=== PATIENT | female | born 1940 | race Caucasian/White ===

== ENCOUNTER → 2019-06-22 10:31 | Outpatient (BNVA) | payer MEDICARE, OTHER, SELFPAY | PROVIDERS: Family Provider Internal Medicine; PCP Internal Medicine; Visit Provider Internal Medicine Cardiovascular Disease | DX: I48.91 Unspecified atrial fibrillation (principal) | CPT/HCPCS: 85610 ==

== ENCOUNTER → 2019-07-20 10:01 | Outpatient (BNVA) | payer MEDICARE, OTHER, SELFPAY | PROVIDERS: Family Provider Internal Medicine; PCP Internal Medicine; Visit Provider Internal Medicine Cardiovascular Disease | DX: I48.91 Unspecified atrial fibrillation (principal) | CPT/HCPCS: 85610 ==

== ENCOUNTER → 2019-07-27 10:00 | Outpatient (BNVA) | payer MEDICARE, OTHER, SELFPAY | PROVIDERS: Family Provider Internal Medicine; PCP Internal Medicine; Visit Provider Internal Medicine Cardiovascular Disease | DX: I48.91 Unspecified atrial fibrillation (principal) | CPT/HCPCS: 85610 ==

== ENCOUNTER → 2019-08-03 08:56 | Outpatient (BNVA) | payer MEDICARE, OTHER, SELFPAY | PROVIDERS: Family Provider Internal Medicine; PCP Internal Medicine; Visit Provider Internal Medicine Cardiovascular Disease | DX: I48.91 Unspecified atrial fibrillation (principal) | CPT/HCPCS: 85610 ==

== ENCOUNTER 2019-08-16 09:59 | Outpatient (CLI) | payer MEDICARE, OTHER, SELFPAY ==
--- NOTE | 2019-08-16 10:12 | MM_ITS ---
WS: [id number] LEFT DIGITAL MAMMOGRAPHY WITH CAD CLINICAL INFORMATION: LT BREAST LUMP 6 MO F/U HISTORY: COMPARISON: November 29, 2018 TECHNIQUE: 4 views of the left breast were obtained. FINDINGS: Scattered fibroglandular densities of the left breast. Vascular calcification. A few stable punctate clustered calcifications. Biopsy clip not visualized likely more posterior in the breast. No new findings. ULTRASOUND BREAST LEFT TECHNIQUE: Ultrasound left breast focused area of concern. CLINICAL INFORMATION: LT BREAST LUMP 6 MO F/U COMPARISON: Prior ultrasound 12/08/2018 and 11/29/2018 FINDINGS: Ultrasound left breast at the 11:00 position. Again seen are a few small cystic lesions some with int ernal debris. Dense area of parenchymal shadowing measuring 7.9 x 6.8 mm similar to the prior examina tion which was the area previously biopsied with no evidence of malignancy on pathology. Findings are probably benign and recommend 6 month follow-up to confirm stability. MM/[place] [id number] IMPRESSION: BI-RADS: 3-Probably Benign FOLLOW UP: 6 Month Follow-up
== END 2019-08-16 10:00 | disposition home or self-care (01) ==
LOC: RADSHAW 10:00
PROVIDERS: Family Provider Internal Medicine; PCP Internal Medicine; Visit Provider Internal Medicine
DX: N63.22 Unspecified lump in the left breast, upper inner quadrant (principal)
CPT/HCPCS: 76642; 77065

== ENCOUNTER 2019-09-07 17:59 | Emergency (ER) | payer MEDICARE, OTHER, SELFPAY ==
[2019-09-07 18:02] VITALS: BP 194/75; PULSE 69; RESP 18; TEMP 37; O2SAT 96; BMI 38.9
--- NOTE | 2019-09-07 18:03 | ED_ITS ---
HPI - Ear Problem General: Chief complaint: Dizziness Stated complaint: R ear pain Time Seen by Provider: 09/07/19 18:03 Source: patient Mode of arrival: ambulatory Limitations: no limitations History of Present Illness: HPI Narrative: Patient presents today with some complaints of lightheadedness and feeling dizzy. Patient reports this is very similar to previous times where she has been told she had inner ear problems. Patient appears well. Patient reports one episode of nausea this morning. Patient reports some difficulty of walking. No facial drooping or abnormality is noted on initial exam. Equal strength and sensation is noted. Patient does take warfarin for a history of atrial fib. Patient does have a pacemaker. Review of Systems General: Reports: 10 or more systems reviewed and unremarkable except in HPI and below Neuro: Reports: dizziness PFS ED PFSH: Medical History (Updated 09/07/19 @ 19:55 by OMEGA Nichols) Aortic stenosis Atrial fibrillation CAD (coronary artery disease) Diabetes mellitus Dyslipidemia Essential hypertension History of TIAs Obesity Peripheral arterial disease Sick sinus syndrome Sleep apnea Warfarin anticoagulation Surgical History History of permanent cardiac pacemaker placement Social History Smoking and tobacco status: never smoked Lives independently: Yes Marital status: / Physical Exam Const: COMMON NORMALS: no apparent distress and oriented x3 GENERAL APPEARANCE: cooperative HENMT: COMMON NORMALS: normocephalic, external ears normal, EAC's normal and TM's normal bilaterally HEAD & SCALP: normal to inspection and normocephalic FACE & SINUS: normal facial exam NOSE: mucous membranes and turbinates abnormal erythematous GENERAL EAR: hearing not grossly impaired EXTERNAL EAR: Yes external ears normal EXTERNAL AUDITORY CANAL: EAC's normal TYMPANIC MEMBRANE: TM's normal bilaterally MOUTH: oral and palatal mucosa normal THROAT: posterior oropharynx abnormal erythema (mild) Eye: COMMON NORMALS: PERRL and EOMs intact bilaterally PUPIL: Yes PERRL Neck/C-Spine: COMMON NORMALS: full ROM and no lymphadenopathy Lymph: LYMPHATIC: no lymphedema noted Chest: COMMONS NORMALS: inspection of chest normal and palpation of chest normal Resp: COMMON NORMALS: normal respiratory effort and clear to auscultation bilaterally AUSCULTATION: clear to auscultation bilaterally Cardio: COMMON NORMALS: regular rate and regular rhythm RATE: regular rate RHYTHM: regular rhythm GI: COMMON NORMALS: normal to inspection, nondistended, normoactive bowel sounds and non-tender : COMMON NORMALS: Yes no CVA tenderness BLADDER/KIDNEY EXAM: Yes no CVA tenderness Back/Pelvis: COMMON NORMALS: no CVA tenderness and thoracic and lumbar spine normal to inspection Extremity: COMMON NORMALS: normal to inspection GENERAL: No edema Neuro: COMMON NORMALS: oriented x3, moves all extremities and no focal motor deficits Psych: COMMON NORMALS: mental status grossly normal and cooperative Skin: COMMON NORMALS: no rashes or lesions noted GENERAL SKIN EXAM: no rashes or lesions noted Course Vital Signs: Vital signs: Vital Signs Temperature 98.6 F 09/07/19 18:02 Pulse Rate 69 09/07/19 18:41 Respiratory Rate 18 09/07/19 18:02 Blood Pressure 169/75 09/07/19 18:41 Pulse Oximetry 96 09/07/19 18:02 MDM - Ear MDM Narrative: Medical decision making narrative: Patient comes in today with complaints of dizziness starting this morning. Patient states that she has had history of similar episodes in the past. Patient reports some right ear discomfort. Patient reports that it is been her inner ear. Exam notes bilateral tympanic membranes are intact and clear. Respirations are even lungs are clear to auscultation. Abdomen is soft and nontender. Heart rate is regular. Vital signs are normal except for some mild elevation in blood pressure. Differential diagnosis includes vestibular neuronitis, benign positional vertigo, ACS, arrhythmia, hyperglycemia, hyponatremia, CVA versus TIA. Laboratory values did note some mild hyponatremia at 130, blood sugar is elevated to 280, white blood cell count was elevated at 14. Review of record it is noted that patient routinely runs a slightly elevated white blood cell count. There is also noted that patient has underlying mild hyponatremia and does have diabetes. Urinalysis was notable for some mild ketones and blood but otherwise insignificant. Suspect patient has some mild vestibular neuronitis due to her recognizing as the symptoms are very similar to previous episodes. Reviewed exam with patient as she had felt better since coming to the ER and felt able to go home we will place her on some meclizine 12-1/2 mg as needed. Patient should continue with routine medications and treatment and follow-up with primary care. Patient reports understanding with understanding to return to the ER for worsening signs and symptoms. Lab Data: Labs: Lab Results 09/07/19 09/07/19 09/07/19 Range/Units 18:38 18:38 18:38 WBC 14.2 H (4.0-10.0) 10^3/ uL RBC 4.10 (4.1-5.3) 10^6/u L Hgb 12.5 (11.5-15.3) g/dL Hct 38.6 (37.0-47.0) % MCV 94.1 (81-99) fL MCH 30.5 (28.0-34.0) pg MCHC 32.4 (30.0-36.0) g/dL RDW 14.0 (12.1-15.1) % Plt Count 217 (130-400) 10^3/c mm MPV 9.9 (7.4-10.4) fL Neut % (Auto) 50.1 % Lymph % (Auto) 44.7 % Dixie % (Auto) 2.9 % Eos % (Auto) 1.1 % Baso % (Auto) 0.6 % Neut # (Auto) 7.1 (1.8-7.7) 10^3/u L Lymph # (Auto) 6.4 H (0.8-4.8) 10^3/u L Dixie # (Auto) 0.4 (0.2-0.9) 10^3/u L Eos # (Auto) 0.2 (0.0-0.8) 10^3/u L Baso # (Auto) 0.1 (0.0-0.1) 10^3/u L Nucleated RBC % (a uto) 0 % Nucleated RBCs # 0.0 /100WBC PT 24.80 H (10.5-13.3) SECO NDS INR 2.15 H (0.8-1.2) APTT 37.9 H (23.9-36.7) SECO NDS Sodium 130 L (136-145) mmol/L Potassium 4.4 (3.5-5.1) mmol/L Chloride 94 L (98-107) mmol/L Carbon Dioxide 24 (22-29) mmol/L Anion Gap 16.4 (5-19) BUN 16 (8-23) mg/dL Creatinine 0.7 (0.5-0.9) mg/dL Glucose 282 H (65-115) mg/dL Calculated Osmolal ity 277 L (285-295) mOsm/k g Calcium 9.6 (8.5-10.5) mg/dL Total Bilirubin 0.2 (0.15-1.2) mg/dL AST 42 H (0-32) U/L ALT 26 (0-33) U/L Alkaline Phosphata se 118 H (35-105) IU/L Troponin T Baselin e (0-10) ng/mL Total Protein 7.8 (6.6-8.7) g/dL Albumin 4.0 (3.5-5.2) g/dL Globulin 3.8 (1.3-4.6) g/dL Urine Color (Yellow) Urine Appearance (CLEAR) Urine pH (5-7) Ur Specific Gravit y (1.005-1.030) Urine Protein (Negative) Urine Glucose (UA) (Normal) Urine Ketones (Negative) Urine Blood (Negative) Urine Nitrate (Negative) Urine Bilirubin (NEGATIVE) Urine Urobilinogen (Negative) mg/dL Ur Leukocyte Nadja ase (Negative) Urine RBC (0-2) /hpf Urine WBC (0-5) /hpf Ur Squamous Epith Cells (0-5) Amorphous Sediment Urine Bacteria (NONE) Urine Mucus 09/07/19 09/07/19 Range/Units 18:38 18:46 WBC (4.0-10.0) 10^3/ uL RBC (4.1-5.3) 10^6/u L Hgb (11.5-15.3) g/dL Hct (37.0-47.0) % MCV (81-99) fL MCH (28.0-34.0) pg MCHC (30.0-36.0) g/dL RDW (12.1-15.1) % Plt Count (130-400) 10^3/c mm MPV (7.4-10.4) fL Neut % (Auto) % Lymph % (Auto) % Dixie % (Auto) % Eos % (Auto) % Baso % (Auto) % Neut # (Auto) (1.8-7.7) 10^3/u L Lymph # (Auto) (0.8-4.8) 10^3/u L Dixie # (Auto) (0.2-0.9) 10^3/u L Eos # (Auto) (0.0-0.8) 10^3/u L Baso # (Auto) (0.0-0.1) 10^3/u L Nucleated RBC % (a uto) % Nucleated RBCs # /100WBC PT (10.5-13.3) SECO NDS INR (0.8-1.2) APTT (23.9-36.7) SECO NDS Sodium (136-145) mmol/L Potassium (3.5-5.1) mmol/L Chloride (98-107) mmol/L Carbon Dioxide (22-29) mmol/L Anion Gap (5-19) BUN (8-23) mg/dL Creatinine (0.5-0.9) mg/dL Glucose (65-115) mg/dL Calculated Osmolal ity (285-295) mOsm/k g Calcium (8.5-10.5) mg/dL Total Bilirubin (0.15-1.2) mg/dL AST (0-32) U/L ALT (0-33) U/L Alkaline Phosphata se (35-105) IU/L Troponin T Baselin e 10 (0-10) ng/mL Total Protein (6.6-8.7) g/dL Albumin (3.5-5.2) g/dL Globulin (1.3-4.6) g/dL Urine Color Yellow (Yellow) Urine Appearance Sl hazy (CLEAR) Urine pH 6.5 (5-7) Ur Specific Gravit y 1.010 (1.005-1.030) Urine Protein 2+ H (Negative) Urine Glucose (UA) Norm (Normal) Urine Ketones 1+ H (Negative) Urine Blood 2+ H (Negative) Urine Nitrate Negative (Negative) Urine Bilirubin Neg (NEGATIVE) Urine Urobilinogen Norm (Negative) mg/dL Ur Leukocyte Nadja ase Negative (Negative) Urine RBC 5-10 H (0-2) /hpf Urine WBC 0-4 H (0-5) /hpf Ur Squamous Epith Cells 0-4 H (0-5) Amorphous Sediment 1+ Urine Bacteria 1+ H (NONE) Urine Mucus 1+ EKG Data^: EKG 1: Attestation: I personally reviewed and interpreted this EKG as follows: (1840, sinus rhythm, 69 rate and regular, no ST elevation, left anterior fasicular blo ck) Discharge Plan Discharge Patient Disposition: Home, Self-Care Clinical Impression: Acute vestibular neuronitis Qualifiers: Laterality: right Qualified Code(s): H81.21 - Vestibular neuronitis, right ear Condition: Stable Prescriptions: New meclizine 12.5 mg tablet 12.5 mg PO TID PRN (Reason: dizziness) Qty: 10 RF: 0 No Action allopurinol 300 mg tablet 300 mg PO DAILY RF: 0 glipizide 5 mg tablet 5 mg PO DAILY RF: 0 levothyroxine 75 mcg capsule 75 mcg PO DAILY RF: 0 lisinopril 20 mg tablet 20 mg PO BID RF: 0 metformin 1,000 mg tablet 1,000 mg PO BID RF: 0 metoprolol tartrate 50 mg tablet 50 mg PO BID RF: 0 montelukast 10 mg tablet 10 mg PO DAILY RF: 0 nitroglycerin [Nitrostat] 0.4 mg tablet, sublingual 0.4 mg SUBLINGUAL Q5M PRN (Reason: CHEST PAINS) RF: 0 omeprazole 40 mg capsule,delayed release(DR/EC) 40 mg PO BID RF: 0 simvastatin 10 mg tablet 10 mg PO DAILY RF: 0 alprazolam [Xanax] 0.25 mg tablet 0.25 mg PO TID PRN (Reason: Anxiety) RF: 0 warfarin 5 mg tablet 5 mg PO DAILY 90 Days Qty: 90 RF: 3 warfarin 4 mg tablet 4 mg PO QDAY 90 Days Qty: 90 RF: 3 amlodipine 10 mg tablet 10 mg PO DAILY 90 Days Qty: 90 RF: 3 Discharge Orders: Discharge Order (Routine); Ordered 09/07/19 Ordered By: Shay Hernández Referrals: Nehemiah Abraham DO [Primary Care Provider] - Discharge Diet: Usual diet Discharge Activity: Increase activity as tolerated Patient Instructions: Dizziness (ED) Activity Restrictions/Additional Instructions: Activity as tolerated Use cane or walker to assist with ambulation, in order to avoid falling Return to ER for worsening symptoms, high fever, or new concerns Follow-up with primary care in one week Coding Level of Care Code ED 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
--- NOTE | 2019-09-07 18:16 | CTR_ITS ---
PROCEDURE INFORMATION: Exam: CT Head Without Contrast Exam date and time: 09/07/2019 6:28 PM Age: 79 years old Clinical indication: Dizziness TECHNIQUE: Imaging protocol: Computed tomography of the head without contrast. Total DLP: 742.65 mGy-cm Radiation optimization: All CT scans at this facility use at least one of these dose optimization techniques: automated exposure control; mA and/or kV adjustment per patient size (includes targeted exams where dose is matched to clinical indication); or iterative reconstruction. COMPARISON: CT head wo con* [id number] 04/19/2019 7:57 PM FINDINGS: Brain: There is mild cortical atrophy. Low-density changes are present in the white matter regions in keeping with nonspecific small vessel chronic ischemic change. Midline shift: There is no shift of midline structures. Ventricles: Normal. No ventriculomegaly. Bones/joints: Unremarkable. No acute fracture. Sinuses: There is some mild opacification of ethmoid air cells. Mastoid air cells: Visualized mastoid air cells are well aerated. Soft tissues: Unremarkable. CT/CT head wo con* [id number] IMPRESSION: No acute intracranial finding Radiation Dose CTDIVOL = (mGy): DLP = 742.65 (mGy-cm)
--- NOTE | 2019-09-07 18:17 | XR_ITS ---
WS: [id number] PORTABLE CHEST HISTORY: dizziness COMPARISON: 04/19/2019 Dual lead LEFT subclavian pacer. Benign granuloma LEFT lower lobe. No pneumonia. No pleural effusion or pneumothorax. Cardiac size: Normal. Mediastinum/Aorta: Mild atherosclerosis aorta. No osseous abnormality seen. XR/XR chest 1V portable [id number] IMPRESSION: 1. Stable chest with no acute cardiopulmonary disease. 2. Partially calcified aorta.
--- NOTE | 2019-09-07 18:17 | ECG_ITS ---
Measurements Intervals Scott Rate: 69 P: 55 CA: 192 QRS: -46 QRSD: 150 T: 34 QT: 425 QTc: 456 SINUS RHYTHM RIGHT BUNDLE BRANCH BLOCK [120+ ms QRS DURATION, UPRIGHT V1, 40+ ms S IN I I/aVL/V4/V5/V6] LEFT ANTERIOR FASCICULAR BLOCK [QRS AXIS <= -45, QR IN I, RS IN II] MODERATE VOLTAGE CRITERIA FOR LVH, CONSIDER NORMAL VARIANT [MEETS CRITERIA IN ONE OF: R(aVL), S(V1), R(V5), R(V5/V6)+S(V1)] Compared to ECG 04/19/2019 21:56:41 No significant changes Electronically Signed On 09-08-2019 18:12:39 CDT by Silvia Aleman M.D. [id number]
[2019-09-07 18:41] VITALS: BP 169/75; BP 175/73; BP 195/74; PULSE 69; PULSE 74; PULSE 76
[2019-09-07 18:59] LABS: Basophils # 0.1 10^3/uL (0.0-0.1); Basophils % 0.6 %; Eosinophils # 0.2 10^3/uL (0.0-0.8); Eosinophils % 1.1 %; Hematocrit 38.6 % (37.0-47.0); Hemoglobin 12.5 g/dL (11.5-15.3); Lymphocytes # 6.4 10^3/uL (0.8-4.8); Lymphocytes % 44.7 %; Mean Corpuscular HGB Conc 32.4 g/dL (30.0-36.0); Mean Corpuscular Hemoglobin 30.5 pg (28.0-34.0); Mean Corpuscular Volume 94.1 fL (81-99); Mean Platelet Volume 9.9 fL (7.4-10.4); Monocytes # 0.4 10^3/uL (0.2-0.9); Monocytes % 2.9 %; Neutrophils # 7.1 10^3/uL (1.8-7.7); Neutrophils % 50.1 %; Nucleated Red Blood Cells % 0 %; Platelet Count 217 10^3/cmm (130-400); White Blood Count 14.2 10^3/uL (4.0-10.0)
[2019-09-07 19:12] LABS: INR 2.15 (0.8-1.2); Partial Thromboplastin Time 37.9 SECONDS (23.9-36.7)
[2019-09-07 19:16] LABS: Alanine Aminotransferase 26 U/L (0-33); Alkaline Phosphatase 118 IU/L (35-105); Anion Gap 16.4 (5-19); Aspartate Amino Transferase 42 U/L (0-32); Blood Urea Nitrogen 16 mg/dL (8-23); Calcium 9.6 mg/dL (8.5-10.5); Carbon Dioxide 24 mmol/L (22-29); Chloride 94 mmol/L (98-107); Globulin 3.8 g/dL (1.3-4.6); Glucose 282 mg/dL (65-115); Osmolality Calculated 277 mOsm/kg (285-295); Potassium 4.4 mmol/L (3.5-5.1); Sodium 130 mmol/L (136-145); Total Bilirubin 0.2 mg/dL (0.15-1.2); Total Protein 7.8 g/dL (6.6-8.7); Troponin(5th) Baseline 10 ng/mL (0-10)
[2019-09-07 19:46] LABS: Urine Appearance SL Hazy (CLEAR); Urine Color Yellow (Yellow); pH Urine 6.5 (5-7)
[2019-09-07 19:47] LABS: Add Urine Microscopic? YES; Bilirubin Urine Neg (NEGATIVE); Blood Urine 2+ (Negative); Glucose Urine UA Norm (Normal); Ketones Urine 1+ (Negative); Leukocyte Esterase Urine Negative (Negative); Nitrate Urine Negative (Negative); Protein Urine 2+ (Negative); Urobilinogen Urine Norm (Negative)
[2019-09-07 19:48] LABS: Add Urine Culture? No; Amorphous Sediment Urine 1+; Bacteria Urine 1+; Mucus Urine 1+; Squamous Epithelial Cell Urine 0-4 (0-5); WBC Urine 0-4 /hpf (0-5)
[2019-09-07] MEDS: meclizine 25 mg tablet PO (19:58)
[2019-09-07 20:01] VITALS: BP 173/64; PULSE 65; O2SAT 97
== END 2019-09-07 20:01 | disposition home or self-care (01) ==
PROVIDERS: Emergency Provider Nurse Practitioner Family; Family Provider Internal Medicine; PCP Internal Medicine
DX: H81.21 Vestibular neuronitis, right ear (principal); E11.9 Type 2 diabetes mellitus without complications; E78.5 Hyperlipidemia, unspecified; I48.91 Unspecified atrial fibrillation; I10 Essential (primary) hypertension; I35.0 Nonrheumatic aortic (valve) stenosis; I25.10 Atherosclerotic heart disease of native coronary artery without angina pectoris; E66.9 Obesity, unspecified; Z79.01 Long term (current) use of anticoagulants; Z95.0 Presence of cardiac pacemaker
CPT/HCPCS: 12345; 36415; 70450; 71045; 80053; 81001; 84484; 85025; 85610; 85730; 93005; 99283; J8597

== ENCOUNTER → 2019-11-07 13:53 | Outpatient (BNVA) | payer MEDICARE, OTHER, SELFPAY | PROVIDERS: Family Provider Internal Medicine; PCP Internal Medicine; Visit Provider Internal Medicine Cardiovascular Disease | DX: I10 Essential (primary) hypertension (principal); I35.0 Nonrheumatic aortic (valve) stenosis; G47.30 Sleep apnea, unspecified; E78.5 Hyperlipidemia, unspecified; E11.9 Type 2 diabetes mellitus without complications; Z79.01 Long term (current) use of anticoagulants; E66.9 Obesity, unspecified; I25.10 Atherosclerotic heart disease of native coronary artery without angina pectoris; Z95.0 Presence of cardiac pacemaker; I48.91 Unspecified atrial fibrillation | CPT/HCPCS: 85610 ==

== ENCOUNTER 2019-11-14 11:54 | Outpatient (CLI) | payer MEDICARE, OTHER, SELFPAY ==
[2019-11-14 12:28] LABS: Basophils # 0.1 10^3/uL (0.0-0.1); Basophils % 0.8 %; Eosinophils # 0.4 10^3/uL (0.0-0.8); Eosinophils % 3.2 %; Hematocrit 37.9 % (37.0-47.0); Hemoglobin 12.1 g/dL (11.5-15.3); Lymphocytes # 7.3 10^3/uL (0.8-4.8); Lymphocytes % 53.4 %; Mean Corpuscular HGB Conc 31.9 g/dL (30.0-36.0); Mean Corpuscular Hemoglobin 29.8 pg (28.0-34.0); Mean Corpuscular Volume 93.3 fL (81-99); Mean Platelet Volume 10.4 fL (7.4-10.4); Monocytes # 0.7 10^3/uL (0.2-0.9); Monocytes % 5.2 %; Nucleated Red Blood Cells % 0 %; Platelet Count 215 10^3/cmm (130-400); Red Blood Count 4.06 10^6/uL (4.1-5.3); Red Cell Distribution Width 13.6 % (12.1-15.1); White Blood Count 13.6 10^3/uL (4.0-10.0)
[2019-11-14 12:58] LABS: Alanine Aminotransferase 28 U/L (0-33); Alkaline Phosphatase 111 IU/L (35-105); Anion Gap 18.6 (5-19); Aspartate Amino Transferase 44 U/L (0-32); Blood Urea Nitrogen 14 mg/dL (8-23); Calcium 9.7 mg/dL (8.5-10.5); Carbon Dioxide 24 mmol/L (22-29); Chloride 97 mmol/L (98-107); Globulin 3.8 g/dL (1.3-4.6); Glucose 255 mg/dL (65-115); Lactate Dehydrogenase 224 U/L (135-214); Osmolality Calculated 285 mOsm/kg (285-295); Potassium 4.6 mmol/L (3.5-5.1); Sodium 135 mmol/L (136-145); Total Bilirubin 0.2 mg/dL (0.15-1.2); Total Protein 7.8 g/dL (6.6-8.7)
--- NOTE | 2019-11-14 14:34 | ONC FU_ITS ---
Dr. Guy follow up note Patient: Britt Stockton Unit #: [id number]: 1940 Dicatated By: Ameya Guy M.D.Date of Visit:Nov 14, 2019 Onc Med Follow-up/Prog Note History of Present Illness: Mrs. Britt Stockton, is a 79 -year-old female with history of early-stage chronic lymphocytic leukemia, initially diagnosed on 02/24/2006 at that time it showed there was a subpopulation of monoclonal B cell, about 20% of total cellularity, positive for CD19, CD5/CD20, CD23 and lambda restriction. CD10 was absent. Patient was followed by Dr. Gutierrez in hematology clinic and last time she was seen on 09/21 2010 at that time his impression was stable , early-stage CLL with her white blood count was around 14,000, hemoglobin 11.1 g and platelet count was 252,000 at that time she was treated with iron supplement and multivitamin with stable hemoglobin and active surveillance as far as CLL is concern. As per patient, at that time she was told to come on as-needed basis. And now her primary care doctor wanted her to come here. Came for follow-up, denies any specific complaints, no fever or chills, no nausea or vomiting, no night sweats, no weight loss, no peripheral lymphadenopathy, no recurrent fever. Medications: Allopurinol 1 Tablet (of 300 mg) Oral daily, ALPRAZolam 1 Tablet (of 0.25 mg) Oral at bedtime, amLODIPine Besylate 1 Tablet (of 5 mg) Oral daily, Coumadin 1 Tablet (of 5 mg) Oral daily, Ferrous Sulfate 1 Tablet (of 325 (65 fe) mg) Oral t.i.d., Levothyroxine Sodium 1 Tablet (of 75 mcg) Oral daily, Lisinopril 1 Tablet (of 20 mg) Oral b.i.d., metFORMIN HCl 1 Tablet (of 1000 mg) Oral b.i.d., Metoprolol Tartrate 1 Tablet (of 50 mg) Oral b.i.d., Omeprazole 1 Tablet (of 40 mg) Tablet, enteric coated Oral b.i.d., Simvastatin 1 Tablet (of 10 mg) Oral at bedtime Allergies: Aspirin, Codeine Sulfate, Iodinated Contrast Dye, Iodine, and Tylenol. Review of Systems: Constitutional - Appetite is fair and weight is stable. No fever, chills, hot flashes, or night sweats. Energy level is poor, ENMT - Positive for sinus congestion/drainage. No mouth sores. No sore throat or difficulty swallowing, Hematologic/Lymphatic - No abnormal bruising or bleeding, Respiratory - Positive for shortness of breath. No cough. No pleuritic pain or hemoptysis, Cardiovascular - No angina pain. Positive for palpitations, Gastrointestinal - No nausea or vomiting. No heartburn or acid reflux. No diarrhea or constipation. No blood in the stool. Positive for black stools (Pt states she takes iron supplements), Genitourinary (F) - No dysuria or hematuria. No urinary frequency. No urgency. Positive for incontinence, Musculoskeletal - Positive for back pain, Neurologic - No headache or dizziness. No numbness/paresthesias or other focal neurologic symptoms, Psychiatric - No anxiety or depression. No insomnia. Vital Signs: Performed on Nov 14, 2019 14:11 Height - 63.00 in Weight - 181.0 lbs (HIGH) BSA - 1.85 sq.m BMI - 32.06 (HIGH) Temperature - 98.1 F (LOW) Pulse - 87 /min Respiration - 24 /min BP - 154/71 mm(hg) (HIGH) O2 Sat - 97 % Pain - 0 Performance Status: 0 - Fully active, able to carry on all predisease activities without restrictions. (ECOG) Physical Examination: ENMT - No mouth sores, no thrush, no jaundice, Hematologic/Lymphatic - No evidence of peripheral lymphadenopathy, Respiratory - Lungs are clear, Cardiovascular - Regular rate and rhythm of heart, Abdomen - Soft, bowel sounds present, no rebound tenderness, Extremities - No visible edema or rash. Lab/Imaging: Test performed on Nov 14, 2019 12:10 LDH (Total) 224 U/L Sodium 135 mmol/L Potassium 4.6 mmol/L Chloride 97 mmol/L CO2 24 mmol/L Anion Gap 18.6 BUN 14 mg/dL Creatinine 0.7 mg/dL Cr Clearance (Est) 83.0800 mL/min Glucose 255 mg/dL Calcium 9.7 mg/dL Protein, Total 7.8 g/dL Albumin 4.0 g/dL Globulin 3.8 g/dL Bilirubin, Total 0.2 mg/dL ALT (SGPT) 28 U/L AST (SGOT) 44 U/L Alkaline Phosphatase 111 IU/L WBC 13.6 10 3/uL RBC 4.06 10 6/uL HGB 12.1 g/dL HCT 37.9 % MCV 93.3 fL MCH 29.8 pg MCHC 31.9 g/dL RDW 13.6 % Platelet Count 215 10 3/cmm MPV 10.4 fL Neutrophils 5.0 10 3/uL Lymphocytes 7.3 10 3/uL Monocytes 0.7 10 3/uL Eosinophils 0.4 10 3/uL Basophils 0.1 10 3/uL Neutrophil % 37.0 % Lymphocyte % 53.4 % Monocyte % 5.2 % Eosinophil % 3.2 % Basophils % 0.8 % NRBC 0.0 /100WBC NRBC % 0 % Impression: Early-stage chronic lymphocytic leukemia, diagnosed on 02/24/2006 with flow cytometry which showed monoclonal B-cell, approximately 20% of total cellularity which showed CD19, CD5/CD20, CD23 positive and lambda restriction. And CD10 was absent. There was no increase of myeloblasts. Finding were consistent with CLL/small lymphocytic lymphoma. Her last visit to hematology clinic was on 07/24/2010 at that time her white blood count was 14,000, hemoglobin 11.1 g and platelet count was 252,000. Plan: Discussed with patient regarding her labs white blood count 13.6 hemoglobin 12.1 hematocrit 27.9 platelets 215,000 absolute lymphocytes count 7300 CMP within normal limits except glucose 255 LDH 254 Clinically, patient is doing well with no B symptoms or signs suggestive of disease progression, her follow-up labs shows stable mild leukocytosis/lymphocytosis with a normal hemoglobin and platelet count and mildly elevated LDH. Patient was advised to monitor her blood sugar and follow-up diabetic diet. She will return to clinic in 6 months with CBCs CMP and LDH Signed By: Ameya Guy M.D. <<Signature on File>>
== END 2019-11-14 11:55 | disposition home or self-care (01) ==
LOC: ONCMED 11:57
PROVIDERS: PCP Internal Medicine; Visit Provider Internal Medicine Hematology & Oncology
DX: C91.10 Chronic lymphocytic leukemia of B-cell type not having achieved remission (principal); I35.0 Nonrheumatic aortic (valve) stenosis; G47.30 Sleep apnea, unspecified; E78.5 Hyperlipidemia, unspecified; E11.9 Type 2 diabetes mellitus without complications; E66.9 Obesity, unspecified; I25.10 Atherosclerotic heart disease of native coronary artery without angina pectoris; I10 Essential (primary) hypertension; I48.91 Unspecified atrial fibrillation; Z79.01 Long term (current) use of anticoagulants; Z95.0 Presence of cardiac pacemaker
CPT/HCPCS: 36415; 80053; 83615; 85025; 85610; G0463

== ENCOUNTER → 2019-11-21 09:37 | Outpatient (BNVA) | payer MEDICARE, OTHER, SELFPAY | PROVIDERS: PCP Internal Medicine; Visit Provider Internal Medicine Cardiovascular Disease | DX: I48.91 Unspecified atrial fibrillation (principal) | CPT/HCPCS: 85610 ==

== ENCOUNTER → 2019-12-05 09:16 | Outpatient (BNVA) | payer MEDICARE, OTHER, SELFPAY | PROVIDERS: PCP Internal Medicine; Visit Provider Internal Medicine Cardiovascular Disease | DX: I48.91 Unspecified atrial fibrillation (principal) | CPT/HCPCS: 85610 ==

== ENCOUNTER → 2019-12-07 13:16 | Outpatient (BNVA) | payer MEDICARE, OTHER, SELFPAY | PROVIDERS: PCP Internal Medicine; Visit Provider Specialist | DX: H81.10 Benign paroxysmal vertigo, unspecified ear (principal); I99.8 Other disorder of circulatory system | CPT/HCPCS: 99214 ==

== ENCOUNTER → 2020-01-02 09:09 | Outpatient (BNVA) | payer MEDICARE, OTHER, SELFPAY | PROVIDERS: PCP Internal Medicine; Visit Provider Internal Medicine Cardiovascular Disease | DX: I48.91 Unspecified atrial fibrillation (principal); Z79.01 Long term (current) use of anticoagulants | CPT/HCPCS: 85610 ==

== ENCOUNTER 2020-01-25 11:57 | Observation (INO) | payer MEDICARE, OTHER, SELFPAY ==
[2020-01-25] VITALS (11 sets, daily range): BP systolic 122–172; BP diastolic 64–89; PULSE 60–111; RESP 12–26; TEMP 36.7–36.8; O2SAT 93–99; BMI 31.8
--- NOTE | 2020-01-25 12:15 | XR_ITS ---
WS: [id number] PORTABLE CHEST HISTORY: Chest pain COMPARISON: 09/07/2019 Dual lead LEFT subclavian pacer. Calcified benign nodule LEFT lower lung field. Otherwise lungs are clear. No pleural effusion or pneu mothorax. Cardiac size: Normal. Mediastinum/Aorta: Mild atherosclerosis aorta. No osseous abnormality seen. XR/XR chest 1V portable [id number] IMPRESSION: Unremarkable portable chest.
--- NOTE | 2020-01-25 12:16 | ECG_ITS ---
[facility] Test Date: 2020-01-25 Pat Name: Britt Stockton Department: Room: Gender: Female Program Technician: : 1940 Requested By: Jen Harper Order Number: [id number] Barbie MD: Silvia Aleman M.D. Measurements Intervals Bradley Rate: 64 P: 61 WV: 201 QRS: -47 QRSD: 143 T: 31 QT: 422 QTc: 435 Interpretive Statements SINUS RHYTHM RIGHT BUNDLE BRANCH BLOCK [120+ ms QRS DURATION, UPRIGHT V1, 40+ ms S IN I/aVL/V4/V5/V6] LEFT ANTERIOR FASCICULAR BLOCK [QRS AXIS <= -45, QR IN I, RS IN II] POSSIBLE LEFT VENTRICULAR HYPERTROPHY [VOLTAGE CRITERIA PLUS LAE OR QRS WIDENING] INTERPRETATION BASED ON A DEFAULT AGE OF 40 YEARS Compared to ECG 09/07/2019 18:40:36 No significant changes Electronically Signed On 01-25-2020 20:20:55 CDT by Silvia Aleman M.D. [id number]
--- NOTE | 2020-01-25 12:19 | ED_ITS ---
HPI - Chest Pain General: Chief Complaint: Chest Pain Stated Complaint: CP Time Seen by Provider: 01/25/20 12:08 Source: patient and family Mode of arrival: ambulatory Limitations: no limitations History of Present Illness: HPI narrative: Ms. Stockton is a nice 79-year-old female who comes in complaining of chest pain described as sharp and a heaviness in her chest for the past 5 days. Today symptoms have been more prolonged and intense. She complains of radiation up to her head and her left shoulder. She has associated shortness of breath but denies any diaphoresis, nausea vomiting or increased pain with range of motion of her shoulder. She denies any pain with taking a deep breath. The patient has nitroglycerin at home prescribed to her by Dr. Robles, her manager emergency but when she took this it did not help the pain. The patient states that she has worsening symptoms when she exerts herself but otherwise denies any other exacerbating or alleviating factors. Of note the patient has history of aortic stenosis, coronary artery disease and hypertension. Patient's last heart cath with is in 2010 and she believes she passed a stress test in September of last year. Associated symptoms: Reports dyspnea; Deny abdominal pain, diaphoresis, fever(s), nausea, palpitations, syncope or vo miting Review of Systems Const: Denies: fever(s), chills, body aches, fatigue, malaise or diaphoresis Eyes: Denies: change in vision, blurry vision, photophobia, eye discomfort, eye discharge or eye redness ENMT: Denies: throat pain, odynophagia, hoarseness, swelling of lips/tongue, ear or mastoid pain, ear discharge, change in hearing or nasal discharge Card: Reports: chest pain; Denies: palpitations, irregular heart rhythm, edema, lightheadedness, syncope, pre-syncope, dyspnea on exertion or orthopnea Resp: Reports: dyspnea; Denies: productive cough, non-productive cough, wheezing, hemoptysis or chest congestion GI: Denies: abdominal pain, nausea, vomiting, hematemesis, coffee ground emesis, heartburn, diarrhea, constipation, GI cramping, hematochezia or melena : Denies: flank pain, dysuria, urinary frequency, urinary urgency or hematuria Musc: Denies: neck pain, back pain, extremity pain, extremity swelling, joint pain, joint swelling, joint redness, joint warmth or joint stiffness Skin/Breast: Denies: rash, pruritus, erythema or skin tenderness Neuro: Denies: headache(s), numbness in extremities, weakness in extremities, sensory changes, lack of coordination, difficulty walking, dizziness, vertigo, confusion, Slurred speech present or seizure-like activity Jackson/Lymph: Denies: easy bruising, easy bleeding, petechiae, purpura or enlarged lymph nodes All/Imm: Denies: urticaria, throat swelling, tongue swelling, facial swelling or acute wheezing PFSH ED PFSH: Medical History Aortic stenosis Atrial fibrillation CAD (coronary artery disease) Diabetes mellitus Dyslipidemia Essential hypertension History of TIAs Obesity Peripheral arterial disease Sick sinus syndrome Sleep apnea Warfarin anticoagulation Surgical History History of permanent cardiac pacemaker placement Family History Father CAD (coronary artery disease) Diabetes Stroke Myocardial infarction Mother CAD (coronary artery disease) Diabetes Hypertension Stroke Sister Diabetes Cancer COLON Social History Smoking and tobacco status: never smoked Alcohol intake: never Lives independently: Yes Marital status: / History of recent travel: No Physical Exam Const: COMMON NORMALS: no acute distress, patient oriented x3, no limitations, healthy appearing and well nourished GENERAL APPEARANCE: cooperative, well kempt and well developed HENMT: COMMON NORMALS: normocephalic, atraumatic, external ears normal, EAC's normal and Normal external nose present HEAD & SCALP: normal to inspection, normocephalic and atraumatic FACE & SINUS: normal facial exam and face symmetric NOSE: Normal external nose present and Normal nares present EXTERNAL EAR: Yes external ears normal EXTERNAL AUDITORY CANAL: EAC's normal MOUTH: Normal oral and palatal mucosa present, lip normal and tongue normal Eye: COMMON NORMALS: Equal, round and reactive pupils present and conjunctivae normal GENERAL EYE: appearance normal, both eyes and all related structures ALIGNMENT: Yes alignment normal PERIORBITAL: periorbital findings normal EYELID: eyelids normal CONJUNCTIVA: Yes conjunctivae normal SCLERA: sclerae normal PUPIL: Yes Equal, round and reactive pupils present Neck/C-Spine: COMMON NORMALS: full ROM, no lymphadenopathy, supple, no meningeal signs and no JVD GENERAL: Yes normal visual inspection and Yes trachea midline Chest: COMMONS NORMALS: normal inspection of the chest and normal palpation of entire chest wall Resp: COMMON NORMALS: normal respiratory effort, No retractions, No use of accessory muscles and clear to auscultation bilaterally EFFORT & INSPECTION: Yes able to speak in complete sentences and Yes symmetric chest movement AUSCULTATION: clear to auscultation bilaterally, no crackles, no rales, no rhonchi and no wheezes Cardio: COMMON NORMALS: no JVD, regular rate, regular rhythm, S1 normal heart sound present and S2 normal heart sound present RATE: regular rate RHYTHM: regular rhythm HEART SOUNDS: S1 normal heart sound present, S2 normal heart sound present, no click, no gallops, no murmurs, no rubs and abnormal split S2 GI: COMMON NORMALS: Soft to palpation and No hepatosplenomegaly present PALPATION: Yes Soft to palpation, No Tenderness to palpation present (GI), No Guarding due to palpation present (GI), No Rigid due to palpation, Yes No hepatosplenomegaly present, No Hernia present, No Palpable mass present and No Pulsatile mass present : COMMON NORMALS: Yes no CVA tenderness BLADDER/KIDNEY EXAM: Yes no CVA tenderness EXTERNAL FEMALE EXAM: No Hernia present Back/Pelvis: COMMON NORMALS: no CVA tenderness, thoracic and lumbar spine normal to inspection, no thoracic nor lumbar tenderness and thoraco-lumbar ROM normal Extremity: COMMON NORMALS: normal to inspection, full ROM, capillary refill normal, no joint enlargement, no clubbing, cyanosis or edema and no calf tenderness Neuro: COMMON NORMALS: patient oriented x3, CN's II-XII intact bilaterally, moves all extremities, no focal motor deficits and no sensory deficits noted MENINGEAL SIGNS: Yes no meningeal signs SPEECH: speech normal Psych: COMMON NORMALS: mental status grossly normal, Normal thought process present, cooperative, normal affect, speech normal and activity/motor behavior normal APPEARANCE: Yes well kempt SPEECH: Yes normal speech THOUGHT PROCESS: Normal thought process present Skin: COMMON NORMALS: no rashes or lesions noted, turgor normal, no jaundice, no petechiae and no mottling GENERAL SKIN EXAM: no rashes or lesions noted and turgor normal Course Vital Signs: Vital signs: Vital Signs Temperature 98.3 F 01/25/20 12:08 Pulse Rate 62 01/25/20 13:32 Respiratory Rate 26 H 01/25/20 13:32 Blood Pressure 169/89 01/25/20 13:32 Pulse Oximetry 99 01/25/20 13:37 MDM - Chest Pain MDM Narrative: Medical decision making narrative: Patient's chest discomfort was relieved here with for morphine. Her chest pain then recurred and then was relieved again with another 4 morphine. Reviewing the patient's chart she had a heart cath in 2010 which showed a 40% LAD lesion. This is not been followed up with a stress test last year. The patient's symptoms are somewhat atypical but also somewhat concerning. First troponin is not tremendously remarkable. I have reviewed the case in full with Dr. Bradford he will come to evaluate the patient for possible stress test. Patient's heart score was 6. Lab Data: Attestation: I reviewed the patient's lab results. Labs: Lab Results 01/25/20 01/25/20 01/25/20 Range/Units 12:28 12:28 12:28 WBC 13.0 H (4.0-10.0) 10^3/ uL RBC 4.09 L (4.1-5.3) 10^6/u L Hgb 12.6 (11.5-15.3) g/dL Hct 40.1 (37.0-47.0) % MCV 98.0 (81-99) fL MCH 30.8 (28.0-34.0) pg MCHC 31.4 (30.0-36.0) g/dL RDW 14.2 (12.1-15.1) % Plt Count 201 (130-400) 10^3/c mm MPV 10.6 H (7.4-10.4) fL Neut % (Auto) 37.1 % Lymph % (Auto) 50.9 % [place] % (Auto) 6.2 % Eos % (Auto) 4.0 % Baso % (Auto) 1.2 % Neut # (Auto) 4.82 (1.8-7.7) 10^3/u L Lymph # (Auto) 6.6 H (0.8-4.8) 10^3/u L [place] # (Auto) 0.8 (0.2-0.9) 10^3/u L Eos # (Auto) 0.5 (0.0-0.8) 10^3/u L Baso # (Auto) 0.2 H (0.0-0.1) 10^3/u L Nucleated RBC % (a uto) 0 % Nucleated RBCs # 0.0 /100WBC PT 36.50 H (12.1-14.9) SECO NDS INR 3.50 H (0.8-1.2) Sodium 133 L (136-145) mmol/L Potassium 5.0 (3.5-5.1) mmol/L Chloride 100 (98-107) mmol/L Carbon Dioxide 24 (22-29) mmol/L Anion Gap 14.0 (5-19) BUN 12 (8-23) mg/dL Creatinine 0.8 (0.5-0.9) mg/dL GFR Calculation Not Reportable Glucose 256 H (65-115) mg/dL Calculated Osmolal ity 281 L (285-295) mOsm/k g Calcium 9.3 (8.5-10.5) mg/dL Magnesium 1.2 L (1.7-2.3) mg/dL Total Bilirubin 0.2 (0.15-1.2) mg/dL AST 59 H (0-32) U/L ALT 32 (0-33) U/L Alkaline Phosphata se 127 H (35-105) IU/L Troponin T Baselin e (0-10) ng/L NT-Pro-B Natriuret Pep 160 (0-450) pg/mL Total Protein 7.6 (6.6-8.7) g/dL Albumin 3.9 (3.5-5.2) g/dL Globulin 3.7 (1.3-4.6) g/dL Lipase 27 (13-60) U/L Amorphous Sediment 01/25/20 01/25/20 Range/Units 12:28 13:31 WBC (4.0-10.0) 10^3/ uL RBC (4.1-5.3) 10^6/u L Hgb (11.5-15.3) g/dL Hct (37.0-47.0) % MCV (81-99) fL MCH (28.0-34.0) pg MCHC (30.0-36.0) g/dL RDW (12.1-15.1) % Plt Count (130-400) 10^3/c mm MPV (7.4-10.4) fL Neut % (Auto) % Lymph % (Auto) % [place] % (Auto) % Eos % (Auto) % Baso % (Auto) % Neut # (Auto) (1.8-7.7) 10^3/u L Lymph # (Auto) (0.8-4.8) 10^3/u L [place] # (Auto) (0.2-0.9) 10^3/u L Eos # (Auto) (0.0-0.8) 10^3/u L Baso # (Auto) (0.0-0.1) 10^3/u L Nucleated RBC % (a uto) % Nucleated RBCs # /100WBC PT (12.1-14.9) SECO NDS INR (0.8-1.2) Sodium (136-145) mmol/L Potassium (3.5-5.1) mmol/L Chloride (98-107) mmol/L Carbon Dioxide (22-29) mmol/L Anion Gap (5-19) BUN (8-23) mg/dL Creatinine (0.5-0.9) mg/dL GFR Calculation Glucose (65-115) mg/dL Calculated Osmolal ity (285-295) mOsm/k g Calcium (8.5-10.5) mg/dL Magnesium (1.7-2.3) mg/dL Total Bilirubin (0.15-1.2) mg/dL AST (0-32) U/L ALT (0-33) U/L Alkaline Phosphata se (35-105) IU/L Troponin T Baselin e 12 H (0-10) ng/L NT-Pro-B Natriuret Pep (0-450) pg/mL Total Protein (6.6-8.7) g/dL Albumin (3.5-5.2) g/dL Globulin (1.3-4.6) g/dL Lipase (13-60) U/L Amorphous Sediment Not Reportable Imaging Data^: CXR: Attestation: I personally reviewed and interpreted this imaging study as follows: My impression: No acute cardiopulmonary findings. EKG Data^: EKG 1: Attestation: I personally reviewed and interpreted this EKG as follows: EKG interpretation date: 01/25/20 EKG interpretation time: 12:14 Interpretation: Normal sinus rhythm at 64 beats a minute, right bundle branch block, left anterior fascicular block, LVH, nonspecific ST and T wave changes, similar to previous Discharge Plan Discharge Patient Disposition: Placed in Observation Clinical Impression: Chest pain Qualifiers: Chest pain type: unspecified Qualified Code(s): R07.9 - Chest pain, unspecified CAD (coronary artery disease) Qualifiers: Coronary Disease-Associated Artery/Lesion type: iroquois artery [place] vs. 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
[2020-01-25] MEDS: ondansetron 2 mg/ML SDV 2 mL 4 MG IVP (12:35)
[2020-01-25] MEDS: morphine 4 mg/mL SDV 1 mL IVP ×2 (12:36→13:23)
[2020-01-25] MEDS: sodium chloride 0.9% 1,000 ML 100 ML IV (12:40)
[2020-01-25 12:58] LABS: Basophils # 0.2 10^3/uL (0.0-0.1); Basophils % 1.2 %; Eosinophils # 0.5 10^3/uL (0.0-0.8); Hematocrit 40.1 % (37.0-47.0); Hemoglobin 12.6 g/dL (11.5-15.3); Lymphocytes # 6.6 10^3/uL (0.8-4.8); Lymphocytes % 50.9 %; Mean Corpuscular HGB Conc 31.4 g/dL (30.0-36.0); Mean Corpuscular Hemoglobin 30.8 pg (28.0-34.0); Mean Platelet Volume 10.6 fL (7.4-10.4); Monocytes # 0.8 10^3/uL (0.2-0.9); Monocytes % 6.2 %; Neutrophils # 4.82 10^3/uL (1.8-7.7); Neutrophils % 37.1 %; Nucleated Red Blood Cells % 0 %; Platelet Count 201 10^3/cmm (130-400); Red Blood Count 4.09 10^6/uL (4.1-5.3); Red Cell Distribution Width 14.2 % (12.1-15.1)
[2020-01-25 13:16] LABS: Troponin(5th) Baseline 12 ng/L (0-10)
[2020-01-25 13:25] LABS: Alanine Aminotransferase 32 U/L (0-33); Albumin Level 3.9 g/dL (3.5-5.2); Alkaline Phosphatase 127 IU/L (35-105); Aspartate Amino Transferase 59 U/L (0-32); Blood Urea Nitrogen 12 mg/dL (8-23); Calcium 9.3 mg/dL (8.5-10.5); Carbon Dioxide 24 mmol/L (22-29); Chloride 100 mmol/L (98-107); Globulin 3.7 g/dL (1.3-4.6); Glucose 256 mg/dL (65-115); Lipase 27 U/L (13-60); Magnesium 1.2 mg/dL (1.7-2.3); NT Pro B Type Natriuretic Pept 160 pg/mL (0-450); Osmolality Calculated 281 mOsm/kg (285-295); Sodium 133 mmol/L (136-145); Total Bilirubin 0.2 mg/dL (0.15-1.2); Total Protein 7.6 g/dL (6.6-8.7)
[2020-01-25 14:09] LABS: Bilirubin Urine Neg (NEGATIVE); Blood Urine Neg (Negative); Glucose Urine UA Norm (Normal); Ketones Urine Negative (Negative); Leukocyte Esterase Urine Negative (Negative); Nitrate Urine Negative (Negative); Protein Urine Neg (Negative); Urine Appearance Clear (CLEAR); Urine Color Straw (Yellow); Urobilinogen Urine Norm (Negative); pH Urine 5 (5-7)
[2020-01-25 14:13] LABS: Add Urine Culture? No; Bacteria Urine TRACE; WBC Urine 0-4 /hpf (0-5)
--- NOTE | 2020-01-25 14:16 | ECG_ITS ---
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 Measurements Intervals [place] Rate: 60 P: 122 MS: 195 QRS: -44 QRSD: 138 T: 11 QT: 432 QTc: 432 Interpretive Statements ELECTRONIC ATRIAL PACEMAKER LEFT AXIS DEVIATION [QRS AXIS < -30] RIGHT BUNDLE BRANCH BLOCK [120+ ms QRS DURATION, UPRIGHT V1, 40+ ms S IN I/aVL/V4/V5/V6] MINIMAL VOLTAGE CRITERIA FOR LVH, CONSIDER NORMAL VARIANT [MEETS CRITERIA IN ONE OF: R(aVL), S(V1), R(V5), R(V5/V6)+S(V1)] Compared to ECG 01/25/2020 12:14:55 Left-axis deviation now present Sinus rhythm no longer present Left anterior fascicular block no longer present Electronically Signed On 01-25-2020 20:27:31 CDT by Silvia Aleman M.D. [id number]
--- NOTE | 2020-01-25 15:03 | P.HP_ITS ---
Providers/Chief Complaint Primary Care Provider: Nehemiah Abraham DO Chief Complaint: CP History of Present Illness Britt Stockton is a 79 year old female that presents to the emergency department with complaints of chest pain. She reports she got chest pain this morning when she got upset over issues with her TV and how much it would cost to have somebody come look at it. She states she had chest pressure, mainly left side. Her symptoms then get somewhat hazy and she reports that she had sharp chest pain as well, headache, and abdominal pain. She reports her pressure type feeling lasted for many hours and eventually went away here at the hospital. She states nitroglycerin helped it somewhat. She had had chest pain about a month ago, and several days ago. This is not usually exertional. It will usually occur when she gets upset. No shortness of breath. Last cardiac evaluation, September 2018 with negative nuclear stress testing. Has had an angiogram but many years in the past. No personal COVID exposure, or contacts with COVID. Review of Systems General: Reports: 10 or more systems reviewed and unremarkable except in HPI and below Const: Denies: fever(s) or chills Eyes: Denies: change in vision ENMT: Denies: throat pain Card: Reports: chest pain Resp: Denies: dyspnea GI: Denies: abdominal pain Musc: Denies: neck pain Skin/Breast: Denies: rash Psych: Denies: anxiety Endo: Denies: polyuria Jackson/Lymph: Denies: easy bruising All/Imm: Denies: urticaria Medications/Allergies Home Medications Medication Instructions Recorded Confirmed Last Taken Type allopurinol 300 mg tablet 300 mg PO DAILY 08/04/19 01/25/20 01/24/20 History alprazolam 0.25 mg tablet 0.25 mg PO QPM PRN 08/04/19 01/25/20 01/24/20 History levothyroxine 75 mcg capsule 75 mcg PO DAILY 08/04/19 01/25/20 01/25/20 History lisinopril 20 mg tablet 20 mg PO BID 08/04/19 01/25/20 01/25/20 History metformin 1,000 mg tablet 1,000 mg PO BID 08/04/19 01/25/20 01/25/20 History metoprolol tartrate 50 mg tablet 50 mg PO BID 08/04/19 01/25/2020 History montelukast 10 mg tablet 10 mg PO DAILY 08/04/19 01/25/20 01/25/20 History nitroglycerin 0.4 mg sublingual 0.4 mg SUBLINGUAL Q5M PRN 08/04/19 01/25/20 Unknown History tablet omeprazole 40 mg capsule,delayed 40 mg PO BID 08/04/19 01/25/20 01/25/20 History release amlodipine 10 mg tablet 10 mg PO DAILY 90 Days #90 tab 08/25/19 01/25/20 01/25/20 Rx meclizine 12.5 mg PO TID PRN #10 tab 09/07/19 01/25/20 Unknown Rx simvastatin 10 mg tablet 10 mg PO DAILY 90 Days #90 tab 10/05/19 01/25/20 01/24/20 Rx calcium polycarbophil [Fiber 625 mg PO DAILY PRN 01/25/20 01/25/20 Unknown History Laxative (ca polycarbo)] glipizide 10 mg PO DAILY 01/25/20 01/25/20 01/25/20 History warfarin 4 mg PO QPM 01/25/20 01/25/20 01/24/20 History Allergies Allergy/AdvReac Type Severity Reaction Status Date / Time adhesive tape Allergy Unknown Unknown Verified 01/24/20 11:30 aspirin Allergy Unknown Unknown Verified 01/24/20 11:30 codeine Allergy Unknown Unknown Verified 01/24/20 11:30 diltiazem Allergy Unknown Unknown Verified 01/24/20 11:30 iodine Allergy Unknown Unknown Verified 01/24/20 11:30 nifedipine Allergy Unknown Unknown Verified 01/24/20 11:30 propoxyphene [From Darvon] Allergy Unknown Unknown Verified 01/24/20 11:30 PFSH Acute PFSH: Medical History (Updated 01/25/20 @ 15:09 by Baltazar Bradford MD) Aortic stenosis Atrial fibrillation CAD (coronary artery disease) CHF (congestive heart failure) Diastolic Chronic kidney disease, stage II (mild) Diabetes mellitus Dyslipidemia Essential hypertension GERD (gastroesophageal reflux disease) Gout History of TIAs Hypothyroidism Obesity Peripheral arterial disease Sick sinus syndrome Sleep apnea Warfarin anticoagulation Surgical History (Updated 01/25/20 @ 15:09 by Baltazar Bradford MD) History of permanent cardiac pacemaker placement S/P appendectomy S/P cataract extraction S/P cholecystectomy S/P hysterectomy S/P oophorectomy Family History Father CAD (coronary artery disease) Diabetes Stroke Myocardial infarction Mother CAD (coronary artery disease) Diabetes Hypertension Stroke Sister Diabetes Cancer COLON Social History Smoking and tobacco status: never smoked Alcohol intake: never Lives independently: Yes Marital status: / History of recent travel: No Vitals/I&O/Wt Last Vital Signs Temp 98.3 F 01/25/20 12:08 Pulse 62 01/25/20 13:32 Resp 26 H 01/25/20 13:32 BP 169/89 01/25/20 13:32 Pulse Ox 99 01/25/20 13:37 Weight last 48 hrs Weight 81.647 kg Physical Exam Narrative: EXAM NARRATIVE: General exam is a white female, conversant, denying any current chest pain. HEENT: Pupils equally round. Oropharynx clear. Neck is supple no lymphadenopathy or thyromegaly Cardiovascular regular rate and rhythm, 2/6 systolic murmur Lungs clear no wheezing or crackles Abdomen is soft obese nontender. No obvious organomegaly was deferred Extremities no cyanosis clubbing. Cap refill brisk. Trace edema. Skin no rash Neuro no focal deficits Data : 01/25/20 12:28 01/25/20 12:28 Other data: INR elevated at 3.5 Magnesium low at 1.2 AST 59, alk phos 127 Troponin XII at baseline, 11.7 on repeat BNP 160 Lipase 27 Urinalysis 0-4 whites, 5-10 squamous Chest x-ray no infiltrate A&P Assessment and plan (1) Chest pain: Known past history of nonobstructive coronary disease. Initial troponin and repeat not concerning EKG reviewed and nonischemic, without any acute changes. Last nuclear stress test September 2018 nonischemic Last echocardiogram April 2019 very poor quality, EF 60% Observation Serial troponins Cardiology consultation Based on description of last echocardiogram it may not be useful to do another 1 Check TSH Status: Acute Qualifiers: Chest pain type: unspecified Qualified Code(s): R07.9 - Chest pain, unspecified Additional A&P Information History of coronary disease. Continue statin, beta-osmar. She has allergy to aspirin. Hypertension, continue home meds Hypothyroidism, check TSH Type 2 diabetes, sliding scale insulin History of atrial fibrillation, status post pacemaker. On Coumadin for anticoagulation. INR supratherapeutic. Hold and repeat INR tomorrow Past history of aortic stenosis. Last echocardiogram was not suggestive of this but aortic valve was very poorly seen Multiple other medical problems as outlined in past medical history Full code INR supratherapeutic, no other DVT prophylaxis needed. Will place SCDs in case INR drifts down. Attestations Medical Necessity Statement*: Will need less than 2 midnight stay for evaluation of chest discomfort. 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
[2020-01-25] MEDS: magnesium sulfate premix 2 GM/50 ML PIGGYBACK IV (15:59)
--- NOTE | 2020-01-25 16:23 | ECG_ITS ---
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 Interpretive Statements NAME OF STUDY: LEXISCAN SESTAMIBI STRESS TEST INDICATION: Chest Pain PROCEDURE: At the baseline, the EKG revealed a paced V sensed rhythm. Right bundle branch block pattern left anterior fascicular block. The baseline blood pressure was 142/79 mm Hg with a heart rate of 60 beats/min. Lexiscan was infused over a period of 20 seconds. A total of 0.4 milligrams of Lexiscan was infused. The stress phase was continued for a total of 5 minutes. Heart rate at the end of the stress phase was 64 with a blood pressure 159/71. The EKG at the peak infusion revealed normal sinus rhythm with poor R wave progression. Right bundle branch block. Left anterior fascicle block. No significant ST-T changes. Sestamibi was injected 20 seconds after the Lexiscan infusion. Blood pressure at the end of the recovery phase was 158/70 with a heart rate of 63 per minute. CONCLUSION: 1. No significant EKG changes with the LexiScan infusion 2. No LexiScan induced chest pain or cardiac arrhythmia 3. Normal blood pressure and heart rate response 4. Sestamibi/sestamibi perfusion scan pending; see separate report. Electronically Signed On 01-26-2020 22:32:54 CDT by Lefty Doyle M.D. [id number]
--- NOTE | 2020-01-25 16:23 | PC.NURSE ---
Patient received from ER
[2020-01-25 18:09] LABS: Glucose Point of Care 147 mg/dL (70-110)
[2020-01-25] MEDS: lisinopril 20 mg Tablet PO (18:27)
[2020-01-25] MEDS: pantoprazole DR 40 mg Tablet PO (18:27)
[2020-01-25] MEDS: metoprolol tartrate 50 mg Tablet PO (18:29)
--- NOTE | 2020-01-25 18:57 | PM.CONSULT ---
Providers/Reason For Consult Consulting Physican/Specialty*: NISHA Doyle MD/cardiology Reason for Consult*: Patient with history of coronary artery disease and atrial fibrillation, presented with chest pain Attending Physician: Baltazar Bradford MD Primary Care Provider: Nehemiah Abraham DO History of Present Illness History of Present Illness Britt Stockton is a 79 year old female, is admitted to the hospital through the emergency room, where she presented with complaints of a prolonged episode of chest pain. This patient is known to have chronic intermittent atrial fibrillation, aortic valve stenosis/regurgitation, essential benign hypertension, dyslipidemia, permanent pacer implantation for symptomatic bradycardia, sleep apnea and possible peripheral arterial disease. According to the patient, she has been in her baseline state of health up until 8:00 this morning when she started having the chest pain. Apparently she had some aggravation with the TV people at home. She had problems with the remote control and for that reason, she called the TV providers. She got upset since the people were not helping her. She described as a pressure-like pain in the left inframammary region, radiating to the shoulder. The pain was moderate to severe intensity. She took 1 sublingual nitro. The pain got better for a while and then again came back. She had intermittent episodes of chest pains. For that reason, she decided come to the hospital. Last Thursday, she had more of a similar pain while she was getting [facility] She took one sublingual nitroglycerin tablet which gave her relief of the pain. According the patient the pain may have lasted for an hour or so. She had some associated shortness of breath. No nausea or vomiting. No sweating, dizziness or syncopal episodes. She has no fever, chills or cough. No other specific complaints. She has been compliant with the medication. She had a cardiac authorization in [address] Robles. At that time, she was found to have 40% lesion in the left and descending artery ostium. She had a myocardial perfusion imaging in September 2018. At that time, she was found to have no evidence of ischemia. Review of Systems Narrative: CONSTITUTIONAL: No fever or chills. EYES: No blurring of vision or other visual disturbances lately. ENT: No hoarseness of voice, auditory disturbances or sore throat. CARDIOVASCULAR: As mentioned above. RESPIRATORY: No significant cough. History of sleep apnea GASTROINTESTINAL: No hematemesis or melena. History of GERD GENITOURINARY: No dysuria or hematuria. INTEGUMENTARY: No skin rashes or history of skin cancer. NEURO: No transient ischemic attacks or amaurosis. PSYCHIATRIC: No history of psychosis or major depression. HEMATOLOGIC: No bleeding disorders or significant anemia. ENDOCRINE: No history of polyuria or polydipsia. MUSCULOSKELETAL: History of degenerative joint disease ALLERGY/IMMUNOLOGY: As mentioned above. Meds/Allergies Home Medications and Allergies Home Medications Medication Instructions Recorded Confirmed Last Taken Type allopurinol 300 mg tablet 300 mg PO DAILY 08/04/19 01/25/20 01/24/20 History alprazolam 0.25 mg tablet 0.25 mg PO QPM PRN 08/04/19 01/25/20 01/24/20 History levothyroxine 75 mcg capsule 75 mcg PO DAILY 08/04/19 01/25/20 01/25/20 History lisinopril 20 mg tablet 20 mg PO BID 08/04/19 01/25/20 01/25/20 History metformin 1,000 mg tablet 1,000 mg PO BID 08/04/19 01/25/20 01/25/20 History metoprolol tartrate 50 mg tablet 50 mg PO BID 08/04/19 01/25/20 01/25/20 History montelukast 10 mg tablet 10 mg PO DAILY 08/04/19 01/25/20 01/25/20 History nitroglycerin 0.4 mg sublingual 0.4 mg SUBLINGUAL Q5M PRN 08/04/19 01/25/20 Unknown History tablet omeprazole 40 mg capsule,delayed 40 mg PO BID 08/04/19 01/25/20 01/25/20 History release amlodipine 10 mg tablet 10 mg PO DAILY 90 Days #90 tab 08/25/19 01/25/20 01/25/20 Rx meclizine 12.5 mg PO TID PRN #10 tab 09/07/19 01/25/20 Unknown Rx simvastatin 10 mg tablet 10 mg PO DAILY 90 Days #90 tab 10/05/19 01/25/20 01/24/20 Rx calcium polycarbophil [Fiber 625 mg PO DAILY PRN 01/25/20 01/25/20 Unknown History Laxative (ca polycarbo)] glipizide 10 mg PO DAILY 01/25/20 01/25/20 01/25/20 History warfarin 4 mg PO QPM 01/25/20 01/25/20 01/24/20 History Allergies Allergy/AdvReac Type Severity Reaction Status Date / Time adhesive tape Allergy Unknown Unknown Verified 01/24/20 11:30 aspirin Allergy Unknown Unknown Verified 01/24/20 11:30 codeine Allergy Unknown Unknown Verified 01/24/20 11:30 diltiazem Allergy Unknown Unknown Verified 01/24/20 11:30 iodine Allergy Unknown Unknown Verified 01/24/20 11:30 nifedipine Allergy Unknown Unknown Verified 01/24/20 11:30 propoxyphene [From Darvon] Allergy Unknown Unknown Verified 01/24/20 11:30 Current Medications Current Medications Generic Name Dose Route Start Last Admin Trade Name Freq PRN Reason Stop Dose Admin Insulin Aspart 0 unit 01/25/20 18:00 01/25/20 18:28 Novolog SUBCUT 2 unit WM&BEDTIME KAI Administration Protocol Lisinopril 20 mg 01/25/20 18:00 01/25/20 18:27 Prinivil PO 20 mg BID KAI Administration Metoprolol Tartrate 50 mg 01/25/20 18:00 01/25/20 18:29 Lopressor PO 50 mg BID KAI Administration Pantoprazole Sodium 40 mg 01/25/20 18:00 01/25/20 18:27 Protonix PO 40 mg BID KAI Administration PFSH Acute PFSH: Medical History (Updated 01/25/20 @ 19:21 by Lefty Doyle MD) Aortic stenosis Atherosclerotic heart disease of [place] coronary artery with other forms of angina pectoris Atrial fibrillation CAD (coronary artery disease) CHF (congestive heart failure) Diastolic Chronic kidney disease, stage II (mild) Diabetes mellitus Dyslipidemia Essential hypertension GERD (gastroesophageal reflux disease) Gout History of TIAs Hypothyroidism Obesity Peripheral arterial disease Sick sinus syndrome Sleep apnea Warfarin anticoagulation Surgical History (Updated 01/25/20 @ 15:09 by Baltazar Bradford MD) History of permanent cardiac pacemaker placement S/P appendectomy S/P cataract extraction S/P cholecystectomy S/P hysterectomy S/P oophorectomy Family History Father CAD (coronary artery disease) Diabetes Stroke Myocardial infarction Mother CAD (coronary artery disease) Diabetes Hypertension Stroke Sister Diabetes Cancer COLON Social History Smoking and tobacco status: never smoked Alcohol intake: never Lives independently: Yes Marital status: / History of recent travel: No Vitals/I&O/Wt Last Vital Signs Temp 98.0 F 01/25/20 16:23 Pulse 68 01/25/20 16:23 Resp 23 H 01/25/20 16:23 BP 139/81 01/25/20 16:23 Pulse Ox 97 01/25/20 16:23 01/25/20 01/25/20 01/25/20 06:59 14:59 22:59 Intake Total 240 / 240 Balance 240 / 240 Weight last 48 hrs Weight 180 lb Physical Exam Narrative: EXAM NARRATIVE: GENERAL: The patient is alert and oriented times three. Not in any acute distress. HEENT: No significant pallor, icterus or lymphadenopathy. The pupils are symmetrical . Oral cavity: There are no mucous membrane lesions. Funduscopic examination: Fundus is not visualized NECK: Trachea appears to be central. No masses noted. No JVD or thyromegaly appreciated. No carotid bruit. RESPIRATORY: Chest is symmetrical. No intercostals muscle retraction or any accessory muscle activation. There is no chest wall tenderness. Breath sounds are heard bilaterally. No rales or rhonchi heard. No evidence of any consolidation. BREASTS: Deferred. HEART: The PMI is in the 5th left intercostals space just inside the midclavicular line. No palpable precordial events. S1 and S2 are normal. No S3 or S4 heard. No pericardial rub or any click heard. Ejection still murmur grade 3/6 in the aortic area. Early diastolic murmur grade 2/6 in the second aortic area. No pericardial rub. ABDOMEN: No vessel pulsations or distention. No tenderness. No organomegaly appreciated. No abdominal bruit. Bowel sounds are normally heard. : Deferred. RECTAL: Deferred. LYMPHATIC: No lymphadenopathy noted in the neck or groin. EXTREMITIES: No edema or cyanosis. No clubbing. The pulses are symmetrical bilaterally. The dorsalis pedis and posterior pedal pulses are palpable but weak bilaterally. MUSCULOSKELETAL: No acute joint deformities or swelling SKIN: There are no significant scars or skin rash noted. NEUROPSYCHIATRIC: The patient is alert and oriented x3. Appears to be in a good mood. The higher functions are grossly within normal limits. No tremors or rigidity noted. A&P Assessment and plan (1) Chest pain: The patient's chest pain is atypical. However the possibility of coronary ischemia causing this is a consideration, in view of her history. Once a myocardial infarction is ruled out, it may be appropriate to go ahead with the myocardial perfusion imaging Status: Acute Qualifiers: Chest pain type: unspecified Qualified Code(s): R07.9 - Chest pain, unspecified (2) Atherosclerotic heart disease of [place] coronary artery with other forms of angina pectoris: Patient was found to have around 40% stenosis of the ostium of the left and descending artery. Possibility of progression of the disease is a consideration. It may be appropriate to go ahead and do a repeat myocardial perfusion imaging, to reevaluate the coronary status. Status: Acute (3) Aortic stenosis: Echocardiogram in April of last year. Apparently the study was suboptimal quality. Aortic valve Doppler study was suboptimal. Need to have a follow-up evaluation Status: Acute Qualifiers: Cardiac valve disease etiology: nonrheumatic Qualified Code(s): I35.0 - Nonrheumatic aortic (valve) stenosis (4) Sleep apnea: Patient may continue on the current treatment Status: Acute Qualifiers: Sleep apnea type: obstructive Qualified Code(s): G47.33 - Obstructive sleep apnea (adult) (pediatric) (5) Dyslipidemia: Continue on the current treatment Status: Acute (6) Atrial fibrillation: May continue the oral anticoagulation Status: Acute Qualifiers: Atrial fibrillation type: permanent Qualified Code(s): I48.21 - Permanent atrial fibrillation (7) Essential hypertension: Currently the blood pressure is a stage II. We will try to optimize the antihypertensive medications. Status: Acute Additional A&P Information Based on the patient's clinical progress and the results of the above, further recommendations will be made. Thank you for the opportunity to evaluate this patient make this recommendation Coding Level of Care Code Acute Supervising Editor Trailer for Landry Leger Diagnoses Chest pain R07.9 Chest pain type: unspecified Atherosclerotic heart disease of [place] coronary artery with other forms of angina pectoris I25.118 Aortic stenosis I35.0 Cardiac valve disease etiology: nonrheumatic Sleep apnea G47.33 Sleep apnea type: obstructive Dyslipidemia E78.5 Atrial fibrillation I48.21 Atrial fibrillation type: permanent Essential hypertension I10
[2020-01-25 19:23] LABS: Troponin 5 6HR 10.45 ng/L (0-10)
[2020-01-25 19:33] LABS: Troponin 5 6HR Delta -1.55 ng/L (0-12)
[2020-01-25 21:40] LABS: Glucose Point of Care 293 mg/dL (70-110)
--- NOTE | 2020-01-25 23:13 | PC.NURSE ---
PT IS RESTING IN BED. PT DENIES PAIN AT THIS TIME. PT SBA TO BATHROOM. WILL CONTINUE TO MONITOR.
[2020-01-26] VITALS (8 sets, daily range): BP systolic 137–186; BP diastolic 70–79; PULSE 60–68; RESP 13–16; TEMP 36.7; O2SAT 91–95
[2020-01-26 04:42] LABS: Basophils # 0.1 10^3/uL (0.0-0.1); Basophils % 1.1 %; Eosinophils # 0.4 10^3/uL (0.0-0.8); Eosinophils % 4.3 %; Hematocrit 35.5 % (37.0-47.0); Hemoglobin 11.5 g/dL (11.5-15.3); Lymphocytes # 5.5 10^3/uL (0.8-4.8); Lymphocytes % 55.7 %; Mean Corpuscular HGB Conc 32.4 g/dL (30.0-36.0); Mean Corpuscular Hemoglobin 30.7 pg (28.0-34.0); Mean Corpuscular Volume 94.7 fL (81-99); Mean Platelet Volume 11.3 fL (7.4-10.4); Monocytes # 0.7 10^3/uL (0.2-0.9); Monocytes % 6.7 %; Neutrophils # 3.08 10^3/uL (1.8-7.7); Neutrophils % 31.6 %; Nucleated Red Blood Cells % 0 %; Platelet Count 147 10^3/cmm (130-400); Red Blood Count 3.75 10^6/uL (4.1-5.3); White Blood Count 9.8 10^3/uL (4.0-10.0)
[2020-01-26 04:45] LABS: INR 3.37 (0.8-1.2)
[2020-01-26 05:01] LABS: Blood Urea Nitrogen 12 mg/dL (8-23); Carbon Dioxide 25 mmol/L (22-29); Chloride 102 mmol/L (98-107); Glucose 189 mg/dL (65-115); Osmolality Calculated 285 mOsm/kg (285-295); Sodium 137 mmol/L (136-145)
[2020-01-26 05:03] LABS: Anion Gap 14.8 (5-19); Potassium 4.8 mmol/L (3.5-5.1)
[2020-01-26 05:04] LABS: Magnesium 1.4 mg/dL (1.7-2.3)
[2020-01-26 06:32] LABS: Glucose Point of Care 169 mg/dL (70-110)
--- NOTE | 2020-01-26 07:00 | PC.NURSE ---
PT DENIES PAIN AT THIS TIME. PT AMBULATED TO BATHROOM SEVERAL TIMES THROUGHOUT THE NIGHT. PT STATES THAT THEY ARE READY TO GET STRESS TEST DONE AND GET BACK HOME. WILL CONTINUE TO MONITOR.
[2020-01-26] MEDS: magnesium sulfate premix 2 GM/50 ML PIGGYBACK IV (07:12)
--- NOTE | 2020-01-26 07:15 | PC.NURSE ---
Upon initial rounding patient resting in bed with eyes closed, even non labored breathing. Assessment performed. No needs identified at this time.
[2020-01-26] MEDS: lisinopril 20 mg Tablet PO (08:29)
[2020-01-26] MEDS: atorvastatin 40 mg Tablet 20 MG PO (08:29)
[2020-01-26] MEDS: levothyroxine 150 mcg Tablet 75 MCG PO (08:29)
[2020-01-26] MEDS: amlodipine 10 mg Tablet PO (08:30)
[2020-01-26] MEDS: allopurinol 300 mg Tablet PO (08:30)
[2020-01-26] MEDS: metoprolol tartrate 50 mg Tablet PO (08:31)
[2020-01-26] MEDS: pantoprazole DR 40 mg Tablet PO (08:31)
--- NOTE | 2020-01-26 09:00 | PC.NURSE ---
Patient to stress test. Patient stable at this time.
--- NOTE | 2020-01-26 09:34 | SUR.PREOP ---
Patient reports no pain or discomfort prior to the start of the procedure.
[2020-01-26] MEDS: regadenoson 0.4 Mg/5 ml Syringe IVP (09:35)
[2020-01-26 11:37] LABS: Glucose Point of Care 253 mg/dL (70-110)
--- NOTE | 2020-01-26 13:06 | P.PN_ITS ---
Subjective Subjective: Interval history: The patient has not had any chest pain or palpitations. No dizziness or syncopal episodes. She underwent a myocardial perfusion imaging today. She was found to have no significant coronary ischemia Medications: Medication Review Details: Current Medications Acetaminophen (Tylenol) 650 mg PO Q6H PRN PRN Reason: Mild/Mod Pain Or Temp >/= 101 Allopurinol (Zyloprim) 300 mg PO DAILY [facility] Last Admin: 01/26/20 08:30 Dose: 300 mg Documented by: Aminophylline (Aminophylline) 25 mg IVP Q2M PRN PRN Reason: see dose instructions Stop: 01/27/20 07:05 Amlodipine Besylate (Norvasc) 10 mg PO DAILY [facility] Last Admin: 01/26/20 08:30 Dose: 10 mg Documented by: Atorvastatin Calcium (Lipitor) 20 mg PO DAILY [facility] Last Admin: 01/26/20 08:29 Dose: 20 mg Documented by: Dextrose (D50w) 25 ml IVP ONCE PRN; Protocol PRN Reason: hypoglycemia protocol Dextrose (D50w) 50 ml IVP PRN PRN; Protocol PRN Reason: hypoglycemia protocol Glucagon (Glucagen) 1 mg IM ONCE PRN; Protocol PRN Reason: Adult Acute Hypoglycemia Prot. Insulin Aspart (Novolog) 0 unit SUBCUT WM&BEDTIME [facility]; Protocol Last Admin: 01/26/20 11:45 Dose: 6 unit Documented by: Isosorbide Mononitrate (Imdur) 30 mg PO DAILY [facility] Levothyroxine Sodium (Synthroid) 75 mcg PO DAILY [facility] Last Admin: 01/26/20 08:29 Dose: 75 mcg Documented by: Lisinopril (Prinivil) 20 mg PO BID [facility] Last Admin: 01/26/20 08:29 Dose: 20 mg Documented by: Metoprolol Tartrate (Lopressor) 50 mg PO BID [facility] Last Admin: 01/26/20 08:31 Dose: 50 mg Documented by: Morphine Sulfate (Morphine) 4 mg IVP Q4H PRN PRN Reason: SEVERE PAIN Nitroglycerin (Nitrostat) 0.4 mg SUBLINGUAL Q5M PRN PRN Reason: CHEST PAIN Stop: 01/27/20 07:05 Ondansetron HCl (Zofran) 4 mg IVP Q6H PRN PRN Reason: NAUSEA AND VOMITING Ondansetron HCl (Zofran) 4 mg IVP Q2M PRN PRN Reason: NAUSEA Pantoprazole Sodium (Protonix) 40 mg PO BID [facility] Last Admin: 01/26/20 08:31 Dose: 40 mg Documented by: Vitals/I&O/Wt Last Vital Signs Temp 98.0 F 01/26/20 11:30 Pulse 64 01/26/20 12:46 Resp 16 01/26/20 11:30 BP 164/74 01/26/20 12:55 Pulse Ox 95 01/26/20 12:46 01/25/20 01/26/20 01/26/20 22:59 06:59 14:59 Intake Total 790 / 790 120 / 910 770 / 770 Balance 790 / 790 120 / 910 770 / 770 Weight last 48 hrs Weight 180 lb Physical Exam Narrative: EXAM NARRATIVE: GENERAL: The patient is alert and oriented times three. Not in any acute distress. HEENT: No significant pallor, icterus or lymphadenopathy. The pupils are symmetrical . Oral cavity: There are no mucous membrane lesions. Funduscopic examination: Fundus is not visualized NECK: Trachea appears to be central. No masses noted. No JVD or thyromegaly appreciated. No carotid bruit. RESPIRATORY: Chest is symmetrical. No intercostals muscle retraction or any accessory muscle activation. There is no chest wall tenderness. Breath sounds are heard bilaterally. No rales or rhonchi heard. No evidence of any consolidation. BREASTS: Deferred. HEART: The PMI is in the 5th left intercostals space just inside the midclavicular line. No palpable precordial events. S1 and S2 are normal. No S3 or S4 heard. No pericardial rub or any click heard. Ejection still murmur grade 3/6 in the aortic area. Early diastolic murmur grade 2/6 in the second aortic area. No pericardial rub. ABDOMEN: No vessel pulsations or distention. No tenderness. No organomegaly appreciated. No abdominal bruit. Bowel sounds are normally heard. : Deferred. RECTAL: Deferred. LYMPHATIC: No lymphadenopathy noted in the neck or groin. EXTREMITIES: No edema or cyanosis. No clubbing. The pulses are symmetrical bila terally. The dorsalis pedis and posterior pedal pulses are palpable but weak bilaterally. MUSCULOSKELETAL: No acute joint deformities or swelling SKIN: There are no significant scars or skin rash noted. NEUROPSYCHIATRIC: The patient is alert and oriented x3. Appears to be in a good mood. The higher functions are grossly within normal limits. No tremors or rigidity noted. Data : 01/26/20 03:30 01/26/20 03:30 Other Labs: Laboratory Last Values WBC 9.8 10^3/uL (4.0-10.0) 01/26/20 03:30 RBC 3.75 10^6/uL (4.1-5.3) L 01/26/20 03:30 Hgb 11.5 g/dL (11.5-15.3) 01/26/20 03:30 Hct 35.5 % (37.0-47.0) L 01/26/20 03:30 MCV 94.7 fL (81-99) 01/26/20 03:30 MCH 30.7 pg (28.0-34.0) 01/26/20 03:30 MCHC 32.4 g/dL (30.0-36.0) 01/26/20 03:30 RDW 14.0 % (12.1-15.1) 01/26/20 03:30 Plt Count 147 10^3/cmm (130-400) 01/26/20 03:30 MPV 11.3 fL (7.4-10.4) H 01/26/20 03:30 Neut % (Auto) 31.6 % 01/26/20 03:30 Lymph % (Auto) 55.7 % 01/26/20 03:30 [place] % (Auto) 6.7 % 01/26/20 03:30 Eos % (Auto) 4.3 % 01/26/20 03:30 Baso % (Auto) 1.1 % 01/26/20 03:30 Neut # (Auto) 3.08 10^3/uL (1.8-7.7) 01/26/20 03:30 Lymph # (Auto) 5.5 10^3/uL (0.8-4.8) H 01/26/20 03:30 [place] # (Auto) 0.7 10^3/uL (0.2-0.9) 01/26/20 03:30 Eos # (Auto) 0.4 10^3/uL (0.0-0.8) 01/26/20 03:30 Baso # (Auto) 0.1 10^3/uL (0.0-0.1) 01/26/20 03:30 Nucleated RBC % (auto) 0 % 01/26/20 03:30 Nucleated RBCs # 0.0 /100WBC 01/26/20 03:30 PT 35.40 SECONDS (12.1-14.9) H 01/26/20 03:30 INR 3.37 (0.8-1.2) H 01/26/20 03:30 Sodium 137 mmol/L (136-145) 01/26/20 03:30 Potassium 4.8 mmol/L (3.5-5.1) 01/26/20 03:30 Chloride 102 mmol/L (98-107) 01/26/20 03:30 Carbon Dioxide 25 mmol/L (22-29) 01/26/20 03:30 Anion Gap 14.8 (5-19) 01/26/20 03:30 BUN 12 mg/dL (8-23) 01/26/20 03:30 Creatinine 0.7 mg/dL (0.5-0.9) 01/26/20 03:30 GFR Calculation Not Reportable 01/26/20 03:30 Glucose 189 mg/dL (65-115) H 01/26/20 03:30 POC Glucose 253 mg/dL (70-110) 01/26/20 11:32 Calculated Osmolality 285 mOsm/kg (285-295) 01/26/20 03:30 Calcium 9.0 mg/dL (8.5-10.5) 01/26/20 03:30 Magnesium 1.4 mg/dL (1.7-2.3) L 01/26/20 03:30 Total Bilirubin 0.2 mg/dL (0.15-1.2) 01/25/20 12:28 AST 59 U/L (0-32) H 01/25/20 12:28 ALT 32 U/L (0-33) 01/25/20 12:28 Alkaline Phosphatase 127 IU/L (35-105) H 01/25/20 12:28 Troponin T Baseline 12 ng/L (0-10) H 01/25/20 12:28 Troponin T 120 Minute 11.70 ng/L (0-10) H 01/25/20 14:38 Delta Troponin T -0.30 ABS# (0-10) L 01/25/20 14:38 Troponin T Hi Sens 6Hr 10.45 ng/L (0-10) H 01/25/20 18:55 Troponin T Hi Sens 6Hr Delta -1.55 ng/L (0-12) L 01/25/20 18:55 NT-Pro-B Natriuret Pep 160 pg/mL (0-450) 01/25/20 12:28 Total Protein 7.6 g/dL (6.6-8.7) 01/25/20 12:28 Albumin 3.9 g/dL (3.5-5.2) 01/25/20 12:28 Globulin 3.7 g/dL (1.3-4.6) 01/25/20 12:28 Lipase 27 U/L (13-60) 01/25/20 12:28 TSH 1.30 uIU/mL (0.27-4.20) 01/25/20 12:28 Urine Color Straw (Yellow) 01/25/20 13:31 Urine Appearance Clear (CLEAR) 01/25/20 13:31 Urine pH 5 (5-7) 01/25/20 13:31 Ur Specific [place] 1.000 (1.005-1.030) L 01/25/20 13:31 Urine Protein Neg (Negative) 01/25/20 13:31 Urine Glucose (UA) Norm (Normal) 01/25/20 13:31 Urine Ketones Negative (Negative) 01/25/20 13:31 Urine Blood Neg (Negative) 01/25/20 13:31 Urine Nitrate Negative (Negative) 01/25/20 13:31 Urine Bilirubin Neg (NEGATIVE) 01/25/20 13:31 Urine Urobilinogen Norm mg/dL (Negative) 01/25/20 13:31 Ur Leukocyte Esterase Negative (Negative) 01/25/20 13:31 Urine RBC None /hpf (0-2) 01/25/20 13:31 Urine WBC 0-4 /hpf (0-5) H 01/25/20 13:31 Ur Squamous Epith Cells 5-10 (0-5) H 01/25/20 13:31 Amorphous Sediment Not Reportable 01/25/20 13:31 Urine Bacteria Trace (NONE) 01/25/20 13:31 A&P Assessment and plan (1) Chest pain: The myocardial perfusion imaging results are discussed with the patient. Since the area of ischemia is very small and inconsistent, and the patient is remaining stable and asymptomatic, it was decided to continue the current treatment. If she has any recurrence of chest pain or any new symptoms, we may consider doing a cardiac catheterization. Patient may be started on isosorbide mononitrate 30 mg p.o. daily. Status: Resolved Qualifiers: Chest pain type: unspecified Qualified Code(s): R07.9 - Chest pain, unspecified (2) Atherosclerotic heart disease of [place] coronary artery with other forms of angina pectoris: As mentioned above. The current myocardial perfusion imaging does not reveal any significant ischemia in the distribution of the left anterior descending artery Status: Acute (3) Aortic stenosis: Patient has features of aortic valve sclerosis. She may not require any further investigations at this time Status: Acute Qualifiers: Cardiac valve disease etiology: nonrheumatic Qualified Code(s): I35.0 - Nonrheumatic aortic (valve) stenosis (4) Sleep apnea: Patient may continue on the current treatment Status: Acute Qualifiers: Sleep apnea type: obstructive Qualified Code(s): G47.33 - Obstructive sleep apnea (adult) (pediatric) (5) Dyslipidemia: Continue on the current treatment Status: Acute (6) Atrial fibrillation: May continue the oral anticoagulation. Status: Acute Qualifiers: Atrial fibrillation type: permanent Qualified Code(s): I48.21 - Permanent atrial fibrillation (7) Essential hypertension: Currently the blood pressure is a stage II. We will try to optimize the antihypertensive medications. Status: Acute Additional A&P Information I discussed with Dr. Baltazar Bradford about the myocardial perfusion imaging results and the implications. If the patient continues to remain stable, may be discharged home today. I will see her in the office in 1 month. Attestations Medical Necessity Statement*: Possible discharge home today Coding Level of Care Code Acute Steel Pourer for Landry Leger Diagnoses Chest pain R07.9 Chest pain type: unspecified Atherosclerotic heart disease of [place] coronary artery with other forms of angina pectoris I25.118 Aortic stenosis I35.0 Cardiac valve disease etiology: nonrheumatic Sleep apnea G47.33 Sleep apnea type: obstructive Dyslipidemia E78.5 Atrial fibrillation I48.21 Atrial fibrillation type: permanent Essential hypertension I10
--- NOTE | 2020-01-26 13:16 | P.DS_ITS ---
Discharge Providers Date of Admission: 01/25/20 14:03 Date of Discharge: January 26, 2020 Attending Provider at Admission: Baltazar Bradford MD Attending Provider at Discharge: Baltazar Bradford MD Primary Care Provider: Nehemiah Abraham DO Diagnoses at Discharge Discharge Diagnosis (1) Chest pain: Status: Acute Problem details: Resolved. Echocardiogram normal EF, no severe aortic stenosis. Nuclear stress test with elevated 3 times daily ratio, inconsistent reversibility inferior and apical region likely artifact. Qualifiers: Chest pain type: unspecified Qualified Code(s): R07.9 - Chest pain, unspecified (2) Atherosclerotic heart disease of [place] coronary artery with other forms of angina pectoris: Status: Acute (3) Aortic stenosis: Status: Acute Problem details: Not significant on repeat echocardiogram. Qualifiers: Cardiac valve disease etiology: nonrheumatic Qualified Code(s): I35.0 - Nonrheumatic aortic (valve) stenosis (4) Sleep apnea: Status: Acute Qualifiers: Sleep apnea type: obstructive Qualified Code(s): G47.33 - Obstructive sleep apnea (adult) (pediatric) (5) Dyslipidemia: Status: Acute (6) Atrial fibrillation: Status: Acute Qualifiers: Atrial fibrillation type: permanent Qualified Code(s): I48.21 - Permanent atrial fibrillation (7) Essential hypertension: Status: Acute Reason for Visit Reason for Visit: CP Hospital Course Hospital Course: He is an 79-year-old white female who presented with atypical chest discomfort. Troponin trend was not concerning. EKG did not appear ischemic. Echocardiogram was performed which demonstrated no severe aortic stenosis, normal EF. Nuclear stress test demonstrated some subtle areas of inconsistent reversibility likely artifact. Cardiology evaluated patient as well. By time of discharge she was chest discomfort free. Secondary to her hypertension and symptoms Imdur was added to her regimen. She will follow-up with her primary care provider, and cardiology. Coumadin was decreased secondary to supratherapeutic on admission and INR should be repeated in 3 days to 5 days. Physical Exam Narrative: EXAM NARRATIVE: General exam no apparent distress Cardiovascular regular rate and rhythm with a 2/6 systolic murmur Lungs clear Abdomen is soft with positive bowel sounds Extremities no cyanosis clubbing or edema Discharge Data Data Completed and Pending: Completed Studies During Hospitalization Category Date Time Status Sestamibi Stress Test Request Jh calvillo Exams 01/25/20 16:23 Draft XR chest 1V michele ble [id number] Stat Exams 01/25/20 12:15 Completed NM mariela perf SPECT r/s* [id number] Routin e Nuc Med 01/26/20 16:23 Completed CV echo complete* [id number] Routine Ultrasound 01/26/20 19:24 Completed Labs from last 24 hours 01/26/20 01/26/20 01/26/20 11:32 06:17 03:30 WBC RBC Hgb Hct MCV MCH MCHC RDW Plt Count MPV Neut % (Auto) Lymph % (Auto) [place] % (Auto) Eos % (Auto) Baso % (Auto) Neut # (Auto) Lymph # (Auto) [place] # (Auto) Eos # (Auto) Baso # (Auto) Nucleated RBC % (a uto) Nucleated RBCs # PT INR Sodium 137 Potassium 4.8 Chloride 102 Carbon Dioxide 25 Anion Gap 14.8 BUN 12 Creatinine 0.7 GFR Calculation Not Reportable Glucose 189 H POC Glucose 253 169 Calculated Osmolal ity 285 Calcium 9.0 Magnesium Total Bilirubin AST ALT Alkaline Phosphata se Troponin T Baselin e Troponin T 120 Min [place] Troponin T Troponin T Hi Sens 6Hr Troponin T Hi Sens 6Hr Delta NT-Pro-B Natriuret Pep Total Protein Albumin Globulin Lipase TSH Urine Color Urine Appearance Urine pH Ur Specific Gravit y Urine Protein Urine Glucose (UA) Urine Ketones Urine Blood Urine Nitrate Urine Bilirubin Urine Urobilinogen Ur Leukocyte Nadja ase Urine RBC Urine WBC Ur Squamous Epith Cells Amorphous Sediment Urine Bacteria 01/26/20 01/26/20 01/26/20 03:30 03:30 03:30 WBC 9.8 RBC 3.75 L Hgb 11.5 Hct 35.5 L MCV 94.7 MCH 30.7 MCHC 32.4 RDW 14.0 Plt Count 147 MPV 11.3 H Neut % (Auto) 31.6 Lymph % (Auto) 55.7 [place] % (Auto) 6.7 Eos % (Auto) 4.3 Baso % (Auto) 1.1 Neut # (Auto) 3.08 Lymph # (Auto) 5.5 H [place] # (Auto) 0.7 Eos # (Auto) 0.4 Baso # (Auto) 0.1 Nucleated RBC % (a uto) 0 Nucleated RBCs # 0.0 PT 35.40 H INR 3.37 H Sodium Potassium Chloride Carbon Dioxide Anion Gap BUN Creatinine GFR Calculation Glucose POC Glucose Calculated Osmolal ity Calcium Magnesium 1.4 L Total Bilirubin AST ALT Alkaline Phosphata se Troponin T Baselin e Troponin T 120 Min [place] Troponin T Troponin T Hi Sens 6Hr Troponin T Hi Sens 6Hr [place] NT-Pro-B Natriuret Pep Total Protein Albumin Globulin Lipase TSH Urine Color Urine Appearance Urine pH Ur Specific Gravit y Urine Protein Urine Glucose (UA) Urine Ketones Urine Blood Urine Nitrate Urine Bilirubin Urine Urobilinogen Ur Leukocyte Nadja ase Urine RBC Urine WBC Ur Squamous Epith Cells Amorphous Sediment Urine Bacteria 01/25/20 01/25/20 01/25/20 19:54 18:55 16:23 WBC RBC Hgb Hct MCV MCH MCHC RDW Plt Count MPV Neut % (Auto) Lymph % (Auto) [place] % (Auto) Eos % (Auto) Baso % (Auto) Neut # (Auto) Lymph # (Auto) [place] # (Auto) Eos # (Auto) Baso # (Auto) Nucleated RBC % (a uto) Nucleated RBCs # PT INR Sodium Potassium Chloride Carbon Dioxide Anion Gap BUN Creatinine GFR Calculation Glucose POC Glucose 293 147 Calculated Osmolal ity Calcium Magnesium Total Bilirubin AST ALT Alkaline Phosphata se Troponin T Baselin e Troponin T 120 Min [place] Troponin T Troponin T Hi Sens 6Hr 10.45 H Troponin T Hi Sens 6Hr Delta -1.55 L NT-Pro-B Natriuret Pep Total Protein Albumin Globulin Lipase TSH Urine Color Urine Appearance Urine pH Ur Specific Gravit y Urine Protein Urine Glucose (UA) Urine Ketones Urine Blood Urine Nitrate Urine Bilirubin Urine Urobilinogen Ur Leukocyte Nadja ase Urine RBC Urine WBC Ur Squamous Epith Cells Amorphous Sediment Urine Bacteria 01/25/20 01/25/20 01/25/20 14:38 13:31 12:28 WBC RBC Hgb Hct MCV MCH MCHC RDW Plt Count MPV Neut % (Auto) Lymph % (Auto) [place] % (Auto) Eos % (Auto) Baso % (Auto) Neut # (Auto) Lymph # (Auto) [place] # (Auto) Eos # (Auto) Baso # (Auto) Nucleated RBC % (a uto) Nucleated RBCs # PT INR Sodium Potassium Chloride Carbon Dioxide Anion Gap BUN Creatinine GFR Calculation Glucose POC Glucose Calculated Osmolal ity Calcium Magnesium Total Bilirubin AST ALT Alkaline Phosphata se Troponin T Baselin e Troponin T 120 Min [place] 11.70 H Delta Troponin T -0.30 L Troponin T Hi Sens 6Hr Troponin T Hi Sens 6Hr Delta NT-Pro-B Natriuret Pep Total Protein Albumin Globulin Lipase TSH 1.30 Urine Color Straw Urine Appearance Clear Urine pH 5 Ur Specific Gravit y 1.000 L Urine Protein Neg Urine Glucose (UA) Norm Urine Ketones Negative Urine Blood Neg Urine Nitrate Negative Urine Bilirubin Neg Urine Urobilinogen Norm Ur Leukocyte Nadja ase Negative Urine RBC None Urine WBC 0-4 H Ur Squamous Epith Cells 5-10 H Amorphous Sediment Not Reportable Urine Bacteria Trace 01/25/20 01/25/20 12:28 12:28 WBC RBC Hgb Hct MCV MCH MCHC RDW Plt Count MPV Neut % (Auto) Lymph % (Auto) [place] % (Auto) Eos % (Auto) Baso % (Auto) Neut # (Auto) Lymph # (Auto) [place] # (Auto) Eos # (Auto) Baso # (Auto) Nucleated RBC % (a uto) Nucleated RBCs # PT INR Sodium 133 L Potassium 5.0 Chloride 100 Carbon Dioxide 24 Anion Gap 14.0 BUN 12 Creatinine 0.8 GFR Calculation Not Reportable Glucose 256 H POC Glucose Calculated Osmolal ity 281 L Calcium 9.3 Magnesium 1.2 L Total Bilirubin 0.2 AST 59 H ALT 32 Alkaline Phosphata se 127 H Troponin T Baselin e 12 H Troponin T 120 Min [place] Troponin T Troponin T Hi Sens 6Hr Troponin T Hi Sens 6Hr [place] NT-Pro-B Natriuret Pep 160 Total Protein 7.6 Albumin 3.9 Globulin 3.7 Lipase 27 TSH Urine Color Urine Appearance Urine pH Ur Specific Gravit y Urine Protein Urine Glucose (UA) Urine Ketones Urine Blood Urine Nitrate Urine Bilirubin Urine Urobilinogen Ur Leukocyte Nadja ase Urine RBC Urine WBC Ur Squamous Epith Cells Amorphous Sediment Urine Bacteria Vitals: Last Vital Signs Temp 98.0 F 01/26/20 11:30 Pulse 64 01/26/20 12:46 Resp 16 01/26/20 11:30 BP 164/74 01/26/20 12:55 Pulse Ox 95 01/26/20 12:46 Discharge Plan Discharge Patient Disposition: Home Condition: Stable Prescriptions: New isosorbide mononitrate 30 mg tablet extended release 24 hr 30 mg PO DAILY Qty: 30 RF: 0 warfarin [Coumadin] 1 mg tablet 3 mg PO DAILY Qty: 90 RF: 0 Continued allopurinol 300 mg tablet 300 mg PO DAILY RF: 0 levothyroxine 75 mcg capsule 75 mcg PO DAILY RF: 0 lisinopril 20 mg tablet 20 mg PO BID RF: 0 metformin 1,000 mg tablet 1,000 mg PO BID RF: 0 metoprolol tartrate 50 mg tablet 50 mg PO BID RF: 0 montelukast 10 mg tablet 10 mg PO DAILY RF: 0 nitroglycerin [Nitrostat] 0.4 mg tablet, sublingual 0.4 mg SUBLINGUAL Q5M PRN (Reason: CHEST PAINS) RF: 0 omeprazole 40 mg capsule,delayed release(DR/EC) 40 mg PO BID RF: 0 alprazolam [Xanax] 0.25 mg tablet 0.25 mg PO QPM PRN (Reason: Anxiety) RF: 0 amlodipine 10 mg tablet 10 mg PO DAILY 90 Days Qty: 90 RF: 3 simvastatin 10 mg tablet 10 mg PO DAILY 90 Days Qty: 90 RF: 3 meclizine 12.5 mg tablet 12.5 mg PO TID PRN (Reason: dizziness) Qty: 10 RF: 0 glipizide 10 mg tablet 10 mg PO DAILY RF: 0 Fiber Laxative (ca polycarbo) 625 mg Tablet 625 mg PO DAILY PRN (Reason: unknown) RF: 0 Discontinued warfarin 4 mg Tablet 4 mg PO QPM RF: 0 Discharge Orders: Discharge Order (Routine); Ordered 01/26/20 Ordered By: Baltazar Bradford Referrals: Lefty Doyle MD [Physician] - 2 weeks Nehemiah Abraham DO [Primary Care Provider] - 4-7 days Discharge Diet: Cardiac and Diabetic Discharge Activity: Increase activity as tolerated Activity Restrictions/Additional Instructions: Take all medicine as prescribed Return for any recurrent chest discomfort. Discharge Attestations Time Spent in Discharge Care*: greater than 30 min Quality Metrics Clinical Quality Measures During this hospital stay, did patient experience: None Coding Level of Care Code Acute Transportation Director for janusz Leger Diagnoses Chest pain R07.9 Chest pain type: unspecified Atherosclerotic heart disease of [place] coronary artery with other forms of angina pectoris I25.118 Aortic stenosis I35.0 Cardiac valve disease etiology: nonrheumatic Sleep apnea G47.33 Sleep apnea type: obstructive Dyslipidemia E78.5 Atrial fibrillation I48.21 Atrial fibrillation type: permanent Essential hypertension I10
[2020-01-26] MEDS: isosorbide mononitrate ER 30 mg Tablet PO (13:22)
--- NOTE | 2020-01-26 14:49 | PC.NURSE ---
Discharge instructions given per the physician's instructions. Patient verbalized understanding of information and did not have any questions. IV has been removed. Patient dressed self. No further needs identified at this time.
--- NOTE | 2020-01-26 16:23 | NMCV_ITS ---
NM mariela perf SPECT r/s* [id number] Britt Stockton Age: 79 Gender: F : 1940 Exam Date: 01/26/2020 08:49 Ordering Phys: Lefty Doyle MD ([email or web address]) Technologist: SAMMY Bernard Exam Location: [facility] Indications: Chest pain STRESS TEST [facility] IMAGE PROTOCOL Rest/Stress 1 Lexiscan Day Radiopharmaceutical Dose (mCi) Administration Site Administered by Rest: Tc-99m 10.8 IV SAMMY Rollins Sestamibi Stress:Tc-99m 32.4 IV SAMMY Bernard Sestamiseverino Rest: 26-Jan-2020 60 Discovery 630 Stress: 26-Jan-2020 60 Discovery 630 0.4mg Lexiscan. Supine position only as patient was unable to lay prone. SPECT RESULTS Technical Quality: Good Raw Data Analysis: Breast attenuation, Soft tissue attenuation Image Corrections: No attenuation or motion correction applied Summed Stress Score: 3 Summed Rest Score: 5 Summed Difference Score: 1 PERFUSION FINDINGS Small to moderate area of decreases uptake in the mid inferolateral and apical lateral region. Subtle area of reversibility was noted in the mid inferolateral region, based on the supine imaging. However based on the prone imaging, there is no significant reversibility FUNCTIONAL RESULTS (calculated via Gated SPECT) Stress Image LV EF (%): 85 Stress EDV (mL):59 TID: 1.21 Stress ESV (mL):9 FUNCTIONAL FINDINGS: Segmental wall motion analysis revealing a small area of dyskinesia in the LV apex IMPRESSIONS 1. Myocardial perfusion imaging revealing a small to moderate area of decreased tracer uptake in the inferolateral and apical lateral region, with a subtle area of inconsistent reversibility, most likely artifactual. 2. Normal LV ejection fraction of 85%. 3. LV wall motion abnormality as mentioned above. 4. Normal LV volume 5. Elevated transient ischemic dilatation ratio, may suggest endocardial ischemia. The positive predictive value this finding is limited. Clinical correlation recommended. Dr Lefty Doyle MD [facility] (Electronically Signed) Final Date: 26 January 2020 12:34 S
--- NOTE | 2020-01-26 19:24 | USCV_ITS ---
Britt Stockton Age: 79 Gender: F : 1940 Exam Date: 01/26/2020 05:58 Ordering Phys: Lefty Doyle MD ([email or web address]) Technologist: Ronna Molina Exam Location: [facility] [place] Indication: WITH REGURGITATION BP: 137 / 71 HR: 60 Rhythm: Sinus Technical Quality: Adequate MEASUREMENTS (Male / Female) Normal Values 2D ECHO LV Diastolic Diameter PLAX 3.9 cm 4.2 - 5.9 / 3.9 - 5.3 cm LV Systolic Diameter PLAX 3.1 cm LV Chamber Size 3.5 cm IVS Diastolic Thickness 1.3 cm 0.6 - 1.0 / 0.6 - 0.9 cm IVS Systolic Thickness 1.2 cm LVPW Diastolic Thickness 0.9 cm 0.6 - 1.0 / 0.6 - 0.9 cm LVPW Systolic Thickness 1.7 cm RV Chamber Size 3.8 cm LVOT Diameter 2.0 cm LV Ejection Fraction 2D Teich 41.7 % LV Ejection Fraction MOD 2C 57.8 % LV Ejection Fraction 2C AL 59.6 % LA Diameter 3.4 cm LA Width 3.2 cm LA Height 3.9 cm RA Width 3.2 cm RA Height 3.8 cm Aorta at Sinotubular Diameter 2.7 cm M-MODE LV Diastolic Diameter MM 3.5 cm 4.2 - 5.9 / 3.9 - 5.3 cm LV Systolic Diameter MM 1.8 cm LV Ejection Fraction MM Teich 79.8 % IVS Diastolic Thickness MM 1.1 cm 0.6 - 1.0 / 0.6 - 0.9 cm IVS Systolic Thickness MM 1.3 cm LVPW Diastolic Thickness MM 0.9 cm 0.6 - 1.0 / 0.6 - 0.9 cm LVPW Systolic Thickness MM 1.6 cm RV Diastolic Diameter MM 1.2 cm Aortic Annulus Diameter 3.3 cm LA Ao Ratio MM 1.0 MV E Point Septal Separation 0.3 cm DOPPLER AV Peak Velocity 236.0 cm/s LVOT Peak Velocity 69.0 cm/s AV Area Cont Eq vti 1.0 cm squared AV Area Cont Eq pk 1.0 cm squared MV Area PHT 2.4 cm squared Mitral E to A Ratio 0.9 MV E' Velocity 6.0 cm/s Mitral E to MV E' Ratio 18.1 Mitral E to LV E' Lateral Ratio 18.4 Mitral E to LV E' Septal Ratio 18.1 TR Peak Velocity 261.0 cm/s TR Peak Gradient 27.3 mmHg TR Mean Velocity 213.5 cm/s TR Mean Gradient 19.9 mmHg TR Velocity Time Integral 111.2 cm TV Peak E Velocity 64.0 cm/s Right Atrial Pressure 3.0 mmHg Pulmonary Artery Systolic Pressu 30.2 mmHg PV Peak Velocity 90.0 cm/s RV Acceleration Time 0.1 s RV Ejection Time 0.4 s RV AcT/ET 0.3 FINDINGS Left Ventricle Normal left ventricular size and systolic function, EF 61 %. Mild left ventricular hypertrophy. No regional wall motion abnormalities. Grade I/IV diastolic dysfunction (abnormal relaxation filling pattern), normal to mildly elevated filling pressures. Right Ventricle The right ventricle is normal in size and function. Right Atrium Pacemaker wire in the right atrium pacemaker wire is noted Left Atrium The left atrium is normal in size. Mitral Valve Thickened mitral valve. Mild mitral annular calcification. Mild mitral valve regurgitation. Aortic Valve Moderate calcification in the aortic valve with a peak velocity of 2.36 m/s.aortic valve sclerosis. Tricuspid Valve Trace to mild tricuspid valve regurgitation. Pulmonic Valve Pulmonic valve not well visualized. Pericardium Normal pericardium without effusion. Aorta Normal ascending aorta dimension. CONCLUSIONS Normal left ventricular size and systolic function, EF 61 %. Mild left ventricular hypertrophy. No regional wall motion abnormalities. Grade I/IV diastolic dysfunction (abnormal relaxation filling pattern), normal to mildly elevated filling pressures. Thickened mitral valve. Mild mitral annular calcification. Mild mitral valve regurgitation. Moderate calcification in the aortic valve with a peak velocity of 2.36 m/s. Features of aortic valve sclerosis. Trace to mild tricuspid valve regurgitation. Estimated pulmonary artery peak systolic pressure of 30 mmHg There is no pericardial effusion. There are no intracardiac masses. Comparison with the previous study is difficult because of the difference in the technical quality. Dr Lefty Doyle MD [facility] (Electronically Signed) Final Date: 26 January 2020 08:47 S
--- NOTE | 2020-01-27 17:14 | PC.NURSE ---
Nurse received call from [facility] that patient had contacted them and had questions regarding discharge. Nurse called patient. Patient explained to nurse that she felt she was having adverse reactions to her new medication, Isosorbide Mononitrate. Patient stated that she took her medications at approximately 0830 this morning. Patient states a little after 0900 she starting having bad thoughts and wrote down how she was feeling in her diary. Patient read what she wrote to nurse: I want to kill my kids for not helping me repair my house or other things. I was almost in tears. I took a nerve pill. I seemed better. No more pain. Patient then stated, After I thought that I wanted to kill them I thought, 'no that's not me. I love my kids.' I took a nerve pill because it calms me down. I was just really shaky. Granddaughters, Jolie and Jennifer, were contacted by second nurse, Josie Boles RN, while primary nurse, Danyelle Little RN, remained on phone with patient. Granddaughters expressed that they are also concerned about patient well being, and Jolie stated that the patient's son-in-law will bring her to the ER for evaluation. Isabel at [facility] Crisis Line was contacted by nursing staff. Patient call was transferred to Isabel. catering service manager, Danyelle James RN, was notified of event and assisted in contacting Isabel. Nurse contacted Isabel as a follow-up on case. Isabel states that she contacted Jolie and Jolie told her that they would bring her to the ER. Isabel will follow case and ensure patient makes it to the ER.
--- NOTE | 2020-01-27 17:15 | PC.SOCIAL ---
Nursing staff reports that patient is on phone and reporting threats of suicide. I contacted Isabel at [facility] at [phone] and updated her that [place] is on the phone with patient. She reports that she is at home. I have asked Kendal to keep patient on the phone until we can get guidance from Isabel. Isabel asks if the patient has discussed a plan. I am unsure of this, as Kendal still talking to patient. Kendal transfers call to Isabel while Martha reaches out to family. Martha reports that patient's son in law is going to bring her to the ER for evaluation.
== END 2020-01-26 14:50 | disposition home or self-care (01) ==
LOC: ER 14:39 → CSU 15:10
PROVIDERS: Emergency Medicine; Admitting Provider Internal Medicine; PCP Internal Medicine; Visit Provider Internal Medicine
DX: R07.9 Chest pain, unspecified (principal); I25.118 Atherosclerotic heart disease of native coronary artery with other forms of angina pectoris; I35.0 Nonrheumatic aortic (valve) stenosis; G47.33 Obstructive sleep apnea (adult) (pediatric); E78.5 Hyperlipidemia, unspecified; Z86.73 Personal history of transient ischemic attack (TIA), and cerebral infarction without residual deficits; E66.9 Obesity, unspecified; Z79.01 Long term (current) use of anticoagulants; Z68.31 Body mass index [BMI] 31.0-31.9, adult; Z95.0 Presence of cardiac pacemaker; Z82.49 Family history of ischemic heart disease and other diseases of the circulatory system; Z79.84 Long term (current) use of oral hypoglycemic drugs; E11.22 Type 2 diabetes mellitus with diabetic chronic kidney disease; I13.0 Hypertensive heart and chronic kidney disease with heart failure and stage 1 through stage 4 chronic kidney disease, or unspecified chronic kidney disease; N18.2 Chronic kidney disease, stage 2 (mild); I50.30 Unspecified diastolic (congestive) heart failure; E03.9 Hypothyroidism, unspecified; I48.21 Permanent atrial fibrillation; Z88.6 Allergy status to analgesic agent
CPT/HCPCS: 12345; 36415; 36416; 71045; 78452; 80048; 80053; 81001; 82962; 83690; 83735; 83880; 84443; 84484; 85025; 85610; 93005; 93017; 93306; 96361; 96365; 96372; 96375; 96376; 99283; 99285; A9500; G0378; J1815; J2270; J2405; J2785; J3475; J7030

== ENCOUNTER 2020-01-27 18:16 | Emergency (ER) | payer MEDICARE, OTHER, SELFPAY ==
[2020-01-27 18:22] VITALS: BP 159/71; PULSE 95; RESP 16; TEMP 36.6; O2SAT 97; BMI 31.8
--- NOTE | 2020-01-27 18:45 | XR_ITS ---
WS: [id number] EXAM: AP CHEST: PORTABLE UPRIGHT DATE OF EXAM: 01/27/2020, 1859 hours COMPARISON: Chest x-ray from 01/25/2020. HISTORY: Patient is 79 years old with mental status changes. Patient unable to communicate. FINDINGS: The cardiac silhouette is normal in size. The mediastinal contours again demonstrate a double lead left subclavian pacer in place. Additional electronic device overlying the mid chest region new sinc e the prior exam. Presumably on the patient rather than in the patient. Calcified plaque in the aorta . The pulmonary vascularity is normal. Chronic lung changes again demonstrated. Slight coarse julia ings are seen. Large calcified granuloma outer left hilar region again seen. Lungs are clear of conso lidation. There is no effusion or pneumothorax. No acute bony abnormality is seen. XR/XR chest 1V portable [id number] IMPRESSION: Chronic lung changes again demonstrated. No new area of consolidation or pulmon peggy edema.
--- NOTE | 2020-01-27 18:45 | CTR_ITS ---
PROCEDURE INFORMATION: Exam: CT Head Without Contrast Exam date and time: 01/27/2020 6:57 PM Age: 79 years old Clinical indication: Altered mental status/memory loss; Confusion or disorientation; Patient HX: AMS - agitation TECHNIQUE: Imaging protocol: Computed tomography of the head without contrast. Radiation optimization: All CT scans at this facility use at least one of these dose optimization techniques: automated exposure control; mA and/or kV adjustment per patient size (includes targeted exams where dose is matched to clinical indication); or iterative reconstruction. COMPARISON: CT head wo con* [id number] 09/07/2019 6:28 PM RADIATION DOSE METRICS: Total DLP (mGy-cm): 731.54 FINDINGS: Brain: There are global involutional changes of the brain which are in keeping with the patient's age. Periventricular hypodensities are nonspecific but most likely reflect chronic microvascular ischemic disease. There is no evidence of intracranial hemorrhage. No abnormal extra-axial fluid collections are identified. No mass effect or midline shift is seen. Pruitt-white differentiation is preserved throughout. Ventricles: Normal. No ventriculomegaly. Bones/joints: Unremarkable. No acute fracture. Sinuses: There is mild sinus mucosal disease, with no air-fluid level identified. Mastoid air cells: There is no mastoid effusion detected. Vasculature: Atherosclerotic vascular disease is noted at the level of the skull base. CT/CT head wo con* [id number] IMPRESSION: 1. No acute intracranial abnormality. 2. Age-related involutional changes, with findings of chronic microvascular ischemic disease. Radiation Dose CTDIVOL = (mGy): DLP = 731.54 (mGy-cm)
--- NOTE | 2020-01-27 18:47 | ECG_ITS ---
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 Measurements Intervals [place] Rate: 70 P: 41 NJ: 179 QRS: -52 QRSD: 145 T: 42 QT: 416 QTc: 451 Interpretive Statements SINUS RHYTHM RIGHT BUNDLE BRANCH BLOCK [120+ ms QRS DURATION, UPRIGHT V1, 40+ ms S IN I/aVL/V4/V5/V6] LEFT ANTERIOR FASCICULAR BLOCK [QRS AXIS <= -45, QR IN I, RS IN II] VOLTAGE CRITERIA FOR LVH [MEETS CRITERIA IN ONE OF: R(aVL), S(V1), R(V5), R(V5/V6)+S(V1)] Compared to ECG 01/25/2020 14:15:45 Left anterior fascicular block now present Atrial-paced complex(es) or rhythm no longer present Left-axis deviation no longer present Electronically Signed On 01-28-2020 19:31:47 CDT by Antony Falcon M.D. [email or web address]
--- NOTE | 2020-01-27 19:01 | ED_ITS ---
HPI - Psych General: Chief Complaint: Psychiatric Symptoms Stated Complaint: mhe Time Seen by Provider: 01/27/20 18:31 Source: patient and family Mode of arrival: ambulatory Limitations: altered mental status History of Present Illness: HPI Narrative: Britt is an 79-year-old female who comes in with family with report of the patient making violent threats. She did start a new medication today isosorbide and the family was concerned this could have caused her symptoms. The patient wrote out a letter stating that she was going to kill her kids and family and that was because of the medication. At this time she says she has no thoughts of wanting to hurt herself or others. She denies any ill type symptoms such as headache, fever, cough, shortness of breath, abdominal pain or otherwise. She states she currently is feeling fine and does not think she needs to be here. Family states that they want her to be evaluated to see if this medicine is necessary. Review of Systems Const: Denies: fever(s), chills, body aches, fatigue, malaise or diaphoresis Eyes: Denies: change in vision, blurry vision, photophobia, eye discomfort, eye discharge or eye redness ENMT: Denies: throat pain, odynophagia, hoarseness, swelling of lips/tongue, ear or mastoid pain, ear discharge, change in hearing or nasal discharge Card: Denies: chest pain, palpitations, irregular heart rhythm, edema, lightheadedness, syncope, pre-syncope, dyspnea on exertion or orthopnea Resp: Denies: dyspnea, productive cough, non-productive cough, wheezing, hemoptysis or chest congestion GI: Denies: abdominal pain, nausea, vomiting, hematemesis, coffee ground emesis, heartburn, diarrhea, constipation, GI cramping, hematochezia or melena : Denies: flank pain, dysuria, urinary frequency, urinary urgency or hematuria Musc: Denies: neck pain, back pain, extremity pain, extremity swelling, joint pain, joint swelling, joint redness, joint warmth or joint stiffness Skin/Breast: Denies: rash, pruritus, erythema or skin tenderness Neuro: Denies: headache(s), numbness in extremities, weakness in extremities, sensory changes, lack of coordination, difficulty walking, dizziness, vertigo, confusion, Slurred speech present or seizure-like activity Jackson/Lymph: Denies: easy bruising, easy bleeding, petechiae, purpura or enlarged lymph nodes All/Imm: Denies: urticaria, throat swelling, tongue swelling, facial swelling or acute wheezing PFSH ED PFSH: Medical History Aortic stenosis Not significant on repeat echocardiogram. Atherosclerotic heart disease of [place] coronary artery with other forms of angina pectoris Atrial fibrillation CAD (coronary artery disease) CHF (congestive heart failure) Diastolic Chronic kidney disease, stage II (mild) Diabetes mellitus Dyslipidemia Essential hypertension GERD (gastroesophageal reflux disease) Gout History of TIAs Hypothyroidism Obesity Peripheral arterial disease Sick sinus syndrome Sleep apnea Warfarin anticoagulation Surgical History History of permanent cardiac pacemaker placement S/P appendectomy S/P cataract extraction S/P cholecystectomy S/P hysterectomy S/P oophorectomy Family History Father CAD (coronary artery disease) Diabetes Stroke Myocardial infarction Mother CAD (coronary artery disease) Diabetes Hypertension Stroke Sister Diabetes Cancer COLON Social History Smoking and tobacco status: never smoked Alcohol intake: never Lives independently: Yes Marital status: / History of recent travel: No Physical Exam Const: COMMON NORMALS: no acute distress, patient oriented x3, no limitations, healthy appearing and well nourished GENERAL APPEARANCE: cooperative, well kempt and well developed HENMT: COMMON NORMALS: normocephalic, atraumatic, external ears normal, EAC's normal and Normal external nose present HEAD & SCALP: normal to inspection, normocephalic and atraumatic FACE & SINUS: normal facial exam and face symmetric NOSE: Normal external nose present and Normal nares present EXTERNAL EAR: Yes external ears normal EXTERNAL AUDITORY CANAL: EAC's normal MOUTH: Normal oral and palatal mucosa present, lip normal and tongue normal Eye: COMMON NORMALS: Equal, round and reactive pupils present and conjunctivae normal GENERAL EYE: appearance normal, both eyes and all related structures ALIGNMENT: Yes alignment normal PERIORBITAL: periorbital findings normal EYELID: eyelids normal CONJUNCTIVA: Yes conjunctivae normal SCLERA: sclerae normal PUPIL: Yes Equal, round and reactive pupils present Neck/C-Spine: COMMON NORMALS: full ROM, no lymphadenopathy, supple, no meningeal signs and no JVD GENERAL: Yes normal visual inspection and Yes trachea midline Chest: COMMONS NORMALS: normal inspection of the chest and normal palpation of entire chest wall Resp: COMMON NORMALS: normal respiratory effort, No retractions, No use of accessory muscles and clear to auscultation bilaterally EFFORT & INSPECTION: Yes able to speak in complete sentences and Yes symmetric chest movement AUSCULTATION: clear to auscultation bilaterally, no crackles, no rales, no rhonchi and no wheezes Cardio: COMMON NORMALS: no JVD, regular rate, regular rhythm, S1 normal heart sound present and S2 normal heart sound present RATE: regular rate RHYTHM: regular rhythm HEART SOUNDS: S1 normal heart sound present, S2 normal heart sound present, no click, no gallops, no murmurs, no rubs and abnormal split S2 GI: COMMON NORMALS: Soft to palpation and No hepatosplenomegaly present PALPATION: Yes Soft to palpation, No Tenderness to palpation present (GI), No Guarding due to palpation present (GI), No Rigid due to palpation, Yes No hepatosplenomegaly present, No Hernia present, No Palpable mass present and No Pulsatile mass present : COMMON NORMALS: Yes no CVA tenderness BLADDER/KIDNEY EXAM: Yes no CVA tenderness EXTERNAL FEMALE EXAM: No Hernia present Back/Pelvis: COMMON NORMALS: no CVA tenderness, thoracic and lumbar spine normal to inspection, no thoracic nor lumbar tenderness and thoraco-lumbar ROM normal Extremity: COMMON NORMALS: normal to inspection, full ROM, capillary refill normal, no joint enlargement, no clubbing, cyanosis or edema and no calf tenderness Neuro: COMMON NORMALS: patient oriented x3, CN's II-XII intact bilaterally, moves all extremities, no focal motor deficits and no sensory deficits noted MENINGEAL SIGNS: Yes no meningeal signs SPEECH: speech normal Psych: COMMON NORMALS: mental status grossly normal, Normal thought process present, cooperative, normal affect, speech normal and activity/motor behavior normal APPEARANCE: Yes well kempt SPEECH: Yes normal speech THOUGHT PROCESS: Normal thought process present Skin: COMMON NORMALS: no rashes or lesions noted, turgor normal, no jaundice, no petechiae and no mottling GENERAL SKIN EXAM: no rashes or lesions noted and turgor normal MDM - Psych MDM Narrative: Medical decision making narrative: The patient is feeling back to normal and declines admission. The patient was seen and examined by Dr. Spann via tele-psych. He has seen the patient feels the patient is stable for discharge. He will go ahead and let the patient go home. I reviewed this with the family and they are comfortable and want to do this. He did not want her placed in a [facility] facility. I will go ahead and discharge her home per their request. Lab Data: Labs: Lab Results 01/27/20 01/27/20 01/27/20 Range/Units 19:02 19:02 19:02 WBC 13.8 H (4.0-10.0) 10^3/ uL RBC 4.04 L (4.1-5.3) 10^6/u L Hgb 12.1 (11.5-15.3) g/dL Hct 38.4 (37.0-47.0) % MCV 95.0 (81-99) fL MCH 30.0 (28.0-34.0) pg MCHC 31.5 (30.0-36.0) g/dL RDW 14.0 (12.1-15.1) % Plt Count 236 (130-400) 10^3/c mm MPV 10.2 (7.4-10.4) fL Lymph % (Auto) Not Reportable Warren % (Auto) Not Reportable Lymph # (Auto) Not Reportable Warren # (Auto) Not Reportable Total Counted 100 (0-100) Atypical Lymphs % 3.0 (0-5) % Absolute Neutrophi ls 5.2 (1.4-6.5) 10^3/c mm Segmented Neutroph ils 37 % Abs Segm Neuts (Ma n) 5.1 (1.6-7.1) 10/cmm Band Neutrophils 1.0 % Abs Band Neuts (Ma n) 0.1 (0.0-1.2) 10^3/c mm Absolute Lymphocyt es 7.9 H (1.2-3.4) 10^3/c mm Lymphocytes (Manua l) 54 % Monocytes (Manual) 1.0 % Absolute Monocytes 0.1 (0.1-0.6) 10^3/c mm Eosinophils (Manua l) 4 % Absolute Eosinophi ls 0.5 (0.0-0.7) 10^3/c mm Platelet Estimate Normal (Normal) PT 26.90 H (12.1-14.9) SECO NDS INR 2.38 H (0.8-1.2) Specimen Type Sample Site ABG pH (7.35-7.45) ABG pCO2 (35-45) mmHg ABG pO2 (80.0-100.0) mmH g ABG HCO3 (22-26) mmol/L ABG Base Excess (-2.0-2.0) mmol/ L Robert Test Hematocrit (37-47) % O2 Delivery Device FiO2 % Light Rail Train Operator ID Sodium 133 L (136-145) mmol/L Potassium 4.7 (3.5-5.1) mmol/L Chloride 98 (98-107) mmol/L Carbon Dioxide 24 (22-29) mmol/L Anion Gap 15.7 (5-19) BUN 21 (8-23) mg/dL Creatinine 1.1 H (0.5-0.9) mg/dL GFR Calculation Not Reportable Glucose 312 H (65-115) mg/dL Calculated Osmolal ity 284 L (285-295) mOsm/k g Lactic Acid (0.5-2.2) mmol/L Calcium 8.5 (8.5-10.5) mg/dL Magnesium 1.4 L (1.7-2.3) mg/dL Total Bilirubin 0.2 (0.15-1.2) mg/dL AST 53 H (0-32) U/L ALT 31 (0-33) U/L Alkaline Phosphata se 120 H (35-105) IU/L Troponin T Baselin e (0-10) ng/L Troponin T 120 Min [place] (0-10) ng/L Delta Troponin T (0-10) ABS# Total Protein 7.2 (6.6-8.7) g/dL Albumin 4.3 (3.5-5.2) g/dL Globulin 2.9 (1.3-4.6) g/dL TSH (0.27-4.20) uIU/ mL Free T4 1.24 (0.82-1.77) ng/d L Urine Color (Yellow) Urine Appearance (CLEAR) Urine pH (5-7) Ur Specific Gravit y (1.005-1.030) Urine Protein (Negative) Urine Glucose (UA) (Normal) Urine Ketones (Negative) Urine Blood (Negative) Urine Nitrate (Negative) Urine Bilirubin (NEGATIVE) Urine Urobilinogen (Negative) mg/dL Ur Leukocyte Nadja ase (Negative) Urine RBC (0-2) /hpf Urine WBC (0-5) /hpf Ur Squamous Epith Cells (0-5) Amorphous Sediment Urine Bacteria (NONE) 01/27/20 01/27/20 01/27/20 Range/Units 19:02 19:02 19:23 WBC (4.0-10.0) 10^3/ uL RBC (4.1-5.3) 10^6/u L Hgb (11.5-15.3) g/dL Hct (37.0-47.0) % MCV (81-99) fL MCH (28.0-34.0) pg MCHC (30.0-36.0) g/dL RDW (12.1-15.1) % Plt Count (130-400) 10^3/c mm MPV (7.4-10.4) fL Lymph % (Auto) Warren % (Auto) Lymph # (Auto) Warren # (Auto) Total Counted (0-100) Atypical Lymphs % (0-5) % Absolute Neutrophi ls (1.4-6.5) 10^3/c mm Segmented Neutroph ils % Abs Segm Neuts (Ma n) (1.6-7.1) 10/cmm Band Neutrophils % Abs Band Neuts (Ma n) (0.0-1.2) 10^3/c mm Absolute Lymphocyt es (1.2-3.4) 10^3/c mm Lymphocytes (Manua l) % Monocytes (Manual) % Absolute Monocytes (0.1-0.6) 10^3/c mm Eosinophils (Manua l) % Absolute Eosinophi ls (0.0-0.7) 10^3/c mm Platelet Estimate (Normal) PT (12.1-14.9) SECO NDS INR (0.8-1.2) Specimen Type Sample Site ABG pH (7.35-7.45) ABG pCO2 (35-45) mmHg ABG pO2 (80.0-100.0) mmH g ABG HCO3 (22-26) mmol/L ABG Base Excess (-2.0-2.0) mmol/ L Robert Test Hematocrit (37-47) % O2 Delivery Device FiO2 % Light Rail Train Operator ID Sodium (136-145) mmol/L Potassium (3.5-5.1) mmol/L Chloride (98-107) mmol/L Carbon Dioxide (22-29) mmol/L Anion Gap (5-19) BUN (8-23) mg/dL Creatinine (0.5-0.9) mg/dL GFR Calculation Glucose (65-115) mg/dL Calculated Osmolal ity (285-295) mOsm/k g Lactic Acid 2.2 (0.5-2.2) mmol/L Calcium (8.5-10.5) mg/dL Magnesium (1.7-2.3) mg/dL Total Bilirubin (0.15-1.2) mg/dL AST (0-32) U/L ALT (0-33) U/L Alkaline Phosphata se (35-105) IU/L Troponin T Baselin e 14 H (0-10) ng/L Troponin T 120 Min [place] (0-10) ng/L Delta Troponin T (0-10) ABS# Total Protein (6.6-8.7) g/dL Albumin (3.5-5.2) g/dL Globulin (1.3-4.6) g/dL TSH (0.27-4.20) uIU/ mL Free T4 (0.82-1.77) ng/d L Urine Color Yellow (Yellow) Urine Appearance Clear (CLEAR) Urine pH 5 (5-7) Ur Specific Gravit y 1.010 (1.005-1.030) Urine Protein Neg (Negative) Urine Glucose (UA) Norm (Normal) Urine Ketones Negative (Negative) Urine Blood Neg (Negative) Urine Nitrate Negative (Negative) Urine Bilirubin Neg (NEGATIVE) Urine Urobilinogen Norm (Negative) mg/dL Ur Leukocyte Nadja ase Negative (Negative) Urine RBC 0-4 H (0-2) /hpf Urine WBC 5-10 H (0-5) /hpf Ur Squamous Epith Cells 5-10 H (0-5) Amorphous Sediment Not Reportable Urine Bacteria Trace (NONE) 01/27/20 01/27/20 01/27/20 Range/Units 19:30 20:40 20:40 WBC (4.0-10.0) 10^3/ uL RBC (4.1-5.3) 10^6/u L Hgb (11.5-15.3) g/dL Hct (37.0-47.0) % MCV (81-99) fL MCH (28.0-34.0) pg MCHC (30.0-36.0) g/dL RDW (12.1-15.1) % Plt Count (130-400) 10^3/c mm MPV (7.4-10.4) fL Lymph % (Auto) Warren % (Auto) Lymph # (Auto) Warren # (Auto) Total Counted (0-100) Atypical Lymphs % (0-5) % Absolute Neutrophi ls (1.4-6.5) 10^3/c mm Segmented Neutroph ils % Abs Segm Neuts (Ma n) (1.6-7.1) 10/cmm Band Neutrophils % Abs Band Neuts (Ma n) (0.0-1.2) 10^3/c mm Absolute Lymphocyt es (1.2-3.4) 10^3/c mm Lymphocytes (Manua l) % Monocytes (Manual) % Absolute Monocytes (0.1-0.6) 10^3/c mm Eosinophils (Manua l) % Absolute Eosinophi ls (0.0-0.7) 10^3/c mm Platelet Estimate (Normal) PT (12.1-14.9) SECO NDS INR (0.8-1.2) Specimen Type Arterial Sample Site Radial, left ABG pH 7.41 (7.35-7.45) ABG pCO2 41.0 (35-45) mmHg ABG pO2 71.3 L (80.0-100.0) mmH g ABG HCO3 25.7 (22-26) mmol/L ABG Base Excess 0.8 (-2.0-2.0) mmol/ L Robert Test Pos Hematocrit 37.0 (37-47) % O2 Delivery Device None FiO2 21.0 % Light Rail Train Operator ID [id number] Sodium (136-145) mmol/L Potassium (3.5-5.1) mmol/L Chloride (98-107) mmol/L Carbon Dioxide (22-29) mmol/L Anion Gap (5-19) BUN (8-23) mg/dL Creatinine (0.5-0.9) mg/dL GFR Calculation Glucose (65-115) mg/dL Calculated Osmolal ity (285-295) mOsm/k g Lactic Acid (0.5-2.2) mmol/L Calcium (8.5-10.5) mg/dL Magnesium (1.7-2.3) mg/dL Total Bilirubin (0.15-1.2) mg/dL AST (0-32) U/L ALT (0-33) U/L Alkaline Phosphata se (35-105) IU/L Troponin T Baselin e (0-10) ng/L Troponin T 120 Min [place] 12.46 H (0-10) ng/L Delta Troponin T -1.54 L (0-10) ABS# Total Protein (6.6-8.7) g/dL Albumin (3.5-5.2) g/dL Globulin (1.3-4.6) g/dL TSH 1.21 (0.27-4.20) uIU/ mL Free T4 (0.82-1.77) ng/d L Urine Color (Yellow) Urine Appearance (CLEAR) Urine pH (5-7) Ur Specific Gravit y (1.005-1.030) Urine Protein (Negative) Urine Glucose (UA) (Normal) Urine Ketones (Negative) Urine Blood (Negative) Urine Nitrate (Negative) Urine Bilirubin (NEGATIVE) Urine Urobilinogen (Negative) mg/dL Ur Leukocyte Nadja ase (Negative) Urine RBC (0-2) /hpf Urine WBC (0-5) /hpf Ur Squamous Epith Cells (0-5) Amorphous Sediment Urine Bacteria (NONE) EKG Data^: EKG 1: Attestation: I personally reviewed and interpreted this EKG as follows: EKG interpretation date: 01/27/20 EKG interpretation time: 19:18 Interpretation: Normal sinus rhythm at 70 beats a minute, right bundle branch block, LVH, left anterior fascicular block, normal intervals. EKG 2: Attestation: I personally reviewed and interpreted this EKG as follows: EKG interpretation date: 01/27/20 EKG interpretation time: 21:11 Interpretation: Normal sinus rhythm at 65 beats a minute, left axis deviation, left anterior fascicular block, right bundle branch block, no acute ST or T wave changes. Discharge Plan Discharge Patient Disposition: Home Clinical Impression: Acute anxiety Condition: Stable Prescriptions: No Action allopurinol 300 mg tablet 300 mg PO DAILY RF: 0 levothyroxine 75 mcg capsule 75 mcg PO DAILY RF: 0 lisinopril 20 mg tablet 20 mg PO BID RF: 0 metformin 1,000 mg tablet 1,000 mg PO BID RF: 0 metoprolol tartrate 50 mg tablet 50 mg PO BID RF: 0 montelukast 10 mg tablet 10 mg PO DAILY RF: 0 nitroglycerin [Nitrostat] 0.4 mg tablet, sublingual 0.4 mg SUBLINGUAL Q5M PRN (Reason: CHEST PAINS) RF: 0 omeprazole 40 mg capsule,delayed release(DR/EC) 40 mg PO BID RF: 0 alprazolam [Xanax] 0.25 mg tablet 0.25 mg PO QPM PRN (Reason: Anxiety) RF: 0 amlodipine 10 mg tablet 10 mg PO DAILY 90 Days Qty: 90 RF: 3 simvastatin 10 mg tablet 10 mg PO DAILY 90 Days Qty: 90 RF: 3 meclizine 12.5 mg tablet 12.5 mg PO TID PRN (Reason: dizziness) Qty: 10 RF: 0 glipizide 10 mg tablet 10 mg PO DAILY RF: 0 Fiber Laxative (ca polycarbo) 625 mg Tablet 625 mg PO DAILY PRN (Reason: unknown) RF: 0 Coumadin 1 mg tablet 3 mg PO DAILY Qty: 90 RF: 0 isosorbide mononitrate 30 mg tablet extended release 24 hr 30 mg PO DAILY Qty: 30 RF: 0 Discharge Orders: Discharge Order (Routine); Ordered 01/27/20 Ordered By: Jen Cardenas Referrals: Nehemiah Abraham DO [Primary Care Provider] - 1-3 days Discharge Diet: Advance as tolerated Discharge Activity: Increase activity as tolerated Patient Instructions: Anxiety (ED) Activity Restrictions/Additional Instructions: Please return to the ER immediately for any of the signs or symptoms listed on your discharge instruction sheets, worsening/changing of your symptoms, you are not getting better as quickly as expected, or for ANY other cause or concerns. If your symptoms return or you want further evaluation and care please return here immediately for recheck. Coding Level of Care Code ED Director Strategy for [place] Fwd Exam Comprehensive
[2020-01-27 19:08] LABS: Hematocrit 38.4 % (37.0-47.0); Hemoglobin 12.1 g/dL (11.5-15.3); Mean Corpuscular HGB Conc 31.5 g/dL (30.0-36.0); Mean Platelet Volume 10.2 fL (7.4-10.4); Platelet Count 236 10^3/cmm (130-400); Red Blood Count 4.04 10^6/uL (4.1-5.3); White Blood Count 13.8 10^3/uL (4.0-10.0)
[2020-01-27] MEDS: sodium chloride 0.9% 1,000 ML 100 ML IV (19:10)
--- NOTE | 2020-01-27 19:26 | PC.NURSE ---
EKG done at 1920 and shown to ER doctor
[2020-01-27 19:30] LABS: Lactic Sepsis W/Reflex 2.2 mmol/L (0.5-2.2); Troponin(5th) Baseline 14 ng/L (0-10)
[2020-01-27 19:38] LABS: ABG PH Result 7.41 (7.35-7.45); Base Excess ABG 0.8 mmol/L (-2.0-2.0); Blood Gas Allen Test Pos; Blood Gas Sample Site Radial, left; Blood Gas Sample Type Arterial; HCO3 ABG 25.7 mmol/L (22-26); PO2 ABG 71.3 mmHg (80.0-100.0)
[2020-01-27 19:40] LABS: Urine Color Yellow (Yellow)
[2020-01-27 19:41] LABS: Add Urine Culture? No; Bacteria Urine TRACE; Bilirubin Urine Neg (NEGATIVE); Blood Urine Neg (Negative); Glucose Urine UA Norm (Normal); Ketones Urine Negative (Negative); Leukocyte Esterase Urine Negative (Negative); Nitrate Urine Negative (Negative); Protein Urine Neg (Negative); RBC Urine 0-4 /hpf (0-2); Urine Appearance Clear (CLEAR); Urobilinogen Urine Norm (Negative); pH Urine 5 (5-7)
[2020-01-27 19:41] LABS: Alanine Aminotransferase 31 U/L (0-33); Albumin Level 4.3 g/dL (3.5-5.2); Alkaline Phosphatase 120 IU/L (35-105); Anion Gap 15.7 (5-19); Aspartate Amino Transferase 53 U/L (0-32); Blood Urea Nitrogen 21 mg/dL (8-23); Calcium 8.5 mg/dL (8.5-10.5); Carbon Dioxide 24 mmol/L (22-29); Chloride 98 mmol/L (98-107); Globulin 2.9 g/dL (1.3-4.6); Glucose 312 mg/dL (65-115); Magnesium 1.4 mg/dL (1.7-2.3); Osmolality Calculated 284 mOsm/kg (285-295); Potassium 4.7 mmol/L (3.5-5.1); Sodium 133 mmol/L (136-145); Total Bilirubin 0.2 mg/dL (0.15-1.2); Total Protein 7.2 g/dL (6.6-8.7)
[2020-01-27 19:56] LABS: Absolute Eosinophils 0.5 10^3/cmm (0.0-0.7); Absolute Segmented Neutrophil 5.1 10/cmm (1.6-7.1); Band Neutrophils Absolute 0.1 10^3/cmm (0.0-1.2); Eosinophils 4 %; Lymphocytes 54 %; Lymphocytes Absolute 7.9 10^3/cmm (1.2-3.4); Monocytes Absolute 0.1 10^3/cmm (0.1-0.6); Segmented Neutrophils 37 %; Total Cells Counted 100 (0-100)
[2020-01-27 19:57] LABS: Absolute Neutrophil 5.2 10^3/cmm (1.4-6.5); Platelet Estimate Normal (Normal)
[2020-01-27 19:58] LABS: INR 2.38 (0.8-1.2)
--- NOTE | 2020-01-27 20:47 | ECG_ITS ---
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 Measurements Intervals [place] Rate: 65 P: 46 [place]: 163 QRS: -44 QRSD: 141 T: 38 QT: 421 QTc: 438 Interpretive Statements SINUS RHYTHM LEFT AXIS DEVIATION [QRS AXIS < -30] RIGHT BUNDLE BRANCH BLOCK [120+ ms QRS DURATION, UPRIGHT V1, 40+ ms S IN I/aVL/V4/V5/V6] MODERATE VOLTAGE CRITERIA FOR LVH, CONSIDER NORMAL VARIANT [MEETS CRITERIA IN ONE OF: R(aVL), S(V1), R(V5), R(V5/V6)+S(V1)] Compared to ECG 01/27/2020 19:18:48 Left-axis deviation now present Left anterior fascicular block no longer present Electronically Signed On 01-29-2020 19:56:35 CDT by Antony Falcon M.D. [id number]
[2020-01-27 20:53] LABS: Reflex Lactate Order REFLEX LACTIC ORDERD
[2020-01-27 21:32] LABS: Troponin 5 2HR 12.46 ng/L (0-10)
[2020-01-27 21:39] LABS: Thyroid Stimulating Hormone 1.21 uIU/mL (0.27-4.20); Troponin 5 2HR Delta -1.54 ABS# (0-10)
[2020-01-27 21:44] LABS: Free T4 Free Thyroxine 1.24 ng/dL (0.82-1.77)
[2020-01-27] MEDS: magnesium sulfate premix 2 GM/50 ML PIGGYBACK IV (22:31)
[2020-01-27 23:54] VITALS: BP 130/75; PULSE 73; RESP 18; O2SAT 95
== END 2020-01-27 23:54 | disposition home or self-care (01) ==
PROVIDERS: Emergency Provider Emergency Medicine; PCP Internal Medicine
DX: F41.9 Anxiety disorder, unspecified (principal); I48.91 Unspecified atrial fibrillation; I25.10 Atherosclerotic heart disease of native coronary artery without angina pectoris; I13.0 Hypertensive heart and chronic kidney disease with heart failure and stage 1 through stage 4 chronic kidney disease, or unspecified chronic kidney disease; E11.22 Type 2 diabetes mellitus with diabetic chronic kidney disease; N18.2 Chronic kidney disease, stage 2 (mild); I50.30 Unspecified diastolic (congestive) heart failure; E78.5 Hyperlipidemia, unspecified; Z86.73 Personal history of transient ischemic attack (TIA), and cerebral infarction without residual deficits; Z79.84 Long term (current) use of oral hypoglycemic drugs; Z95.0 Presence of cardiac pacemaker
CPT/HCPCS: 12345; 36600; 70450; 71045; 80053; 81001; 82803; 83605; 83735; 84439; 84443; 84484; 85007; 85025; 85610; 93005; 96360; 96361; 96365; 99284; J3475; J7030

== ENCOUNTER → 2020-01-30 09:25 | Outpatient (BNVA) | payer MEDICARE, OTHER, SELFPAY | PROVIDERS: PCP Internal Medicine; Visit Provider Internal Medicine | DX: I48.21 Permanent atrial fibrillation (principal); Z79.01 Long term (current) use of anticoagulants | CPT/HCPCS: 85610 ==

== ENCOUNTER 2020-02-09 08:59 | Outpatient (CLI) | payer MEDICARE, OTHER, SELFPAY ==
--- NOTE | 2020-02-09 09:30 | USCV_ITS ---
Britt Stockton Age: 79 Gender: F : 1940 Exam Date: 02/09/2020 08:59 Ordering Phys: Bonifacio Robles MD ([email or web address]) Technologist: Ronna Molina Exam Location: [facility] [place] Indication: RECHECK BP: 148 / 70 HR: 70 Rhythm: Sinus Technical Quality: Technically difficult study MEASUREMENTS (Male / Female) Normal Values 2D ECHO LV Diastolic Diameter PLAX 2.2 cm 4.2 - 5.9 / 3.9 - 5.3 cm LV Systolic Diameter PLAX 1.7 cm LV Chamber Size 3.4 cm IVS Diastolic Thickness 1.6 cm 0.6 - 1.0 / 0.6 - 0.9 cm IVS Systolic Thickness 1.4 cm LVPW Diastolic Thickness 1.7 cm 0.6 - 1.0 / 0.6 - 0.9 cm LVPW Systolic Thickness 1.6 cm RV Chamber Size 3.4 cm LVOT Diameter 2.0 cm LV Ejection Fraction 2D Teich 49.7 % LV Ejection Fraction MOD 2C 64.6 % LV Ejection Fraction 2C AL 63.5 % LA Diameter 4.0 cm LA Width 2.7 cm LA Height 4.2 cm RA Width 3.0 cm RA Height 3.8 cm Aorta at Sinotubular Diameter 2.7 cm M-MODE LV Diastolic Diameter MM 2.8 cm 4.2 - 5.9 / 3.9 - 5.3 cm LV Systolic Diameter MM 2.0 cm LV Ejection Fraction MM Teich 56.9 % IVS Diastolic Thickness MM 1.2 cm 0.6 - 1.0 / 0.6 - 0.9 cm IVS Systolic Thickness MM 1.0 cm LVPW Diastolic Thickness MM 1.2 cm 0.6 - 1.0 / 0.6 - 0.9 cm LVPW Systolic Thickness MM 1.9 cm RV Diastolic Diameter MM 1.9 cm Aortic Annulus Diameter 2.1 cm LA Ao Ratio MM 1.6 MV E Point Septal Separation 0.1 cm DOPPLER AV Peak Velocity 314.0 cm/s LVOT Peak Velocity 112.0 cm/s AV Area Cont Eq vti 1.2 cm squared AV Area Cont Eq pk 1.1 cm squared MV Area PHT 2.5 cm squared Mitral E to A Ratio 0.9 MV E' Velocity 4.0 cm/s Mitral E to MV E' Ratio 24.2 Mitral E to LV E' Lateral Ratio 32.1 Mitral E to LV E' Septal Ratio 19.8 TR Peak Velocity 274.2 cm/s TR Peak Gradient 30.1 mmHg TR Mean Velocity 202.3 cm/s TR Mean Gradient 18.6 mmHg TR Velocity Time Integral 86.8 cm TV Peak E Velocity 73.0 cm/s Right Atrial Pressure 3.0 mmHg Pulmonary Artery Systolic Pressu 33.1 mmHg PV Peak Velocity 62.0 cm/s RV Acceleration Time 0.2 s RV Ejection Time 0.3 s RV AcT/ET 0.5 FINDINGS Left Ventricle Normal left ventricular size and systolic function, EF 64 %. No regional wall motion abnormalities. Mild left ventricular hypertrophy. Grade I/IV diastolic dysfunction (abnormal relaxation filling pattern), normal to mildly elevated filling pressures. Right Ventricle Pacemaker wire in the right ventricle Right Atrium Catheter/pacemaker wire in the right atrial cavity. Left Atrium Normal left atrial size. Mitral Valve Thickened mitral valve. Mild mitral annular calcification. Aortic Valve Thickened and stenotic aortic valve. Moderate aortic valve stenosis, mean gradient 20.6 mmHg, RUBI 1.2 cm squared. Peak velocity of 3.14 m/s with a peak gradient of 40 mmHg Tricuspid Valve Trace to mild tricuspid valve regurgitation. Estimated pulmonary artery peak systolic pressure 33 mmHg Pulmonic Valve Pulmonic valve not well visualized. Pericardium No pericardial effusion. Aorta Normal aortic annulus size. CONCLUSIONS Normal left ventricular size and systolic function, EF 64 %. No regional wall motion abnormalities. Mild left ventricular hypertrophy. Grade I/IV diastolic dysfunction (abnormal relaxation filling pattern), normal to mildly elevated filling pressures. Thickened and stenotic aortic valve. Moderate aortic valve stenosis, mean gradient 20.6 mmHg, RUBI 1.2 cm squared. (Peak velocity of 3.14 m/s with a peak gradient of 40 mmHg. ) Normal pulmonary artery pressure There is no pericardial effusion. There are no intracardiac masses. Compared to the study from 01/26/2020, the aortic valve stenosis appears to be moderate, could be related to the better quality of the Doppler signal Dr Lefty Doyle MD FAC (Electronically Signed) Final Date: 12 February 2020 18:06 S
== END 2020-02-09 09:00 | disposition home or self-care (01) ==
PROVIDERS: PCP Internal Medicine; Visit Provider Internal Medicine Cardiovascular Disease
DX: I35.0 Nonrheumatic aortic (valve) stenosis (principal)
CPT/HCPCS: 93306

== ENCOUNTER → 2020-02-16 10:22 | Outpatient (BNVA) | payer MEDICARE, OTHER, SELFPAY | PROVIDERS: PCP Internal Medicine; Visit Provider Internal Medicine Cardiovascular Disease | DX: I48.21 Permanent atrial fibrillation (principal); Z79.01 Long term (current) use of anticoagulants | CPT/HCPCS: 85610 ==

== ENCOUNTER → 2020-02-23 09:12 | Outpatient (BNVA) | payer MEDICARE, OTHER, SELFPAY | PROVIDERS: PCP Internal Medicine; Visit Provider Internal Medicine Cardiovascular Disease | DX: I48.21 Permanent atrial fibrillation (principal) | CPT/HCPCS: 85610 ==

== ENCOUNTER → 2020-03-01 09:36 | Outpatient (BNVA) | payer MEDICARE, OTHER, SELFPAY | PROVIDERS: PCP Internal Medicine; Visit Provider Internal Medicine Cardiovascular Disease | DX: I48.21 Permanent atrial fibrillation (principal); Z79.01 Long term (current) use of anticoagulants | CPT/HCPCS: 85610 ==

== ENCOUNTER → 2020-03-08 09:49 | Outpatient (BNVA) | payer MEDICARE, OTHER, SELFPAY | PROVIDERS: PCP Internal Medicine; Visit Provider Internal Medicine Cardiovascular Disease | DX: I48.21 Permanent atrial fibrillation (principal); Z79.01 Long term (current) use of anticoagulants | CPT/HCPCS: 85610 ==

== ENCOUNTER 2020-03-12 08:49 | Outpatient (CLI) | payer MEDICARE, OTHER, SELFPAY ==
--- NOTE | 2020-03-12 08:59 | MM_ITS ---
WS: [id number] Bilateral diagnostic digital mammogram, 03/12/2020 Clinical Data: ABNORMAL MAMMO Comparison: 11/29/2018, 05/14/2016, 05/07/2015, 04/14/2014, 04/11/2013, 03/14/2011, 03/11/2010, 03/09/2009, 03/07/2008, 03/04/2007, 03/02/2006. Findings: The breasts show fibroglandular tissue. There are bilateral mole markers. Small vascular calcificatio ns are present. There is a pacemaker generator in the left axilla. No spiculated masses nor clustered calcifications are seen. There are no secondary signs of carcinoma. The left breast ultrasound will be repeated. MM/[id number] Impression: 1. Negative bilateral mammograms unchanged. 2. Left breast ultrasound will be performed to note stability of lesions in the upper inner quadrant of the left breast. BIRADS: 2-Benign FOLLOW UP: See Report The CAD specifications checker was used.
--- NOTE | 2020-03-12 08:59 | US_ITS ---
WS: [id number] Left breast ultrasound, 03/12/2020 Clinical Data: ABNORMAL MAMMO Comparison: Left breast ultrasound, 08/16/2019. Findings: In the inner upper quadrant of the left breast at the 11:00 position 6 cm from the nipple there are s ubcutaneous complicated cysts. The largest of which measures 0.62 x 0.66 x 0.76 cm. These cysts have not changed significantly from 7 months ago. US/US breast LT limited* [id number] Impression: Probable benign cysts of upper inner quadrant of the left breast Recommend annual screening mammograms. BIRADS: 2-Benign FOLLOW UP: 1 Year Follow-up
== END 2020-03-12 08:50 | disposition home or self-care (01) ==
LOC: RADSHAW 08:56
PROVIDERS: PCP Internal Medicine; Visit Provider Internal Medicine
DX: R92.8 Other abnormal and inconclusive findings on diagnostic imaging of breast (principal)
CPT/HCPCS: 76642; 77066

== ENCOUNTER → 2020-03-15 09:32 | Outpatient (BNVA) | payer MEDICARE, OTHER, SELFPAY | PROVIDERS: PCP Internal Medicine; Visit Provider Internal Medicine Cardiovascular Disease | DX: I48.21 Permanent atrial fibrillation (principal); Z79.01 Long term (current) use of anticoagulants | CPT/HCPCS: 85610 ==

== ENCOUNTER → 2020-03-29 09:50 | Outpatient (BNVA) | payer MEDICARE, OTHER, SELFPAY | PROVIDERS: PCP Internal Medicine; Visit Provider Internal Medicine Cardiovascular Disease | DX: I48.21 Permanent atrial fibrillation (principal) | CPT/HCPCS: 85610 ==

== ENCOUNTER → 2020-05-02 09:34 | Outpatient (BNVA) | payer MEDICARE, OTHER, SELFPAY | PROVIDERS: PCP Internal Medicine; Visit Provider Internal Medicine Cardiovascular Disease | DX: I48.21 Permanent atrial fibrillation (principal); Z79.01 Long term (current) use of anticoagulants | CPT/HCPCS: 85610 ==

== ENCOUNTER → 2020-05-09 09:24 | Outpatient (BNVA) | payer MEDICARE, OTHER, SELFPAY | PROVIDERS: PCP Internal Medicine; Visit Provider Internal Medicine Cardiovascular Disease | DX: I48.21 Permanent atrial fibrillation (principal); Z79.01 Long term (current) use of anticoagulants | CPT/HCPCS: 85610 ==

== ENCOUNTER 2020-05-15 12:23 | Outpatient (CLI) | payer MEDICARE, OTHER, SELFPAY ==
[2020-05-15 13:14] LABS: Alanine Aminotransferase 24 U/L (0-33); Albumin Level 3.9 g/dL (3.5-5.2); Alkaline Phosphatase 140 IU/L (35-105); Anion Gap 16.7 (5-19); Aspartate Amino Transferase 37 U/L (0-32); Blood Urea Nitrogen 8 mg/dL (8-23); Calcium 9.1 mg/dL (8.5-10.5); Carbon Dioxide 26 mmol/L (22-29); Chloride 95 mmol/L (98-107); Globulin 3.4 g/dL (1.3-4.6); Glucose 348 mg/dL (65-115); Lactate Dehydrogenase 235 U/L (135-214); Osmolality Calculated 288 mOsm/kg (285-295); Potassium 4.7 mmol/L (3.5-5.1); Sodium 133 mmol/L (136-145); Total Bilirubin 0.2 mg/dL (0.15-1.2); Total Protein 7.3 g/dL (6.6-8.7)
[2020-05-15 13:20] LABS: Basophils # 0.1 10^3/uL (0.0-0.1); Eosinophils # 0.4 10^3/uL (0.0-0.8); Eosinophils % 2.8 %; Hematocrit 38.3 % (37.0-47.0); Hemoglobin 12.4 g/dL (11.5-15.3); Lymphocytes # 6.6 10^3/uL (0.8-4.8); Lymphocytes % 49.1 %; Mean Corpuscular HGB Conc 32.4 g/dL (30.0-36.0); Mean Corpuscular Hemoglobin 30.2 pg (28.0-34.0); Mean Corpuscular Volume 93.4 fL (81-99); Mean Platelet Volume 11.1 fL (7.4-10.4); Monocytes # 0.8 10^3/uL (0.2-0.9); Monocytes % 5.7 %; Neutrophils # 5.46 10^3/uL (1.8-7.7); Neutrophils % 40.7 %; Nucleated Red Blood Cells % 0 %; Platelet Count 193 10^3/cmm (130-400); Red Cell Distribution Width 13.6 % (12.1-15.1); White Blood Count 13.4 10^3/uL (4.0-10.0)
--- NOTE | 2020-05-15 14:32 | ONC FU_ITS ---
Dr. Guy follow up note Patient: Britt Stockton Unit #: [id number]: [id number] Dicatated By: Ameya Guy M.D.Date of Visit:May 15, 2020 Onc Med Follow-up/Prog Note History of Present Illness: Mrs. Britt Stockton, is a 79 -year-old female with history of early-stage chronic lymphocytic leukemia, initially diagnosed on 02/24/2006 at that time it showed there was a subpopulation of monoclonal B cell, about 20% of total cellularity, positive for CD19, CD5/CD20, CD23 and lambda restriction. CD10 was absent. Patient was followed by Dr. Gutierrez in hematology clinic and last time she was seen on 09/21 2010 at that time his impression was stable , early-stage CLL with her white blood count was around 14,000, hemoglobin 11.1 g and platelet count was 252,000 at that time she was treated with iron supplement and multivitamin with stable hemoglobin and active surveillance as far as CLL is concern. As per patient, at that time she was told to come on as-needed basis. And now her primary care doctor wanted her to come here for regular f/u Follow-up mammogram ordered by PMD done on March 12, 2020 shows BI-RADS 2, benign Came for follow-up, denies any specific complaints, no fever chills, no nausea or vomiting, no diarrhea constipation, no night sweats, no peripheral lymphadenopathy, no abdominal fullness, occasionally leg cramps. Some intentional weight loss as patient is on diabetic diet. Medications: Allopurinol 1 Tablet (of 300 mg) Oral daily, ALPRAZolam 1 Tablet (of 0.25 mg) Oral at bedtime, amLODIPine Besylate 1 Tablet (of 5 mg) Oral daily, Coumadin 1 Tablet (of 5 mg) Oral daily, Ferrous Sulfate 1 Tablet (of 325 (65 fe) mg) Oral t.i.d., Levothyroxine Sodium 1 Tablet (of 75 mcg) Oral daily, Lisinopril 1 Tablet (of 20 mg) Oral b.i.d., metFORMIN HCl 1 Tablet (of 1000 mg) Oral b.i.d., Metoprolol Tartrate 1 Tablet (of 50 mg) Oral b.i.d., Omeprazole 1 Tablet (of 40 mg) Tablet, enteric coated Oral b.i.d., Simvastatin 1 Tablet (of 10 mg) Oral at bedtime, Tresiba 20 Units (of 100 Units/mL) Subcutaneous at bedtime Allergies: Aspirin, Codeine Sulfate, Iodinated Contrast Dye, Iodine, and Tylenol. Review of Systems: Constitutional - Appetite is fair and weight is stable. No fever, chills, hot flashes, or night sweats. Energy level is poor, ENMT - Positive for sinus congestion/drainage. No mouth sores. No sore throat or difficulty swallowing, Hematologic/Lymphatic - No abnormal bruising or bleeding, Respiratory - Positive for shortness of breath. No cough. No pleuritic pain or hemoptysis, Cardiovascular - No angina pain. Positive for palpitations, Gastrointestinal - No nausea or vomiting. No heartburn or acid reflux. No diarrhea or constipation. No blood in the stool. Positive for black stools (Pt states she takes iron supplements), Genitourinary (F) - No dysuria or hematuria. No urinary frequency. No urgency. Positive for incontinence, Musculoskeletal - No joint pain, Neurologic - No headache or dizziness. No numbness/paresthesias or other focal neurologic symptoms, Psychiatric - No anxiety or depression. No insomnia. Vital Signs: Performed on May 15, 2020 14:07 Height - 63.00 in Weight - 181.0 lbs BSA - 1.85 sq.m BMI - 32.06 (HIGH) Temperature - 97.1 F (LOW) Pulse - 80 /min Respiration - 24 /min BP - 161/71 mm(hg) (HIGH) O2 Sat - 96 % Pain - 0 Performance Status: 0 - Fully active, able to carry on all predisease activities without restrictions. (ECOG) Physical Examination: ENMT - No mouth sores, no thrush, no jaundice, No peripheral lymphadenopathy, Respiratory - Lungs are clear to auscultation, Cardiovascular - Regular rate and rhythm of heart, Abdomen - Soft, bowel sounds present, Extremities - No visible edema. Lab/Imaging: Most recent lab results are not available for this patient. Impression: Early-stage chronic lymphocytic leukemia, diagnosed on 02/24/2006 with flow cytometry which showed monoclonal B-cell, approximately 20% of total cellularity which showed CD19, CD5/CD20, CD23 positive and lambda restriction. And CD10 was absent. There was no increase of myeloblasts. Finding were consistent with CLL/small lymphocytic lymphoma. Her last visit to hematology clinic was on 07/24/2010 at that time her white blood count was 14,000, hemoglobin 11.1 g and platelet count was 252,000. Plan: Discussed with patient regarding her labs white blood count 13.4, hemoglobin 12.4 hematocrit 38.3 platelets 193,000 lymphocytes 6600 compared to 7300 on November 14, 2019 CMP within normal limit except glucose 348 sodium 133 and her LDH is 235 compared to 224 on November 14, 2019 Clinically, patient is doing well with no new signs symptoms, no B symptoms, on exam no peripheral lymphadenopathy, her follow-up labs shows hemoglobin and platelet count within normal range and persistent mild lymphocytosis/leukocytosis but stable. We will continue to monitor and she will return to clinic in 6 months with CBC CMP and LDH As far as hyperglycemia is concerned, patient says she is on insulin and her PMD is adjusting her dose and medication. Signed By: Ameya Guy M.D. <<Signature on File>>
== END 2020-05-15 12:24 | disposition home or self-care (01) ==
LOC: ONCMED 12:26
PROVIDERS: PCP Internal Medicine; Visit Provider Internal Medicine Hematology & Oncology
DX: C91.10 Chronic lymphocytic leukemia of B-cell type not having achieved remission (principal); R73.9 Hyperglycemia, unspecified; Z79.4 Long term (current) use of insulin; Z79.899 Other long term (current) drug therapy
CPT/HCPCS: 36415; 80053; 83615; 85025; G0463

== ENCOUNTER → 2020-05-23 09:37 | Outpatient (BNVA) | payer MEDICARE, OTHER, SELFPAY | PROVIDERS: PCP Internal Medicine; Visit Provider Internal Medicine Cardiovascular Disease | DX: I48.21 Permanent atrial fibrillation (principal); Z79.01 Long term (current) use of anticoagulants | CPT/HCPCS: 85610 ==

== ENCOUNTER → 2020-06-21 11:52 | Outpatient (BNVA) | payer MEDICARE, OTHER, SELFPAY | PROVIDERS: PCP Internal Medicine; Visit Provider Internal Medicine Cardiovascular Disease | DX: I25.118 Atherosclerotic heart disease of native coronary artery with other forms of angina pectoris (principal); I35.0 Nonrheumatic aortic (valve) stenosis; I48.21 Permanent atrial fibrillation; Z79.01 Long term (current) use of anticoagulants; Z95.0 Presence of cardiac pacemaker | CPT/HCPCS: 85610 ==

== ENCOUNTER → 2020-08-01 10:35 | Outpatient (BNVA) | payer MEDICARE, OTHER, SELFPAY | PROVIDERS: PCP Internal Medicine; Visit Provider Internal Medicine Cardiovascular Disease | DX: I48.21 Permanent atrial fibrillation (principal); Z79.01 Long term (current) use of anticoagulants | CPT/HCPCS: 85610 ==

== ENCOUNTER 2020-08-22 16:45 | Emergency (ER) | payer MEDICARE, OTHER, SELFPAY ==
[2020-08-22 16:54] VITALS: BP 168/81; PULSE 68; RESP 15; TEMP 36.3; O2SAT 99; BMI 32.1
--- NOTE | 2020-08-22 17:08 | ED_ITS ---
HPI - Extremity Problem General: Chief complaint: Extremity Problem,Nontraumatic Stated complaint: SWOLLEN LEGS and feet Time Seen by Provider: 08/22/20 17:03 History of Present Illness: HPI Narrative: 80 yo female presents with complaint of left ankle pain. She cannot recall any trauma she was seen 4 days ago at a walk-in clinic x-rays were done and those were reported to her is negative. She was told she had osteoarthritis arthritis she is concerned she may have gout. She has been taking some anti-inflammatories for it there is no trauma no twisting no erythema. States it is painful to walk on. No pain in the calf or thigh. No chest pain or shortness of breath. MD Complaint: joint pain Onset (ago): day(s) Pain Consistency: constant Location: left and lower extremity (Ankle) Quality: sharp Radiation: none Relieving factors: rest Exacerbating factors: weight bearing and walking Associated symptoms: Reports arthralgias; Deny chest pain, fever(s), myalgias, rash or short of breath Review of Systems Const: Denies: fever(s) ENMT: Denies: throat pain, ear or mastoid pain, nasal discharge or nasal congestion Card: Denies: chest pain Resp: Denies: dyspnea, productive cough or non-productive cough GI: Denies: abdominal pain, nausea, vomiting, hematemesis, coffee ground emesis, diarrhea, constipation, bloating, hematochezia or melena : Denies: flank pain, difficulty voiding, dysuria, urinary frequency or urinary urgency Skin/Breast: Denies: rash PFSH ED PFSH: Medical History (Updated 08/22/20 @ 18:00 by Luis Fernando Bird DO) Aortic stenosis Not significant on repeat echocardiogram. Atherosclerotic heart disease of [place] coronary artery with other forms of angina pectoris Atrial fibrillation CAD (coronary artery disease) CHF (congestive heart failure) Diastolic Chronic kidney disease, stage II (mild) Diabetes mellitus Dyslipidemia Essential hypertension GERD (gastroesophageal reflux disease) Gout History of TIAs Hypothyroidism Obesity Peripheral arterial disease Sick sinus syndrome Sleep apnea Warfarin anticoagulation Surgical History History of permanent cardiac pacemaker placement S/P appendectomy S/P cataract extraction S/P cholecystectomy S/P hysterectomy S/P oophorectomy Family History Father CAD (coronary artery disease) Diabetes Stroke Myocardial infarction Mother CAD (coronary artery disease) Diabetes Hypertension Stroke Sister Diabetes Cancer COLON Social History Smoking and tobacco status: never smoked Alcohol intake: never Lives independently: Yes Marital status: / History of recent travel: No Physical Exam Const: COMMON NORMALS: no acute distress GENERAL APPEARANCE: cooperative and comfortable ORIENTATION/CONSCIOUSNESS: Yes awake, Yes oriented to person, Yes oriented to place and Yes oriented to time HENMT: COMMON NORMALS: normocephalic, atraumatic and hearing grossly normal bilaterally HEAD & SCALP: normocephalic and atraumatic Neck/C-Spine: COMMON NORMALS: no JVD Resp: COMMON NORMALS: normal respiratory effort, No retractions, No use of accessory muscles and clear to auscultation bilaterally AUSCULTATION: clear to auscultation bilaterally Cardio: COMMON NORMALS: no JVD, regular rate, regular rhythm and No murmurs present (Cardio) RATE: regular rate RHYTHM: regular rhythm GI: COMMON NORMALS: Soft to palpation and No hepatosplenomegaly present AUSCULTATION: Yes normoactive bowel sounds PALPATION: Yes Soft to palpation, No Tenderness to palpation present (GI), No Guarding due to palpation present (GI) and Yes No hepatosplenomegaly present Extremity: COMMON NORMALS: normal to inspection, capillary refill normal, no clubbing, cyanosis or edema, no calf tenderness and no pedal edema NARRATIVE EXTREMITY EXAM: Peripheral pulses normal there is no inflammation swelling or effusion of the left foot. First metatarsal joint is normal with no significant pain with passive manipulation. Neuro: SENSORIUM/ORIENTATION: Yes oriented to person, Yes oriented to place and Yes oriented to time Skin: COMMON NORMALS: no rashes or lesions noted GENERAL SKIN EXAM: no rashes or lesions noted Course Vital Signs: Vital signs: Vital Signs Temperature 97.3 F L 08/22/20 16:54 Pulse Rate 67 08/22/20 18:22 Respiratory Rate 20 H 08/22/20 18:22 Blood Pressure 159/79 08/22/20 18:22 Pulse Oximetry 99 08/22/20 18:22 MDM - Extremity (Nontraumatic) MDM Narrative: Medical decision making narrative: X-ray of the foot and ankle unremarkable. Discharge home pain medications given referral to podiatry. Discharge Plan Discharge Patient Disposition: Home Clinical Impression: Osteoarthritis of ankle Condition: Stable Prescriptions: New hydrocodone-acetaminophen 5-325 mg tablet 1 tab PO Q6H PRN (Reason: pain) Qty: 10 RF: 0 No Action allopurinol 300 mg tablet 300 mg PO DAILY@0700 RF: 0 levothyroxine 75 mcg capsule 75 mcg PO DAILY@0600 RF: 0 lisinopril 20 mg tablet 20 mg PO BID@0700,2200 RF: 0 metformin 1,000 mg tablet 1,000 mg PO BID@0700,2200 RF: 0 montelukast 10 mg tablet 10 mg PO DAILY@0700 RF: 0 omeprazole 40 mg capsule,delayed release(DR/EC) 40 mg PO BID@0700,2200 RF: 0 alprazolam [Xanax] 0.25 mg tablet 0.25 mg PO BEDTIME@2200 PRN (Reason: Anxiety) RF: 0 nitroglycerin [Nitrostat] 0.4 mg tablet, sublingual 0.4 mg SUBLINGUAL Q5M PRN (Reason: CHEST PAINS) Qty: 25 RF: 3 warfarin 4 mg tablet 4 mg PO DAILY Qty: 30 RF: 2 simvastatin 10 mg tablet 10 mg PO DAILY@0700 RF: 0 amlodipine 10 mg tablet 10 mg PO DAILY@0700 RF: 0 metoprolol tartrate 50 mg tablet 75 mg PO BID@0700,2200 RF: 0 diclofenac sodium 1 % gel See Rx Instructions .ROUTE .COMPLEX RF: 0 Tresiba FlexTouch U-200 200 unit/mL (3 mL) insulin pen 60 unit SUBCUT BEDTIME@2200 RF: 0 Mucus Relief 1 tab PO PRN PRN (Reason: Congestion) RF: 0 warfarin 1 mg tablet See Rx Instructions .ROUTE .COMPLEX RF: 0 Discharge Orders: Discharge ED (Routine); Ordered 08/22/20 Ordered By: Luis Fernando Bird Referrals: Nehemiah Abraham DO [Primary Care Provider] - Discharge Diet: Usual diet Discharge Activity: Increase activity as tolerated Patient Instructions: Opioid Safety Activity Restrictions/Additional Instructions: Case management will call to make arrangements for you to see podiatry for. Coding Level of Care Code ED Field Cane Scale Clerk for [place] Fwd Exam Comprehensive
--- NOTE | 2020-08-22 17:16 | XR_ITS ---
WS: [id number] XR foot LT min 3V* 04602 REASON FOR EXAM: pain FINDINGS: In the forefoot there is hammertoe deformity. The joint spaces of the MIP and DIP joints show moderat e symmetric narrowing and subchondral sclerosis. No erosions or soft tissue calcifications. There is mild bony demineralization. There is no fracture or other focal bony lesion. In the midfoot the joint spaces are relatively well-preserved and there are no focal bony abnormaliti es. In the hindfoot there is bony exostosis of the anterior dorsal talus. There is a small enthesophyte f rom the anterior calcaneus. Joint spaces are preserved. XR/XR foot LT min 3V* 04306 IMPRESSION: Degenerative changes with no acute abnormality as above.
--- NOTE | 2020-08-22 17:16 | XR_ITS ---
WS: [id number] XR ankle LT min 3V* 53976 REASON FOR EXAM: pain FINDINGS: There is mild bony demineralization. There is mild symmetric narrowing of the ankle mortise. No focal bone lesion. No soft tissue abnormality. XR/XR ankle LT min 3V* 70244 IMPRESSION: No acute abnormality.
[2020-08-22 18:22] VITALS: BP 159/79; PULSE 67; RESP 20; O2SAT 99
--- NOTE | 2020-08-27 12:52 | DCPLANNER ---
assistant manager retail had message to schedule a follow up appointment for patient with ortho. assistant manager retail called the ortho clinic, spoke with Elda, gave clinic patients information. assistant manager retail was told that patients information would be printed and reviewed. Clinic will call patient with appointment information.
--- NOTE | 2020-08-30 07:54 | DCPLANNER ---
Patient has a follow up appointment scheduled for Saturday, September 12, 2020 at 1:[address] Still at [facility]. Clinic will call patient with appointment information.
--- NOTE | 2020-09-18 15:27 | DCPLANNER ---
Patient had a follow up appointment scheduled for 09.12.[address] Still - patient did attend appointment.
== END 2020-08-22 18:23 | disposition home or self-care (01) ==
PROVIDERS: Emergency Provider Family Medicine; PCP Internal Medicine
DX: M19.072 Primary osteoarthritis, left ankle and foot (principal); Z79.01 Long term (current) use of anticoagulants; Z79.4 Long term (current) use of insulin; I25.10 Atherosclerotic heart disease of native coronary artery without angina pectoris; I13.0 Hypertensive heart and chronic kidney disease with heart failure and stage 1 through stage 4 chronic kidney disease, or unspecified chronic kidney disease; E11.22 Type 2 diabetes mellitus with diabetic chronic kidney disease; N18.2 Chronic kidney disease, stage 2 (mild); I50.9 Heart failure, unspecified; E78.5 Hyperlipidemia, unspecified; Z86.73 Personal history of transient ischemic attack (TIA), and cerebral infarction without residual deficits; Z95.0 Presence of cardiac pacemaker
CPT/HCPCS: 73610; 73630; 99282

== ENCOUNTER → 2020-08-29 10:49 | Outpatient (BNVA) | payer MEDICARE, OTHER, SELFPAY | PROVIDERS: PCP Internal Medicine; Visit Provider Internal Medicine Cardiovascular Disease | DX: I48.21 Permanent atrial fibrillation (principal); Z79.01 Long term (current) use of anticoagulants | CPT/HCPCS: 85610 ==

== ENCOUNTER → 2020-09-05 11:05 | Outpatient (BNVA) | payer MEDICARE, OTHER, SELFPAY | PROVIDERS: PCP Internal Medicine; Visit Provider Internal Medicine Cardiovascular Disease | DX: I48.21 Permanent atrial fibrillation (principal); Z79.01 Long term (current) use of anticoagulants | CPT/HCPCS: 85610 ==

== ENCOUNTER → 2020-09-12 09:18 | Outpatient (BNVA) | payer MEDICARE, OTHER, SELFPAY | PROVIDERS: PCP Internal Medicine; Referring Provider Family Medicine; Visit Provider Podiatrist Foot & Ankle Surgery | DX: M25.572 Pain in left ankle and joints of left foot (principal); Z46.89 Encounter for fitting and adjustment of other specified devices; I48.21 Permanent atrial fibrillation; Z79.01 Long term (current) use of anticoagulants | CPT/HCPCS: 73610; 85610; 97760; L1902 ==

== ENCOUNTER 2020-09-12 11:45 | Outpatient (CLI) | payer MEDICARE, OTHER, SELFPAY | END 2020-09-12 11:46 | disposition home or self-care (01) | LOC: SPT 11:46 | PROVIDERS: PCP Internal Medicine; Visit Provider Podiatrist Foot & Ankle Surgery | DX: Z46.89 Encounter for fitting and adjustment of other specified devices (principal); M25.572 Pain in left ankle and joints of left foot | CPT/HCPCS: 85610; 97760; L1902 ==

== ENCOUNTER → 2020-09-19 10:15 | Outpatient (BNVA) | payer MEDICARE, OTHER, SELFPAY | PROVIDERS: PCP Internal Medicine; Visit Provider Internal Medicine Cardiovascular Disease | DX: I48.21 Permanent atrial fibrillation (principal); Z79.01 Long term (current) use of anticoagulants | CPT/HCPCS: 85610 ==

== ENCOUNTER → 2020-09-26 10:31 | Outpatient (BNVA) | payer MEDICARE, OTHER, SELFPAY | PROVIDERS: PCP Internal Medicine; Visit Provider Internal Medicine Cardiovascular Disease | DX: I48.21 Permanent atrial fibrillation (principal) | CPT/HCPCS: 85610 ==

== ENCOUNTER → 2020-10-25 10:55 | Outpatient (BNVA) | payer MEDICARE, OTHER, SELFPAY | PROVIDERS: PCP Internal Medicine; Visit Provider Internal Medicine Cardiovascular Disease | DX: I48.21 Permanent atrial fibrillation (principal); Z79.01 Long term (current) use of anticoagulants | CPT/HCPCS: 85610 ==

== ENCOUNTER → 2020-10-26 11:40 | Outpatient (BNVA) | payer MEDICARE, OTHER, SELFPAY | PROVIDERS: PCP Internal Medicine; Visit Provider Surgery | DX: Z01.812 Encounter for preprocedural laboratory examination (principal); Z20.822 Contact with and (suspected) exposure to COVID-19 | CPT/HCPCS: 87635 ==

== ENCOUNTER 2020-11-01 07:05 | Day surgery (SDC) | payer MEDICARE, OTHER, SELFPAY ==
[2020-10-30 13:54] VITALS: BMI 31.8
--- NOTE | 2020-11-01 07:19 | W.PM.OPSUD ---
Surgery/Procedure H&P Update DATE OF PROCEDURE: November 01, 2020 DATE H&P PERFORMED: 10/16/20 H&P UPDATE INFORMATION: No changes to prior documentation PLANNED PROCEDURE: Operation Date: 11/01/20 08:00 Proposed Procedures p Colonoscopy 12160 Dx: D50.9 R19.5 Z80.0 Z51.81(Not Applicable) - Adi Benoit MD
[2020-11-01 07:24] VITALS: BP 173/90; PULSE 82; RESP 16; TEMP 36.1; O2SAT 98
[2020-11-01] MEDS: sodium chloride 0.9% 1,000 ML 30 ML IV (07:43)
[2020-11-01 07:45] LABS: Glucose Point of Care 90 mg/dL (70-110)
--- NOTE | 2020-11-01 08:01 | P.ANESASSM_ITS ---
Pre-Anesthetic Assessment Pre-Anesthetic Assessment: Height/Weight: Height 1.6 m Weight 81.647 kg Temp Pulse Resp BP Pulse Ox 97 F L 82 16 173/90 98 11/01/20 07:24 11/01/20 07:24 11/01/20 07:24 11/01/20 07:24 11/01/20 07:24 Proposed Procedure: Operation Date: 11/01/20 08:00 Proposed Procedures p Colonoscopy 12881 Dx: D50.9 R19.5 Z80.0 Z51.81(Not Applicable) - Adi Benoit MD Was Beta Vadim taken within 24 hours: Yes Last intake: Intake Last Liquid Date 10/31/20 Last Liquid Time 22:00 Last Solid Date 10/30/20 Last Solid Time 18:00 Social: Social History: No alcohol and No tobacco Exam: Pre-Anes Outpt Exam: alert, oriented x 3, clear to auscultation bilaterally and regular rate & rhythm Airway: Submandibular: WNL Cervical ROM: WNL MP: 2 Dentition: False History/ROS: No significant history except as noted and No significant comp laints Pulmonary: Pulmonary: None reported CV/HEM: CV/HEM: Afib, Arrythmia, CAD and HTN (pacemaker) : : None reported Hepatic: Hepatic: None reported GI: GI: GERD Metabolic: Metabolic: DM, Morbid obesity and Thyroid Musc/skel: Musc/skel: OA/DJD Neuropsych: Comments: [facility] Anesthetic Plan: ASA status: 3 Anesthesia: Anesthesia Evaluation and MAC Risk of > 500 ml blood loss (7ml/kg in children): No Meds/Allergies Current Medications: Current Medications Generic Name Dose Route Start Last Admin Trade Name Freq PRN Reason Stop Dose Admin Sodium Chloride 1,000 mls @ 30 ml s/hr 11/01/20 07:30 11/01/20 07:43 Sodium Chloride 0.9% IV 11/02/20 07:29 30 mls/hr .Q24H AKI Administration PFSH Anesthesia PFSH: Medical History Aortic stenosis Not significant on repeat echocardiogram. Atherosclerotic heart disease of [place] coronary artery with other forms of angina pectoris Atrial fibrillation CAD (coronary artery disease) CHF (congestive heart failure) Diastolic Chronic kidney disease, stage II (mild) Diabetes mellitus Dyslipidemia Essential hypertension GERD (gastroesophageal reflux disease) Gout History of TIAs Hypothyroidism Obesity Peripheral arterial disease Sick sinus syndrome Sleep apnea Warfarin anticoagulation Surgical History History of permanent cardiac pacemaker placement S/P appendectomy S/P cataract extraction S/P cholecystectomy S/P hysterectomy S/P oophorectomy Family History Father CAD (coronary artery disease) Diabetes Stroke Myocardial infarction Mother CAD (coronary artery disease) Diabetes Hypertension Stroke Sister Diabetes Cancer COLON Social History Smoking and tobacco status: never smoked Alcohol intake: never Lives independently: Yes Marital status: / History of recent travel: No Data Anesthesia Other Labs: Laboratory Results - last 48 hr 11/01/20 07:41 POC Glucose 90 Cardiac Studies: No Data to Display
[2020-11-01 08:26] VITALS: BP 105/54; PULSE 61; RESP 16; TEMP 36.4; O2SAT 93
[2020-11-01 08:33] VITALS: BP 127/68; PULSE 59; RESP 16; TEMP 36.6; O2SAT 96
--- NOTE | 2020-11-01 14:11 | ANE.PACU2 ---
Inpatient post-anesthesia follow up: Airway intact: Yes Vital signs: Temperature 97.8 F Pulse Rate 59 Respiratory Rate 16 Blood Pressure 127/68 Pulse Oximetry 96 Oxygen Delivery Me thod Room Air Oxygen Flow Rate Fraction of Inspir ed Oxygen Hydration adequate: Yes Nausea and vomiting: No Pain level: 2 Mental status: Baseline
== END 2020-11-01 08:47 | disposition home or self-care (01) ==
PROVIDERS: PCP Internal Medicine; Visit Provider Surgery
PROC: 0DJD8ZZ Inspection of Lower Intestinal Tract, Via Natural or Artificial Opening Endoscopic (ICD-10-PCS; CPT 45378; principal; 2020-11-01 08:00)
DX: D50.9 Iron deficiency anemia, unspecified (principal); Z51.81 Encounter for therapeutic drug level monitoring; Z80.0 Family history of malignant neoplasm of digestive organs; K64.8 Other hemorrhoids; I48.91 Unspecified atrial fibrillation; I25.10 Atherosclerotic heart disease of native coronary artery without angina pectoris; Z95.0 Presence of cardiac pacemaker; M19.90 Unspecified osteoarthritis, unspecified site; E11.22 Type 2 diabetes mellitus with diabetic chronic kidney disease; I13.0 Hypertensive heart and chronic kidney disease with heart failure and stage 1 through stage 4 chronic kidney disease, or unspecified chronic kidney disease; N18.2 Chronic kidney disease, stage 2 (mild); I50.30 Unspecified diastolic (congestive) heart failure; E78.5 Hyperlipidemia, unspecified; K21.9 Gastro-esophageal reflux disease without esophagitis; Z86.73 Personal history of transient ischemic attack (TIA), and cerebral infarction without residual deficits; E66.9 Obesity, unspecified; Z68.31 Body mass index [BMI] 31.0-31.9, adult; E03.9 Hypothyroidism, unspecified; G47.30 Sleep apnea, unspecified; Z79.01 Long term (current) use of anticoagulants
CPT/HCPCS: 36416; 45378; 82962; 96360; J2704; J7030

== ENCOUNTER → 2020-11-22 10:55 | Outpatient (BNVA) | payer MEDICARE, OTHER, SELFPAY | PROVIDERS: PCP Internal Medicine; Visit Provider Internal Medicine Cardiovascular Disease | DX: I48.21 Permanent atrial fibrillation (principal); Z79.01 Long term (current) use of anticoagulants | CPT/HCPCS: 85610 ==

== ENCOUNTER 2020-11-28 11:50 | Outpatient (CLI) | payer MEDICARE, OTHER, SELFPAY ==
[2020-11-28 12:45] LABS: Basophils # 0.2 10^3/uL (0.0-0.1); Eosinophils # 0.5 10^3/uL (0.0-0.8); Eosinophils % 3.3 %; Hematocrit 39.3 % (37.0-47.0); Hemoglobin 12.4 g/dL (11.5-15.3); Lymphocytes # 7.2 10^3/uL (0.8-4.8); Lymphocytes % 50.2 %; Mean Corpuscular HGB Conc 31.6 g/dL (30.0-36.0); Mean Corpuscular Hemoglobin 29.6 pg (28.0-34.0); Mean Corpuscular Volume 93.8 fL (81-99); Mean Platelet Volume 10.4 fL (7.4-10.4); Monocytes # 0.8 10^3/uL (0.2-0.9); Monocytes % 5.4 %; Neutrophils # 5.63 10^3/uL (1.8-7.7); Neutrophils % 39.1 %; Nucleated Red Blood Cells % 0 %; Platelet Count 221 10^3/cmm (130-400); Red Blood Count 4.19 10^6/uL (4.1-5.3); Red Cell Distribution Width 14.4 % (12.1-15.1); White Blood Count 14.4 10^3/uL (4.0-10.0)
[2020-11-28 13:05] LABS: Alanine Aminotransferase 23 U/L (0-33); Alkaline Phosphatase 129 IU/L (35-105); Aspartate Amino Transferase 33 U/L (0-32); Blood Urea Nitrogen 10 mg/dL (8-23); Carbon Dioxide 27 mmol/L (22-29); Chloride 96 mmol/L (98-107); Globulin 3.1 g/dL (1.3-4.6); Glucose 248 mg/dL (65-115); Lactate Dehydrogenase 242 U/L (135-214); Osmolality Calculated 283 mOsm/kg (285-295); Sodium 133 mmol/L (136-145); Total Bilirubin 0.2 mg/dL (0.15-1.2); Total Protein 7.1 g/dL (6.6-8.7)
[2020-11-28 13:36] LABS: Calcium 8.9 mg/dL (8.5-10.5)
== END 2020-11-28 11:51 | disposition home or self-care (01) ==
LOC: ONCMED 11:54
PROVIDERS: PCP Internal Medicine; Visit Provider Internal Medicine Hematology & Oncology
DX: C91.10 Chronic lymphocytic leukemia of B-cell type not having achieved remission (principal); Z79.899 Other long term (current) drug therapy
CPT/HCPCS: 80053; 83615; 85025

== ENCOUNTER 2020-11-29 06:10 | Outpatient (CLI) | payer MEDICARE, OTHER, SELFPAY ==
--- NOTE | 2020-11-29 08:39 | ONC FU_ITS ---
Dr. Guy follow up note Patient: Britt Stockton Unit #: [id number]: [id number] Dicatated By: Ameya Guy M.D.Date of Visit:Nov 29, 2020 Onc Med Follow-up/Prog Note History of Present Illness: Mrs. Britt Stockton, is a 80 -year-old female with history of early-stage chronic lymphocytic leukemia, initially diagnosed on 02/24/2006 at that time it showed there was a subpopulation of monoclonal B cell, about 20% of total cellularity, positive for CD19, CD5/CD20, CD23 and lambda restriction. CD10 was absent. Patient was followed by Dr. Gutierrez in hematology clinic and last time she was seen on 09/21 2010 at that time his impression was stable , early-stage CLL with her white blood count was around 14,000, hemoglobin 11.1 g and platelet count was 252,000 at that time she was treated with iron supplement and multivitamin with stable hemoglobin and active surveillance as far as CLL is concern. As per patient, at that time she was told to come on as-needed basis. And now her primary care doctor wanted her to come here for regular f/u Came for follow-up, denies any specific complaints, no fever chills, no nausea or vomiting, no diarrhea constipation, no night sweats, no recurrent fever, no weight loss, no peripheral lymphadenopathy, no abdominal fullness Medications: Allopurinol 1 Tablet (of 300 mg) Oral daily, ALPRAZolam 1 Tablet (of 0.25 mg) Oral at bedtime, amLODIPine Besylate 1 Tablet (of 5 mg) Oral daily, Coumadin 1 Tablet (of 5 mg) Oral daily, Ferrous Sulfate 1 Tablet (of 325 (65 fe) mg) Oral t.i.d., Levothyroxine Sodium 1 Tablet (of 75 mcg) Oral daily, Lisinopril 1 Tablet (of 20 mg) Oral b.i.d., metFORMIN HCl 1 Tablet (of 1000 mg) Oral b.i.d., Metoprolol Tartrate 1 Tablet (of 50 mg) Oral b.i.d., Omeprazole 1 Tablet (of 40 mg) Tablet, enteric coated Oral b.i.d., Simvastatin 1 Tablet (of 10 mg) Oral at bedtime, Tresiba 20 Units (of 100 Units/mL) Subcutaneous at bedtime Allergies: Aspirin, Codeine Sulfate, Iodinated Contrast Dye, Iodine, and Tylenol. Review of Systems: Review of Systems is not available for this patient. Vital Signs: Vitals are not available for this patient. Performance Status: 0 - Fully active, able to carry on all predisease activities without restrictions. (ECOG) Physical Examination: ENMT - No mouth sores, no thrush, no jaundice no cervical or axillary lymphadenopathy, Respiratory - Lungs are clear to auscultation, Cardiovascular - Regular rate and rhythm of heart, Abdomen - Soft, bowel sounds present nontender, Extremities - No visible edema or rash. Lab/Imaging: Most recent lab results are not available for this patient. Impression: Early-stage chronic lymphocytic leukemia, diagnosed on 02/24/2006 with flow cytometry which showed monoclonal B-cell, approximately 20% of total cellularity which showed CD19, CD5/CD20, CD23 positive and lambda restriction. And CD10 was absent. There was no increase of myeloblasts. Finding were consistent with CLL/small lymphocytic lymphoma. Her last visit to hematology clinic was on 07/24/2010 at that time her white blood count was 14,000, hemoglobin 11.1 g and platelet count was 252,000. Plan: Discussed with patient regarding her labs white blood count 14.4, hemoglobin 12.4 hematocrit 39.3 platelets 221,000 absolute lymphocyte count 7200 compared to 6600 in May 2020, CMP within normal limit except glucose 248 and sodium 133, LDH 242 Clinically, patient is doing well with no new signs symptom or B symptoms suggestive of disease progression on exam there is no evidence of peripheral lymphadenopathy her follow-up CBC CMP LDH shows no significant change except mild persistent leukocytosis/lymphocytosis and mildly elevated LDH but stable., Will continue to monitor and she will return to clinic in 6 months with CBC CMP and LDH, patient was advised to call in case she has recurrent fever or night sweats or unintentional weight loss. Patient was also advised to follow PMDs instructions regarding her diabetes/hyperglycemia. Signed By: Ameya Guy M.D. <<Signature on File>>
== END 2020-11-29 06:11 | disposition home or self-care (01) ==
LOC: ONCMED 06:15
PROVIDERS: PCP Internal Medicine; Visit Provider Internal Medicine Medical Oncology
DX: C91.10 Chronic lymphocytic leukemia of B-cell type not having achieved remission (principal); Z79.899 Other long term (current) drug therapy; Z79.01 Long term (current) use of anticoagulants
CPT/HCPCS: 85610; 99214

== ENCOUNTER → 2020-12-05 09:39 | Outpatient (BNVA) | payer MEDICARE, OTHER, SELFPAY | PROVIDERS: PCP Internal Medicine; Visit Provider Internal Medicine Cardiovascular Disease | DX: Z79.01 Long term (current) use of anticoagulants (principal); I48.21 Permanent atrial fibrillation | CPT/HCPCS: 85610 ==

== ENCOUNTER → 2020-12-25 14:31 | Outpatient (BNVA) | payer MEDICARE, OTHER, SELFPAY | PROVIDERS: PCP Internal Medicine; Visit Provider Internal Medicine Cardiovascular Disease | DX: R06.02 Shortness of breath (principal); M79.89 Other specified soft tissue disorders; I50.33 Acute on chronic diastolic (congestive) heart failure; I25.118 Atherosclerotic heart disease of native coronary artery with other forms of angina pectoris; I35.0 Nonrheumatic aortic (valve) stenosis; E78.5 Hyperlipidemia, unspecified; Z79.4 Long term (current) use of insulin; Z95.0 Presence of cardiac pacemaker; I48.21 Permanent atrial fibrillation; I10 Essential (primary) hypertension | CPT/HCPCS: 80048; 83880 ==

== ENCOUNTER → 2021-01-09 10:45 | Outpatient (BNVA) | payer MEDICARE, OTHER, SELFPAY | PROVIDERS: PCP Internal Medicine; Visit Provider Internal Medicine Cardiovascular Disease | DX: I48.21 Permanent atrial fibrillation (principal) | CPT/HCPCS: 85610 ==

== ENCOUNTER → 2021-01-15 10:35 | Outpatient (BNVA) | payer MEDICARE, OTHER, SELFPAY | PROVIDERS: PCP Internal Medicine; Visit Provider Internal Medicine Cardiovascular Disease | DX: I48.21 Permanent atrial fibrillation (principal); Z79.01 Long term (current) use of anticoagulants | CPT/HCPCS: 85610 ==

== ENCOUNTER → 2021-01-17 11:43 | Outpatient (BNVA) | payer MEDICARE, OTHER, MEDICAID, SELFPAY | PROVIDERS: PCP Internal Medicine; Visit Provider Internal Medicine Cardiovascular Disease | DX: R25.2 Cramp and spasm (principal) | CPT/HCPCS: 80048; 82550; 83880 ==

== ENCOUNTER → 2021-01-22 10:15 | Outpatient (BNVA) | payer MEDICARE, OTHER, MEDICAID, SELFPAY | PROVIDERS: PCP Internal Medicine; Visit Provider Internal Medicine Cardiovascular Disease | DX: I48.21 Permanent atrial fibrillation (principal); Z79.01 Long term (current) use of anticoagulants | CPT/HCPCS: 85610 ==

== ENCOUNTER → 2021-02-05 13:07 | Outpatient (BNVA) | payer MEDICARE, OTHER, MEDICAID, SELFPAY | PROVIDERS: PCP Internal Medicine; Visit Provider Internal Medicine Cardiovascular Disease | DX: Z79.01 Long term (current) use of anticoagulants (principal) | CPT/HCPCS: 85610 ==

== ENCOUNTER → 2021-02-26 10:04 | Outpatient (BNVA) | payer MEDICARE, OTHER, SELFPAY | PROVIDERS: PCP Internal Medicine; Visit Provider Internal Medicine Cardiovascular Disease | DX: I48.21 Permanent atrial fibrillation (principal); Z79.01 Long term (current) use of anticoagulants | CPT/HCPCS: 85610 ==

== ENCOUNTER → 2021-03-05 10:04 | Outpatient (BNVA) | payer MEDICARE, OTHER, MEDICAID, SELFPAY | PROVIDERS: PCP Internal Medicine; Visit Provider Internal Medicine Cardiovascular Disease | DX: I48.21 Permanent atrial fibrillation (principal); Z79.01 Long term (current) use of anticoagulants | CPT/HCPCS: 85610 ==

== ENCOUNTER → 2021-03-12 10:08 | Outpatient (BNVA) | payer MEDICARE, OTHER, MEDICAID, SELFPAY | PROVIDERS: PCP Internal Medicine; Visit Provider Internal Medicine Cardiovascular Disease | DX: I48.21 Permanent atrial fibrillation (principal); Z79.01 Long term (current) use of anticoagulants | CPT/HCPCS: 85610 ==

== ENCOUNTER → 2021-03-26 10:10 | Outpatient (BNVA) | payer MEDICARE, OTHER, MEDICAID, SELFPAY | PROVIDERS: PCP Internal Medicine; Visit Provider Internal Medicine Cardiovascular Disease | DX: I48.21 Permanent atrial fibrillation (principal); Z79.01 Long term (current) use of anticoagulants | CPT/HCPCS: 85610 ==

== ENCOUNTER → 2021-04-23 10:38 | Outpatient (BNVA) | payer MEDICARE, OTHER, MEDICAID, SELFPAY | PROVIDERS: PCP Internal Medicine; Visit Provider Internal Medicine Cardiovascular Disease | DX: I48.21 Permanent atrial fibrillation (principal); Z79.01 Long term (current) use of anticoagulants | CPT/HCPCS: 85610 ==

== ENCOUNTER → 2021-04-30 10:50 | Outpatient (BNVA) | payer MEDICARE, MEDICAID, SELFPAY | PROVIDERS: PCP Internal Medicine; Visit Provider Internal Medicine Cardiovascular Disease | DX: I48.21 Permanent atrial fibrillation (principal); Z79.01 Long term (current) use of anticoagulants | CPT/HCPCS: 85610 ==

== ENCOUNTER → 2021-05-14 10:56 | Outpatient (BNVA) | payer MEDICARE, MEDICAID, SELFPAY | PROVIDERS: PCP Internal Medicine; Visit Provider Internal Medicine Cardiovascular Disease | DX: Z79.01 Long term (current) use of anticoagulants (principal); I48.21 Permanent atrial fibrillation | CPT/HCPCS: 85610 ==

== ENCOUNTER 2021-06-03 14:13 | Outpatient (CLI) | payer MEDICARE, MEDICAID, SELFPAY ==
[2021-06-03 14:37] LABS: Basophils # 0.1 10^3/uL (0.0-0.1); Basophils % 0.8 %; Eosinophils # 0.5 10^3/uL (0.0-0.8); Eosinophils % 3.5 %; Hemoglobin 12.4 g/dL (11.5-15.3); Lymphocytes # 7.1 10^3/uL (0.8-4.8); Lymphocytes % 49.5 %; Mean Corpuscular HGB Conc 32.6 g/dL (30.0-36.0); Mean Corpuscular Hemoglobin 31.4 pg (28.0-34.0); Mean Corpuscular Volume 96.2 fl (81-99); Mean Platelet Volume 10.7 fL (7.4-10.4); Monocytes # 0.8 10^3/uL (0.2-0.9); Monocytes % 5.4 %; Neutrophils # 5.79 10^3/uL (1.8-7.7); Neutrophils % 40.3 %; Nucleated Red Blood Cells % 0 %; Platelet Count 207 10^3/cmm (130-400); Red Blood Count 3.95 10^6/uL (4.1-5.3); Red Cell Distribution Width 14.2 % (12.1-15.1); White Blood Count 14.4 10^3/uL (4.0-10.0)
[2021-06-03 14:55] LABS: Alanine Aminotransferase 19 U/L (0-33); Alkaline Phosphatase 111 IU/L (35-105); Anion Gap 14.3 (5-19); Aspartate Amino Transferase 32 U/L (0-32); Blood Urea Nitrogen 25 mg/dL (8-23); Calcium 8.8 mg/dL (8.5-10.5); Carbon Dioxide 25 mmol/L (22-29); Chloride 100 mmol/L (98-107); Globulin 3.3 g/dL (1.3-4.6); Glucose 154 mg/dL (65-115); Lactate Dehydrogenase 201 U/L (135-214); Osmolality Calculated 285 mOsm/kg (285-295); Potassium 5.3 mmol/L (3.5-5.1); Sodium 134 mmol/L (136-145); Total Bilirubin 0.2 mg/dL (0.15-1.2); Total Protein 7.3 g/dL (6.6-8.7)
== END 2021-06-03 14:14 | disposition home or self-care (01) ==
LOC: ONCMED 14:17
PROVIDERS: PCP Internal Medicine; Visit Provider Internal Medicine Hematology & Oncology
DX: C91.10 Chronic lymphocytic leukemia of B-cell type not having achieved remission (principal)
CPT/HCPCS: 36415; 80053; 83615; 85025

== ENCOUNTER 2021-06-06 06:26 | Outpatient (CLI) | payer MEDICARE, MEDICAID, SELFPAY | END 2021-06-06 06:27 | disposition home or self-care (01) | PROVIDERS: PCP Internal Medicine; Visit Provider Internal Medicine Hematology & Oncology | DX: C91.10 Chronic lymphocytic leukemia of B-cell type not having achieved remission (principal); D64.9 Anemia, unspecified; F41.9 Anxiety disorder, unspecified; E78.5 Hyperlipidemia, unspecified; E03.9 Hypothyroidism, unspecified; E11.9 Type 2 diabetes mellitus without complications; I10 Essential (primary) hypertension; Z79.4 Long term (current) use of insulin; Z79.899 Other long term (current) drug therapy | CPT/HCPCS: 99214 ==

== ENCOUNTER → 2021-06-12 10:39 | Outpatient (BNVA) | payer MEDICARE, MEDICAID, SELFPAY | PROVIDERS: PCP Internal Medicine; Visit Provider Internal Medicine Cardiovascular Disease | DX: I48.21 Permanent atrial fibrillation (principal) | CPT/HCPCS: 85610 ==

== ENCOUNTER → 2021-06-19 11:42 | Outpatient (BNVA) | payer MEDICARE, MEDICAID, SELFPAY | PROVIDERS: PCP Internal Medicine; Visit Provider Internal Medicine Cardiovascular Disease | DX: I48.21 Permanent atrial fibrillation (principal); Z79.01 Long term (current) use of anticoagulants | CPT/HCPCS: 85610 ==

== ENCOUNTER → 2021-06-26 12:06 | Outpatient (BNVA) | payer MEDICARE, MEDICAID, SELFPAY | PROVIDERS: PCP Internal Medicine; Visit Provider Internal Medicine Cardiovascular Disease | DX: I48.21 Permanent atrial fibrillation (principal) | CPT/HCPCS: 85610 ==

== ENCOUNTER → 2021-07-24 09:55 | Outpatient (BNVA) | payer MEDICARE, MEDICAID, SELFPAY | PROVIDERS: PCP Internal Medicine; Visit Provider Internal Medicine Cardiovascular Disease | DX: I48.21 Permanent atrial fibrillation (principal); M79.89 Other specified soft tissue disorders | CPT/HCPCS: 85610 ==

== ENCOUNTER → 2021-08-27 10:32 | Outpatient (BNVA) | payer MEDICARE, MEDICAID, SELFPAY | PROVIDERS: PCP Internal Medicine | DX: I48.21 Permanent atrial fibrillation (principal) | CPT/HCPCS: 85610 ==

== ENCOUNTER → 2021-09-03 11:03 | Outpatient (BNVA) | payer MEDICARE, MEDICAID, SELFPAY | PROVIDERS: PCP Internal Medicine; Visit Provider Internal Medicine Cardiovascular Disease | DX: I48.21 Permanent atrial fibrillation (principal); Z79.01 Long term (current) use of anticoagulants | CPT/HCPCS: 85610 ==

== ENCOUNTER → 2021-09-10 10:52 | Outpatient (BNVA) | payer MEDICARE, MEDICAID, SELFPAY | PROVIDERS: PCP Internal Medicine; Visit Provider Internal Medicine Cardiovascular Disease | DX: I48.21 Permanent atrial fibrillation (principal); Z79.01 Long term (current) use of anticoagulants | CPT/HCPCS: 85610 ==

== ENCOUNTER → 2021-10-08 10:32 | Outpatient (BNVA) | payer MEDICARE, MEDICAID, SELFPAY | PROVIDERS: PCP Internal Medicine; Visit Provider Internal Medicine Cardiovascular Disease | DX: Z79.01 Long term (current) use of anticoagulants (principal) | CPT/HCPCS: 85610 ==

== ENCOUNTER → 2022-01-10 11:57 | Outpatient (BNVA) | payer MEDICARE, MEDICAID, SELFPAY | PROVIDERS: PCP Internal Medicine; Visit Provider Internal Medicine Cardiovascular Disease | DX: I48.21 Permanent atrial fibrillation (principal); Z95.0 Presence of cardiac pacemaker | CPT/HCPCS: 85610; 93280 ==

== ENCOUNTER 2022-01-14 14:56 | Oncology outpatient (recurring) (ONCR) | payer MEDICARE, MEDICAID, SELFPAY ==
[2022-01-07 10:30] LABS: Basophils # 0.1 10^3/uL (0.0-0.1); Eosinophils # 0.5 10^3/uL (0.0-0.8); Eosinophils % 3.7 %; Hematocrit 37.7 % (37.0-47.0); Hemoglobin 12.8 g/dL (11.5-15.3); Lymphocytes # 6.7 10^3/uL (0.8-4.8); Lymphocytes % 46.3 %; Mean Corpuscular Hemoglobin 31.8 pg (28.0-34.0); Mean Corpuscular Volume 93.5 fl (81-99); Mean Platelet Volume 9.6 fL (7.4-10.4); Monocytes # 0.8 10^3/uL (0.2-0.9); Monocytes % 5.4 %; Neutrophils % 42.9 %; Nucleated Red Blood Cells % 0 %; Platelet Count 194 10^3/cmm (130-400); Red Blood Count 4.03 10^6/uL (4.1-5.3); Red Cell Distribution Width 14.2 % (12.1-15.1); White Blood Count 14.4 10^3/uL (4.0-10.0)
[2022-01-07 10:51] LABS: Alanine Aminotransferase 19 U/L (0-33); Albumin Level 3.9 g/dL (3.5-5.2); Alkaline Phosphatase 109 IU/L (35-105); Anion Gap 16.6 (5-19); Aspartate Amino Transferase 32 U/L (0-32); Blood Urea Nitrogen 23 mg/dL (8-23); Calcium 9.8 mg/dL (8.5-10.5); Carbon Dioxide 30 mmol/L (22-29); Chloride 95 mmol/L (98-107); Globulin 3.4 g/dL (1.3-4.6); Glucose 187 mg/dL (65-115); Lactate Dehydrogenase 216 U/L (135-214); Osmolality Calculated 293 mOsm/kg (285-295); Potassium 4.6 mmol/L (3.5-5.1); Sodium 137 mmol/L (136-145); Total Bilirubin 0.2 mg/dL (0.15-1.2); Total Protein 7.3 g/dL (6.6-8.7)
== END 2022-02-05 23:59 | disposition home or self-care (01) ==
PROVIDERS: Nurse Practitioner Family; PCP Internal Medicine; Visit Provider Internal Medicine Hematology & Oncology
DX: C91.10 Chronic lymphocytic leukemia of B-cell type not having achieved remission (principal)
CPT/HCPCS: 36415; 80053; 83615; 85025; 99214; G0463

== ENCOUNTER → 2022-01-17 10:33 | Outpatient (BNVA) | payer MEDICARE, MEDICAID, SELFPAY | PROVIDERS: PCP Internal Medicine; Visit Provider Internal Medicine Cardiovascular Disease | DX: I48.21 Permanent atrial fibrillation (principal) | CPT/HCPCS: 85610 ==

== ENCOUNTER → 2022-02-13 10:57 | Outpatient (BNVA) | payer MEDICARE, MEDICAID, SELFPAY | PROVIDERS: PCP Internal Medicine; Visit Provider Internal Medicine Cardiovascular Disease | DX: I48.21 Permanent atrial fibrillation (principal) | CPT/HCPCS: 36415; 85610 ==

== ENCOUNTER → 2022-02-17 10:10 | Outpatient (BNVA) | payer MEDICARE, MEDICAID, SELFPAY | PROVIDERS: PCP Internal Medicine; Visit Provider Podiatrist Foot & Ankle Surgery | DX: E11.65 Type 2 diabetes mellitus with hyperglycemia (principal); Z79.4 Long term (current) use of insulin; G62.9 Polyneuropathy, unspecified; B35.1 Tinea unguium; L60.1 Onycholysis; Z51.81 Encounter for therapeutic drug level monitoring; Z79.01 Long term (current) use of anticoagulants; I48.21 Permanent atrial fibrillation; Z79.84 Long term (current) use of oral hypoglycemic drugs | CPT/HCPCS: 11721; 85610; 99203 ==

== ENCOUNTER → 2022-02-24 09:48 | Outpatient (BNVA) | payer MEDICARE, MEDICAID, SELFPAY | PROVIDERS: PCP Internal Medicine; Visit Provider Internal Medicine Cardiovascular Disease | DX: I48.21 Permanent atrial fibrillation (principal); Z79.01 Long term (current) use of anticoagulants | CPT/HCPCS: 85610 ==

== ENCOUNTER → 2022-03-03 09:58 | Outpatient (BNVA) | payer MEDICARE, MEDICAID, SELFPAY | PROVIDERS: PCP Internal Medicine; Visit Provider Internal Medicine Cardiovascular Disease | DX: I48.21 Permanent atrial fibrillation (principal); Z79.01 Long term (current) use of anticoagulants | CPT/HCPCS: 85610 ==

== ENCOUNTER → 2022-03-05 13:48 | Outpatient (BNVA) | payer MEDICARE, MEDICAID, SELFPAY | PROVIDERS: PCP Internal Medicine; Visit Provider Internal Medicine Cardiovascular Disease | DX: I35.0 Nonrheumatic aortic (valve) stenosis (principal); I25.118 Atherosclerotic heart disease of native coronary artery with other forms of angina pectoris; Z95.0 Presence of cardiac pacemaker; E78.5 Hyperlipidemia, unspecified; E11.65 Type 2 diabetes mellitus with hyperglycemia; Z79.4 Long term (current) use of insulin; I13.0 Hypertensive heart and chronic kidney disease with heart failure and stage 1 through stage 4 chronic kidney disease, or unspecified chronic kidney disease; E11.22 Type 2 diabetes mellitus with diabetic chronic kidney disease; N18.2 Chronic kidney disease, stage 2 (mild); I50.32 Chronic diastolic (congestive) heart failure; Z79.01 Long term (current) use of anticoagulants | CPT/HCPCS: 99214 ==

== ENCOUNTER → 2022-03-10 10:10 | Outpatient (BNVA) | payer MEDICARE, MEDICAID, SELFPAY | PROVIDERS: PCP Internal Medicine; Visit Provider Internal Medicine Cardiovascular Disease | DX: I48.21 Permanent atrial fibrillation (principal) | CPT/HCPCS: 85610 ==

== ENCOUNTER → 2022-03-17 10:13 | Outpatient (BNVA) | payer MEDICARE, MEDICAID, SELFPAY | PROVIDERS: PCP Internal Medicine; Visit Provider Internal Medicine Cardiovascular Disease | DX: I48.21 Permanent atrial fibrillation (principal); Z79.01 Long term (current) use of anticoagulants | CPT/HCPCS: 85610 ==

== ENCOUNTER → 2022-04-14 10:08 | Outpatient (BNVA) | payer MEDICARE, MEDICAID, SELFPAY | PROVIDERS: PCP Internal Medicine; Visit Provider Internal Medicine Cardiovascular Disease | DX: I48.21 Permanent atrial fibrillation (principal); Z79.01 Long term (current) use of anticoagulants | CPT/HCPCS: 85610 ==

== ENCOUNTER → 2022-04-21 10:12 | Outpatient (BNVA) | payer MEDICARE, MEDICAID, SELFPAY | PROVIDERS: PCP Internal Medicine; Visit Provider Internal Medicine Cardiovascular Disease | DX: I48.21 Permanent atrial fibrillation (principal); Z79.01 Long term (current) use of anticoagulants | CPT/HCPCS: 85610 ==

== ENCOUNTER 2022-04-22 15:16 | Outpatient (CLI) | payer MEDICARE, MEDICAID, SELFPAY ==
--- NOTE | 2022-04-22 15:15 | USCV_ITS ---
Britt Stockton Age: 81 Gender: F : 1940 Exam Date: 04/22/2022 15:43 Ordering Phys: Lefty Doyle MD ([email or web address]) Technologist: Ian Farley Exam Location: [facility] [place] Indication: BP: 140 / 100 HR: 63 Rhythm: Sinus Technical Quality: Technically difficult study MEASUREMENTS (Male / Female) Normal Values 2D ECHO LV Diastolic Diameter PLAX 2.7 cm 4.2 - 5.9 / 3.9 - 5.3 cm LV Systolic Diameter PLAX 1.8 cm IVS Diastolic Thickness 0.6 cm 0.6 - 1.0 / 0.6 - 0.9 cm IVS Systolic Thickness 1.0 cm LVPW Diastolic Thickness 1.1 cm 0.6 - 1.0 / 0.6 - 0.9 cm LVPW Systolic Thickness 1.4 cm LVOT Diameter 2.0 cm LV Ejection Fraction 2D Teich 66.0 % LV Ejection Fraction MOD 2C 57.3 % LV Ejection Fraction 2C AL 57.6 % LA Diameter 3.3 cm LA Width 3.1 cm LA Height 4.4 cm RA Width 3.6 cm RA Height 4.8 cm Aorta at Sinotubular Diameter 2.1 cm IVC Diameter 2.3 cm M-MODE Aortic Annulus Diameter 2.1 cm LA Ao Ratio MM 1.6 MV E Point Septal Separation 0.5 cm DOPPLER AV Peak Velocity 220.8 cm/s LVOT Peak Velocity 90.0 cm/s AV Area Cont Eq vti 1.3 cm squared AV Area Cont Eq pk 1.3 cm squared MV Peak Velocity 129.0 cm/s MV Area PHT 3.0 cm squared Mitral E to A Ratio 0.5 MV E' Velocity 35.5 cm/s Mitral E to MV E' Ratio 14.0 Mitral E to LV E' Lateral Ratio 12.0 Mitral E to LV E' Septal Ratio 17.3 TR Peak Velocity 240.8 cm/s TR Peak Gradient 23.2 mmHg TR Mean Velocity 196.8 cm/s TR Mean Gradient 18.8 mmHg TR Velocity Time Integral 62.6 cm Right Atrial Pressure 8.0 mmHg Pulmonary Artery Systolic Pressu 31.2 mmHg PV Peak Velocity 111.0 cm/s RV Acceleration Time 0.1 s RV Ejection Time 0.3 s RV AcT/ET 0.4 FINDINGS Left Ventricle Normal left ventricular size and systolic function, EF 55 %. No regional wall motion abnormalities. Mild left ventricular hypertrophy. Grade I/IV diastolic dysfunction (abnormal relaxation filling pattern), normal to mildly elevated filling pressures. Right Ventricle Pacemaker wire in the right ventricle Right Atrium Pacemaker wire in the right atrium Left Atrium The left atrium is normal in size. Mitral Valve Thickened mitral valve. Moderate mitral annular calcification. Trace mitral valve regurgitation. Aortic Valve Moderate aortic valve calcification. Moderate aortic valve stenosis, mean gradient 10.4 mmHg, RUBI 1.3 cm squared. Peak velocity of 2.45 m/s Tricuspid Valve Trace tricuspid valve regurgitation. Pulmonic Valve Structurally normal pulmonic valve without significant stenosis. There is no pulmonic regurgitation. Pericardium Normal pericardium without effusion. Aorta Normal ascending aorta dimension. IVC Dilated IVC with normal respiratory variation. CONCLUSIONS Normal left ventricular size and systolic function, EF 55 %. No regional wall motion abnormalities. Mild left ventricular hypertrophy. Grade I/IV diastolic dysfunction (abnormal relaxation filling pattern), normal to mildly elevated filling pressures. Moderate aortic valve stenosis, mean gradient 10.4 mmHg, RUBI 1.3 cm squared. Peak velocity of 2.45 m/s. Moderate aortic valve calcification. Thickened mitral valve. Moderate mitral annular calcification. Trace mitral valve regurgitation. Trace tricuspid valve regurgitation. Estimated pulmonary artery peak systolic pressure 31 mmHg There is no pericardial effusion. There are no intracardiac masses. Compared to the study from 02/09/2020, there may not be a significant change. Dr Lefty Doyle MD [facility] (Electronically Signed) Final Date: 24 April 2022 10:08 S
== END 2022-04-22 15:17 | disposition home or self-care (01) ==
PROVIDERS: PCP Internal Medicine; Visit Provider Internal Medicine Cardiovascular Disease
DX: R06.09 Other forms of dyspnea; I08.1 Rheumatic disorders of both mitral and tricuspid valves
CPT/HCPCS: 93306

== ENCOUNTER → 2022-04-28 10:15 | Outpatient (BNVA) | payer MEDICARE, MEDICAID, SELFPAY | PROVIDERS: PCP Internal Medicine; Visit Provider Internal Medicine Cardiovascular Disease | DX: I48.21 Permanent atrial fibrillation (principal); Z79.01 Long term (current) use of anticoagulants | CPT/HCPCS: 85610 ==

== ENCOUNTER → 2022-05-12 10:00 | Outpatient (BNVA) | payer MEDICARE, MEDICAID, SELFPAY | PROVIDERS: PCP Internal Medicine; Visit Provider Podiatrist Foot & Ankle Surgery | DX: E11.8 Type 2 diabetes mellitus with unspecified complications (principal); E11.65 Type 2 diabetes mellitus with hyperglycemia; Z79.4 Long term (current) use of insulin; G62.9 Polyneuropathy, unspecified; B35.1 Tinea unguium; L60.1 Onycholysis; Z79.84 Long term (current) use of oral hypoglycemic drugs | CPT/HCPCS: 11721 ==

== ENCOUNTER → 2022-05-26 12:29 | Outpatient (BNVA) | payer MEDICARE, MEDICAID, SELFPAY | PROVIDERS: PCP Internal Medicine; Visit Provider Internal Medicine Cardiovascular Disease | DX: I48.21 Permanent atrial fibrillation (principal); Z79.01 Long term (current) use of anticoagulants | CPT/HCPCS: 85610 ==

== ENCOUNTER → 2022-06-04 10:48 | Outpatient (BNVA) | payer MEDICARE, MEDICAID, SELFPAY | PROVIDERS: PCP Internal Medicine; Visit Provider Internal Medicine Cardiovascular Disease | DX: I48.21 Permanent atrial fibrillation (principal) | CPT/HCPCS: 36415; 85610 ==

== ENCOUNTER → 2022-06-17 13:31 | Outpatient (BNVA) | payer MEDICARE, MEDICAID, SELFPAY | PROVIDERS: PCP Internal Medicine; Visit Provider Internal Medicine Cardiovascular Disease | DX: I48.21 Permanent atrial fibrillation (principal) | CPT/HCPCS: 85610 ==

== ENCOUNTER → 2022-07-15 10:49 | Outpatient (BNVA) | payer MEDICARE, MEDICAID, SELFPAY | PROVIDERS: PCP Internal Medicine; Visit Provider Internal Medicine Cardiovascular Disease | DX: I48.21 Permanent atrial fibrillation (principal) | CPT/HCPCS: 85610 ==

== ENCOUNTER 2022-07-17 12:10 | Oncology outpatient (recurring) (ONCR) | payer MEDICARE, MEDICAID, SELFPAY ==
[2022-07-17 12:58] LABS: Basophils # 0.1 10^3/uL (0.0-0.1); Basophils % 0.8 %; Eosinophils # 0.5 10^3/uL (0.0-0.8); Eosinophils % 3.2 %; Hemoglobin 12.6 g/dL (11.5-15.3); Lymphocytes % 50.7 %; Mean Corpuscular HGB Conc 31.5 g/dL (30.0-36.0); Mean Corpuscular Hemoglobin 30.8 pg (28.0-34.0); Mean Corpuscular Volume 97.8 fl (81-99); Mean Platelet Volume 10.5 fL (7.4-10.4); Monocytes # 0.8 10^3/uL (0.2-0.9); Monocytes % 4.9 %; Neutrophils # 6.31 10^3/uL (1.8-7.7); Neutrophils % 39.9 %; Nucleated Red Blood Cells % 0 %; Platelet Count 192 10^3/cmm (130-400); Red Blood Count 4.09 10^6/uL (4.1-5.3); Red Cell Distribution Width 14.3 % (12.1-15.1); White Blood Count 15.8 10^3/uL (4.0-10.0)
[2022-07-17 13:09] LABS: Alanine Aminotransferase 14 U/L (0-33); Albumin Level 4.2 g/dL (3.5-5.2); Alkaline Phosphatase 97 U/L (35-105); Anion Gap 13.4 (5-19); Aspartate Amino Transferase 27 U/L (0-32); Blood Urea Nitrogen 35 mg/dL (8-23); Calcium 9.7 mg/dL (8.5-10.5); Carbon Dioxide 30 mmol/L (22-29); Chloride 97 mmol/L (98-107); Globulin 3.2 g/dL (1.3-4.6); Glucose 92 mg/dL (65-115); Lactate Dehydrogenase 359 U/L (135-214); Osmolality Calculated 290 mOsm/kg (285-295); Potassium 4.4 mmol/L (3.5-5.1); Sodium 136 mmol/L (136-145); Total Bilirubin 0.2 mg/dL (0.15-1.2); Total Protein 7.4 g/dL (6.6-8.7)
== END 2022-08-05 23:59 | disposition home or self-care (01) ==
PROVIDERS: PCP Internal Medicine; Visit Provider Internal Medicine Hematology & Oncology
DX: C91.10 Chronic lymphocytic leukemia of B-cell type not having achieved remission (principal); Z79.899 Other long term (current) drug therapy
CPT/HCPCS: 36415; 80053; 83615; 85025; 99214

== ENCOUNTER → 2022-08-12 10:07 | Outpatient (BNVA) | payer MEDICARE, MEDICAID, SELFPAY | PROVIDERS: PCP Internal Medicine; Visit Provider Internal Medicine Cardiovascular Disease | DX: I48.21 Permanent atrial fibrillation (principal) | CPT/HCPCS: 85610 ==

== ENCOUNTER 2022-08-21 15:39 | Inpatient (IN) | payer MEDICARE, MEDICAID, SELFPAY ==
--- NOTE | 2022-08-21 15:53 | XRR_ITS ---
PROCEDURE INFORMATION: Exam: XR Chest Exam date and time: 08/21/2022 4:32 PM Age: 82 years old Clinical indication: Other: Psychiatric symptoms; Patient HX: Complaints of hallucinations. Family member brought the patient in. For the last several days she has been reporting hearing voices states she hears a little girl yelling at her she called the police about it; Additional info: Mhe TECHNIQUE: Imaging protocol: Radiologic exam of the chest. Views: 1 view. COMPARISON: CR XR chest 1V portable [id number] 01/27/2020 6:57 PM FINDINGS: Tubes, catheters and devices: Pacer device noted in the left chest wall. Lungs: Calcified granuloma noted in the left lung base. No consolidation. Pleural spaces: Unremarkable. No pleural effusion. No pneumothorax. Heart/Mediastinum: Unremarkable. No cardiomegaly. Bones/joints: Unremarkable. XR/XR chest 1V portable [id number] IMPRESSION: No acute findings.
[2022-08-21 16:01] VITALS: BP 166/96; PULSE 82; RESP 18; TEMP 36.7; O2SAT 93
--- NOTE | 2022-08-21 16:27 | CTR_ITS ---
PROCEDURE INFORMATION: Exam: CT Head Without Contrast Exam date and time: 08/21/2022 4:35 PM Age: 82 years old Clinical indication: Altered mental status/memory loss; Additional info: AMS - on anticoagulants TECHNIQUE: Imaging protocol: Computed tomography of the head without contrast. Radiation optimization: All CT scans at this facility use at least one of these dose optimization techniques: automated exposure control; mA and/or kV adjustment per patient size (includes targeted exams where dose is matched to clinical indication); or iterative reconstruction. REPORTING DATA: Count of CT and Cardiac NM exams in prior 12 months: This patient has received 0 known CTs and 0 known cardiac nuclear medicine studies in the 12 months prior to the current study. COMPARISON: CT head wo con* [id number] 01/27/2020 7:04 PM RADIATION DOSE METRICS: Total DLP (mGy-cm): 1012.08 FINDINGS: Brain: No hemorrhage. No edema. Moderate diffuse cerebral atrophy and sequela of chronic small vessel ischemic disease. No mass effect. Cerebral ventricles: No ventriculomegaly. Paranasal sinuses: Visualized sinuses are unremarkable. No fluid levels. Mastoid air cells: Visualized mastoid air cells are well aerated. Bones/joints: Unremarkable. No acute fracture. Soft tissues: Unremarkable. CT/CT head wo con* [id number] IMPRESSION: 1. No acute intracranial abnormality. 2. Moderate diffuse cerebral atrophy and sequela of chronic small vessel ischemic disease.
[2022-08-21 16:33] LABS: Basophils # 0.2 10^3/uL (0.0-0.1); Basophils % 0.9 %; Eosinophils # 0.5 10^3/uL (0.0-0.8); Eosinophils % 2.8 %; Hematocrit 39.8 % (37.0-47.0); Hemoglobin 12.8 g/dL (11.5-15.3); Lymphocytes # 8.4 10^3/uL (0.8-4.8); Lymphocytes % 48.2 %; Mean Corpuscular HGB Conc 32.2 g/dL (30.0-36.0); Mean Corpuscular Hemoglobin 30.8 pg (28.0-34.0); Mean Corpuscular Volume 95.7 fl (81-99); Mean Platelet Volume 10.2 fL (7.4-10.4); Monocytes # 0.8 10^3/uL (0.2-0.9); Monocytes % 4.8 %; Neutrophils # 7.43 10^3/uL (1.8-7.7); Neutrophils % 42.8 %; Nucleated Red Blood Cells % 0 %; Platelet Count 220 10^3/cmm (130-400); Red Blood Count 4.16 10^6/uL (4.1-5.3); Red Cell Distribution Width 14.2 % (12.1-15.1); White Blood Count 17.4 10^3/uL (4.0-10.0)
--- NOTE | 2022-08-21 16:46 | W.ED.PSYCHS ---
Documented by User: Luis Fernando Bird DO 08/22/22 07:09 HPI - Psych General: Chief Complaint: Psychiatric Symptoms Stated Complaint: MHE Time Seen by Provider: 08/21/22 15:53 Source: patient Mode of arrival: ambulatory History of Present Illness: 82-year-old female presents emergency room with complaints of hallucinations. Family member brought the patient in. For the last several days she has been reporting hearing voices states she hears a little girl yelling at her she called the police about it The voices seem to follow her she been outside of the house and she had also reported hearing the voices. Family member states patient has been asking for firearms. She is alert and cooperative but insists that she is hearing this little girl. Onset (ago): unknown Duration: constant Relieving factors: none Exacerbating factors: none Associated psychiatric symptoms: auditory hallucinations Associated symptoms: Reports auditory hallucinations Treatments prior to arrival: none Review of Systems Const: Denies: fever(s), chills, body aches, change in appetite, fatigue or malaise ENMT: Denies: throat pain, ear or mastoid pain, nasal discharge or nasal congestion Card: Denies: chest pain, edema, dyspnea on exertion or orthopnea Resp: Denies: dyspnea, productive cough or non-productive cough GI: Denies: abdominal pain, nausea, vomiting, hematemesis, coffee ground emesis, diarrhea, constipation, bloating, hematochezia or melena : Denies: flank pain, difficulty voiding, dysuria, urinary frequency or urinary urgency Skin/Breast: Denies: rash or pruritus Psych: Reports: auditory hallucinations PFS ED PFSH: Medical History Anemia Anxiety Aortic stenosis Not significant on repeat echocardiogram. 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 Diabetes mellitus Dyslipidemia Essential hypertension GERD (gastroesophageal reflux disease) Gout History of TIAs Hyperlipidemia Hypertension Hypothyroidism Obesity Peripheral arterial disease Sick sinus syndrome Sleep apnea Warfarin anticoagulation Surgical History History of permanent cardiac pacemaker placement S/P appendectomy S/P cataract extraction S/P cholecystectomy S/P hysterectomy S/P oophorectomy Family History Father CAD (coronary artery disease) Diabetes Stroke Myocardial infarction Mother CAD (coronary artery disease) Diabetes Hypertension Stroke Sister Diabetes Cancer COLON Social History Smoking and tobacco status: never smoked Alcohol intake: never Lives independently: Yes Marital status: / Physical Exam Const: COMMON NORMALS: no acute distress GENERAL APPEARANCE: cooperative and comfortable ORIENTATION/CONSCIOUSNESS: Yes awake HENMT: COMMON NORMALS: normocephalic, atraumatic and hearing grossly normal bilaterally HEAD & SCALP: normocephalic and atraumatic Resp: COMMON NORMALS: normal respiratory effort, No retractions, No use of accessory muscles and clear to auscultation bilaterally AUSCULTATION: clear to auscultation bilaterally Cardio: COMMON NORMALS: regular rate, regular rhythm and No murmurs present (Cardio) RATE: regular rate RHYTHM: regular rhythm GI: COMMON NORMALS: Soft to palpation and No hepatosplenomegaly present AUSCULTATION: Yes normoactive bowel sounds PALPATION: Yes Soft to palpation, No Tenderness to palpation present (GI), No Guarding due to palpation present (GI) and Yes No hepatosplenomegaly present Extremity: COMMON NORMALS: normal to inspection, capillary refill normal, no clubbing, cyanosis or edema, no calf tenderness and no pedal edema Skin: COMMON NORMALS: no rashes or lesions noted GENERAL SKIN EXAM: no rashes or lesions noted Course Vital Signs: Vital signs: Vital Signs Temperature 97.6 F 08/22/22 05:20 Pulse Rate 69 08/22/22 05:20 Respiratory Rate 18 08/22/22 05:20 Blood Pressure 102/64 08/22/22 05:20 Pulse Oximetry 98 08/22/22 05:20 Oxygen Delivery Me thod 08/22/22 05:20 MDM - Psych Medical Decision Making Acute psychosis. Labs pending. Care signed out to Dr. Bynum at change of shift. See final notes for diagnosis and disposition. Patient presents here with acute psychosis with hallucinations on patient's blood work she has a slight leukocytosis along with an elevated INR no signs of infection here for admit to the hospitalist at this time for further medical clearance and then look for likely chest slight transfer after she is cleared and her INR is improved I spoke to psychiatrist who is consulted. Lab Data 08/21/22 16:15 08/21/22 16:15 Radiology Impressions Chest X-Ray 08/21/22 15:53 IMPRESSION: No acute findings. Head CT 08/21/22 16:27 IMPRESSION: 1. No acute intracranial abnormality. 2. Moderate diffuse cerebral atrophy and sequela of chronic small vessel ischemic disease. Laboratory Results WBC 17.4 10^3/uL (4.0-10.0) H 08/21/22 16:15 RBC 4.16 10^6/uL (4.1-5.3) 08/21/22 16:15 Hgb 12.8 g/dL (11.5-15.3) 08/21/22 16:15 Hct 39.8 % (37.0-47.0) 08/21/22 16:15 MCV 95.7 fl (81-99) 08/21/22 16:15 MCH 30.8 pg (28.0-34.0) 08/21/22 16:15 MCHC 32.2 g/dL (30.0-36.0) 08/21/22 16:15 RDW 14.2 % (12.1-15.1) 08/21/22 16:15 Plt Count 220 10^3/cmm (130-400) 08/21/22 16:15 MPV 10.2 fL (7.4-10.4) 08/21/22 16:15 Neut % (Auto) 42.8 % 08/21/22 16:15 Lymph % (Auto) 48.2 % 08/21/22 16:15 [place] % (Auto) 4.8 % 08/21/22 16:15 Eos % (Auto) 2.8 % 08/21/22 16:15 Baso % (Auto) 0.9 % 08/21/22 16:15 Neut # (Auto) 7.43 10^3/uL (1.8-7.7) 08/21/22 16:15 Lymph # (Auto) 8.4 10^3/uL (0.8-4.8) H 08/21/22 16:15 [place] # (Auto) 0.8 10^3/uL (0.2-0.9) 08/21/22 16:15 Eos # (Auto) 0.5 10^3/uL (0.0-0.8) 08/21/22 16:15 Baso # (Auto) 0.2 10^3/uL (0.0-0.1) H 08/21/22 16:15 Nucleated RBC % (auto) 0 % 08/21/22 16:15 Nucleated RBCs # 0.0 /100WBC 08/21/22 16:15 PT 46.30 SECONDS (12.1-14.9) H 08/21/22 17:00 INR 4.72 (0.8-1.2) H 08/21/22 17:00 APTT 45.6 SECONDS (23.9-36.7) H 08/21/22 17:00 Sodium 131 mmol/L (136-145) L 08/21/22 16:15 Potassium 4.3 mmol/L (3.5-5.1) 08/21/22 16:15 Chloride 92 mmol/L (98-107) L 08/21/22 16:15 Carbon Dioxide 22 mmol/L (22-29) 08/21/22 16:15 Anion Gap 21.3 (5-19) H 08/21/22 16:15 BUN 32 mg/dL (8-23) H 08/21/22 16:15 Creatinine 1.3 mg/dL (0.5-0.9) H 08/21/22 16:15 GFR Calculation Not Reportable 08/21/22 16:15 Glucose 225 mg/dL (65-115) H 08/21/22 16:15 Calculated Osmolality 286 mOsm/kg (285-295) 08/21/22 16:15 Calcium 9.4 mg/dL (8.5-10.5) 08/21/22 16:15 Total Bilirubin 0.3 mg/dL (0.15-1.2) 08/21/22 16:15 AST 28 U/L (0-32) 08/21/22 16:15 ALT 15 U/L (0-33) 08/21/22 16:15 Alkaline Phosphatase 107 U/L (35-105) H 08/21/22 16:15 Total Protein 7.3 g/dL (6.6-8.7) 08/21/22 16:15 Albumin 3.7 g/dL (3.5-5.2) 08/21/22 16:15 Globulin 3.6 g/dL (1.3-4.6) 08/21/22 16:15 TSH 0.73 uIU/mL (0.27-4.20) 08/21/22 16:15 Urine Color Light yellow (Yellow) 08/21/22 18:31 Urine Appearance Clear (CLEAR) 08/21/22 18:31 Urine pH 5 (5-7) 08/21/22 18:31 Ur Specific [place] 1.010 (1.005-1.030) 08/21/22 18:31 Urine Protein Neg (Negative) 08/21/22 18:31 Urine Glucose (UA) Norm (Normal) 08/21/22 18:31 Urine Ketones Negative (Negative) 08/21/22 18:31 Urine Blood Neg (Negative) 08/21/22 18:31 Urine Nitrate Negative (Negative) 08/21/22 18:31 Urine Bilirubin Neg (Negative) 08/21/22 18:31 Urine Urobilinogen Neg mg/dL (Negative) 08/21/22 18:31 Ur Leukocyte Esterase Negative (Negative) 08/21/22 18:31 Salicylates < 0.3 mg/dL (3-10) L 08/21/22 16:15 Urine Opiates Screen Negative ng/mL (Negative) 08/21/22 18:31 Acetaminophen < 5.0 ug/mL (10-30) L 08/21/22 16:15 Ur Barbiturates Screen Negative ng/mL (Negative) 08/21/22 18:31 Ur Phencyclidine Scrn Negative ng/mL (Negative) 08/21/22 18:31 Ur Amphetamines Screen Negative ng/mL (Negative) 08/21/22 18:31 U Benzodiazepines Scrn Positive ng/mL (Negative) H 08/21/22 18:31 Urine Cocaine Screen Negative ng/mL (Negative) 08/21/22 18:31 U Marijuana (THC) Screen Negative ng/mL (Negative) 08/21/22 18:31 Ethyl Alcohol < 10 mg/dL (0-10) 08/21/22 16:15 Coronavirus 229E (PCR) Not detected (NOT DETECT) 08/21/22 17:17 SARS-CoV-2 (PCR) Not detected (NOT DETECT) 08/21/22 17:17 Discharge Plan Discharge Patient Disposition: Admitted As Inpatient Admit Provider: Fili Roy Clinical Impression: Acute psychosis, Elevated INR Condition: Stable Coding Level of Care Code ED Electric Hoist Operator for Chg Fwd Documented by User: Aurelia Bynum MD 08/21/22 19:59 HPI - Psych General: Chief Complaint: Psychiatric Symptoms Stated Complaint: MHE Time Seen by Provider: 08/21/22 15:53 PFSH ED PFSH: Medical History Anemia Anxiety Aortic stenosis Not significant on repeat echocardiogram. 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 Diabetes mellitus Dyslipidemia Essential hypertension GERD (gastroesophageal reflux disease) Gout History of TIAs Hyperlipidemia Hypertension Hypothyroidism Obesity Peripheral arterial disease Sick sinus syndrome Sleep apnea Warfarin anticoagulation Surgical History History of permanent cardiac pacemaker placement S/P appendectomy S/P cataract extraction S/P cholecystectomy S/P hysterectomy S/P oophorectomy Family History Father CAD (coronary artery disease) Diabetes Stroke Myocardial infarction Mother CAD (coronary artery disease) Diabetes Hypertension Stroke Sister Diabetes Cancer COLON Social History Smoking and tobacco status: never smoked Alcohol intake: never Lives independently: Yes Marital status: / Course Vital Signs: Vital signs: Vital Signs Temperature 97.6 F 08/22/22 05:20 Pulse Rate 69 08/22/22 05:20 Respiratory Rate 18 08/22/22 05:20 Blood Pressure 102/64 08/22/22 05:20 Pulse Oximetry 98 08/22/22 05:20 Oxygen Delivery Me thod 08/22/22 05:20 MDM - Psych Medical Decision Making Patient presents here with acute psychosis with hallucinations on patient's blood work she has a slight leukocytosis along with an elevated INR no signs of infection here for admit to the hospitalist at this time for further medical clearance and then look for likely chest slight transfer after she is cleared and her INR is improved I spoke to psychiatrist who is consulted. Lab Data 08/21/22 16:15 08/21/22 16:15 Radiology Impressions Chest X-Ray 08/21/22 15:53 IMPRESSION: No acute findings. Head CT 08/21/22 16:27 IMPRESSION: 1. No acute intracranial abnormality. 2. Moderate diffuse cerebral atrophy and sequela of chronic small vessel ischemic disease. Laboratory Results WBC 17.4 10^3/uL (4.0-10.0) H 08/21/22 16:15 RBC 4.16 10^6/uL (4.1-5.3) 08/21/22 16:15 Hgb 12.8 g/dL (11.5-15.3) 08/21/22 16:15 Hct 39.8 % (37.0-47.0) 08/21/22 16:15 MCV 95.7 fl (81-99) 08/21/22 16:15 MCH 30.8 pg (28.0-34.0) 08/21/22 16:15 MCHC 32.2 g/dL (30.0-36.0) 08/21/22 16:15 RDW 14.2 % (12.1-15.1) 08/21/22 16:15 Plt Count 220 10^3/cmm (130-400) 08/21/22 16:15 MPV 10.2 fL (7.4-10.4) 08/21/22 16:15 Neut % (Auto) 42.8 % 08/21/22 16:15 Lymph % (Auto) 48.2 % 08/21/22 16:15 [place] % (Auto) 4.8 % 08/21/22 16:15 Eos % (Auto) 2.8 % 08/21/22 16:15 Baso % (Auto) 0.9 % 08/21/22 16:15 Neut # (Auto) 7.43 10^3/uL (1.8-7.7) 08/21/22 16:15 Lymph # (Auto) 8.4 10^3/uL (0.8-4.8) H 08/21/22 16:15 [place] # (Auto) 0.8 10^3/uL (0.2-0.9) 08/21/22 16:15 Eos # (Auto) 0.5 10^3/uL (0.0-0.8) 08/21/22 16:15 Baso # (Auto) 0.2 10^3/uL (0.0-0.1) H 08/21/22 16:15 Nucleated RBC % (auto) 0 % 08/21/22 16:15 Nucleated RBCs # 0.0 /100WBC 08/21/22 16:15 PT 46.30 SECONDS (12.1-14.9) H 08/21/22 17:00 INR 4.72 (0.8-1.2) H 08/21/22 17:00 APTT 45.6 SECONDS (23.9-36.7) H 08/21/22 17:00 Sodium 131 mmol/L (136-145) L 08/21/22 16:15 Potassium 4.3 mmol/L (3.5-5.1) 08/21/22 16:15 Chloride 92 mmol/L (98-107) L 08/21/22 16:15 Carbon Dioxide 22 mmol/L (22-29) 08/21/22 16:15 Anion Gap 21.3 (5-19) H 08/21/22 16:15 BUN 32 mg/dL (8-23) H 08/21/22 16:15 Creatinine 1.3 mg/dL (0.5-0.9) H 08/21/22 16:15 GFR Calculation Not Reportable 08/21/22 16:15 Glucose 225 mg/dL (65-115) H 08/21/22 16:15 Calculated Osmolality 286 mOsm/kg (285-295) 08/21/22 16:15 Calcium 9.4 mg/dL (8.5-10.5) 08/21/22 16:15 Total Bilirubin 0.3 mg/dL (0.15-1.2) 08/21/22 16:15 AST 28 U/L (0-32) 08/21/22 16:15 ALT 15 U/L (0-33) 08/21/22 16:15 Alkaline Phosphatase 107 U/L (35-105) H 08/21/22 16:15 Total Protein 7.3 g/dL (6.6-8.7) 08/21/22 16:15 Albumin 3.7 g/dL (3.5-5.2) 08/21/22 16:15 Globulin 3.6 g/dL (1.3-4.6) 08/21/22 16:15 TSH 0.73 uIU/mL (0.27-4.20) 08/21/22 16:15 Urine Color Light yellow (Yellow) 08/21/22 18:31 Urine Appearance Clear (CLEAR) 08/21/22 18:31 Urine pH 5 (5-7) 08/21/22 18:31 Ur Specific [place] 1.010 (1.005-1.030) 08/21/22 18:31 Urine Protein Neg (Negative) 08/21/22 18:31 Urine Glucose (UA) Norm (Normal) 08/21/22 18:31 Urine Ketones Negative (Negative) 08/21/22 18:31 Urine Blood Neg (Negative) 08/21/22 18:31 Urine Nitrate Negative (Negative) 08/21/22 18:31 Urine Bilirubin Neg (Negative) 08/21/22 18:31 Urine Urobilinogen Neg mg/dL (Negative) 08/21/22 18:31 Ur Leukocyte Esterase Negative (Negative) 08/21/22 18:31 Salicylates < 0.3 mg/dL (3-10) L 08/21/22 16:15 Urine Opiates Screen Negative ng/mL (Negative) 08/21/22 18:31 Acetaminophen < 5.0 ug/mL (10-30) L 08/21/22 16:15 Ur Barbiturates Screen Negative ng/mL (Negative) 08/21/22 18:31 Ur Phencyclidine Scrn Negative ng/mL (Negative) 08/21/22 18:31 Ur Amphetamines Screen Negative ng/mL (Negative) 08/21/22 18:31 U Benzodiazepines Scrn Positive ng/mL (Negative) H 08/21/22 18:31 Urine Cocaine Screen Negative ng/mL (Negative) 08/21/22 18:31 U Marijuana (THC) Screen Negative ng/mL (Negative) 08/21/22 18:31 Ethyl Alcohol < 10 mg/dL (0-10) 08/21/22 16:15 Coronavirus 229E (PCR) Not detected (NOT DETECT) 08/21/22 17:17 SARS-CoV-2 (PCR) Not detected (NOT DETECT) 08/21/22 17:17 Discharge Plan Discharge Patient Disposition: Admitted As Inpatient Admit Provider: Fili Roy Clinical Impression: Acute psychosis, Elevated INR Condition: Stable Coding Level of Care Code ED Electric Hoist Operator for Landry Leger
[2022-08-21 17:15] LABS: Alanine Aminotransferase 15 U/L (0-33); Albumin Level 3.7 g/dL (3.5-5.2); Alkaline Phosphatase 107 U/L (35-105); Anion Gap 21.3 (5-19); Aspartate Amino Transferase 28 U/L (0-32); Blood Urea Nitrogen 32 mg/dL (8-23); Calcium 9.4 mg/dL (8.5-10.5); Carbon Dioxide 22 mmol/L (22-29); Chloride 92 mmol/L (98-107); Globulin 3.6 g/dL (1.3-4.6); Glucose 225 mg/dL (65-115); Osmolality Calculated 286 mOsm/kg (285-295); Potassium 4.3 mmol/L (3.5-5.1); Sodium 131 mmol/L (136-145); Thyroid Stimulating Hormone 0.73 uIU/mL (0.27-4.20); Total Bilirubin 0.3 mg/dL (0.15-1.2); Total Protein 7.3 g/dL (6.6-8.7)
[2022-08-21 17:16] LABS: Acetaminophen < 5.0 ug/mL (10-30); Alcohol Level < 10 mg/dL (0-10); Salicylate < 0.3 mg/dL (3-10)
--- NOTE | 2022-08-21 17:33 | ECG_ITS ---
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: : 1940 Requested By: Luis Fernando Christenesn Order Number: [id number] Reading MD: MARQUITA RODRIGUEZ Measurements Intervals [place] Rate: 80 P: 49 ID: [id number] QRS: -68 QRSD: 142 T: 50 QT: 417 QTc: 483 Interpretive Statements SINUS RHYTHM RIGHT BUNDLE BRANCH BLOCK [120+ ms QRS DURATION, UPRIGHT V1, 40+ ms S IN I/aVL/V4/V5/V6] POSSIBLE LEFT VENTRICULAR HYPERTROPHY [VOLTAGE CRITERIA PLUS LAE OR QRS WIDENING] POSSIBLE ANTERIOR MYOCARDIAL INFARCTION , OF INDETERMINATE AGE [30 ms Q WAVE IN V3/V4, OR R < 0.2 mV IN V4] INFERIOR MYOCARDIAL INFARCTION , OF INDETERMINATE AGE [40+ ms Q WAVE AND/OR ST/T ABNORMALITY IN II/aVF] Compared to ECG 01/27/2020 21:11:58 Myocardial infarct finding now present Left-axis deviation no longer present Electronically Signed On 08-23-2022 23:45:08 CDT by MARQUITA RODRIGUEZ [email or web address]
[2022-08-21 17:39] LABS: INR 4.72 (0.8-1.2)
[2022-08-21 17:40] LABS: Partial Thromboplastin Time 45.6 SECONDS (23.9-36.7)
[2022-08-21 18:59] LABS: Add Urine Microscopic? NO; Charge for UA Resulting for Rev
[2022-08-21 19:09] LABS: Bilirubin Urine Neg (Negative); Blood Urine Neg (Negative); Glucose Urine UA Norm (Normal); Ketones Urine Negative (Negative); Leukocyte Esterase Urine Negative (Negative); Nitrate Urine Negative (Negative); Protein Urine Neg (Negative); Urine Appearance Clear (CLEAR); Urine Color Light yellow (Yellow); Urobilinogen Urine Neg (Negative); pH Urine 5 (5-7)
[2022-08-21 19:11] LABS: Amphetamines Screen Urine Negative (Negative); Barbiturates Screen Urine Negative (Negative); Benzodiazepines Screen Urine Positive (Negative); Cocaine Screen Urine Negative (Negative); Opiate Screen Urine Negative (Negative); PCP Screen Urine Negative (Negative); THC Screen Urine Negative (Negative)
[2022-08-21 19:18] LABS: Adenovirus Not Detected (NOT DETECT); Chlamydia Pneumoniae Not Detected (NOT DETECT); Coronavirus 229E,HKU1,NL63,OC4 Not Detected (NOT DETECT); Human Metapneumovirus Not Detected (NOT DETECT); Human Rhinovirus/Enterovirus Not Detected (NOT DETECT); Influenza A Not Detected (NOT DETECT); Influenza A H1 Not Detected (NOT DETECT); Influenza A H1-2009 Not Detected (NOT DETECT); Influenza A H3 Not Detected (NOT DETECT); Influenza B Not Detected (NOT DETECT); Mycoplasma Pneumoniae Not Detected (NOT DETECT); Parainfluenza Virus Type 1 Not Detected (NOT DETECT); Parainfluenza Virus Type 2 Not Detected (NOT DETECT); Parainfluenza Virus Type 3 Not Detected (NOT DETECT); Parainfluenza Virus Type 4 Not Detected (NOT DETECT); Respiratory Syncytial Virus A Not Detected (NOT DETECT); Respiratory Syncytial Virus B Not Detected (NOT DETECT); SARS-COV-2 Not Detected (NOT DETECT)
[2022-08-21] MEDS: sodium chloride 0.9% 500 ML 999 ML IV (19:37)
--- NOTE | 2022-08-21 20:19 | P.HP_ITS ---
Providers/Chief Complaint Primary Care Provider: Nehemiah Abraham DO Chief Complaint: MHE History of Present Illness 82-year-old lady with CLL, CAD, CHF, DM 2, CKD stage II, creatinine normal back in 2021, in July creatinine 1.1, HLD, HTN, GERD, gout, hypothyroidism, history of TIAs, PAD, SSS, sleep apnea, A-fib on chronic anticoagulation with warfarin was brought in for evaluation by her family due to hallucinations, seeing and hearing a little girl around her home who has been yelling, not seen or heard by her family, she had called police about it and family reported she also had asked her family for her guns. In ER noted afebrile, with leukocytosis on CBC 17.4, lymphocytic predominance, INR 4.72, on CMP sodium 131, chloride 92, anion gap 21.3, BUN 32, creatinine 1.3, glucose 225, alk phos 107. TSH 0.73. Urine WNL. U tox panel positive for benzodiazepine. COVID-[address] without acute intracranial abnormality. Moderate diffuse cerebral atrophy and sequela of chronic small vessel ischemic disease. Chest x-ray without acute findings. She states that she is doing well. Denies any bothersome symptoms. Asks do I have covis? , I better not have it since I barely go anywhere . Clarifies apart from going to see the doctor. She states that she lives at home with her granddaughter who helps her take care of everything. Discussing with her regarding her blood work including INR she is is excepting that her INR is above therapeutic range. Discussed regarding HARDIK, denies any urinary difficulties, states I go to the bathroom just fine . Denies using NSAIDs. Spontaneously states I am not crazy . There is this little girl . Asking if she is bothersome to the patient, states sometimes . Hospitalization is requested for optimization of medical condition before she is able to proceed for geriatric psychiatric assessment management. Review of Systems Const: Denies: fever(s), chills, body aches or malaise Eyes: Denies: change in vision, eye discomfort or eye redness ENMT: Denies: throat pain, oral sores or ear or mastoid pain Card: Denies: chest pain, edema, pre-syncope or dyspnea on exertion Resp: Denies: dyspnea, productive cough, change in phlegm color or hemoptysis GI: Denies: abdominal pain, nausea, vomiting, diarrhea, constipation, hemat ochezia or melena : Denies: flank pain, urinary frequency or hematuria Musc: Denies: back pain, joint swelling or joint redness Skin/Breast: Denies: rash or new lesions Neuro: Denies: headache(s), numbness in extremities, weakness in extremities, dizziness, confusion or seizure-like activity Psych: Reports: visual hallucinations and auditory hallucinations Jackson/Lymph: Denies: easy bleeding or tender lymph nodes Medications/Allergies Home Medications Medication Instructions Recorded Confirmed Last Taken Type allopurinol 300 mg tablet 300 mg PO DAILY@0700 08/04/19 07/17/22 10/31/20 History levothyroxine 75 mcg capsule 75 mcg PO DAILY@0600 08/04/19 07/17/22 11/01/20 History metformin 1,000 mg tablet 1,000 mg PO BID@0700,2200 08/04/19 07/17/22 10/31/20 History omeprazole 40 mg capsule,delayed 40 mg PO BID@0700,2200 08/04/19 07/17/22 History release nitroglycerin 0.4 mg sublingual 0.4 mg sublingual Q5M PRN CHEST 03/29/20 07/17/22 Unknown Rx tablet (Nitrostat) PAINS #25 tabs insulin degludec 200 unit/mL (3 60 unit SUBCUT BEDTIME@2200 08/22/20 07/17/22 10/31/20 22:15 History mL) subcutaneous pen (Tresiba 60 UNITS FlexTouch U-200 insulin) warfarin 1 mg tablet See Rx Instructions .Route .COMPLEX 08/22/20 08/12/22 10/29/20 History ASO #1 ea 09/12/20 07/17/22 Unknown Rx ferrous sulfate 325 mg (65 mg 325 mg PO TID 10/30/20 07/17/22 10/31/20 History iron) tablet warfarin 1 mg tablet See Rx Instructions .Route 04/16/21 08/12/22 Unknown Rx .COMPLEX #90 tabs furosemide 40 mg tablet (Lasix) 40 mg PO DAILY #90 tabs 10/17/21 07/17/22 Unknown Rx warfarin 5 mg tablet 5 mg PO DIRECTED #90 tabs 06/04/22 08/12/22 Unknown Rx warfarin 4 mg tablet See Rx Instructions .Route 06/23/22 08/12/22 Unknown Rx .COMPLEX #90 tabs hydrochlorothiazide 50 mg tablet 50 mg PO DAILY #90 tabs 07/07/22 07/17/22 Unknown Rx potassium chloride 10 mEq 10 meq PO DAILY #90 tabs 07/09/22 07/17/22 Unknown Rx tablet,extended release lisinopril 40 mg tablet 40 mg PO BID@0700,2200 #180 tabs 08/18/22 Unknown Rx metoprolol tartrate 100 mg tablet 100 mg PO BID #180 tabs 08/18/22 Unknown Rx simvastatin 10 mg tablet 10 mg PO DAILY #90 tabs 08/18/22 Unknown Rx Allergies Allergy/AdvReac Type Severity Reaction Status Date / Time adhesive tape Allergy Unknown Unknown Verified 07/17/22 13:40 aspirin Allergy Unknown Unknown Verified 07/17/22 13:40 codeine Allergy Unknown Unknown Verified 07/17/22 13:40 diltiazem Allergy Unknown Unknown Verified 07/17/22 13:40 iodine Allergy Unknown Unknown Verified 07/17/22 13:40 nifedipine Allergy Unknown Unknown Verified 07/17/22 13:40 propoxyphene [From Darvon] Allergy Unknown Unknown Verified 07/17/22 13:40 Penicillins Allergy Unknown Verified 07/17/22 13:40 PFSH Acute PFSH: Medical History (Updated 08/21/22 @ 20:42 by Fili Roy MD) Anemia Anxiety Aortic stenosis Not significant on repeat echocardiogram. Atherosclerotic heart disease of [place] coronary artery with other forms of angina pectoris Atrial fibrillation CAD (coronary artery disease) CHF (congestive heart failure) Diastolic Chronic kidney disease, stage II (mild) Chronic lymphocytic leukemia of B-cell type not having achieved remission Diabetes mellitus Dyslipidemia Essential hypertension GERD (gastroesophageal reflux disease) Gout History of TIAs Hyperlipidemia Hypertension Hypothyroidism Obesity Peripheral arterial disease Sick sinus syndrome Sleep apnea Warfarin anticoagulation Surgical History History of permanent cardiac pacemaker placement S/P appendectomy S/P cataract extraction S/P cholecystectomy S/P hysterectomy S/P oophorectomy Family History Father CAD (coronary artery disease) Diabetes Stroke Myocardial infarction Mother CAD (coronary artery disease) Diabetes Hypertension Stroke Sister Diabetes Cancer COLON Social History Smoking and tobacco status: never smoked Alcohol intake: never Lives independently: Yes Marital status: / Vitals/I&O/Wt Last Vital Signs Temp 98.1 F 08/21/22 16:01 Pulse 82 08/21/22 16:01 Resp 18 08/21/22 16:01 BP 166/96 08/21/22 16:01 Pulse Ox 93 08/21/22 16:01 Physical Exam Const: COMMON NORMALS: alert GENERAL APPEARANCE: cooperative ORIENTATION/CONSCIOUSNESS: Yes awake OTHER: Very [place]. Has her hearing aids which she put in herself. HENMT: COMMON NORMALS: oropharynx normal Neck/C-Spine: COMMON NORMALS: no JVD Resp: COMMON NORMALS: normal respiratory effort and clear to auscultation bilaterally AUSCULTATION: clear to auscultation bilaterally Cardio: COMMON NORMALS: no JVD, regular rhythm, S1 normal heart sound present, S2 normal heart sound present and No murmurs present (Cardio) RHYTHM: regular rhythm HEART SOUNDS: S1 normal heart sound present and S2 normal heart sound present GI: COMMON NORMALS: Normal to inspection, nondistended, normoactive bowel sounds present, Soft to palpation and non-tender PALPATION: Yes Soft to palpation Extremity: COMMON NORMALS: no joint enlargement and no pedal edema Neuro: COMMON NORMALS: patient oriented x3 and moves all extremities SENSORIUM/ORIENTATION: Yes alert Skin: COMMON NORMALS: no rashes or lesions noted GENERAL SKIN EXAM: no rashes or lesions noted Data 08/21/22 16:15 08/21/22 16:15 A&P Assessment and plan (1) HARDIK (acute kidney injury): Appears somewhat dry. Gentle fluid challenge. Hold lisinopril. Hold HCTZ. Check CK. Reassess renal function. (2) Elevated INR: On warfarin for A-fib. Supratherapeutic INR, INR 4.47. For now reduce warfarin to 2 mg. Reassess INR. (3) Acute psychosis: With visual and auditory hallucinations. Will need transfer for geriatric psychiatric assessment once medically optimized. Psychiatry consultation in the meantime appreciated. 1:1 Other consideration includes delirium, although does not appear to have suggestion of acute infection or other obvious cause. Does have HARDIK. However, does not appear to be on any medications that should cause encephalopathy. Plan Leukocytosis: 17.4, has CLL, leukocytosis likely related to that, but is somewhat worse than usual. It is predominantly lymphocytic. With HARDIK, does appear also on the dry side, gentle fluid challenge as above. Reassessment blood counts requested. Mild alk phos elevation: Likely due to contraction, reassess CMP. Gentle fluid challenge as above. No right upper quadrant pain. Bagley negative. CLL, CAD, CHF, DM 2, CKD stage II, creatinine normal back in 2021, in July creatinine 1.1, HLD, HTN, GERD, gout, hypothyroidism, history of TIAs, PAD, SSS, sleep apnea, A-fib on chronic continuation with warfarin Please reconcile medications once they are confirmed. Discussed with ER physician, ER documentation reviewed. Attestations 2 Medical Necessity Statement*: Place in observation for additional medical optimization prior to transfer to geriatric psychiatric facility, with HARDIK, supratherapeutic INR, leukocytosis in a lady with acute psychosis, hallucinations. Diagnoses HARDIK (acute kidney injury) N17.9 Elevated INR R79.1 Acute psychosis F23
[2022-08-21 21:15] VITALS: BP 158/93; PULSE 83; RESP 18; O2SAT 94
[2022-08-21 21:44] VITALS: BP 158/93; PULSE 83; RESP 18; O2SAT 94
[2022-08-21 22:30] VITALS: BP 151/82; PULSE 71; RESP 19; TEMP 36.4; O2SAT 95
[2022-08-21] MEDS: lactated ringers 1,000 ML 30 ML IV (22:36)
[2022-08-22 00:15] VITALS: BP 130/70; PULSE 70; RESP 18; TEMP 36.4; O2SAT 94
[2022-08-22 04:16] LABS: Basophils # 0.1 10^3/uL (0.0-0.1); Basophils % 0.8 %; Eosinophils # 0.4 10^3/uL (0.0-0.8); Eosinophils % 3.1 %; Hematocrit 34.4 % (37.0-47.0); Hemoglobin 11.1 g/dL (11.5-15.3); Lymphocytes # 6.7 10^3/uL (0.8-4.8); Mean Corpuscular HGB Conc 32.3 g/dL (30.0-36.0); Mean Corpuscular Hemoglobin 30.7 pg (28.0-34.0); Mean Platelet Volume 10.5 fL (7.4-10.4); Monocytes # 0.9 10^3/uL (0.2-0.9); Monocytes % 6.6 %; Neutrophils # 4.79 10^3/uL (1.8-7.7); Nucleated Red Blood Cells % 0 %; Platelet Count 185 10^3/cmm (130-400); Red Blood Count 3.62 10^6/uL (4.1-5.3)
[2022-08-22 04:25] LABS: INR 4.28 (0.8-1.2)
[2022-08-22 04:38] LABS: Alanine Aminotransferase 13 U/L (0-33); Albumin Level 3.1 g/dL (3.5-5.2); Alkaline Phosphatase 89 U/L (35-105); Anion Gap 16.8 (5-19); Aspartate Amino Transferase 25 U/L (0-32); Blood Urea Nitrogen 28 mg/dL (8-23); Calcium 8.9 mg/dL (8.5-10.5); Carbon Dioxide 26 mmol/L (22-29); Chloride 100 mmol/L (98-107); Glucose 142 mg/dL (65-115); Osmolality Calculated 296 mOsm/kg (285-295); Potassium 3.8 mmol/L (3.5-5.1); Sodium 139 mmol/L (136-145); Total Bilirubin 0.3 mg/dL (0.15-1.2); Total Protein 6.1 g/dL (6.6-8.7)
[2022-08-22 05:20] VITALS: BP 102/64; PULSE 69; RESP 18; TEMP 36.4; O2SAT 98
[2022-08-22 08:00] VITALS: BP 150/78; PULSE 70; RESP 18; TEMP 36.3; O2SAT 93
--- NOTE | 2022-08-22 08:24 | PC.PHAR ---
PT UNABLE TO VERIFY MEDS- COULD NOT REACH PTS CONTACTS- VERIFIED USING EXTERNAL MED LIST LAST FILLED
[2022-08-22 12:00] VITALS: BP 152/82; PULSE 90; RESP 18; TEMP 36.4; O2SAT 94
--- NOTE | 2022-08-22 12:55 | PM.PN ---
Subjective Subjective: 82yo F seen this AM at bedside daughter and granddaughter/son present as well. Pt seen disheveled but happy. alert and oriented to place, person and time. States she is feeling improved. does not remember last evening. Continues to admit to auditory hallucinations that there is a little girl down the [place] in another room. stating she is not crazy . Denies visual hallucinations. per family her anxiety medication was increased by Dr. Deutsch (Covering for Dr. Abraham) 1 week ago. Hx of psychosis when pt has UTI. Son concerned for polypharmacy. Vitals/I&O/Wt Last Vital Signs Temp 97.6 F 08/22/22 12:00 Pulse 90 08/22/22 12:00 Resp 18 08/22/22 12:00 BP 152/82 08/22/22 12:00 Pulse Ox 94 08/22/22 12:00 O2 Del Method 08/22/22 12:00 08/21/22 08/22/22 08/22/22 22:59 06:59 14:59 Intake Total 500 / 500 250 / 750 240 / 240 Output Total 300 / 300 Balance 500 / 500 -50 / 450 240 / 240 Physical Exam Const: COMMON NORMALS: no acute distress, patient oriented x3 and alert GENERAL APPEARANCE: cooperative and comfortable ORIENTATION/CONSCIOUSNESS: Yes awake OTHER: Very [place]. Has her hearing aids which she put in herself. HENMT: COMMON NORMALS: normocephalic, atraumatic, hearing grossly normal bilaterally and oropharynx normal HEAD & SCALP: normocephalic and atraumatic Neck/C-Spine: COMMON NORMALS: no JVD Resp: COMMON NORMALS: normal respiratory effort, No retractions, No use of accessory muscles and clear to auscultation bilaterally AUSCULTATION: clear to auscultation bilaterally Cardio: COMMON NORMALS: no JVD, regular rate, regular rhythm, S1 normal heart sound present, S2 normal heart sound present and No murmurs present (Cardio) RATE: regular rate RHYTHM: regular rhythm HEART SOUNDS: S1 normal heart sound present and S2 normal heart sound present GI: COMMON NORMALS: Normal to inspection, nondistended, normoactive bowel sounds present, Soft to palpation, non-tender and No hepatosplenomegaly present AUSCULTATION: Yes normoactive bowel sounds PALPATION: Yes Soft to palpation, No Tenderness to palpation present (GI), No Guarding due to palpation present (GI) and Yes No hepatosplenomegaly present Extremity: COMMON NORMALS: normal to inspection, capillary refill normal, no joint enlargement, no clubbing, cyanosis or edema, no calf tenderness and no pedal edema Neuro: COMMON NORMALS: patient oriented x3 and moves all extremities SENSORIUM/ORIENTATION: Yes alert Psych: OTHER: AOx3 auditory hallucinations no visual hallucinations poor judgment elevated affect Skin: COMMON NORMALS: no rashes or lesions noted GENERAL SKIN EXAM: no rashes or lesions noted Data 08/22/22 03:46 08/22/22 03:46 A&P Assessment and plan (1) HARDIK (acute kidney injury): s/p NS 500 IVP, current LR 30 encourage PO intake renal fnct stable with Cr 1.3 holding lisinopril, HCTZ (2) Elevated INR: On warfarin for A-fib. Supratherapeutic INR, INR 4.47 --> 4.28. Warfarin reduced to 2mg desire INR in range before going back to home dosage. (3) Acute psychosis: continues to have auditory hallucinations Denies visual hallucinations this AM (present on admit) will start on risperidol 0.5mg qhs has 1: 1 ordered but none in the room awaiting psych eval possible atif-psych transfer but will attempt management here. 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 leukocytosis improving from 17.4 to 13. HADRIK - will attempt further fluid to eval improvement will attempt risperidol this evening and monitor psychosis monitor INR Hx: CLL, CAD, CHF, DM 2, CKD stage II, creatinine normal back in 2021, in July creatinine 1.1, HLD, HTN, GERD, gout, hypothyroidism, history of TIAs, PAD, SSS, sleep apnea, A-fib on chronic continuation with warfarin Attestations Medical Necessity Statement*: pt requires hospitalization for AMS management Coding Level of Care Code Acute Code for Chg Fwd Diagnoses HARDIK (acute kidney injury) N17.9 Elevated INR R79.1 Acute psychosis F23 Warfarin anticoagulation Z79.01 Polypharmacy Z79.899 Essential hypertension I10 Atrial fibrillation I48.21 Atrial fibrillation type: permanent Diabetes mellitus E11.65; Z79.4 Diabetes mellitus complication status: with hyperglycemia Diabetes mellitus nursing home insulin use: with nursing home use Diabetes mellitus type: type 2 Anxiety F41.9
[2022-08-22 15:39] VITALS: BP 182/75; PULSE 98; RESP 18; TEMP 36.6; O2SAT 93
[2022-08-22] MEDS: warfarin 2 mg Tablet PO (16:07)
[2022-08-22] MEDS: ferrous sulfate EC 325 mg Tablet PO ×2 (16:07→21:15)
[2022-08-22] MEDS: metoprolol tartrate 50 mg Tablet 100 MG PO (18:49)
[2022-08-22 20:00] VITALS: BP 189/101; PULSE 74; RESP 16; TEMP 36.6; O2SAT 95
--- NOTE | 2022-08-22 20:38 | P.NPUCON_ITS ---
Providers/Reason for Consult Consulting Physican/Specialty*: Juventino Monsivais MD Reason for Consult*: mental status changes/hallucinations Attending Physician: Abhilash Dunham MD Primary Care Provider: Nehemiah Abraham DO Psych Consult HPI History of Present Illness Britt Stockton is a 82 year old white female admitted with acute mental status changes with the patient reporting that she is not crazy . She states that she has been seen a little girl down in the [place] from another room and that this girl was states that she continues to hear her even when her hearing devices are off. She also sees this girl and states that she feels as if this person is being chased by another person. She denies any depressed mood. She reports having been treated at times for anxiety admits to taking her medications routinely. She denies having any thoughts of hurting herself or others. She does report having difficulties with concentration. She reports no feelings of hopelessness or worthlessness. Previous information gathered from the family revealed that the patient has had significant problems with psychotic symptoms apparently when she has a urinary tract infection. Furthermore, the patient had apparently been placed on a new medication for anxiety approximately 1 week ago that appears to be exacerbated the situation. She denies any drug or alcohol use at this time. Psychiatric history: She reports having been treated for anxiety in the past by her primary care physician. She has no known history of inpatient or outpatient psychiatric treatment. She reports no history of psychotherapy. Drug and alcohol history: None Medications: See below Medical history: Type 2 diabetes, atrial fibrillation, essential hypertension, past history of CLL, coronary artery disease, GERD, hypothyroidism, peripheral artery disease, sleep apnea and atrial fibrillation Surgical history: Pacemaker placement Allergies: Aspirin, codeine, diltiazem, iodine, cefepime, penicillin, propoxyphene, Social history: She is having been 1 time in the past. She reports living alone and states that the family number lives on the property with her. She was born in [place] and reports no history of trauma during her childhood or adulthood. She reports having been retired for many years. She reported no history of learning disability. She states that she has been having independently for quite a few years. Meds Home Medications and Allergies Home Medications Medication Instructions Recorded Confirmed Last Taken Type allopurinol 300 mg tablet 300 mg PO DAILY@0700 08/04/19 08/22/22 10/31/20 History levothyroxine 75 mcg capsule 75 mcg PO DAILY@0600 08/04/19 08/22/22 11/01/20 History metformin 1,000 mg tablet 1,000 mg PO BID@0700,2200 08/04/19 08/22/22 10/31/20 History omeprazole 40 mg capsule,delayed 40 mg PO BID@0700,2200 08/04/19 08/22/2210/31 History release nitroglycerin 0.4 mg sublingual 0.4 mg sublingual Q5M PRN CHEST 03/29/20 08/22/22 Unknown Rx tablet (Nitrostat) PAINS #25 tabs insulin degludec 200 unit/mL (3 60 unit SUBCUT BEDTIME@219908/22/20 08/22/22 10/31/20 22:15 History mL) subcutaneous pen (Tresiba 60 UNITS FlexTouch U-200 insulin) warfarin 1 mg tablet See Rx Instructions .Route .COMPLEX 08/22/20 08/22/22 10/29/20 History ASO #1 ea 09/12/20 08/22/22 Unknown Rx ferrous sulfate 325 mg (65 mg 325 mg PO TID 10/30/20 08/22/22 10/31/20 History iron) tablet warfarin 1 mg tablet See Rx Instructions .Route 04/16/21 08/22/22 Unknown Rx .COMPLEX #90 tabs furosemide 40 mg tablet (Lasix) 40 mg PO DAILY #90 tabs 10/17/21 08/22/22 Unknown Rx warfarin 5 mg tablet 5 mg PO DIRECTED #90 tabs 06/04/22 08/22/22 Unknown Rx warfarin 4 mg tablet See Rx Instructions .Route 06/23/22 08/22/22 Unknown Rx .COMPLEX #90 tabs hydrochlorothiazide 50 mg tablet 50 mg PO DAILY #90 tabs 07/07/22 08/22/22 Unknown Rx potassium chloride 10 mEq 10 meq PO DAILY #90 tabs 07/09/22 08/22/22 Unknown Rx tablet,extended release lisinopril 40 mg tablet 40 mg PO BID@0700,2200 #180 tabs 08/18/22 08/22/22 Unknown Rx metoprolol tartrate 100 mg tablet 100 mg PO BID #180 tabs 08/18/22 08/22/22 Unknown Rx simvastatin 10 mg tablet 10 mg PO DAILY #90 tabs 08/18/22 08/22/22 Unknown Rx alprazolam 0.25 mg tablet 0.25 mg PO DAILY PRN Anxiety 08/22/22 08/22/22 Unknown History montelukast 10 mg tablet 10 mg PO DAILY 08/22/22 08/22/22 Unknown History Allergies Allergy/AdvReac Type Severity Reaction Status Date / Time adhesive tape Allergy Unknown Unknown Verified 07/17/22 13:40 aspirin Allergy Unknown Unknown Verified 07/17/22 13:40 codeine Allergy Unknown Unknown Verified 07/17/22 13:40 diltiazem Allergy Unknown Unknown Verified 07/17/22 13:40 iodine Allergy Unknown Unknown Verified 07/17/22 13:40 nifedipine Allergy Unknown Unknown Verified 07/17/22 13:40 propoxyphene [From Darvon] Allergy Unknown Unknown Verified 07/17/22 13:40 Penicillins Allergy Unknown Verified 07/17/22 13:40 Current Medications Current Medications Generic Name Dose Route Start Last Admin Trade Name Freq PRN Reason Stop Dose Admin Ferrous Sulfate 325 mg 08/22/22 15:00 08/22/22 16:07 Ferrous Sulfate Ec 325 Mg Tablet PO 325 mg TID KAI Administration Lactated Ringer's 1,000 mls @ 30 mls/hr 08/21/22 22:30 08/21/22 22:36 Lactated Ringers IV 08/22/22 22:29 30 mls/hr .Q24H KAI Administration Metoprolol Tartrate 100 mg 08/22/22 18:00 08/22/22 18:49 Metoprolol Tartrate 50 Mg Tablet PO 100 mg BID KAI Administration Warfarin Sodium 2 mg 08/22/22 14:45 08/22/22 16:07 Warfarin 2 Mg Tablet PO 2 mg 1400 KAI Administration PFSH NPU PFSH: Medical History (Updated 08/22/22 @ 13:24 by Abhilash Dunham MD) Anemia Anxiety Aortic stenosis Not significant on repeat echocardiogram. Atherosclerotic heart disease of [place] coronary artery with other forms of angina pectoris Atrial fibrillation CAD (coronary artery disease) CHF (congestive heart failure) Diastolic Chronic kidney disease, stage II (mild) Chronic lymphocytic leukemia of B-cell type not having achieved remission Diabetes mellitus Dyslipidemia Essential hypertension GERD (gastroesophageal reflux disease) Gout History of TIAs Hyperlipidemia Hypertension Hypothyroidism Obesity Peripheral arterial disease Sick sinus syndrome Sleep apnea Warfarin anticoagulation Surgical History History of permanent cardiac pacemaker placement S/P appendectomy S/P cataract extraction S/P cholecystectomy S/P hysterectomy S/P oophorectomy Family History Father CAD (coronary artery disease) Diabetes Stroke Myocardial infarction Mother CAD (coronary artery disease) Diabetes Hypertension Stroke Sister Diabetes Cancer COLON Social History Smoking and tobacco status: never smoked Alcohol intake: never Lives independently: Yes Marital status: / Mental Status Exam MSE Comments: She is a casually dressed white female who was lying in bed she was pleasant and cooperative on interview. She was hard of hearing and was at times difficult to communicate. Her mood was described as okay. Her affect appeared euthymic and mood congruent. Thought process was linear logical and goal-directed. Thought content showed no evidence of active homicidal or juan icidal ideation. During the interview she did at times appear to be responding to internal stimuli and stated dont you hear it, cant you see her her attention span appeared variable. She was alert and oriented person place time and situation. Her insight was poor. Her judgment is limited at this time. Her impulse control appeared adequate. Her speech was normal in regards to rate rhythm and prosody. Vitals/I&O/Wt Last Vital Signs Temp 97.9 F 08/22/22 20:00 Pulse 74 08/22/22 20:00 Resp 16 08/22/22 20:00 BP 189/101 08/22/22 20:00 Pulse Ox 95 08/22/22 20:00 O2 Del Method 08/22/22 15:39 08/22/22 08/22/22 08/22/22 06:59 14:59 22:59 Intake Total 250 / 750 240 / 240 240 / 480 Output Total 300 / 300 700 / 700 Balance -50 / 450 240 / 240 -460 / -220 Data NPU 08/22/22 03:46 08/22/22 03:46 A&P Assessment and plan (1) Acute psychosis: Plan Is an 82-year-old white female with reports of 1 month of auditory or visual hallucinations with unknown cause. It is possible the patient may be having these changes secondary to polypharmacy or possibly due to to small vessel disease issues seen on CT scan. It may be useful to try a low-dose of an antipsychotic to target the hallucinations. Psychiatry Team will continue to follow Attestations NPU Medical Necessity Statement*: NA Coding Level of Care Code Acute Code for Chg Fwd Diagnoses Acute psychosis F23
[2022-08-22] MEDS: risperiDONE 1 mg Tablet 0.5 MG PO (21:15)
[2022-08-22] MEDS: pantoprazole DR 40 mg Tablet PO (21:17)
[2022-08-22] MEDS: insulin glargine 100 units/1 mL 48 UNIT SUBCUT (21:20)
[2022-08-22] MEDS: hyDRALAzine 10 mg Tablet PO (22:46)
[2022-08-23 00:40] VITALS: BP 149/77; PULSE 70; RESP 19; TEMP 36.7; O2SAT 94
[2022-08-23 03:06] VITALS: BP 127/77; PULSE 74; RESP 18; TEMP 36.5; O2SAT 94
[2022-08-23 04:53] LABS: Basophils # 0.1 10^3/uL (0.0-0.1); Basophils % 0.7 %; Eosinophils # 0.4 10^3/uL (0.0-0.8); Eosinophils % 3.4 %; Hematocrit 35.5 % (37.0-47.0); Hemoglobin 11.6 g/dL (11.5-15.3); Lymphocytes # 5.3 10^3/uL (0.8-4.8); Lymphocytes % 47.1 %; Mean Corpuscular HGB Conc 32.7 g/dL (30.0-36.0); Mean Corpuscular Hemoglobin 30.4 pg (28.0-34.0); Mean Corpuscular Volume 93.2 fl (81-99); Mean Platelet Volume 10.4 fL (7.4-10.4); Monocytes # 0.8 10^3/uL (0.2-0.9); Neutrophils # 4.67 10^3/uL (1.8-7.7); Neutrophils % 41.4 %; Nucleated Red Blood Cells % 0 %; Platelet Count 192 10^3/cmm (130-400); Red Blood Count 3.81 10^6/uL (4.1-5.3); White Blood Count 11.3 10^3/uL (4.0-10.0)
[2022-08-23 05:16] LABS: Alanine Aminotransferase 13 U/L (0-33); Albumin Level 3.4 g/dL (3.5-5.2); Alkaline Phosphatase 91 U/L (35-105); Aspartate Amino Transferase 24 U/L (0-32); Blood Urea Nitrogen 22 mg/dL (8-23); Calcium 9.4 mg/dL (8.5-10.5); Carbon Dioxide 28 mmol/L (22-29); Chloride 98 mmol/L (98-107); Globulin 3.1 g/dL (1.3-4.6); Glucose 188 mg/dL (65-115); Osmolality Calculated 290 mOsm/kg (285-295); Sodium 136 mmol/L (136-145); Total Bilirubin 0.3 mg/dL (0.15-1.2); Total Protein 6.5 g/dL (6.6-8.7)
[2022-08-23] MEDS: pantoprazole DR 40 mg Tablet PO (06:05)
[2022-08-23] MEDS: allopurinol 300 mg Tablet PO (06:05)
[2022-08-23] MEDS: levothyroxine 75 mcg Tablet PO (06:05)
[2022-08-23 08:00] VITALS: BP 136/81; PULSE 74; RESP 18; TEMP 36.5; O2SAT 92
[2022-08-23] MEDS: atorvastatin 40 mg Tablet 20 MG PO (08:27)
[2022-08-23] MEDS: hydroCHLOROthiazide 25 mg Tablet 50 MG PO (08:27)
[2022-08-23] MEDS: montelukast sodium 10 mg Tablet PO (08:27)
[2022-08-23] MEDS: ferrous sulfate EC 325 mg Tablet PO ×3 (08:27→21:09)
[2022-08-23] MEDS: potassium chloride ER 10 mEq Tablet PO (08:27)
[2022-08-23] MEDS: metoprolol tartrate 50 mg Tablet 100 MG PO ×2 (08:27→17:00)
--- NOTE | 2022-08-23 10:23 | P.PN_ITS ---
Subjective Subjective: 82yo F seen this AM at bedside Started risperidone last evening. son in room. pt continues to have auditory hallucinations and visual hallucinations believes her daughter is in the room behind her and she contineus to hear a little girl down the teixeira. states she has recently left the building. Denies CP, palpitations, SOB, N/V/D/C. HARDIK and suprathereputic INR resolved yet psychosis remains and is worsening Vitals/I&O/Wt Last Vital Signs Temp 97.7 F 08/23/22 08:00 Pulse 74 08/23/22 08:00 Resp 18 08/23/22 08:00 BP 136/81 08/23/22 08:00 Pulse Ox 92 08/23/22 08:00 O2 Del Method 08/23/22 08:00 08/22/22 08/23/22 08/23/22 22:59 06:59 14:59 Intake Total 240 / 480 950 / 1430 240 / 240 Output Total 1000 / 1000 Balance -760 / -520 950 / 430 240 / 240 Weight last 48 hrs Weight 178 lb 12.8 oz Physical Exam Const: COMMON NORMALS: no acute distress, patient oriented x3 and alert GENERAL APPEARANCE: cooperative and comfortable ORIENTATION/CONSCIOUSNESS: Yes awake OTHER: Very [place]. Has her hearing aids which she put in herself. HENMT: COMMON NORMALS: normocephalic, atraumatic, hearing grossly normal bi laterally and oropharynx normal HEAD & SCALP: normocephalic and atraumatic Neck/C-Spine: COMMON NORMALS: no JVD Resp: COMMON NORMALS: normal respiratory effort, No retractions, No use of accessory muscles and clear to auscultation bilaterally AUSCULTATION: clear to auscultation bilaterally Cardio: COMMON NORMALS: no JVD, regular rate, regular rhythm, S1 normal heart sound present, S2 normal heart sound present and No murmurs present (Cardio) RATE: regular rate RHYTHM: regular rhythm HEART SOUNDS: S1 normal heart sound present and S2 normal heart sound present GI: COMMON NORMALS: Normal to inspection, nondistended, normoactive bowel sounds present, Soft to palpation, non-tender and No hepatosplenomegaly present AUSCULTATION: Yes normoactive bowel sounds PALPATION: Yes Soft to palpation , No Tenderness to palpation present (GI), No Guarding due to palpation present (GI) and Yes No hepatosplenomegaly present Extremity: COMMON NORMALS: normal to inspection, capillary refill normal, no joint enlargement, no clubbing, cyanosis or edema, no calf tenderness and no pedal edema Neuro: COMMON NORMALS: patient oriented x3 and moves all extremities SENSORIUM/ORIENTATION: Yes alert Psych: OTHER: AOx3 auditory hallucinations no visual hallucinations poor judgment elevated affect Skin: COMMON NORMALS: no rashes or lesions noted GENERAL SKIN EXAM: no rashes or lesions noted Data 08/23/22 04:07 08/23/22 04:07 A&P Assessment and plan (1) Acute psychosis: Unclear etiology auditory and visual hallucinations Risperedol 0.5mg given last evening possibly dementia process occupational therapy eval to be done on thursday: [facility] evaluation of living skills ([facility]IS MANUEL) followed by psych (2) HARDIK (acute kidney injury): resolved Cr improved from 1.3 to 09. stop IVF (3) Elevated INR: On warfarin for A-fib. Supratherapeutic INR, INR 4.47 --> 4.28 --> 2.6 Warfarin now reduced to 2mg. Thereupeutic at this time will allow PCP to monitor and manage likely send home on 2mg qd (4) Warfarin anticoagulation: Decreased home Warfarin from 5mg q M-Sat and 4mg on Sun to 2mg qd INR now thereauputic on 2mg qd (5) Polypharmacy: will need to be addressed (6) Essential hypertension: (7) Atrial fibrillation: Qualifiers: Atrial fibrillation type: permanent Qualified Code(s): I48.21 - Permanent atrial fibrillation (8) Diabetes mellitus: Qualifiers: Diabetes mellitus complication status: with hyperglycemia Diabetes mellitus terminal gauger insulin use: with halfway use Diabetes mellitus type: type 2 Qualified Code(s): E11.65 - Type 2 diabetes mellitus with hyperglycemia; Z79.4 - long-term (current) use of insulin (9) Anxiety: Plan Hx of CLL. leukocytosis improving from 17.4 to 13. HARDIK - will attempt further fluid to eval improvement will attempt risperidol this evening and monitor psychosis monitor INR Hx: CLL, CAD, CHF, DM 2, CKD stage II, creatinine normal back in 2021, in July creatinine 1.1, HLD, HTN, GERD, gout, hypothyroidism, history of TIAs, PAD, SSS, sleep apnea, A-fib on chronic continuation with warfarin Attestations Medical Necessity Statement*: requires hospitalization for medical management and case management. Coding Level of Care Code 31422 Diagnoses Acute psychosis F23 HARDIK (acute kidney injury) N17.9 Elevated INR R79.1 Warfarin anticoagulation Z79.01 Polypharmacy Z79.899 Essential hypertension I10 Atrial fibrillation I48.21 Atrial fibrillation type: permanent Diabetes mellitus E11.65; Z79.4 Diabetes mellitus complication status: with hyperglycemia Diabetes mellitus terminal gauger insulin use: with terminal gauger use Diabetes mellitus type: type 2 Anxiety F41.9
[2022-08-23 11:59] VITALS: BP 181/77; PULSE 65; RESP 18; TEMP 36.7; O2SAT 96
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
[2022-08-23] MEDS: warfarin 2 mg Tablet PO (14:00)
[2022-08-23 16:00] VITALS: BP 189/83; PULSE 74; RESP 16; O2SAT 96
[2022-08-23] MEDS: acetaminophen 325 mg Tablet 650 MG PO (17:00)
[2022-08-23] MEDS: hyDRALAzine 20 mg/mL INJ 1 mL 10 MG IVP (17:01)
[2022-08-23 19:11] VITALS: BP 165/75; PULSE 76; RESP 16; TEMP 36.7; O2SAT 92
[2022-08-23] MEDS: OLANZapine 5 mg ODT PO (20:19)
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
[2022-08-23] MEDS: risperiDONE 1 mg Tablet 0.5 MG PO (21:22)
[2022-08-23 21:24] LABS: Glucose Point of Care 237 mg/dL (70-110)
[2022-08-24] VITALS: BP 91/56; PULSE 66; RESP 17; TEMP 36.6; O2SAT 96
[2022-08-24] MEDS: pantoprazole DR 40 mg Tablet PO ×3 (00:03→21:42)
[2022-08-24] MEDS: lisinopril 20 mg Tablet 40 MG PO ×2 (00:04→21:42)
[2022-08-24] MEDS: insulin glargine 100 units/1 mL 48 UNIT SUBCUT ×2 (00:04→21:42)
[2022-08-24 04:00] VITALS: BP 96/58; PULSE 61; RESP 15; TEMP 36.6; O2SAT 92
[2022-08-24 05:28] LABS: Basophils # 0.1 10^3/uL (0.0-0.1); Basophils % 0.8 %; Eosinophils # 0.3 10^3/uL (0.0-0.8); Eosinophils % 2.3 %; Hematocrit 35.5 % (37.0-47.0); Hemoglobin 11.6 g/dL (11.5-15.3); Lymphocytes # 4.5 10^3/uL (0.8-4.8); Mean Corpuscular HGB Conc 32.7 g/dL (30.0-36.0); Mean Corpuscular Hemoglobin 30.9 pg (28.0-34.0); Mean Corpuscular Volume 94.7 fl (81-99); Mean Platelet Volume 10.8 fL (7.4-10.4); Monocytes # 0.9 10^3/uL (0.2-0.9); Monocytes % 6.5 %; Neutrophils % 55.7 %; Nucleated Red Blood Cells % 0 %; Platelet Count 209 10^3/cmm (130-400); Red Blood Count 3.75 10^6/uL (4.1-5.3); Red Cell Distribution Width 14.1 % (12.1-15.1); White Blood Count 13.3 10^3/uL (4.0-10.0)
[2022-08-24 05:55] LABS: Alanine Aminotransferase 13 U/L (0-33); Albumin Level 3.3 g/dL (3.5-5.2); Alkaline Phosphatase 80 U/L (35-105); Anion Gap 14.7 (5-19); Aspartate Amino Transferase 24 U/L (0-32); Blood Urea Nitrogen 22 mg/dL (8-23); Calcium 9.4 mg/dL (8.5-10.5); Carbon Dioxide 26 mmol/L (22-29); Chloride 99 mmol/L (98-107); Globulin 3.2 g/dL (1.3-4.6); Glucose 189 mg/dL (65-115); Osmolality Calculated 288 mOsm/kg (285-295); Potassium 4.7 mmol/L (3.5-5.1); Sodium 135 mmol/L (136-145); Total Bilirubin 0.3 mg/dL (0.15-1.2); Total Protein 6.5 g/dL (6.6-8.7)
[2022-08-24] MEDS: allopurinol 300 mg Tablet PO (06:01)
[2022-08-24] MEDS: levothyroxine 75 mcg Tablet PO (06:01)
--- NOTE | 2022-08-24 06:30 | PC.NURSE ---
Patient spit out Protonix, Synthroid and allopurinol this morning after administration. Lisinopril held per low blood pressure this am.
[2022-08-24 06:46] LABS: Glucose Point of Care 183 mg/dL (70-110)
[2022-08-24 08:00] VITALS: BP 120/80; PULSE 79; RESP 16; TEMP 36.8; O2SAT 94
[2022-08-24] MEDS: hydroCHLOROthiazide 25 mg Tablet 50 MG PO (09:39)
[2022-08-24] MEDS: potassium chloride ER 10 mEq Tablet PO (09:39)
--- NOTE | 2022-08-24 09:41 | PC.NURSE ---
100mg morning dose of metoprolol 08/24/2022, Held due to Heart rate of 58.
--- NOTE | 2022-08-24 09:43 | PC.NURSE ---
Patient refused morning medications. Initially did take the potassium and hydrochlorathiazide, but spit out partially disolved medications
--- NOTE | 2022-08-24 10:23 | P.PN_ITS ---
Subjective Subjective: 82yo F seen this AM at bedside Second night on risperidone. overnight pt was hypotensive, AM lisinopril held. Pt spit out medication. Seen this AM in room w/o family members present. pt appeard more alert to me this morning; however nursing staff stated she was mute earlier despite speaking loudly to her. Pt did admit to hearing the little girls voice a few minutes before i arrived. not having any visual hallucinations or seeing/hearing family members in room. Initially stated the voices where becoming less then changed her answer to no change. poor PO intake, good urine/BM, no signs or symptoms of infectious process. Denies CP, palpitations, SOB, N/V/D/C. Vitals/I&O/Wt Last Vital Signs Temp 98.2 F 08/24/22 08:00 Pulse 79 08/24/22 08:00 Resp 16 08/24/22 08:00 BP 120/80 08/24/22 08:00 Pulse Ox 94 08/24/22 08:00 O2 Del Method 08/24/22 08:00 08/23/22 08/24/22 08/24/22 22:59 06:59 14:59 Intake Total 240 / 720 Balance 240 / 720 Weight last 48 hrs Weight 180 lb 7 oz Weight 178 lb 12.8 oz Physical Exam Const: COMMON NORMALS: no acute distress, patient oriented x3 and alert GENERAL APPEARANCE: cooperative and comfortable ORIENTATION/CONSCIOUSNESS: Yes awake OTHER: Very [place]. Has her hearing aids which she put in herself. HENMT: COMMON NORMALS: normocephalic, atraumatic, hearing grossly normal bilaterally and oropharynx normal HEAD & SCALP: normocephalic and atraumatic Neck/C-Spine: COMMON NORMALS: no JVD Resp: COMMON NORMALS: normal respiratory effort, No retractions, No use of accessory muscles and clear to auscultation bilaterally AUSCULTATION: clear to auscultation bilaterally Cardio: COMMON NORMALS: no JVD, regular rate, regular rhythm, S1 normal heart sound present, S2 normal heart sound present and No murmurs present (Cardio) RATE: regular rate RHYTHM: regular rhythm HEART SOUNDS: S1 normal heart sound present and S2 normal heart sound present GI: COMMON NORMALS: Normal to inspection, nondistended, normoactive bowel sounds present, Soft to palpation, non-tender and No hepatosplenomegaly present AUSCULTATION: Yes normoactive bowel sounds PALPATION: Yes Soft to palpation, No Tenderness to palpation present (GI), No Guarding due to palpation present (GI) and Yes No hepatosplenomegaly present Extremity: COMMON NORMALS: normal to inspection, capillary refill normal, no joint enlargement, no clubbing, cyanosis or edema, no calf tenderness and no pedal edema Neuro: COMMON NORMALS: patient oriented x3 and moves all extremities SENSORIUM/ORIENTATION: Yes alert Psych: OTHER: AOx3 auditory hallucinations no visual hallucinations poor judgment elevated affect Skin: COMMON NORMALS: no rashes or lesions noted GENERAL SKIN EXAM: no rashes or lesions noted Data 08/24/22 04:35 08/24/22 04:35 A&P Assessment and plan (1) Acute psychosis: Unclear etiology followed by Dr. Monsivais auditory and visual hallucinations Continue risperidal 0.5mg qhs, olanzapine odt given last evening possibly dementia process vs polypharmacy occupational therapy eval to be done on thursday: [facility] evaluation of living skills (LUIS MANUEL) (2) HARDIK (acute kidney injury): worsening. Cr initially improved from 1.3 to 0.9; however this AM it is 1.4 restart NS 100cc/hr and encourage PO intake Likvbrannon related to lack of fluid intake (3) Elevated INR: On warfarin for A-fib. Supratherapeutic INR, INR 4.47 --> 4.28 --> 2.6 -->2.6 Warfarin now reduced to 2mg. Thereupeutic at this time will allow PCP to monitor and manage likely send home on 2mg qd (4) Warfarin anticoagulation: Decreased home Warfarin from 5mg q M-Sat and 4mg on Sun to 2mg qd INR now thereauputic on 2mg qd (5) Polypharmacy: psychosis less likely to be polypharmacy and possibly dementia driven (6) Essential hypertension: well controlled (7) Atrial fibrillation: Qualifiers: Atrial fibrillation type: permanent Qualified Code(s): I48.21 - Permanent atrial fibrillation (8) Diabetes mellitus: Qualifiers: Diabetes mellitus complication status: with hyperglycemia Diabetes mellitus adjunct faculty for medical terminology insulin use: with adjunct faculty for medical terminology use Diabetes mellitus type: type 2 Qualified Code(s): E11.65 - Type 2 diabetes mellitus with hyperglycemia; Z79. 4 - prison (current) use of insulin (9) Anxiety: Plan plan: -psychosis 2/2 polypharmacy vs new onset dementia. Cx negative thus far. no nidus of infection. Hx: CLL, CAD, CHF, DM 2, CKD stage II, creatinine normal back in 2021, in July creatinine 1.1, HLD, HTN, GERD, gout, hypothyroidism, history of TIAs, PAD, SSS, sleep apnea, A-fib on chronic continuation with warfarin Attestations Medical Necessity Statement*: requires hospitalization for medical management and case management. Coding Level of Care Code 61636 Diagnoses Acute psychosis F23 HARDIK (acute kidney injury) N17.9 Elevated INR R79.1 Warfarin anticoagulation Z79.01 Polypharmacy Z79.899 Essential hypertension I10 Atrial fibrillation I48.21 Atrial fibrillation type: permanent Diabetes mellitus E11.65; Z79.4 Diabetes mellitus complication status: with hyperglycemia Diabetes mellitus shelter insulin use: with shelter use Diabetes mellitus type: type 2 Anxiety F41.9
--- NOTE | 2022-08-24 11:02 | PC.NURSE ---
Patient was uncooperative with morning rounds. Spit out her potassium and diuretic, refuses other oral meds. WIll not answer questions. Will not follow commands. WHen nurse attempts to assess her pupils she pulls head away and closes eyes tight. SHortly before moring rounds the patietn would talk to the CULINARY MANAGER and got up to a bedside commode. Dr Dunham notified.
[2022-08-24] MEDS: sodium chloride 0.9% 1,000 ML 100 ML IV ×2 (11:48→21:43)
[2022-08-24 11:56] LABS: Glucose Point of Care 154 mg/dL (70-110)
[2022-08-24 12:00] VITALS: BP 132/75; PULSE 71; RESP 16; TEMP 36.7; O2SAT 94
[2022-08-24] MEDS: metoprolol tartrate 50 mg Tablet 100 MG PO ×2 (14:36→20:13)
[2022-08-24] MEDS: warfarin 2 mg Tablet PO (14:37)
[2022-08-24] MEDS: ferrous sulfate EC 325 mg Tablet PO ×2 (14:37→20:13)
--- NOTE | 2022-08-24 14:41 | PC.NURSE ---
At approximately 1425, family asked for assistance with the patient. Upon entering the room, nurse observed the patient to be having a seixurelike activity, arms outstretched, tremors, and unresponsive. During seizurelike activity, patient briefly stopped, looked towards fmaily out of the corner of her eye and then the seizure like activity resumed for another minute. Patient's oxygen saturation was checked and it did not drop below 95% during the episode. After the acvity ended, patient was alert and answering questions with no delays. Blood pressure was found to be elevated 220 systolic according to vital cart. Nurse checked manual blood pressure and it was 190/70 with a heart rate of 88. Nurse administered metoprolol which the patient was refusing earlier. NUrse alerted Dr bruner and recieved orders to start her on her home dose of xanax.
[2022-08-24] MEDS: ALPRAZolam 0.5 mg Tablet 0.25 MG PO (14:47)
[2022-08-24 16:00] VITALS: BP 166/75; PULSE 80; RESP 16; TEMP 36.7; O2SAT 93
--- NOTE | 2022-08-24 17:10 | W.PM.PSYCONS ---
Providers/Reason for Consult Consulting Physican/Specialty*: Juventino Monsivais MD/Psychiatry Reason for Consult*: hallucinations Attending Physician: Abhilash Dunham MD Primary Care Provider: Nehemiah Abraham, Psych Consult HPI History of Present Illness Britt Stockton is a 82 year old female with mental status changes who was reporting auditory and visual hallucinations. The patient had appeared more hostile and asking to leave but appeared to respond well to the addition of Zyprexa to target agitation. She continued to report that she had nothing wrong with her and stated that she simply heard the voice of a girl and could see her while she was staying in the hospital. The patient's family had provided additional information and stated that the patient had not been receiving appropriate supervision and there had been a decline in her ability to function well living alone. She had reported adequate sleep. Meds Home Medications and Allergies Home Medications Medication Instructions Recorded Confirmed Last Taken Type allopurinol 300 mg tablet 300 mg PO DAILY@0700 08/04/19 08/22/22 10/31/20 History levothyroxine 75 mcg capsule 75 mcg PO DAILY@0600 08/04/19 08/22/22 11/01/20 History metformin 1,000 mg tablet 1,000 mg PO BID@0700,2200 08/04/19 08/22/22 10/31/20 History omeprazole 40 mg capsule,delayed 40 mg PO BID@0700,2200 08/04/19 08/22/22 10/31/20 History release nitroglycerin 0.4 mg sublingual 0.4 mg sublingual Q5M PRN CHEST 03/29/20 08/22/22 Unknown Rx tablet (Nitrostat) PAINS #25 tabs insulin degludec 200 unit/mL (3 60 unit SUBCUT BEDTIME@2200 08/22/20 08/22/22 10/31/20 22:15 History mL) subcutaneous pen (Tresiba 60 UNITS FlexTouch U-200 insulin) warfarin 1 mg tablet See Rx Instructions .Route .COMPLEX 08/22/20 08/22/22 10/29/20 History ASO #1 ea 09/12/20 08/22/22 Unknown Rx ferrous sulfate 325 mg (65 mg 325 mg PO TID 10/30/20 08/22/22 10/31/20 History iron) tablet warfarin 1 mg tablet See Rx Instructions .Route 04/16/21 08/22/22 Unknown Rx .COMPLEX #90 tabs furosemide 40 mg tablet (Lasix) 40 mg PO DAILY #90 tabs 10/17/21 08/22/22 Unknown Rx warfarin 5 mg tablet 5 mg PO DIRECTED #90 tabs 06/04/22 08/22/22 Unknown Rx warfarin 4 mg tablet See Rx Instructions .Route 06/23/22 08/22/22 Unknown Rx .COMPLEX #90 tabs hydrochlorothiazide 50 mg tablet 50 mg PO DAILY #90 tabs 07/07/22 08/22/22 Unknown Rx potassium chloride 10 mEq 10 meq PO DAILY #90 tabs 07/09/22 08/22/22 Unknown Rx tablet,extended release lisinopril 40 mg tablet 40 mg PO BID@0700,2200 #180 tabs 08/18/22 08/22/22 Unknown Rx metoprolol tartrate 100 mg tablet 100 mg PO BID #180 tabs 08/18/22 08/22/22 Unknown Rx simvastatin 10 mg tablet 10 mg PO DAILY #90 tabs 08/18/22 08/22/22 Unknown Rx alprazolam 0.25 mg tablet 0.25 mg PO DAILY PRN Anxiety 08/22/22 08/22/22 Unknown History montelukast 10 mg tablet 10 mg PO DAILY 08/22/22 08/22/22 Unknown History Allergies Allergy/AdvReac Type Severity Reaction Status Date / Time adhesive tape Allergy Unknown Unknown Verified 07/17/22 13:40 aspirin Allergy Unknown Unknown Verified 07/17/22 13:40 codeine Allergy Unknown Unknown Verified 07/17/22 13:40 diltiazem Allergy Unknown Unknown Verified 07/17/22 13:40 iodine Allergy Unknown Unknown Verified 07/17/22 13:40 nifedipine Allergy Unknown Unknown Verified 07/17/22 13:40 propoxyphene [From Darvon] Allergy Unknown Unknown Verified 07/17/22 13:40 Penicillins Allergy Unknown Verified 07/17/22 13:40 Current Medications Current Medications Generic Name Dose Route Start Last Admin Trade Name Freq PRN Reason Stop Dose Admin Acetaminophen 650 mg 08/21/22 22:30 08/23/22 17:00 Acetaminophen 325 Mg Tablet PO 650 mg Q6H PRN Administration Mild/Mod Pain Or Temp >/= 101 Allopurinol 300 mg 08/23/22 07:00 08/24/22 06:01 Allopurinol 300 Mg Tablet PO 300 mg DAILY@0700 KAI Administration Alprazolam 0.25 mg 08/24/22 14:32 08/24/22 14:47 Alprazolam 0.5 Mg Tablet PO 0.25 mg DAILY PRN Administration ANXIETY Atorvastatin Calcium 20 mg 08/23/22 09:00 08/24/22 09:43 Atorvastatin 40 Mg Tablet PO Not Given DAILY KAI Ferrous Sulfate 325 mg 08/22/22 15:00 08/24/22 14:37 Ferrous Sulfate Ec 325 Mg Tablet PO 325 mg TID KAI Administration Hydrochlorothiazide 50 mg 08/23/22 09:00 08/24/22 09:39 Hydrochlorothiazide 25 Mg Tablet PO 50 mg DAILY KAI Administration Sodium Chloride 1,000 mls @ 100 mls/hr 08/24/22 11:30 08/24/22 11:48 Sodium Chloride 0.9% IV 100 mls/hr .Q10H KAI Administration Insulin Glargine 48 unit 08/22/22 22:00 08/24/22 00:04 Insulin Glargine 100 Units/1 Ml SUBCUT 48 unit BEDTIME@2200 KAI Administration Levothyroxine Sodium 75 mcg 08/23/22 06:00 08/24/22 06:01 Levothyroxine 75 Mcg Tablet PO 75 mcg DAILY@0600 KAI Administration Lisinopril 40 mg 08/23/22 22:00 08/24/22 06:28 Lisinopril 20 Mg Tablet PO Not Given BID@0700,2200 [facility] Metoprolol Tartrate 100 mg 08/22/22 18:00 08/24/22 14:36 Metoprolol Tartrate 50 Mg Tablet PO 100 mg BID KAI Administration Montelukast Sodium 10 mg 08/23/22 09:00 08/24/22 09:43 Montelukast Sodium 10 Mg Tablet PO Not Given DAILY KAI Pantoprazole Sodium 40 mg 08/22/22 22:00 08/24/22 06:[address] 40 Mg Tablet PO 40 mg BID@0700,2200 KAI Administration Potassium Chloride 10 meq 08/23/22 09:00 08/24/22 09:39 Potassium Chloride Er 10 Meq Tablet PO 10 meq DAILY KAI Administration Risperidone 0.5 mg 08/22/22 21:00 08/23/22 21:22 Risperidone 1 Mg Tablet PO 0.5 mg BEDTIME KAI Administration Warfarin Sodium 2 mg 08/22/22 14:45 08/24/22 14:37 Warfarin 2 Mg Tablet PO 2 mg 1400 KAI Administration PFSH NPU PFSH: Medical History (Updated 08/22/22 @ 13:24 by Abhilash Dunham MD) Anemia Anxiety Aortic stenosis Not significant on repeat echocardiogram. 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 Diabetes mellitus Dyslipidemia Essential hypertension GERD (gastroesophageal reflux disease) Gout History of TIAs Hyperlipidemia Hypertension Hypothyroidism Obesity Peripheral arterial disease Sick sinus syndrome Sleep apnea Warfarin anticoagulation Surgical History History of permanent cardiac pacemaker placement S/P appendectomy S/P cataract extraction S/P cholecystectomy S/P hysterectomy S/P oophorectomy Family History Father CAD (coronary artery disease) Diabetes Stroke Myocardial infarction Mother CAD (coronary artery disease) Diabetes Hypertension Stroke Sister Diabetes Cancer COLON Social History Smoking and tobacco status: never smoked Alcohol intake: never Lives independently: Yes Marital status: / Mental Status Exam MSE Comments: She is a casually dressed white female who was lying in bed she was pleasant and cooperative on interview. She was hard of hearing and was at times difficult to communicate. Her mood was described as okay. Her affect appeared flat . Thought process was linear logical and goal-directed. Thought content showed no evidence of active homicidal or suicidal ideation. During the interview she did at times appear to be responding to internal stimuli and appeared distracted. Her attention span appeared poor. She struggled in drawing a clock showing the time 245, she also struggled greatly with abstraction. She was alert and oriented person place time and situation. Her insight was poor. Her judgment is limited at this time. Her impulse control appeared adequate. Her speech was normal in regards to rate rhythm and prosody. Vitals/I&O/Wt Last Vital Signs Temp 98.1 F 08/24/22 16:00 Pulse 80 08/24/22 16:00 Resp 16 08/24/22 16:00 BP 166/75 08/24/22 16:00 Pulse Ox 93 08/24/22 16:00 O2 Del Method 08/24/22 16:00 08/24/22 08/24/22 08/24/22 06:59 14:59 22:59 Intake Total 360 / 360 Balance 360 / 360 Weight last 48 hrs Weight 81.845 kg Weight 81.102 kg Data NPU 08/24/22 04:35 08/24/22 04:35 A&P Assessment and plan (1) Acute psychosis: Plan 1.will increase risperidone to .75mg at night, monitor for agitation, give zyprexa odt if more aggressive, 2. LUIS MANUEL -OT evaluation for independence to be completed tommorow. Attestations NPU Medical Necessity Statement*: N/A for inpatient psychiatric hospitalization at this time. Coding Level of Care Code Acute Code for Chg Fwd Diagnoses Acute psychosis F23
[2022-08-24] MEDS: hyDRALAzine 20 mg/mL INJ 1 mL 10 MG IVP (17:13)
[2022-08-24 17:21] LABS: Glucose Point of Care 326 mg/dL (70-110)
--- NOTE | 2022-08-24 18:00 | PC.NURSE ---
Shift SUmmary: Uneventful shift. Patient rested in bed for most of the day. Was up to the chair for about 3 hours and ambulated around the room for 15 minutes. Her mental status continues to be variable, but always confused and has had hallucinations throughout the day that vary in severity.
[2022-08-24 19:21] VITALS: BP 154/74; PULSE 79; RESP 18; TEMP 36.7; O2SAT 92
[2022-08-24] MEDS: risperiDONE 1 mg Tablet 0.5 MG PO (20:13)
[2022-08-24 21:20] LABS: Glucose Point of Care 404 mg/dL (70-110)
[2022-08-25] VITALS: BP 187/82; PULSE 72; RESP 18; TEMP 36.4; O2SAT 94
[2022-08-25] MEDS: ALPRAZolam 0.5 mg Tablet 0.25 MG PO (02:20)
[2022-08-25 04:00] VITALS: BP 101/66; PULSE 63; RESP 16; TEMP 36.4; O2SAT 93
[2022-08-25 04:51] LABS: INR 2.57 (0.8-1.2)
[2022-08-25 05:03] LABS: Alanine Aminotransferase 12 U/L (0-33); Albumin Level 3.1 g/dL (3.5-5.2); Alkaline Phosphatase 77 U/L (35-105); Anion Gap 13.6 (5-19); Blood Urea Nitrogen 29 mg/dL (8-23); Calcium 9.1 mg/dL (8.5-10.5); Carbon Dioxide 26 mmol/L (22-29); Chloride 103 mmol/L (98-107); Glucose 184 mg/dL (65-115); Osmolality Calculated 297 mOsm/kg (285-295); Potassium 4.6 mmol/L (3.5-5.1); Sodium 138 mmol/L (136-145); Total Bilirubin 0.3 mg/dL (0.15-1.2); Total Protein 6.1 g/dL (6.6-8.7)
[2022-08-25 05:13] LABS: Aspartate Amino Transferase 20 U/L (0-32)
--- NOTE | 2022-08-25 06:14 | PC.NURSE ---
Patient refused 0[address] Roy notified.
[2022-08-25] MEDS: sodium chloride 0.9% 1,000 ML 100 ML IV ×2 (06:16→17:57)
[2022-08-25 06:33] LABS: Glucose Point of Care 157 mg/dL (70-110)
[2022-08-25 07:49] VITALS: BP 95/59; PULSE 64; RESP 15; O2SAT 93
[2022-08-25] MEDS: metoprolol tartrate 50 mg Tablet 100 MG PO ×2 (10:13→17:57)
[2022-08-25] MEDS: montelukast sodium 10 mg Tablet PO (10:14)
[2022-08-25] MEDS: ferrous sulfate EC 325 mg Tablet PO ×3 (10:14→22:07)
[2022-08-25] MEDS: hydroCHLOROthiazide 25 mg Tablet 50 MG PO (10:14)
[2022-08-25] MEDS: atorvastatin 40 mg Tablet 20 MG PO (10:14)
[2022-08-25] MEDS: potassium chloride ER 10 mEq Tablet PO (10:14)
[2022-08-25 12:09] VITALS: BP 92/54; PULSE 60; RESP 15; TEMP 36.7; O2SAT 90
--- NOTE | 2022-08-25 14:49 | US_ITS ---
WS: [id number] RENAL ULTRASOUND REASON FOR EXAM: evaluate for hydronephrosis COMPARISON: None available. ORDER DATE: 08/25/2022 5:02 PM TECHNIQUE: Grayscale and Doppler ultrasound examination of the kidneys. FINDINGS: Right kidney: Right kidney measures 8.5 cm x 3.8 cm x 4.1 cm. Cortical width of 14 mm Left kidney: Left kidney measures 9.7 cm x 3.3 cm x 4.7 cm. Cortical width of 13 mm Normal echo texture and vascularity bilaterally US/US renal BI* [id number] IMPRESSION: Unremarkable renal sonogram.
--- NOTE | 2022-08-25 14:51 | P.PN_ITS ---
Subjective Subjective: Patient unwilling to engage in conversation today. Upon entering the room can calling out her name multiple times she pretends to be asleep. She does wake up and says leave me alone I do not want to talk , resisting attempts to touch but taking away extremity.. Medications: Reviewed: Yes Vitals/I&O/Wt Last Vital Signs Temp 98.0 F 08/25/22 12:09 Pulse 60 08/25/22 12:09 Resp 15 08/25/22 12:09 BP 92/54 08/25/22 12:09 Pulse Ox 90 08/25/22 12:09 O2 Del Method 08/25/22 12:09 08/24/22 08/25/22 08/25/22 22:59 06:59 14:59 Intake Total 1471.667 / 7445.282 5386 / 2926.667 240 / 240 Balance 1471.667 / 6774.508 0873 / 2926.667 240 / 240 Weight last 48 hrs Weight 83.28 kg Weight 81.845 kg Physical Exam Narrative: General: No acute distress, lying comfortably in bed, pretends to be asleep. Draws away extremity even prior to being touched therefore clear that she is willfully withdrawing. Does not open her eyes. With eyes closed states leave me alone I do not want to answer any questions. Patient did not permit examination Data 08/24/22 04:35 08/25/22 04:01 A&P Assessment and plan (1) Acute psychosis: Unclear etiology followed by Dr. Monsivais appreciate psych recommendations. auditory and visual hallucinations possibly dementia process vs polypharmacy occupational therapy eval pending, therapist at bedside, however patient refused to be engaged in conversation. (2) HARDIK (acute kidney injury): Worsening. Cr today at 1.5. Discontinue lisinopril, last dose was received on August 24 at 9:30 PM. Discontinue hydrochlorothiazide. Blood pressure is soft, systolic in the 90s. If needed will start amlodipine. Renal ultrasound to evaluate for hydronephrosis, obstructive process. Continue NS 100cc/hr (3) Elevated INR: On warfarin for A-fib. Supratherapeutic INR, INR 4.47 --> 4.28 --> 2.6 -->2.6 pharmacy consult for warfarin dosing INR target 2-3 (4) Warfarin anticoagulation: INR now thereauputic on 2mg qd (5) Polypharmacy: psychosis less likely to be polypharmacy and possibly dementia driven (6) Essential hypertension: well controlled (7) Atrial fibrillation: currently rate controlled Qualifiers: Atrial fibrillation type: permanent Qualified Code(s): I48.21 - Permanent atrial fibrillation (8) Diabetes mellitus: currently on insulin 48U s/c at bedtime Qualifiers: Diabetes mellitus type: type 2 Diabetes mellitus manager long term care insulin use: with longterm use Diabetes mellitus complication status: with hyperglycemia Qualified Code(s): E11.65 - Type 2 diabetes mellitus with hyperglycemia; Z79.4 - senior living (current) use of insulin (9) Anxiety: Attestations Medical Necessity Statement*: continued attempts at optimizing psych medication, HARDIK Coding Level of Care Code Acute Code for [facility] Fwd Diagnoses Acute psychosis F23 HARDIK (acute kidney injury) N17.9 Elevated INR R79.1 Warfarin anticoagulation Z79.01 Polypharmacy Z79.899 Essential hypertension I10 Atrial fibrillation I48.21 Atrial fibrillation type: permanent Diabetes mellitus E11.65; Z79.4 Diabetes mellitus type: type 2 Diabetes mellitus longterm insulin use: with longterm use Diabetes mellitus complication status: with hyperglycemia Anxiety F41.9
[2022-08-25 15:57] LABS: Glucose Point of Care 214 mg/dL (70-110)
[2022-08-25 16:01] VITALS: BP 102/54; PULSE 60; RESP 16; TEMP 36.6; O2SAT 90
[2022-08-25] MEDS: warfarin 2 mg Tablet PO (16:01)
[2022-08-25] MEDS: sodium chloride 0.9% 500 ML 999 ML IV (16:05)
--- NOTE | 2022-08-25 16:54 | P.NPUCON_ITS ---
Providers/Reason for Consult Consulting Physican/Specialty*: Juventino Monsivais MD/Psychiatry Reason for Consult*: auditory hallucinations/visual hallucinations Attending Physician: Sally Chowdhury MD Primary Care Provider: Nehemiah Abraham DO Psych Consult HPI History of Present Illness Britt Stockton is a 82 year old female reporting auditory and visual hallucinations with a history of declining ability to care for herself independently at home per family members. 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 She had appeared very sedated today for unknown reasons. She did not receive any as needed medications. She had taken Risperdal without any side effects. She continued to have difficulties with hearing although she stated that she continued to see a girl in her room and hear her speaking to her. Meds Home Medications and Allergies Home Medications Medication Instructions Recorded Confirmed Last Taken Type allopurinol 300 mg tablet 300 mg PO DAILY@0700 08/04/19 08/22/22 10/31/20 History levothyroxine 75 mcg capsule 75 mcg PO DAILY@0600 08/04/19 08/22/22 11/01/20 History metformin 1,000 mg tablet 1,000 mg PO BID@0700,0 08/04/19 08/22/22 10/31/20 History omeprazole 40 mg capsule,delayed 40 mg PO BID@0700,0 08/04/19 08/22/22 10/31/20 History release nitroglycerin 0.4 mg sublingual 0.4 mg sublingual Q5M PRN CHEST 03/29/20 08/22/22 Unknown Rx tablet (Nitrostat) PAINS #25 tabs insulin degludec 200 unit/mL (3 60 unit SUBCUT BEDTIME@219908/22/20 08/22/22 10/31/20 22:15 History mL) subcutaneous pen (Tresiba 60 UNITS FlexTouch U-200 insulin) warfarin 1 mg tablet See Rx Instructions .Route .COMPLEX 08/22/20 08/22/22 10/29/20 History ASO #1 ea 09/12/20 08/22/22 Unknown Rx ferrous sulfate 325 mg (65 mg 325 mg PO TID 10/30/20 08/22/22 10/31/20 History iron) tablet warfarin 1 mg tablet See Rx Instructions .Route 04/16/21 08/22/22 Unknown Rx .COMPLEX #90 tabs furosemide 40 mg tablet (Lasix) 40 mg PO DAILY #90 tabs 10/17/21 08/22/22 Unknown Rx warfarin 5 mg tablet 5 mg PO DIRECTED #90 tabs 06/04/22 08/22/22 Unknown Rx warfarin 4 mg tablet See Rx Instructions .Route 06/23/22 08/22/22 Unknown Rx .COMPLEX #90 tabs hydrochlorothiazide 50 mg tablet 50 mg PO DAILY #90 tabs 07/07/22 08/22/22 Unknown Rx potassium chloride 10 mEq 10 meq PO DAILY #90 tabs 07/09/22 08/22/22 Unknown Rx tablet,extended release lisinopril 40 mg tablet 40 mg PO BID@0700,2200 #180 tabs 08/18/22 08/22/22 Unknown Rx metoprolol tartrate 100 mg tablet 100 mg PO BID #180 tabs 08/18/22 08/22/22 Unknown Rx simvastatin 10 mg tablet 10 mg PO DAILY #90 tabs 08/18/22 08/22/22 Unknown Rx alprazolam 0.25 mg tablet 0.25 mg PO DAILY PRN Anxiety 08/22/22 08/22/22 Unknown History montelukast 10 mg tablet 10 mg PO DAILY 08/22/22 08/22/22 Unknown History Allergies Allergy/AdvReac Type Severity Reaction Status Date / Time adhesive tape Allergy Unknown Unknown Verified 07/17/22 13:40 aspirin Allergy Unknown Unknown Verified 07/17/22 13:40 codeine Allergy Unknown Unknown Verified 07/17/22 13:40 diltiazem Allergy Unknown Unknown Verified 07/17/22 13:40 iodine Allergy Unknown Unknown Verified 07/17/22 13:40 nifedipine Allergy Unknown Unknown Verified 07/17/22 13:40 propoxyphene [From Darvon] Allergy Unknown Unknown Verified 07/17/22 13:40 Penicillins Allergy Unknown Verified 07/17/22 13:40 Current Medications Current Medications Generic Name Dose Route Start Last Admin Trade Name Freq PRN Reason Stop Dose Admin Acetaminophen 650 mg 08/21/22 22:30 08/23/22 17:00 Acetaminophen 325 Mg Tablet PO 650 mg Q6H PRN Administration Mild/Mod Pain Or Temp >/= 101 Allopurinol 300 mg 08/23/22 07:00 08/25/22 06:13 Allopurinol 300 Mg Tablet PO Not Given DAILY@0700 [facility] Alprazolam 0.25 mg 08/24/22 14:32 08/24/22 14:47 Alprazolam 0.5 Mg Tablet PO 0.25 mg DAILY PRN Administration ANXIETY Atorvastatin Calcium 20 mg 08/23/22 09:00 08/25/22 10:14 Atorvastatin 40 Mg Tablet PO 20 mg DAILY KAI Administration Ferrous Sulfate 325 mg 08/22/22 15:00 08/25/22 16:02 Ferrous Sulfate Ec 325 Mg Tablet PO 325 mg TID KAI Administration Hydralazine HCl 10 mg 08/24/22 16:47 08/24/22 17:13 Hydralazine 20 Mg/Ml Inj 1 Ml IVP 10 mg Q4H PRN Administration HYPERTENSION Sodium Chloride 1,000 mls @ 100 mls/hr 08/24/22 11:30 08/25/22 06:16 Sodium Chloride 0.9% IV 100 mls/hr .Q10H KAI Administration Levothyroxine Sodium 75 mcg 08/23/22 06:00 08/25/22 06:13 Levothyroxine 75 Mcg Tablet PO Not Given DAILY@0600 KAI Metoprolol Tartrate 100 mg 08/22/22 18:00 08/25/22 10:13 Metoprolol Tartrate 50 Mg Tablet PO 100 mg BID KAI Administration Montelukast Sodium 10 mg 08/23/22 09:00 08/25/22 10:14 Montelukast Sodium 10 Mg Tablet PO 10 mg DAILY KAI Administration Pantoprazole Sodium 40 mg 08/22/22 22:00 08/25/22 06:[address] 40 Mg Tablet PO Not Given BID@0700,2200 KAI Potassium Chloride 10 meq 08/23/22 09:00 08/25/22 10:14 Potassium Chloride Er 10 Meq Tablet PO 10 meq DAILY KAI Administration Risperidone 0.5 mg 08/22/22 21:00 08/24/22 20:13 Risperidone 1 Mg Tablet PO 0.5 mg BEDTIME KAI Administration Warfarin Sodium 2 mg 08/22/22 14:45 08/25/22 16:01 Warfarin 2 Mg Tablet PO 2 mg 1400 KAI Administration PFSH NPU PFSH: Medical History (Updated 08/22/22 @ 13:24 by Abhilash Dunham MD) Anemia Anxiety Aortic stenosis Not significant on repeat echocardiogram. 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 Diabetes mellitus Dyslipidemia Essential hypertension GERD (gastroesophageal reflux disease) Gout History of TIAs Hyperlipidemia Hypertension Hypothyroidism Obesity Peripheral arterial disease Sick sinus syndrome Sleep apnea Warfarin anticoagulation Surgical History History of permanent cardiac pacemaker placement S/P appendectomy S/P cataract extraction S/P cholecystectomy S/P hysterectomy S/P oophorectomy Family History Father CAD (coronary artery disease) Diabetes Stroke Myocardial infarction Mother CAD (coronary artery disease) Diabetes Hypertension Stroke Sister Diabetes Cancer COLON Social History Smoking and tobacco status: never smoked Alcohol intake: never Lives independently: Yes Marital status: / Mental Status Exam MSE Comments: She is a casually dressed white female who was lying in bed and was sedated on interview. She was hard of hearing and was at times difficult to communicate. Her mood was described as allright. Her affect remained flat. Thought process was linear logical and goal-directed. Thought content showed no evidence of active homicidal or suicidal ideation. During the interview she did at times appear to be responding to internal stimuli and appeared distracted. Her attention span appeared poor. She was alert and oriented person place time and situation. Her insight was poor. Her judgment is limited at this time. Her impulse control appeared adequate. Her speech was normal in regards to rate rhythm and prosody. She did appear suspicious at times on the unit. Vitals/I&O/Wt Last Vital Signs Temp 97.8 F 08/25/22 16:01 Pulse 60 08/25/22 16:01 Resp 16 08/25/22 16:01 BP 102/54 08/25/22 16:01 Pulse Ox 90 08/25/22 16:01 O2 Del Method 08/25/22 16:01 08/25/22 08/25/22 08/25/22 06:59 14:59 22:59 Intake Total 1095 / 2926.667 240 / 240 Balance 1095 / 2926.667 240 / 240 Weight last 48 hrs Weight 83.28 kg Weight 81.845 kg Data NPU 08/24/22 04:35 08/25/22 04:01 Attestations NPU Medical Necessity Statement*: Patient may benefit with geropsychiatric follow up, LUIS MANUEL test to be completed to evaluate ability to live independently. Coding Level of Care Code Acute Code for [facility]
[2022-08-25] MEDS: insulin lispro 100 unit/1 mL SUBCUT ×2 (17:56→22:07)
[2022-08-25 20:00] VITALS: BP 163/64; PULSE 74; RESP 19; TEMP 37.2; O2SAT 98
[2022-08-25 21:35] LABS: Glucose Point of Care 189 mg/dL (70-110)
[2022-08-25] MEDS: pantoprazole DR 40 mg Tablet PO (22:07)
[2022-08-25] MEDS: risperiDONE 1 mg Tablet 0.5 MG PO (22:07)
[2022-08-25] MEDS: insulin glargine 100 units/1 mL 40 UNIT SUBCUT (22:08)
[2022-08-26] VITALS: BP 127/80; PULSE 72; RESP 18; TEMP 36.7; O2SAT 95
[2022-08-26] MEDS: sodium chloride 0.9% 1,000 ML 100 ML IV ×2 (03:49→14:18)
[2022-08-26 04:00] VITALS: BP 160/72; PULSE 71; RESP 16; TEMP 36.4; O2SAT 94
[2022-08-26 05:59] LABS: INR 2.01 (0.8-1.2)
[2022-08-26 06:13] LABS: Alanine Aminotransferase 15 U/L (0-33); Albumin Level 3.4 g/dL (3.5-5.2); Alkaline Phosphatase 96 U/L (35-105); Aspartate Amino Transferase 31 U/L (0-32); Blood Urea Nitrogen 26 mg/dL (8-23); Calcium 9.1 mg/dL (8.5-10.5); Carbon Dioxide 25 mmol/L (22-29); Chloride 107 mmol/L (98-107); Globulin 3.1 g/dL (1.3-4.6); Glucose 108 mg/dL (65-115); Osmolality Calculated 297 mOsm/kg (285-295); Sodium 141 mmol/L (136-145); Total Bilirubin 0.3 mg/dL (0.15-1.2); Total Protein 6.5 g/dL (6.6-8.7)
[2022-08-26] MEDS: allopurinol 300 mg Tablet PO (06:14)
[2022-08-26] MEDS: pantoprazole DR 40 mg Tablet PO ×2 (06:14→22:12)
[2022-08-26] MEDS: levothyroxine 75 mcg Tablet PO (06:14)
[2022-08-26 06:20] LABS: Glucose Point of Care 108 mg/dL (70-110)
[2022-08-26 08:00] VITALS: BP 167/92; PULSE 74; RESP 14; TEMP 36.3; O2SAT 97
[2022-08-26] MEDS: metoprolol tartrate 50 mg Tablet 100 MG PO (08:54)
[2022-08-26] MEDS: ferrous sulfate EC 325 mg Tablet PO ×3 (08:55→20:43)
[2022-08-26] MEDS: atorvastatin 40 mg Tablet 20 MG PO (08:55)
[2022-08-26] MEDS: potassium chloride ER 10 mEq Tablet PO (08:55)
[2022-08-26] MEDS: montelukast sodium 10 mg Tablet PO (08:55)
[2022-08-26 12:00] VITALS: BP 134/82; PULSE 63; RESP 15; TEMP 36.8; O2SAT 92
[2022-08-26 12:32] LABS: Glucose Point of Care 126 mg/dL (70-110)
[2022-08-26] MEDS: warfarin 2 mg Tablet PO (15:03)
[2022-08-26 15:56] LABS: Basophils # 0.1 10^3/uL (0.0-0.1); Basophils % 0.7 %; Eosinophils # 0.6 10^3/uL (0.0-0.8); Eosinophils % 2.9 %; Hematocrit 39.3 % (37.0-47.0); Hemoglobin 12.8 g/dL (11.5-15.3); Lymphocytes # 6.2 10^3/uL (0.8-4.8); Lymphocytes % 29.2 %; Mean Corpuscular HGB Conc 32.6 g/dL (30.0-36.0); Mean Corpuscular Hemoglobin 31.6 pg (28.0-34.0); Mean Platelet Volume 10.3 fL (7.4-10.4); Monocytes # 1.5 10^3/uL (0.2-0.9); Neutrophils # 12.69 10^3/uL (1.8-7.7); Neutrophils % 59.5 %; Nucleated Red Blood Cells % 0 %; Platelet Count 229 10^3/cmm (130-400); Red Blood Count 4.05 10^6/uL (4.1-5.3); Red Cell Distribution Width 14.6 % (12.1-15.1); White Blood Count 21.3 10^3/uL (4.0-10.0)
[2022-08-26 16:00] VITALS: BP 135/66; PULSE 70; RESP 15; TEMP 36.9; O2SAT 97
--- NOTE | 2022-08-26 16:38 | PM.PN ---
Subjective Subjective: Patient sitting up in bed today eating lunch. She does maintain eye contact when attempting to have a conversation, however the content of her conversation does not make any sense. I asked her how she is doing, how is her lunch and she replies that she is born again . Additionally she talks about God and other theological concepts which have nothing to do with the conversation at hand. She is more awake compared to yesterday. Creatinine is improving today at 1.2. Medications: Reviewed: Yes Vitals/I&O/Wt Last Vital Signs Temp 98.2 F 08/26/22 12:00 Pulse 63 08/26/22 12:00 Resp 15 08/26/22 12:00 BP 134/82 08/26/22 12:00 Pulse Ox 92 08/26/22 12:00 O2 Del Method 08/26/22 12:00 08/26/22 08/26/22 08/26/22 06:59 14:59 22:59 Intake Total 1106.667 / 3206.667 1000 / 1000 Balance 1106.667 / 3206.667 1000 / 1000 Weight last 48 hrs Weight 84.051 kg Weight 83.28 kg Physical Exam Narrative: General: No acute distress, sitting up in bed eating her lunch, however does not reply in coherent sentences. Does make coherent words but completely off topic. CVS S1-S2 normal Respiratory system: Clear breath sounds bilaterally. Abdomen. Nontender nondistended Data 08/26/22 15:46 08/26/22 04:58 A&P Assessment and plan (1) Acute psychosis: Unclear etiology followed by Dr. Monsivais appreciate psych recommendations. auditory and visual hallucinations possibly dementia process vs polypharmacy Werner assessment completed, she will benefit from 24-hour supervision in order to live safely. (2) HARDIK (acute kidney injury): Improving, creatinine today is at 1.2. Continue to hold lisinopril, last dose was received on August 24 at 9:30 PM. Continue to hold hydrochlorothiazide. Blood pressure today is much improved after holding her antihypertensives. Renal ultrasound unremarkable. Discontinue IV fluids today. (3) Elevated INR: On warfarin for A-fib. Pharmacy monitoring warfarin dosing. Currently INR is stable at 2.0. (4) Warfarin anticoagulation: INR now thereauputic on 2mg qd (5) Polypharmacy: psychosis less likely to be polypharmacy and possibly dementia driven (6) Essential hypertension: well controlled (7) Atrial fibrillation: currently rate controlled Qualifiers: Atrial fibrillation type: permanent Qualified Code(s): I48.21 - Permanent atrial fibrillation (8) Diabetes mellitus: currently on insulin 40U s/c at bedtime Blood sugars are well controlled Qualifiers: Diabetes mellitus type: type 2 Diabetes mellitus skilled nursing insulin use: with long term care social worker use Diabetes mellitus complication status: with hyperglycemia Qualified Code(s): E11.65 - Type 2 diabetes mellitus with hyperglycemia; Z79.4 - custodial (current) use of insulin (9) Anxiety: (10) Leukocytosis: Chronic, likely related to her known CLL. . Hemodynamically stable. Afebrile UA negative on August 21, 2022. Chest x-ray without consolidation. saturating well on RA Plan Disposition: Patient demonstrates severe impairment in managing self-care. Will likely benefit from 24-hour supervision. Attempting placement at [facility]. Attestations Medical Necessity Statement*: Appropriate disposition planning, optimization of psych medications Coding Level of Care Code Acute Code for Chg Fwd Moderate MDM includes number and complexity of problems actively addressed during encounter, amount and/or complexity of data reviewed/ordered and described risk of complication, morbidity or mortality of management as documented Diagnoses Acute psychosis F23 HARDIK (acute kidney injury) N17.9 Elevated INR R79.1 Warfarin anticoagulation Z79.01 Polypharmacy Z79.899 Essential hypertension I10 Atrial fibrillation I48.21 Atrial fibrillation type: permanent Diabetes mellitus E11.65; Z79.4 Diabetes mellitus type: type 2 Diabetes mellitus long term care social worker insulin use: with skilled nursing use Diabetes mellitus complication status: with hyperglycemia Anxiety F41.9 Leukocytosis D72.829
[2022-08-26 16:58] LABS: Glucose Point of Care 204 mg/dL (70-110)
--- NOTE | 2022-08-26 17:11 | W.PM.NPUPNS ---
Subjective NPU Subjective: Is an 82-year-old white female currently endorsing auditory and visual hallucinations who has been struggling with excess sedation noted as she has continued to have periods of appearing more tired at certain times a day and being virtually unarousable while at other times being alert and complaining of hearing the unnamed girl and seeing her. The patient had today stated glory to God jacob somebody done when someone wrong the patient was unable to elaborate regarding this statement. Mental Status Exam MSE Comments: She is a casually dressed white female who was lying in bed and was sedated on interview. Patient today had stated that she was currently in a farm. She was not fully alert and not oriented to time date day of the week or month. She appeared much more confused. Her affect remained flat. Thought process was nonlinear. Thought content showed no evidence of active homicidal or suicidal ideation. During the interview she did at times appear to be responding to internal stimuli and appeared distracted. Her attention span appeared impaired. Her insight was poor. Her judgment is limited at this time. Her impulse control appeared adequate. Her speech was productive at times and spontaneous. She appeared more guarded today. Vitals/I&O/Wt Last Vital Signs Temp 98.5 F 08/26/22 16:00 Pulse 70 08/26/22 16:00 Resp 15 08/26/22 16:00 BP 135/66 08/26/22 16:00 Pulse Ox 97 08/26/22 16:00 O2 Del Method 08/26/22 16:00 08/26/22 08/26/22 08/26/22 06:59 14:59 22:59 Intake Total 1106.667 / 3206.667 1000 / 1000 Balance 1106.667 / 3206.667 1000 / 1000 Weight last 48 hrs Weight 84.051 kg Weight 83.28 kg Data NPU 08/26/22 15:46 08/26/22 04:58 A&P Assessment and plan (1) Acute psychosis: Plan She the patient appears to have more waxing and waning of consciousness and appears more sedate significantly fatigued today. We will begin Zyprexa 2.5 mg at night and discontinue risperidone and monitor for any changes. She continues to show evidence of psychosis but does not appear to be as alert and oriented as previously a few days ago. Attestations NPU Medical Necessity Statement*: The patient would likely require acute geropsychiatry treatment at another facility once medically stabilized. Coding Level of Care Code Acute Code for Chg Fwd Diagnoses Acute psychosis F23
[2022-08-26] MEDS: insulin lispro 100 unit/1 mL SUBCUT ×2 (17:33→22:11)
[2022-08-26 19:25] VITALS: BP 103/67; PULSE 76; RESP 15; O2SAT 93
[2022-08-26] MEDS: OLANZapine 5 mg TABLET 2.5 MG PO (20:43)
[2022-08-26 20:56] LABS: Glucose Point of Care 192 mg/dL (70-110)
[2022-08-26] MEDS: insulin glargine 100 units/1 mL 40 UNIT SUBCUT (22:12)
[2022-08-27] VITALS (8 sets, daily range): BP systolic 95–136; BP diastolic 58–77; PULSE 63–93; RESP 15–28; TEMP 36.5–38.6; O2SAT 90–97
[2022-08-27 04:13] LABS: Glucose Point of Care 215 mg/dL (70-110)
[2022-08-27 04:37] LABS: INR 1.88 (0.8-1.2)
[2022-08-27 04:49] LABS: Alanine Aminotransferase 14 U/L (0-33); Albumin Level 3.1 g/dL (3.5-5.2); Alkaline Phosphatase 116 U/L (35-105); Anion Gap 16.4 (5-19); Aspartate Amino Transferase 23 U/L (0-32); Blood Urea Nitrogen 35 mg/dL (8-23); Calcium 8.8 mg/dL (8.5-10.5); Carbon Dioxide 22 mmol/L (22-29); Chloride 106 mmol/L (98-107); Globulin 3.2 g/dL (1.3-4.6); Glucose 223 mg/dL (65-115); Osmolality Calculated 303 mOsm/kg (285-295); Potassium 5.4 mmol/L (3.5-5.1); Sodium 139 mmol/L (136-145); Total Bilirubin 0.5 mg/dL (0.15-1.2); Total Protein 6.3 g/dL (6.6-8.7)
[2022-08-27 05:35] LABS: Add Urine Microscopic? YES; Bilirubin Urine Neg (Negative); Blood Urine 2+ (Negative); Glucose Urine UA Norm (Normal); Ketones Urine Negative (Negative); Leukocyte Esterase Urine Negative (Negative); Nitrate Urine Negative (Negative); Protein Urine Trace (Negative); Urine Appearance Cloudy (CLEAR); Urine Color Yellow (Yellow); Urobilinogen Urine Norm (Negative); pH Urine 5 (5-7)
[2022-08-27 05:37] LABS: WBC Urine >100 /hpf (0-5)
[2022-08-27 05:38] LABS: Bacteria Urine 3+ /hpf; Squamous Epithelial Cell Urine 0-4 /hpf (0-5)
[2022-08-27 05:39] LABS: Add Urine Culture? Yes
[2022-08-27] MEDS: allopurinol 300 mg Tablet PO (06:27)
[2022-08-27] MEDS: levothyroxine 75 mcg Tablet PO (06:27)
[2022-08-27] MEDS: pantoprazole DR 40 mg Tablet PO (06:27)
[2022-08-27 06:39] LABS: Glucose Point of Care 216 mg/dL (70-110)
--- NOTE | 2022-08-27 08:48 | NUR.SHIFT ---
Pt Behavior: Upon assessment, pt appears lethargic. Unable to arouse long enough for breakfast. Minimal responses when asked questions. Vital signs WNL (Temp 99.2, pulse 69, respirations 16, blood pressure 120/72, O2 92% on room air) Dr. Chowdhury notified at 0848 via Voalte
[2022-08-27] MEDS: cefTRIAXone 1,000 MG in sodium chloride 0.9% (plus) 50 ML 100 MG IV (11:04)
[2022-08-27] MEDS: sodium chloride 0.9% 1,000 ML 75 ML IV (11:04)
[2022-08-27 11:52] LABS: Glucose Point of Care 212 mg/dL (70-110)
--- NOTE | 2022-08-27 13:02 | PC.OT ---
HOLD OT TREATMENT TODAY DUE TO PATIENT UNRESPONSIVE PER NURSING. WILL ATTEMPT AGAIN TOMORROW.
--- NOTE | 2022-08-27 13:08 | PC.SOCIAL ---
Imm update Imm updated with kylee Salas via phone. Copy of page 2 explained and left at bedside. Josue verbalized understanding. Copy in chart initialed, dated and timed.
--- NOTE | 2022-08-27 13:52 | P.PN_ITS ---
Subjective Subjective: Tmax 100.6 Fahrenheit today. UA showing greater than 100 WBC, 3+ bacteria. Started on ceftriaxone empirically. More lethargic today. Wakes up to calling name, attempts to answer some simple questions. Medications: Reviewed: Yes Vitals/I&O/Wt Last Vital Signs Temp 100.6 F H 08/27/22 11:30 Pulse 79 08/27/22 11:30 Resp 16 08/27/22 11:30 BP 136/73 08/27/22 11:30 Pulse Ox 90 08/27/22 11:30 O2 Del Method 08/27/22 11:30 08/26/22 08/27/22 08/27/22 22:59 06:59 14:59 Intake Total 620 / 1620 0 / 1620 50 / 50 Output Total 500 / 500 Balance 620 / 1620 -500 / 1120 50 / 50 Weight last 48 hrs Weight 80.966 kg Weight 84.051 kg Physical Exam Narrative: General: No acute distress,laying in bed, lethargic , opens eyes to calling name HEENT: PERRLA, pupils bilaterally equal and reactive, pallors not present Chest: Normal vesicular breath sounds, no added sounds, equal good air entry bilaterally CVS: systolic murmur + Abdomen: Soft, nontender, no organomegaly, bowel sounds present Neuro: No focal deficits, no facial deformity, AO x3, power 5/5 in all limbs Data 08/26/22 15:46 08/27/22 04:06 A&P Assessment and plan (1) Acute psychosis: Unclear etiology followed by Dr. Monsivais appreciate psych recommendations. auditory and visual hallucinations possibly dementia process vs polypharmacy Werner assessment completed, she will benefit from 24-hour supervision in order to live safely. Over last 48 hrs patient has become more lethargic, today also febrile 100.6F and + UA. started on ceftriaxone 1g iv q24h (2) HARDIK (acute kidney injury): Improving until yesterday, creatinine was down to 1.2, however trending up again to 2.1. This morning she was retaining 500 cc of urine for which she was straight cathed . Renal ultrasound overall unremarkable Continue to hold lisinopril, last dose was received on August 24 at 9:30 PM. Continue to hold hydrochlorothiazide. Blood pressure today is much improved after holding her antihypertensives. Renal ultrasound unremarkable. Resume IV fluids today gievn HARDIK (3) Elevated INR: On warfarin for A-fib. Pharmacy monitoring warfarin dosing. Currently INR is stable at 2.0. Hold warfarin today, if continues to be lethargic, may need LP (4) Warfarin anticoagulation: INR now thereauputic on 2mg qd (5) Polypharmacy: psychosis less likely to be polypharmacy and possibly dementia driven, though per family at bedside the history is new 5 days PRESIDENTIAL SUPPORT SPECIALIST. (6) Essential hypertension: well controlled (7) Atrial fibrillation: currently rate controlled Qualifiers: Atrial fibrillation type: permanent Qualified Code(s): I48.21 - Permanent atrial fibrillation (8) Diabetes mellitus: currently on insulin 40U s/c at bedtime Blood sugars are well controlled Qualifiers: Diabetes mellitus type: type 2 Diabetes mellitus retirement insulin use: with termite exterminator helper use Diabetes mellitus complication status: with hyperglycemia Qualified Code(s): E11.65 - Type 2 diabetes mellitus with hyperglycemia; Z79.4 - long term care administrator (current) use of insulin (9) Anxiety: (10) Leukocytosis: Chronic, likely related to her known CLL. . Hemodynamically stable. febrile now UA negative on August 21, 2022 but positive now. check additionally CXR and blood cx Plan Disposition: Patient demonstrates severe impairment in managing self-care. Will likely benefit from 24-hour supervision. Attempting placement at [facility] facility. Attestations Medical Necessity Statement*: started on iv abx for UTI, worsening renal function needs monitoring Coding Level of Care Code Acute Code for Chg Fwd Moderate MDM includes number and complexity of problems actively addressed during encounter, amount and/or complexity of data reviewed/ordered and described risk of complication, morbidity or mortality of management as documented Diagnoses Acute psychosis F23 HARDIK (acute kidney injury) N17.9 Elevated INR R79.1 Warfarin anticoagulation Z79.01 Polypharmacy Z79.899 Essential hypertension I10 Atrial fibrillation I48.21 Atrial fibrillation type: permanent Diabetes mellitus E11.65; Z79.4 Diabetes mellitus type: type 2 Diabetes mellitus retirement insulin use: with retirement use Diabetes mellitus complication status: with hyperglycemia Anxiety F41.9 Leukocytosis D72.829
--- NOTE | 2022-08-27 14:02 | XRR_ITS ---
PROCEDURE INFORMATION: Exam: XR Chest Exam date and time: 08/27/2022 2:31 PM Age: 82 years old Clinical indication: Shortness of breath; Additional info: New oxygen requirement TECHNIQUE: Imaging protocol: Radiologic exam of the chest. Views: 1 view. COMPARISON: CR XR chest 1V portable [id number] 08/21/2022 4:32 PM FINDINGS: Tubes, catheters and devices: Dual lead pacemaker seen on the left. Lungs: Benign calcified granuloma lower left lung. No focal infiltrate or consolidation. Pleural spaces: Unremarkable. No pleural effusion. No pneumothorax. Heart/Mediastinum: Unremarkable. Cardiac silhouette is near the upper limits of normal. Vasculature: Mild arteriosclerosis of the thoracic aorta. Bones/joints: Degenerative change thoracic spine. Other findings: Mild decreased inspiration with prior exam, without significant change otherwise. XR/XR chest 1V portable [id number] IMPRESSION: Mild decreased inspiration from prior exam, and without acute change, otherwise.
[2022-08-27 16:33] LABS: Glucose Point of Care 191 mg/dL (70-110)
--- NOTE | 2022-08-27 18:50 | W.PM.PSYCONS ---
Providers/Reason for Consult Consulting Physican/Specialty*: Juventino Monsivais MD/Psychiatry Reason for Consult*: Mental status changes Attending Physician: Sally Chowdhury MD Primary Care Provider: Nehemiah Abraham DO Psych Consult HPI History of Present Illness Britt Stockton is a 82 year old female seen on the medical floor for auditory and visual hallucinations along with some delusional thinking. The patient appeared to have waxing and waning of consciousness and appeared again excessively sedated nearly requiring the equivalent of a sternal rub in order to awaken. She had continued to reiterate to caregivers at times that she was in a farm. There was some evidence potentially of the patient having a urinary tract infection. Patient's medication was changed from risperidone to Zyprexa last night the patient had appeared excessively tired. Meds Home Medications and Allergies Home Medications Medication Instructions Recorded Confirmed Last Taken Type allopurinol 300 mg tablet 300 mg PO DAILY@0700 08/04/19 08/22/22 10/31/20 History levothyroxine 75 mcg capsule 75 mcg PO DAILY@0600 08/04/19 08/22/22 11/01/20 History metformin 1,000 mg tablet 1,000 mg PO BID@0700,2200 08/04/19 08/22/22 10/31/20 History omeprazole 40 mg capsule,delayed 40 mg PO BID@0700,2200 08/04/19 08/22/22 10/31/20 History release nitroglycerin 0.4 mg sublingual 0.4 mg sublingual Q5M PRN CHEST 03/29/20 08/22/22 Unknown Rx tablet (Nitrostat) PAINS #25 tabs insulin degludec 200 unit/mL (3 60 unit SUBCUT BEDTIME@2200 08/22/20 08/22/22 10/31/20 22:15 History mL) subcutaneous pen (Tresiba 60 UNITS FlexTouch U-200 insulin) warfarin 1 mg tablet See Rx Instructions .Route .COMPLEX 08/22/20 08/22/22 10/29/20 History ASO #1 ea 09/12/20 08/22/22 Unknown Rx ferrous sulfate 325 mg (65 mg 325 mg PO TID 10/30/20 08/22/22 10/31/20 History iron) tablet warfarin 1 mg tablet See Rx Instructions .Route 04/16/21 08/22/22 Unknown Rx .COMPLEX #90 tabs furosemide 40 mg tablet (Lasix) 40 mg PO DAILY #90 tabs 10/17/21 08/22/22 Unknown Rx warfarin 5 mg tablet 5 mg PO DIRECTED #90 tabs 06/04/22 08/22/22 Unknown Rx warfarin 4 mg tablet See Rx Instructions .Route 06/23/22 08/22/22 Unknown Rx .COMPLEX #90 tabs hydrochlorothiazide 50 mg tablet 50 mg PO DAILY #90 tabs 07/07/22 08/22/22 Unknown Rx potassium chloride 10 mEq 10 meq PO DAILY #90 tabs 07/09/22 08/22/22 Unknown Rx tablet,extended release lisinopril 40 mg tablet 40 mg PO BID@0700,2200 #180 tabs 08/18/22 08/22/22 Unknown Rx metoprolol tartrate 100 mg tablet 100 mg PO BID #180 tabs 08/18/22 08/22/22 Unknown Rx simvastatin 10 mg tablet 10 mg PO DAILY #90 tabs 08/18/22 08/22/22 Unknown Rx alprazolam 0.25 mg tablet 0.25 mg PO DAILY PRN Anxiety 08/22/22 08/22/22 Unknown History montelukast 10 mg tablet 10 mg PO DAILY 08/22/22 08/22/22 Unknown History Allergies Allergy/AdvReac Type Severity Reaction Status Date / Time adhesive tape Allergy Unknown Unknown Verified 07/17/22 13:40 aspirin Allergy Unknown Unknown Verified 07/17/22 13:40 codeine Allergy Unknown Unknown Verified 07/17/22 13:40 diltiazem Allergy Unknown Unknown Verified 07/17/22 13:40 iodine Allergy Unknown Unknown Verified 07/17/22 13:40 nifedipine Allergy Unknown Unknown Verified 07/17/22 13:40 propoxyphene [From Darvon] Allergy Unknown Unknown Verified 07/17/22 13:40 Penicillins Allergy Unknown Verified 07/17/22 13:40 Current Medications Current Medications Generic Name Dose Route Start Last Admin Trade Name Freq PRN Reason Stop Dose Admin Acetaminophen 650 mg 08/21/22 22:30 08/23/22 17:00 Acetaminophen 325 Mg Tablet PO 650 mg Q6H PRN Administration Mild/Mod Pain Or Temp >/= 101 Allopurinol 300 mg 08/23/22 07:00 08/27/22 06:27 Allopurinol 300 Mg Tablet PO 300 mg DAILY@0700 KAI Administration Alprazolam 0.25 mg 08/24/22 14:32 08/24/22 14:47 Alprazolam 0.5 Mg Tablet PO 0.25 mg DAILY PRN Administration ANXIETY Atorvastatin Calcium 20 mg 08/23/22 09:00 08/27/22 11:02 Atorvastatin 40 Mg Tablet PO Not Given DAILY KAI Ferrous Sulfate 325 mg 08/22/22 15:00 08/27/22 16:12 Ferrous Sulfate Ec 325 Mg Tablet PO Not Given TID KAI Hydralazine HCl 10 mg 08/24/22 16:47 08/24/22 17:13 Hydralazine 20 Mg/Ml Inj 1 Ml IVP 10 mg Q4H PRN Administration HYPERTENSION Ceftriaxone Sodium 1,000 mg/ 50 mls @ 100 mls/hr 08/27/22 10:00 08/27/22 11:39 Sodium Chloride IV Infused Q24H KAI Infusion Protocol Sodium Chloride 1,000 mls @ 75 mls/hr 08/27/22 10:00 08/27/22 11:04 Sodium Chloride 0.9% IV 75 mls/hr .[id number] KAI Administration Insulin Glargine 40 unit 08/25/22 22:00 08/26/22 22:12 Insulin Glargine 100 Units/1 Ml SUBCUT 40 unit BEDTIME@2200 KAI Administration Insulin Human Lispro 0 unit 08/25/22 18:00 08/27/22 18:42 Insulin Lispro 100 Unit/1 Ml SUBCUT Not Given WM&BEDTIME KAI Protocol Levothyroxine Sodium 75 mcg 08/23/22 06:00 08/27/22 06:27 Levothyroxine 75 Mcg Tablet PO 75 mcg DAILY@0600 KAI Administration Metoprolol Tartrate 100 mg 08/22/22 18:00 08/27/22 18:43 Metoprolol Tartrate 50 Mg Tablet PO Not Given BID KAI Montelukast Sodium 10 mg 08/23/22 09:00 08/27/22 11:02 Montelukast Sodium 10 Mg Tablet PO Not Given DAILY KAI Olanzapine 2.5 mg 08/26/22 21:00 08/26/22 20:43 Olanzapine 5 Mg Tablet PO 2.5 mg BEDTIME KAI Administration Pantoprazole Sodium 40 mg 08/22/22 22:00 08/27/22 06:[address] 40 Mg Tablet PO 40 mg BID@0700,2200 KAI Administration Potassium Chloride 10 meq 08/23/22 09:00 08/27/22 11:03 Potassium Chloride Er 10 Meq Tablet PO Not Given DAILY [facility] Warfarin Sodium 2 mg 08/22/22 14:45 08/26/22 15:03 Warfarin 2 Mg Tablet PO 2 mg 1400 KAI Administration PFSH NPU PFSH: Medical History (Updated 08/27/22 @ 19:00 by Juventino Monsivais MD) Anemia Anxiety Aortic stenosis Not significant on repeat echocardiogram. 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 Diabetes mellitus Dyslipidemia Essential hypertension GERD (gastroesophageal reflux disease) Gout History of TIAs Hyperlipidemia Hypertension Hypothyroidism Obesity Peripheral arterial disease Sick sinus syndrome Sleep apnea Warfarin anticoagulation Surgical History History of permanent cardiac pacemaker placement S/P appendectomy S/P cataract extraction S/P cholecystectomy S/P hysterectomy S/P oophorectomy Family History Father CAD (coronary artery disease) Diabetes Stroke Myocardial infarction Mother CAD (coronary artery disease) Diabetes Hypertension Stroke Sister Diabetes Cancer COLON Social History Smoking and tobacco status: never smoked Alcohol intake: never Lives independently: Yes Marital status: / Mental Status Exam MSE Comments: She appeared difficult to arouse she was not able to correctly state her location but responded to her name. She was not alert to place time or situation today. She was unable to describe her mood. Her affect was flat. Her thought process was nonlinear and illogical. She did not endorse any suicidal or homicidal ideation. There was no clear evidence of active delusions although she did appear at times to be responding to internal stimuli. Her insight judgment and impulse control all appeared impaired. Vitals/I&O/Wt Last Vital Signs Temp 100.0 F H 08/27/22 15:34 Pulse 81 08/27/22 15:34 Resp 16 08/27/22 15:34 BP 136/77 08/27/22 15:34 Pulse Ox 92 08/27/22 15:34 O2 Del Method 08/27/22 15:34 08/27/22 08/27/22 08/27/22 06:59 14:59 22:59 Intake Total 0 / 1620 50 / 50 0 / 50 Output Total 500 / 500 Balance -500 / 1120 50 / 50 0 / 50 Weight last 48 hrs Weight 80.966 kg Weight 84.051 kg Physical Exam Urinary Catheter Management: Gomez: Cath Placed During This Visit: no Reason for Continuing Indwelling Catheter: Other Data NPU 08/26/22 15:46 08/27/22 04:06 Micro: Microbiology 08/27/22 14:35 Blood Culture - Preliminary Blood SPECIMEN COLLECTED 08/27/22 14:35 Blood Culture - Preliminary Blood SPECIMEN COLLECTED Microbiology 08/27/22 14:35 Blood Blood Culture - Preliminary SPECIMEN COLLECTED 08/27/22 14:35 Blood Blood Culture - Preliminary SPECIMEN COLLECTED A&P Assessment and plan (1) Auditory hallucinations: (2) Visual hallucinations: (3) Acute alteration in mental status: Plan The patient would likely require further hospitalization at a geropsychiatric unit once she is stablized. The patient over last 2 days has had more confusion and disorientation. UTI? Recommend continue zyprexa as prescribed. Attestations NPU Medical Necessity Statement*: Patient may require transfer to geriatric psychiatry unit once unit medically stabilized. Coding Level of Care Code Acute Code for [facility] Fwd Diagnoses Auditory hallucinations R44.0 Visual hallucinations R44.1 Acute alteration in mental status R41.82
--- NOTE | 2022-08-27 19:30 | PC.NURSE ---
Granddaughter at bedside during assessment at this time, the pt is alert and orientated. The pt is having a conversation with her granddaughter at this time.
[2022-08-27] MEDS: OLANZapine 5 mg TABLET 2.5 MG PO (20:07)
[2022-08-27] MEDS: ferrous sulfate EC 325 mg Tablet PO (20:07)
[2022-08-27 20:55] LABS: Glucose Point of Care 171 mg/dL (70-110)
[2022-08-27] MEDS: insulin glargine 100 units/1 mL 20 UNIT SUBCUT (21:47)
--- NOTE | 2022-08-27 22:46 | XRR_ITS ---
PROCEDURE INFORMATION: Exam: XR Chest Exam date and time: 08/27/2022 9:58 PM Age: 82 years old Clinical indication: Tachypnea TECHNIQUE: Imaging protocol: Radiologic exam of the chest. Views: 1 view. COMPARISON: CR XR chest 1V portable [id number] 08/27/2022 2:31 PM FINDINGS: Tubes, catheters and devices: Intact dual lead left subclavian pacemaker. Lungs: Calcified granuloma in the left lung. Atelectasis or scarring in the lung bases, left greater than right. No consolidation. Pleural spaces: Unremarkable. No pleural effusion. No pneumothorax. Heart/Mediastinum: Unremarkable. No cardiomegaly. Bones/joints: Unremarkable. XR/XR chest 1V portable [id number] IMPRESSION: No acute findings.
--- NOTE | 2022-08-27 23:21 | PC.NURSE ---
at bedside with this nurse assessing the pt at this time.
[2022-08-27 23:27] LABS: Basophils # 0.1 10^3/uL (0.0-0.1); Basophils % 0.3 %; Hematocrit 34.5 % (37.0-47.0); Hemoglobin 10.9 g/dL (11.5-15.3); Lymphocytes # 6.9 10^3/uL (0.8-4.8); Lymphocytes % 25.6 %; Mean Corpuscular HGB Conc 31.6 g/dL (30.0-36.0); Mean Corpuscular Hemoglobin 30.4 pg (28.0-34.0); Mean Corpuscular Volume 96.1 fl (81-99); Mean Platelet Volume 10.3 fL (7.4-10.4); Monocytes # 1.8 10^3/uL (0.2-0.9); Monocytes % 6.7 %; Neutrophils # 17.92 10^3/uL (1.8-7.7); Neutrophils % 66.6 %; Nucleated Red Blood Cells % 0 %; Platelet Count 205 10^3/cmm (130-400); Red Blood Count 3.59 10^6/uL (4.1-5.3); Red Cell Distribution Width 14.8 % (12.1-15.1); White Blood Count 26.9 10^3/uL (4.0-10.0)
[2022-08-27] MEDS: pantoprazole 40 mg SDV IVP (23:38)
--- NOTE | 2022-08-27 23:41 | P.EN_ITS ---
Event Note Event Note: Patient reported alert around shift change, later on noted more lethargic, did not eat dinner. Sliding scale insulin was held, Lantus dose was decreased to 20 units x 1 for tonight. Later in the evening notified that patient is getting slightly more tachypneic after as high as 28 breaths/min. Saturating in the mid 90s on 3-1/2 L nasal cannula. Currently more lethargic. BP soft 95/58. She reportedly was lethargic yesterday and the day before as well, her, currently is worse compared to shift change earlier today. History obtained from nursing staff. Additionally reported having large dark bowel movement. On chart review noted UA with WBC, started on ceftriaxone for possible UTI. Al so started on IV fluids. With change in respiration for now held IV fluids, requesting stat chest x-ray. Monitor blood pressure, requested cardiac monitoring, requested continuous pulse ox. Noted previously negative COVID and influenza. Noted quite a bit of sediment in Gomez tube, we will try to flush the Gomez and obtain bladder scan to make sure there is no obstruction. No hydronephrosis not ed on earlier kidney ultrasound. She is able to partially wake up to loud voice and a healthy shoulder squeeze, denies trouble breathing, chest or abdominal pain. When asked if she is in pain at all, nauseous, but promptly falls asleep. Received olanzapine tonight, will hold for now. With lethargy, placed n.p.o. for now. Reviewed psychiatry note. Obtain EKG. CBC, blood culture. Continue ceftriaxone. Some congestive changes noted on chest x-ray, but she otherwise sounds clear. With lethargy may be at risk of aspiration, slight difference in right lower quadrant, possibly small infiltr ates there. Was just started on ceftriaxone, will continue for now. If confirmed right lower lobe infiltrate, clinical deterioration, will broaden. Regarding large dark bowel movement, warfarin is already on hold, INR noted 1.88. Requested Hemoccult from the dark BM. She is on iron. Requested repeat stat CBC. Due to lethargy, ability to take p.o., change Protonix to IV 40 mg twice daily for now. Noted worsening HARDIK today, repeated stat BMP. Noted hyperkalemia this morning, stop potassium. High MDM includes number and complexity of problems actively addressed during encounter and amount and/or complexity of data reviewed/ordered [ previous or external records, resulted lab(s)/test(s), ordered lab(s)/test(s), independent historian and independent test interpretation] as documented
[2022-08-27 23:45] LABS: Anion Gap 15.3 (5-19); Blood Urea Nitrogen 46 mg/dL (8-23); Calcium 8.6 mg/dL (8.5-10.5); Carbon Dioxide 22 mmol/L (22-29); Chloride 105 mmol/L (98-107); Glucose 172 mg/dL (65-115); Lactate (Lactic Acid level) 1.4 mmol/L (0.5-2.2); Osmolality Calculated 302 mOsm/kg (285-295); Potassium 4.3 mmol/L (3.5-5.1); Sodium 138 mmol/L (136-145)
[2022-08-28] VITALS (8 sets, daily range): BP systolic 102–125; BP diastolic 60–75; PULSE 63–86; RESP 16–28; TEMP 36.4–37.6; O2SAT 93–96
[2022-08-28] MEDS: meropenem 1,000 MG in sodium chloride 0.9% (plus) 50 ML 100 MG IV ×3 (00:26→23:34)
[2022-08-28] MEDS: linezolid premix 600 MG/300 ML PREMIX 300 MG IV ×2 (01:01→12:32)
[2022-08-28 04:43] LABS: Basophils # 0.1 10^3/uL (0.0-0.1); Basophils % 0.3 %; Hematocrit 33.6 % (37.0-47.0); Hemoglobin 10.6 g/dL (11.5-15.3); Lymphocytes % 26.8 %; Mean Corpuscular HGB Conc 31.5 g/dL (30.0-36.0); Mean Corpuscular Hemoglobin 30.5 pg (28.0-34.0); Mean Corpuscular Volume 96.6 fl (81-99); Mean Platelet Volume 10.9 fL (7.4-10.4); Monocytes # 1.8 10^3/uL (0.2-0.9); Neutrophils # 16.91 10^3/uL (1.8-7.7); Neutrophils % 65.1 %; Nucleated Red Blood Cells % 0 %; Platelet Count 201 10^3/cmm (130-400); Red Blood Count 3.48 10^6/uL (4.1-5.3); Red Cell Distribution Width 14.9 % (12.1-15.1)
[2022-08-28 04:57] LABS: Alanine Aminotransferase 11 U/L (0-33); Albumin Level 2.9 g/dL (3.5-5.2); Alkaline Phosphatase 106 U/L (35-105); Anion Gap 16.4 (5-19); Aspartate Amino Transferase 20 U/L (0-32); Blood Urea Nitrogen 48 mg/dL (8-23); Calcium 8.4 mg/dL (8.5-10.5); Carbon Dioxide 22 mmol/L (22-29); Chloride 104 mmol/L (98-107); Globulin 3.2 g/dL (1.3-4.6); Glucose 206 mg/dL (65-115); Osmolality Calculated 305 mOsm/kg (285-295); Potassium 4.4 mmol/L (3.5-5.1); Sodium 138 mmol/L (136-145); Total Bilirubin 0.4 mg/dL (0.15-1.2); Total Protein 6.1 g/dL (6.6-8.7)
[2022-08-28 06:47] LABS: Glucose Point of Care 208 mg/dL (70-110)
[2022-08-28] MEDS: montelukast sodium 10 mg Tablet PO (08:56)
[2022-08-28] MEDS: atorvastatin 40 mg Tablet 20 MG PO (08:57)
[2022-08-28] MEDS: ferrous sulfate EC 325 mg Tablet PO ×3 (08:57→18:12)
[2022-08-28] MEDS: metoprolol tartrate 50 mg Tablet 100 MG PO ×2 (08:57→18:12)
[2022-08-28] MEDS: insulin lispro 100 unit/1 mL SUBCUT ×4 (08:59→23:11)
[2022-08-28] MEDS: acetaminophen 325 mg Tablet 650 MG PO (10:59)
[2022-08-28 11:07] LABS: Glucose Point of Care 189 mg/dL (70-110)
[2022-08-28] MEDS: pantoprazole 40 mg SDV IVP ×2 (11:20→23:45)
[2022-08-28 12:12] LABS: NT Pro B Type Natriuretic Pept 584 pg/mL (0-450)
--- NOTE | 2022-08-28 15:25 | PM.PN ---
Subjective Subjective: Overnight had a fever of 101.4 Fahrenheit. She is much more alert and awake today. Zyprexa was held. not currently hallucinating. Able to answer orientation questions regarding name and age place. Recognizes family member at bedside. Creatinine stable at 2. Urine output 500 cc. Medications: Reviewed: Yes Vitals/I&O/Wt Last Vital Signs Temp 99.2 F 08/28/22 12:37 Pulse 63 08/28/22 12:37 Resp 18 08/28/22 12:37 BP 111/75 08/28/22 12:37 Pulse Ox 96 08/28/22 12:37 O2 Del Method 08/28/22 04:00 O2 Flow Rate 4 08/28/22 08:00 08/28/22 08/28/22 08/28/22 06:59 14:59 22:59 Intake Total 350 / 400 Output Total 200 / 500 Balance 150 / -100 Weight last 48 hrs Weight 82.639 kg Weight 80.966 kg Physical Exam Narrative: General: more awake and alert today HEENT: PERRLA, pupils bilaterally equal and reactive, pallors not present Chest: Normal vesicular breath sounds, no added sounds, equal good air entry bilaterally CVS: systolic murmur + Abdomen: Soft, nontender, no organomegaly, bowel sounds present Neuro: No focal deficits, no facial deformity, AO x3, power 5/5 in all limbs Urinary Catheter Management: Gomez: Cath Placed During This Visit: no Reason for Continuing Indwelling Catheter: Other Data 08/28/22 04:00 08/28/22 04:00 Micro: Microbiology 08/27/22 14:35 Blood Culture - Preliminary Blood NEGATIVE TO DATE 08/27/22 14:35 Blood Culture - Preliminary Blood NEGATIVE TO DATE 08/27/22 22:57 Occult Blood (FIT) - Final Stool - Stool Aspirate 08/27/22 05:00 Urine Culture - Preliminary Urine,Clean Catch Gram Negative Rods 08/27/22 23:13 Blood Culture - Preliminary Blood SPECIMEN COLLECTED 08/27/22 23:15 Blood Culture - Preliminary Blood SPECIMEN COLLECTED A&P Assessment and plan (1) Acute psychosis: Unclear etiology followed by Dr. Monsivais appreciate psych recommendations. auditory and visual hallucinations possibly dementia process vs polypharmacy Werner assessment completed, she will benefit from 24-hour supervision in order to live safely. holding zyprexa currently, appears less lethargic today (2) HARDIK (acute kidney injury): Stable Renal ultrasound overall unremarkable Continue to hold lisinopril, last dose was received on August 24 at 9:30 PM. Continue to hold hydrochlorothiazide. Resume IV fluids today gievn HARDIK, BNP mildly elevated , echo with gr 1 dysfunction (3) Elevated INR: On warfarin for A-fib. On hold today pending FOBT Pharmacy monitoring warfarin dosing. Currently INR is stable at 2.0. (4) Warfarin anticoagulation: on hold pending FOBT (5) Polypharmacy: psychosis less likely to be polypharmacy and possibly dementia driven, though per family at bedside the history is new [address] head with likely microvascular changes (6) Essential hypertension: well controlled (7) Atrial fibrillation: currently rate controlled Qualifiers: Atrial fibrillation type: permanent Qualified Code(s): I48.21 - Permanent atrial fibrillation (8) Diabetes mellitus: currently on insulin 40U s/c at bedtime Blood sugars are well controlled Qualifiers: Diabetes mellitus type: type 2 Diabetes mellitus long term care administrator insulin use: with penitentiary use Diabetes mellitus complication status: with hyperglycemia Qualified Code(s): E11.65 - Type 2 diabetes mellitus with hyperglycemia; Z79.4 - superintendent terminal (current) use of insulin (9) Anxiety: (10) Leukocytosis: Attestations Medical Necessity Statement*: iv antibiotcs, pending urine xcx, IV fluids Coding Level of Care Code Acute Code for [facility] Fwd Diagnoses Acute psychosis F23 HARDIK (acute kidney injury) N17.9 Elevated INR R79.1 Warfarin anticoagulation Z79.01 Polypharmacy Z79.899 Essential hypertension I10 Atrial fibrillation I48.21 Atrial fibrillation type: permanent Diabetes mellitus E11.65; Z79.4 Diabetes mellitus type: type 2 Diabetes mellitus long term care administrator insulin use: with penitentiary use Diabetes mellitus complication status: with hyperglycemia Anxiety F41.9 Leukocytosis D72.829
--- NOTE | 2022-08-28 17:07 | PC.OT ---
OT tx attempted at this time. Pt sleeping soundly and family reports first rest pt has had this afternoon after physical therapy and speech therapy evaluations. Family also reports pt had become irritated prior to resting and may perform better at a later time. OT to hold tx at this time and resume OT tx in the morning.
[2022-08-28 17:17] LABS: Glucose Point of Care 152 mg/dL (70-110)
[2022-08-28] MEDS: sodium chloride 0.9% 1,000 ML 75 ML IV (18:11)
[2022-08-28 18:14] LABS: Adenovirus Not Detected (NOT DETECT); Chlamydia Pneumoniae Not Detected (NOT DETECT); Coronavirus 229E,HKU1,NL63,OC4 Not Detected (NOT DETECT); Human Metapneumovirus Not Detected (NOT DETECT); Human Rhinovirus/Enterovirus Not Detected (NOT DETECT); Influenza A Not Detected (NOT DETECT); Influenza A H1 Not Detected (NOT DETECT); Influenza A H1-2009 Not Detected (NOT DETECT); Influenza A H3 Not Detected (NOT DETECT); Influenza B Not Detected (NOT DETECT); Mycoplasma Pneumoniae Not Detected (NOT DETECT); Parainfluenza Virus Type 1 Not Detected (NOT DETECT); Parainfluenza Virus Type 2 Not Detected (NOT DETECT); Parainfluenza Virus Type 3 Not Detected (NOT DETECT); Parainfluenza Virus Type 4 Not Detected (NOT DETECT); Respiratory Syncytial Virus A Not Detected (NOT DETECT); Respiratory Syncytial Virus B Not Detected (NOT DETECT); SARS-COV-2 Not Detected (NOT DETECT)
--- NOTE | 2022-08-28 19:17 | W.PM.NPUPNS ---
Subjective NPU Subjective: 82-year-old white female with acute mental status changes currently being treated for a urinary tract infection who appears more sedated and tired. She had appeared more confused when seen today. She was in and out of consciousness. Staff and noted that the patient had been acknowledging less auditory and visual loose [place] although this was not clearly ascertained given her amount of time spent sleeping. Mental Status Exam MSE Comments: She appeared difficult to arouse she was not able to correctly state her location but responded to her name. She was not alert to place time or situation today. She was unable to describe her mood. Her affect remained flat. Her thought process was nonlinear and illogical. She did not endorse any suicidal or homicidal ideation. She did not appear to be responding internal stimuli. Her insight judgment and impulse control all appeared impaired. Vitals/I&O/Wt Last Vital Signs Temp 97.6 F 08/28/22 16:00 Pulse 63 08/28/22 16:00 Resp 17 08/28/22 16:00 BP 102/60 08/28/22 16:00 Pulse Ox 93 08/28/22 16:00 O2 Del Method 08/28/22 16:00 O2 Flow Rate 4 08/28/22 08:00 08/28/22 08/28/22 08/28/22 06:59 14:59 22:59 Intake Total 1350 / 1400 Output Total 200 / 500 150 / 150 Balance 1150 / 900 -150 / -150 Weight last 48 hrs Weight 82.639 kg Weight 80.966 kg Physical Exam Urinary Catheter Management: Gomez: Cath Placed During This Visit: no Reason for Continuing Indwelling Catheter: Other Data NPU 08/28/22 04:00 08/28/22 04:00 Micro: Microbiology 08/27/22 14:35 Blood Culture - Preliminary Blood NEGATIVE TO DATE 08/27/22 14:35 Blood Culture - Preliminary Blood NEGATIVE TO DATE 08/27/22 22:57 Occult Blood (FIT) - Final Stool - Stool Aspirate 08/27/22 05:00 Urine Culture - Preliminary Urine,Clean Catch Gram Negative Rods 08/27/22 23:13 Blood Culture - Preliminary Blood SPECIMEN COLLECTED 08/27/22 23:15 Blood Culture - Preliminary Blood SPECIMEN COLLECTED Microbiology 08/27/22 14:35 Blood Blood Culture - Preliminary NEGATIVE TO DATE 08/27/22 14:35 Blood Blood Culture - Preliminary NEGATIVE TO DATE 08/27/22 22:57 Stool - Stool Aspirate Occult Blood (FIT) - Final 08/27/22 05:00 Urine,Clean Catch Urine Culture - Preliminary Gram Negative Rods 08/27/22 23:13 Blood Blood Culture - Preliminary SPECIMEN COLLECTED 08/27/22 23:15 Blood Blood Culture - Preliminary SPECIMEN COLLECTED A&P Assessment and plan (1) Auditory hallucinations: (2) Visual hallucinations: (3) Acute alteration in mental status: Plan The patient would likely require further hospitalization at a geropsychiatric unit once she is stablized. The patient over last 2 days has had more confusion and disorientation. UTI? Recommend continue zyprexa as prescribed., once patient cleared, hopefully can ascertain whether medication is helping for the psychotic symptoms. Attestations NPU Medical Necessity Statement*: awaiting medical clearance. Patient may need geropsychiatry placement. OT tony suggested currently that patient may struggle with living independently. Coding Level of Care Code Acute Code for [facility] Fwd Diagnoses Auditory hallucinations R44.0 Visual hallucinations R44.1 Acute alteration in mental status R41.82
[2022-08-28 23:06] LABS: Glucose Point of Care 177 mg/dL (70-110)
[2022-08-29] VITALS (9 sets, daily range): BP systolic 108–186; BP diastolic 64–80; PULSE 64–78; RESP 16–25; TEMP 36.5–37.9; O2SAT 92–98
[2022-08-29] MEDS: insulin glargine 100 units/1 mL 20 UNIT SUBCUT ×2 (00:30→22:11)
[2022-08-29] MEDS: allopurinol 300 mg Tablet PO (06:09)
[2022-08-29] MEDS: levothyroxine 75 mcg Tablet PO (06:09)
[2022-08-29 06:26] LABS: Basophils # 0.1 10^3/uL (0.0-0.1); Basophils % 0.5 %; Eosinophils # 0.3 10^3/uL (0.0-0.8); Eosinophils % 1.4 %; Hematocrit 33.6 % (37.0-47.0); Hemoglobin 10.7 g/dL (11.5-15.3); Lymphocytes # 8.2 10^3/uL (0.8-4.8); Lymphocytes % 38.4 %; Mean Corpuscular HGB Conc 31.8 g/dL (30.0-36.0); Mean Corpuscular Hemoglobin 30.9 pg (28.0-34.0); Mean Corpuscular Volume 97.1 fl (81-99); Monocytes # 1.1 10^3/uL (0.2-0.9); Monocytes % 5.2 %; Neutrophils # 11.58 10^3/uL (1.8-7.7); Neutrophils % 53.9 %; Nucleated Red Blood Cells % 0 %; Platelet Count 184 10^3/cmm (130-400); Red Blood Count 3.46 10^6/uL (4.1-5.3); Red Cell Distribution Width 14.4 % (12.1-15.1); White Blood Count 21.5 10^3/uL (4.0-10.0)
[2022-08-29 06:41] LABS: Alanine Aminotransferase 27 U/L (0-33); Albumin Level 2.8 g/dL (3.5-5.2); Alkaline Phosphatase 113 U/L (35-105); Anion Gap 13.8 (5-19); Aspartate Amino Transferase 82 U/L (0-32); Blood Urea Nitrogen 43 mg/dL (8-23); Calcium 8.7 mg/dL (8.5-10.5); Carbon Dioxide 23 mmol/L (22-29); Chloride 104 mmol/L (98-107); Globulin 3.3 g/dL (1.3-4.6); Glucose 125 mg/dL (65-115); Osmolality Calculated 296 mOsm/kg (285-295); Potassium 3.8 mmol/L (3.5-5.1); Sodium 137 mmol/L (136-145); Total Bilirubin 0.5 mg/dL (0.15-1.2); Total Protein 6.1 g/dL (6.6-8.7)
[2022-08-29 06:43] LABS: Glucose Point of Care 125 mg/dL (70-110)
[2022-08-29] MEDS: atorvastatin 40 mg Tablet 20 MG PO (08:41)
[2022-08-29] MEDS: montelukast sodium 10 mg Tablet PO (08:41)
[2022-08-29] MEDS: ferrous sulfate EC 325 mg Tablet PO ×2 (08:41→18:25)
[2022-08-29] MEDS: metoprolol tartrate 50 mg Tablet 100 MG PO ×2 (08:42→18:25)
[2022-08-29 12:20] LABS: Glucose Point of Care 239 mg/dL (70-110)
[2022-08-29] MEDS: enoxaparin 100 mg/mL Syringe 80 MG SUBCUT (12:32)
[2022-08-29] MEDS: pantoprazole 40 mg SDV IVP (12:32)
[2022-08-29] MEDS: meropenem 1,000 MG in sodium chloride 0.9% (plus) 50 ML 100 MG IV (12:33)
[2022-08-29] MEDS: insulin lispro 100 unit/1 mL SUBCUT ×3 (12:33→22:10)
--- NOTE | 2022-08-29 15:01 | W.PM.NPUPNS ---
Subjective NPU Subjective: Patient presented today with very limited interaction. She was sleeping and very difficult to arouse. She continued to fall asleep during questioning and added very little to the evaluative process. Mental Status Exam MSE Comments: This is an obese elderly white female and hospital gown with limited grooming and very limited eye contact. She was difficult to arouse she was not able to correctly state her location but responded to her name. She was not alert to place time or situation today. She was unable to describe her mood. Her affect was flat. Her thought process was nonlinear and illogical. She did not endorse any suicidal or homicidal ideation. There was no clear evidence of active delusions although she did appear at times to be responding to internal stimuli. Her insight judgment and impulse control all appeared impaired. Vitals/I&O/Wt Last Vital Signs Temp 98.4 F 08/29/22 12:00 Pulse 78 08/29/22 12:00 Resp 16 08/29/22 12:00 BP 154/76 08/29/22 12:00 Pulse Ox 98 08/29/22 12:00 O2 Del Method 08/29/22 12:00 O2 Flow Rate 4 08/28/22 08:00 08/29/22 08/29/22 08/29/22 06:59 14:59 22:59 Intake Total 760 / 1350 240 / 240 Output Total 750 / 900 Balance 10 / 450 240 / 240 Weight last 48 hrs Weight 82.871 kg Weight 82.639 kg Physical Exam Urinary Catheter Management: Gomez: Cath Placed During This Visit: no Reason for Continuing Indwelling Catheter: Other Data NPU 08/29/22 05:31 08/29/22 05:31 Micro: Microbiology 08/27/22 05:00 Urine Culture - Final Urine,Clean Catch Escherichia coli 08/27/22 23:15 Blood Culture - Preliminary Blood NEGATIVE TO DATE 08/27/22 23:13 Blood Culture - Preliminary Blood NEGATIVE TO DATE 08/27/22 14:35 Blood Culture - Preliminary Blood NEGATIVE TO DATE 08/27/22 14:35 Blood Culture - Preliminary Blood NEGATIVE TO DATE 08/27/22 22:57 Occult Blood (FIT) - Final Stool - Stool Aspirate Microbiology 08/27/22 05:00 Urine,Clean Catch Urine Culture - Final Escherichia coli 08/27/22 23:15 Blood Blood Culture - Preliminary NEGATIVE TO DATE 08/27/22 23:13 Blood Blood Culture - Preliminary NEGATIVE TO DATE 08/27/22 14:35 Blood Blood Culture - Preliminary NEGATIVE TO DATE 08/27/22 14:35 Blood Blood Culture - Preliminary NEGATIVE TO DATE 08/27/22 22:57 Stool - Stool Aspirate Occult Blood (FIT) - Final A&P Assessment and plan (1) Auditory hallucinations: (2) Visual hallucinations: (3) Acute alteration in mental status: Plan This is an 82-year-old white female with clear dimension with likely exacerbation who presented with altered mental status. 1. Continue current medication. 2. Agree with geriatric psychiatric hospitalization after medical stabilization. 3. We will continue to follow. Attestations NPU Medical Necessity Statement*: N/A. Please see primary team note for medical necessity however patient likely to require transfer to geriatric psychiatry unit once unit medically stabilized. Coding Level of Care Code Acute Code for [facility] Fwd Diagnoses Auditory hallucinations R44.0 Visual hallucinations R44.1 Acute alteration in mental status R41.82
--- NOTE | 2022-08-29 16:32 | PC.SOCIAL ---
IMM UPDATED Imm dated and initialed and copy given to patient and copy placed in chart.
[2022-08-29 17:26] LABS: Glucose Point of Care 189 mg/dL (70-110)
--- NOTE | 2022-08-29 18:28 | PM.PN ---
Subjective Subjective: Patient is confused compared to yesterday. on 08/28 she was bale to correctly tell me her name, age, and the fact that she is in a hospital, today she is unable to this. SHe replies in full sentences in conversation however content is unrelated to questions at hand. Family has noticed that she is seemingly better in the morning hours and around certain family members than others. She is afberile today, cr improving at 1.4, urine output 750 cc , FOBT + , Hb stable Medications: Reviewed: Yes Vitals/I&O/Wt Last Vital Signs Temp 98.4 F 08/29/22 12:00 Pulse 78 08/29/22 12:00 Resp 16 08/29/22 12:00 BP 154/76 08/29/22 12:00 Pulse Ox 98 08/29/22 12:00 O2 Del Method 08/29/22 12:00 O2 Flow Rate 4 08/28/22 08:00 08/29/22 08/29/22 08/29/22 06:59 14:59 22:59 Intake Total 760 / 1350 240 / 240 Output Total 750 / 900 Balance 10 / 450 240 / 240 Weight last 48 hrs Weight 82.871 kg Weight 82.639 kg Physical Exam Narrative: General: No acute distress, AO x1-2 HEENT: PERRLA, pupils bilaterally equal and reactive, pallors not present Chest: Normal vesicular breath sounds, no added sounds, equal good air entry bilaterally CVS: S1-S2 regular, no murmurs, no tachycardia, no gallops, no rubs Abdomen: Soft, nontender, no organomegaly, bowel sounds present Neuro: No focal deficits, no facial deformity, AO x1-2 , power 5/5 in all limbs Urinary Catheter Management: Gomez: Cath Placed During This Visit: no Reason for Continuing Indwelling Catheter: Other Data 08/29/22 05:31 08/29/22 05:31 Micro: Microbiology 08/27/22 05:00 Urine Culture - Final Urine,Clean Catch Escherichia coli 08/27/22 23:15 Blood Culture - Preliminary Blood NEGATIVE TO DATE 08/27/22 23:13 Blood Culture - Preliminary Blood NEGATIVE TO DATE 08/27/22 14:35 Blood Culture - Preliminary Blood NEGATIVE TO DATE 08/27/22 14:35 Blood Culture - Preliminary Blood NEGATIVE TO DATE 03/22/23 22:57 Occult Blood (FIT) - Final Stool - Stool Aspirate A&P Assessment and plan (1) Acute psychosis: (2) HARDIK (acute kidney injury): (3) Elevated INR: (4) Warfarin anticoagulation: (5) Polypharmacy: (6) Essential hypertension: (7) Atrial fibrillation: Qualifiers: Atrial fibrillation type: permanent Qualified Code(s): I48.21 - Permanent atrial fibrillation (8) Diabetes mellitus: Qualifiers: Diabetes mellitus type: type 2 Diabetes mellitus halfway insulin use: with termite control representative use Diabetes mellitus complication status: with hyperglycemia Qualified Code(s): E11.65 - Type 2 diabetes mellitus with hyperglycemia; Z79.4 - intermission coordinator (current) use of insulin (9) Anxiety: (10) Leukocytosis: Plan Plan for today : patient is more confused than yesterday however awake, self feeding. Multiple family members at beside. Discussed extensively that patient's waxing and waning orientation, diurnal variation, change in behavior dependent on family members at d appears to be more consistent with dementia rather than untreated infection. She has no focal deficits on exam which makes CVA less likely. Her CT Moderate diffuse cerebral atrophy and sequela of chronic small vessel ischemic disease, possible vascular dementia. Family member acknowledge understanding. Continue ABx for UTI, change meropenem to CTX based on susceptibility results Continue IVF for hydration. does not appear to be volume overloaded . Attestations Medical Necessity Statement*: iv abx, monitor menatation, serial cr check , disposition planning Coding Level of Care Code Acute Code for [facility] Fwd Diagnoses Acute psychosis F23 HARDIK (acute kidney injury) N17.9 Elevated INR R79.1 Warfarin anticoagulation Z79.01 Polypharmacy Z79.899 Essential hypertension I10 Atrial fibrillation I48.21 Atrial fibrillation type: permanent Diabetes mellitus E11.65; Z79.4 Diabetes mellitus type: type 2 Diabetes mellitus termite control representative insulin use: with halfway use Diabetes mellitus complication status: with hyperglycemia Anxiety F41.9 Leukocytosis D72.829
[2022-08-29] MEDS: sodium chloride 0.9% 1,000 ML 50 ML IV (19:58)
[2022-08-29] MEDS: cefTRIAXone 1,000 MG in sodium chloride 0.9% (plus) 50 ML 100 MG IV (20:01)
[2022-08-29 21:47] LABS: Glucose Point of Care 145 mg/dL (70-110)
[2022-08-30] VITALS (10 sets, daily range): BP systolic 153–185; BP diastolic 70–81; PULSE 62–80; RESP 16–24; TEMP 36.7–37.3; O2SAT 94–97
[2022-08-30] MEDS: pantoprazole 40 mg SDV IVP ×3 (00:20→23:01)
[2022-08-30] MEDS: acetaminophen 325 mg Tablet 650 MG PO (04:00)
[2022-08-30] MEDS: OLANZapine 5 mg TABLET 2.5 MG PO (04:00)
[2022-08-30] MEDS: allopurinol 300 mg Tablet PO (06:13)
[2022-08-30] MEDS: levothyroxine 75 mcg Tablet PO (06:13)
[2022-08-30 07:05] LABS: Glucose Point of Care 148 mg/dL (70-110)
[2022-08-30] MEDS: metoprolol tartrate 50 mg Tablet 100 MG PO ×2 (08:00→17:07)
[2022-08-30] MEDS: montelukast sodium 10 mg Tablet PO (08:00)
[2022-08-30] MEDS: ferrous sulfate EC 325 mg Tablet PO ×2 (08:01→17:07)
[2022-08-30] MEDS: atorvastatin 40 mg Tablet 20 MG PO (08:02)
[2022-08-30 08:50] LABS: Basophils # 0.1 10^3/uL (0.0-0.1); Basophils % 0.7 %; Eosinophils # 0.4 10^3/uL (0.0-0.8); Eosinophils % 1.9 %; Lymphocytes % 45.8 %; Mean Corpuscular HGB Conc 32.4 g/dL (30.0-36.0); Mean Corpuscular Hemoglobin 30.8 pg (28.0-34.0); Mean Corpuscular Volume 95.2 fl (81-99); Mean Platelet Volume 10.5 fL (7.4-10.4); Monocytes # 1.1 10^3/uL (0.2-0.9); Monocytes % 5.8 %; Neutrophils # 8.75 10^3/uL (1.8-7.7); Neutrophils % 44.9 %; Nucleated Red Blood Cells % 0 %; Platelet Count 239 10^3/cmm (130-400); Red Blood Count 3.57 10^6/uL (4.1-5.3); Red Cell Distribution Width 14.3 % (12.1-15.1); White Blood Count 19.5 10^3/uL (4.0-10.0)
[2022-08-30] MEDS: insulin lispro 100 unit/1 mL SUBCUT ×4 (09:06→21:54)
[2022-08-30 09:10] LABS: Alanine Aminotransferase 47 U/L (0-33); Albumin Level 2.9 g/dL (3.5-5.2); Alkaline Phosphatase 149 U/L (35-105); Anion Gap 13.6 (5-19); Aspartate Amino Transferase 119 U/L (0-32); Blood Urea Nitrogen 38 mg/dL (8-23); Calcium 9.1 mg/dL (8.5-10.5); Carbon Dioxide 22 mmol/L (22-29); Chloride 104 mmol/L (98-107); Globulin 3.7 g/dL (1.3-4.6); Glucose 153 mg/dL (65-115); Osmolality Calculated 294 mOsm/kg (285-295); Potassium 3.6 mmol/L (3.5-5.1); Sodium 136 mmol/L (136-145); Total Bilirubin 0.4 mg/dL (0.15-1.2); Total Protein 6.6 g/dL (6.6-8.7)
[2022-08-30 09:24] LABS: Slide Review Slide Review Perform
--- NOTE | 2022-08-30 10:55 | CTR_ITS ---
PROCEDURE INFORMATION: Exam: CT Chest Without Contrast; Diagnostic Exam date and time: 08/30/2022 11:36 AM Age: 82 years old Clinical indication: Fever; Additional info: Tranaaminitis, persisting fever TECHNIQUE: Imaging protocol: Diagnostic computed tomography of the chest without contrast. Radiation optimization: All CT scans at this facility use at least one of these dose optimization techniques: automated exposure control; mA and/or kV adjustment per patient size (includes targeted exams where dose is matched to clinical indication); or iterative reconstruction. REPORTING DATA: Count of CT and Cardiac NM exams in prior 12 months: This patient has received [address] and 0 known cardiac nuclear medicine studies in the 12 months prior to the current study. COMPARISON: CR (CHEST, ) 08/27/2022 9:58 PM RADIATION DOSE METRICS: Total DLP (mGy-cm): 1046.19 FINDINGS: Tubes, catheters and devices: There is a dual-lead AICD with leads positioned in the right atrium and right ventricle. Lungs: There is a calcified granuloma in the left upper lobe. Lung volumes are low and there is mild mosaic perfusion of the lung parenchyma likely representing accentuated air trapping during expiratory imaging. There is no consolidation. There is extensive bronchial calcification bilaterally. There is decreased AP diameter of the distal trachea and central bronchi consistent with tracheobronchomalacia. Pleural spaces: There is no pleural effusion or pneumothorax. Heart: Heart size is normal. There is no pericardial effusion. Coronary arteries: There is mild coronary artery calcification. Lymph nodes: There is no mediastinal or hilar lymphadenopathy. Vasculature: There is moderate aortic atherosclerotic disease. Diaphragm: There is a small sliding-type hiatal hernia. Bones/joints: Bones are unremarkable. Soft tissues: The extrathoracic soft tissues are unremarkable. PROCEDURE INFORMATION: Exam: CT Abdomen And Pelvis Without Contrast Exam date and time: 08/30/2022 11:36 AM Age: 82 years old Clinical indication: Fever; Additional info: Tranaaminitis, persisting fever TECHNIQUE: Imaging protocol: Computed tomography of the abdomen and pelvis without contrast. Radiation optimization: All CT scans at this facility use at least one of these dose optimization techniques: automated exposure control; mA and/or kV adjustment per patient size (includes targeted exams where dose is matched to clinical indication); or iterative reconstruction. REPORTING DATA: Count of CT and Cardiac NM exams in prior 12 months: This patient has received [address] and 0 known cardiac nuclear medicine studies in the 12 months prior to the current study. COMPARISON: CT abdomen pelvis wo con [id number] 03/29/2017 8:01 PM RADIATION DOSE METRICS: Total DLP (mGy-cm): 1046.19 FINDINGS: Liver: The liver is normal. Gallbladder and bile ducts: The gallbladder is absent. There is ectasia of the common bile duct and central intrahepatic ducts. Pancreas: There is moderate atrophy of the pancreas. Spleen: The spleen is unremarkable. Adrenal glands: The adrenal glands are unremarkable. Kidneys and ureters: The kidneys are unremarkable. No hydronephrosis or stones. No ureteral dilation. Stomach and bowel: The stomach is decompressed, preventing meaningful evaluation of wall thickness. The small bowel is nondilated. The colon is mildly diffusely distended and thin walled above the level of the sigmoid. Which is nondistended. There is circumferential rectal wall thickening. There is a large focus of intramural gas in the rectal wall. The morphology of the gas collection is not typical of mural pneumatosis associated with bowel necrosis. There is mild diffuse perirectal edema. There is no extraluminal gas. No portal venous gas. Appendix: The appendix is not visible. Intraperitoneal space: There is no free air or significant intraperitoneal free fluid. Vasculature: There is moderate aortic atherosclerotic disease. No portal venous gas. Lymph nodes: There is no lymphadenopathy in the retroperitoneum, mesentery, pelvis or inguinal regions. Urinary bladder: The Gomez catheter is appropriately positioned with the bulb and tip within the bladder lumen. The urinary bladder is decompressed, preventing meaningful evaluation of wall thickness. Reproductive: The uterus is absent. There is no adnexal mass or large cyst. Bones/joints: There is moderate degenerative disease in the lower lumbar spine. There is moderate spinal stenosis at L4-L5. The pelvis and hips are unremarkable. Soft tissues: The abdominal wall is intact. CT/[place] [id number] IMPRESSION: 1. No acute findings. 2. Mosaic perfusion of the lung parenchyma and low lung volumes consistent with expiratory air trapping. Possible constrictive bronchiolitis or reactive airways disease. 3. Tracheobronchomalacia. 4. Incidental findings above. IMPRESSION: 1. Abnormal diffuse rectal wall thickening consistent with a malignant neoplasm and/or proctitis. 2. Atypical mural pneumatosis in the rectum. Findings suggest an ulcerated neoplasm. Pneumatosis related to rectal necrosis is less likely. There is no portal venous gas. 3. Incidental findings above.
[2022-08-30 12:19] LABS: Glucose Point of Care 147 mg/dL (70-110)
[2022-08-30] MEDS: enoxaparin 80 mg/0.8 mL Syringe SUBCUT ×2 (12:41→23:01)
--- NOTE | 2022-08-30 14:23 | P.NPUPN_ITS ---
Subjective NPU Subjective: Patient presented today reporting that she was okay but after that had basically unclear nonsensical communication without direction. Most of the conversation was with her grandson reporting that he feels like things were fine before she came to the hospital until he is wondering if this possible lesion identified could have some impact in how she is functioning recently. There were no clear indicators of any reason for the change. Mental Status Exam MSE Comments: This is an obese elderly white female and hospital gown with limited grooming and very limited eye contact. Awake today but conversations or not in the general [id number] variety. She would make comments about things that made no sense and would answer questions and ways that made no sense. She responded to her name. She was not alert to place time or situation today. She was unable to describe her mood. Her affect was brighter. Her thought process was nonlinear and illogical. She did not endorse any suicidal or homicidal ideation. There was no clear evidence of active delusions although she did appear at times to be responding to internal stimuli. Her insight judgment and impulse control all appeared impaired. Vitals/I&O/Wt Last Vital Signs Temp 98.8 F 08/30/22 19:40 Pulse 82 08/30/22 19:40 Resp 17 08/30/22 19:40 BP 152/84 08/30/22 19:40 Pulse Ox 96 08/30/22 19:40 O2 Del Method 08/30/22 19:40 O2 Flow Rate 4 08/30/22 20:47 Weight last 48 hrs Weight 80.286 kg Weight 85.185 kg Physical Exam Urinary Catheter Management: Gomez: Cath Placed During This Visit: no Reason for Continuing Indwelling Catheter: Other Data NPU 08/30/22 08:22 08/30/22 08:22 A&P Assessment and plan (1) Auditory hallucinations: (2) Visual hallucinations: (3) Acute alteration in mental status: Plan This is an 82-year-old white female with clear dimension with likely exacerbation who presented with altered mental status. 1. Continue current medication. 2. Agree with geriatric psychiatric hospitalization after medical stabiliz ation. 3. We will continue to follow. Attestations NPU Medical Necessity Statement*: N/A. Please see primary team note for medical necessity however patient likely to require transfer to geriatric psychiatry unit once unit medically stabilized. Coding Level of Care Code Acute Code for [facility] Fwd Diagnoses Auditory hallucinations R44.0 Visual hallucinations R44.1 Acute alteration in mental status R41.82
[2022-08-30 16:56] LABS: Glucose Point of Care 157 mg/dL (70-110)
--- NOTE | 2022-08-30 17:58 | P.PN_ITS ---
Subjective Subjective: Tmax of 100.2 Fahrenheit overnight. Confused today. LFT trending up. Trending towards hypertension with blood pressure 185/77 today. Medications: Reviewed: Yes Vitals/I&O/Wt Last Vital Signs Temp 98.1 F 08/30/22 16:00 Pulse 71 08/30/22 16:00 Resp 16 08/30/22 16:00 BP 185/77 08/30/22 16:00 Pulse Ox 97 08/30/22 16:00 O2 Del Method 08/30/22 16:00 O2 Flow Rate 4 08/28/22 08:00 08/30/22 08/30/22 08/30/22 06:59 14:59 22:59 Intake Total 50 / 1120 120 / 120 Output Total 500 / 1375 900 / 900 Balance -450 / -255 -780 / -780 Weight last 48 hrs Weight 85.185 kg Weight 82.871 kg Physical Exam Narrative: General: No acute distress, AO x1-2 HEENT: PERRLA, pupils bilaterally equal and reactive, pallors not present Chest: Normal vesicular breath sounds, no added sounds, equal good air entry bilaterally CVS: S1-S2 regular, no murmurs, no tachycardia, no gallops, no rubs Abdomen: Soft, nontender, no organomegaly, bowel sounds present Neuro: No focal deficits, no facial deformity, AO x1-2 , power 5/5 in all limbs Urinary Catheter Management: Gomez: Cath Placed During This Visit: no Reason for Continuing Indwelling Catheter: Other Data 08/30/22 08:22 08/30/22 08:22 Micro: Microbiology 08/27/22 05:00 Urine Culture - Final Urine,Clean Catch Escherichia coli A&P Assessment and plan (1) Acute psychosis: Unclear etiology auditory and visual hallucinations possibly dementia ct head?Moderate diffuse cerebral atrophy and sequela of chronic small vessel ischemic disease, possible vascular dementia. Werner assessment completed, she will benefit from 24-hour supervision in order to live safely. holding zyprexa currently, appears less lethargic today (2) HARDIK (acute kidney injury): Now improved with hydration, creatinine down to 1.1. (3) Elevated INR: Resolved, patient currently on Lovenox, warfarin on hold during the admission (4) Warfarin anticoagulation: (5) Polypharmacy: (6) Essential hypertension: Blood pressure labile today ranging between 90 systolic to 180. Hydralazine as needed has been added however has not been given yet. Discussed with nursing to administer (7) Atrial fibrillation: Remains rate controlled Qualifiers: Atrial fibrillation type: permanent Qualified Code(s): I48.21 - Permanent atrial fibrillation (8) Diabetes mellitus: Fingersticks under good control, Lantus is at 20 units currently Qualifiers: Diabetes mellitus type: type 2 Diabetes mellitus half-way insulin use: with intermission coordinator use Diabetes mellitus complication status: with hyperglycemia Qualified Code(s): E11.65 - Type 2 diabetes mellitus with hyperglycemia; Z79.4 - joint terminal attack controller (current) use of insulin (9) Anxiety: (10) Leukocytosis: History of CLL, baseline appears to be between 13-17. (11) Transaminitis: (12) Rectal ulceration: CT of the abdomen was obtained today due to transaminitis. While the liver and biliary system are unremarkable, incidentally noted was abnormal diffuse rectal wall thickening consistent with a malignant neoplasm or proctitis. There was atypical mural hematoma cyst in the colon. Discussed with radiology that overall rectal cancer appears to be the more likely possibility. Less likely proctitis. We will broaden antibiotic to include Flagyl in addition to ceftriaxone while pending surgical and colonoscopy evaluation. We will try to obtain colonoscopic/sigmoidoscopic evaluation once general surgery services are available here on Thursday. Attestations Medical Necessity Statement*: Intermittent fever, IV antibiotics, fluctuating mentation, new discovery of her rectal ulceration needing further evaluation, ongoing psych evaluation Coding Level of Care Code Acute Code for [facility] Fwd Diagnoses Acute psychosis F23 HARDIK (acute kidney injury) N17.9 Elevated INR R79.1 Warfarin anticoagulation Z79.01 Polypharmacy Z79.899 Essential hypertension I10 Atrial fibrillation I48.21 Atrial fibrillation type: permanent Diabetes mellitus E11.65; Z79.4 Diabetes mellitus type: type 2 Diabetes mellitus intermission coordinator insulin use: with half-way use Diabetes mellitus complication status: with hyperglycemia Anxiety F41.9 Leukocytosis D72.829 Transaminitis R74.01 Rectal ulceration K62.6
[2022-08-30] MEDS: hyDRALAzine 20 mg/mL INJ 1 mL 10 MG IVP (18:10)
[2022-08-30 18:23] LABS: SARS Covid-2 Antigen negative (Negative)
[2022-08-30] MEDS: sodium chloride 0.9% 1,000 ML 50 ML IV (18:46)
[2022-08-30] MEDS: metroNIDAZOLE IV 500 MG/100 ML PREMIX 100 MG IV (18:49)
[2022-08-30] MEDS: cefTRIAXone 1,000 MG in sodium chloride 0.9% (plus) 50 ML 100 MG IV (20:25)
[2022-08-30 21:23] LABS: Glucose Point of Care 164 mg/dL (70-110)
[2022-08-30] MEDS: insulin glargine 100 units/1 mL 20 UNIT SUBCUT (21:55)
[2022-08-31] VITALS (7 sets, daily range): BP systolic 127–180; BP diastolic 76–97; PULSE 70–82; RESP 17–19; TEMP 36.4–38.1; O2SAT 90–96; BMI 31.3
--- NOTE | 2022-08-31 01:16 | CTR_ITS ---
PROCEDURE INFORMATION: Exam: CT Head Without Contrast Exam date and time: 08/31/2022 1:39 AM Age: 82 years old Clinical indication: Injury or trauma; Fall; Blunt trauma (contusions or hematomas); Additional info: Fall, hit head, on anticoagulation TECHNIQUE: Imaging protocol: Computed tomography of the head without contrast. Radiation optimization: All CT scans at this facility use at least one of these dose optimization techniques: automated exposure control; mA and/or kV adjustment per patient size (includes targeted exams where dose is matched to clinical indication); or iterative reconstruction. REPORTING DATA: Count of CT and Cardiac NM exams in prior 12 months: This patient has received 2 known CTs and 0 known cardiac nuclear medicine studies in the 12 months prior to the current study. COMPARISON: CT head wo con* [id number] 08/21/2022 4:35 PM RADIATION DOSE METRICS: Total DLP (mGy-cm): 984.82 FINDINGS: Brain: No focal hemorrhage or midline shift is identified. The ventricles and parenchyma show moderate atrophy and chronic bicerebral white matter ischemic change. Cerebral ventricles: No ventriculomegaly or evidence of hydrocephalus. Paranasal sinuses: No evidence of acute sinusitis. Mastoid air cells: Visualized mastoid air cells are well aerated. Bones/joints: No displaced skull fracture is noted. Soft tissues: Unremarkable. Vasculature: Diffuse vascular calcifications are present. CT/CT head wo con* [id number] IMPRESSION: 1. No acute intracranial abnormality. 2. Moderate age-related changes.
--- NOTE | 2022-08-31 01:18 | PC.NURSE ---
patient bed alarm going off, patient found in the process of falling beside her bed. patient landed on her bottom sitting upright. patient hit her head against the wall during fall. Provider notified of fall. Provider also notified of patient having continued auditory and visual hallucinations and agitation.
[2022-08-31] MEDS: metroNIDAZOLE IV 500 MG/100 ML PREMIX 100 MG IV ×3 (01:28→17:57)
--- NOTE | 2022-08-31 01:38 | PC.NURSE ---
placed call to janusz Rodriguez-daughter informed her of patient fall/ct ordered, verbalizes understanding and thanked me for letting her know.
[2022-08-31] MEDS: haloperidol inj 5 mg/mL INJ 1 mL IM (01:55)
[2022-08-31] MEDS: allopurinol 300 mg Tablet PO (06:15)
[2022-08-31] MEDS: levothyroxine 75 mcg Tablet PO (06:15)
[2022-08-31 06:49] LABS: Glucose Point of Care 126 mg/dL (70-110)
[2022-08-31] MEDS: atorvastatin 40 mg Tablet 20 MG PO (08:38)
[2022-08-31] MEDS: metoprolol tartrate 50 mg Tablet 100 MG PO ×2 (08:39→17:42)
[2022-08-31] MEDS: montelukast sodium 10 mg Tablet PO (08:39)
[2022-08-31] MEDS: ferrous sulfate EC 325 mg Tablet PO ×2 (08:39→17:42)
--- NOTE | 2022-08-31 10:30 | P.NPUPN_ITS ---
Subjective NPU Subjective: Presented today once again not very arousable. She awoke but did not speak of anything that was coherent. Discussed with staff plan to wait and see what is decided tomorrow by the surgeon to figure out what the next step should be. They have been holding her medication and discussed the need for her to get the evening Zyprexa to assist with psychosis/delirium. Mental Status Exam MSE Comments: This is an obese elderly white female and hospital gown with limited grooming and very limited eye contact. She was difficult to arouse she was not able to correctly state her location but responded to her name. She was not alert to place time or situation today. She was unable to describe her mo od. Her affect was flat. Her thought process was nonlinear and illogical. She did not endorse any suicidal or homicidal ideation. There was no clear evidence of active delusions although she did appear at times to be responding to internal stimuli. Her insight judgment and impulse control all appeared impaired. Vitals/I&O/Wt Last Vital Signs Temp 98.8 F 08/31/22 07:58 Pulse 82 08/31/22 07:58 Resp 17 08/31/22 07:58 BP 152/84 08/31/22 09:32 Pulse Ox 96 08/31/22 07:58 O2 Del Method 08/31/22 07:58 O2 Flow Rate 4 08/30/22 20:47 08/30/22 08/31/22 08/31/22 22:59 06:59 14:59 Intake Total 1840 / 1960 60 / 2019 270 / 270 Output Total 600 / 1500 1150 / 2650 Balance 1240 / 460 -1090 / -630 270 / 270 Weight last 48 hrs Weight 80.286 kg Weight 85.185 kg Physical Exam Urinary Catheter Management: Gomez: Cath Placed During This Visit: no Reason for Continuing Indwelling Catheter: Other Data NPU 08/30/22 08:22 08/30/22 08:22 A&P Assessment and plan (1) Auditory hallucinations: (2) Visual hallucinations: (3) Acute alteration in mental status: Plan This is an 82-year-old white female with clear dementia with exacerbatio n/delirium of unknown etiology who presented with altered mental status. 1. Continue current medication. Needs to have the Zyprexa restarted as soon as possible. 2. Agree with geriatric psychiatric hospitalization after medical stabilization. 3. We will continue to follow. Attestations NPU Medical Necessity Statement*: N/A. Please see primary team note for medical necessity however patient likely to require transfer to geriatric psychiatry unit once unit medically stabilized but we will need to know what is going to be suggested secondary to possible colon cancer/mass. Coding Level of Care Code Acute Code for Chg Fwd Diagnoses Auditory hallucinations R44.0 Visual hallucinations R44.1 Acute alteration in mental status R41.82
[2022-08-31 11:37] LABS: Glucose Point of Care 162 mg/dL (70-110)
[2022-08-31] MEDS: insulin lispro 100 unit/1 mL SUBCUT ×2 (12:12→17:43)
[2022-08-31] MEDS: haloperidol inj 5 mg/mL INJ 1 mL 1 MG IM ×2 (12:15→21:45)
[2022-08-31] MEDS: pantoprazole 40 mg SDV IVP (12:30)
[2022-08-31] MEDS: OLANZapine 5 mg TABLET 2.5 MG PO (14:29)
--- NOTE | 2022-08-31 14:33 | PC.SOCIAL ---
IMM Update pg 2 of IMM updated and reviewed w/ patients grandgeorge Salas. Copy provided and copy in chart dated, and initialed.
--- NOTE | 2022-08-31 14:33 | PC.NURSE ---
Patient continues to pull of telemetry, patient unable to comprehend education on use of telemetry.
--- NOTE | 2022-08-31 15:46 | P.PN_ITS ---
Subjective Subjective: Overnight patient had a very restless night. She was agitated, fell out of bed and hit her head. CT of the head was performed which was negative for any intracranial bleeding fortunately. This morning she continues to be confused. She is laying in bed, looks around and family members. Intermi ttently says words and sentences that make sense, however for the most part her conversation does not make sense. She tells me her name is tennille (which is her middle name), does not know date or time or the place where she is at. Medications: Reviewed: Yes Vitals/I&O/Wt Last Vital Signs Temp 98.1 F 08/31/22 12:00 Pulse 73 08/31/22 12:00 Resp 19 H 08/31/22 12:00 BP 127/97 08/31/22 12:00 Pulse Ox 94 08/31/22 12:00 O2 Del Method 08/31/22 12:00 O2 Flow Rate 4 08/30/22 20:47 08/31/22 08/31/22 08/31/22 06:59 14:59 22:59 Intake Total 2019 370 / 370 1000 / 1370 Output Total 1150 / 2650 Balance -1090 / -630 370 / 370 1000 / 1370 Weight last 48 hrs Weight 80.286 kg Weight 85.185 kg Physical Exam Narrative: General: No acute distress, lying in bed, affect is cheerful, AO x1 HEENT: PERRLA, pupils bilaterally equal and reactive, pallors not present Chest: Normal vesicular breath sounds, no added sounds, equal good air entry bilaterally CVS: S1-S2 regular, no murmurs Abdomen: Soft, nontender, no organomegaly, bowel sounds present Neuro: No focal deficits, moves all extremities in bed, extremely fidgety Urinary Catheter Management: Nevarez: Cath Placed During This Visit: no Reason for Continuing Indwelling Catheter: Other Data 08/30/22 08:22 08/30/22 08:22 Other Labs: [facility] [address] [address] [address] Scan Report Signed with Chaim Patient: Britt Stockton Unit #: [id number] : 1940 Age/Sex: 82 / F ADM Date: 08/22/22 [facility] Room/Bed: 250-[address]: Sally Garcia MD Ordering Provider/Ordering MD: Lupis Garcia MD Date of Service: 08/30/22 Procedure(s): [place] [id number] Accession Number(s): [id number] Report Number: [id number]/[place] [id number] THIS REPORT CONTAINS FINDINGS THAT MAY BE CRITICAL TO PATIENT CARE. The findings were verbally communicated via telephone conference with SALLY GARCIA at 12:37 PM CDT on 08/30/2022. The findings were acknowledged and understood. ? Addendum Dictated By: ?Magnus Chi MD Addendum Signed By: ?Magnus Chi MD Signed Date/Time: 08/30/22 1238 Addendum Cosigned By: ? PROCEDURE INFORMATION: Exam: CT Chest Without Contrast; Diagnostic Exam date and time: 08/30/2022 11:36 AM Age: 82 years old Clinical indication: Fever; Additional info: Tranaaminitis, persisting fever TECHNIQUE: Imaging protocol: Diagnostic computed tomography of the chest without contrast. Radiation optimization: All CT scans at this facility use at least one of these dose optimization techniques: automated exposure control; mA and/or kV adjustment per patient size (includes targeted exams where dose is matched to clinical indication); or iterative reconstruction. REPORTING DATA: Count of CT and Cardiac NM exams in prior 12 months: This patient has received [address] and 0 known cardiac nuclear medicine studies in the 12 months prior to the current study. COMPARISON: CR (CHEST, ) 08/27/2022 9:58 PM RADIATION DOSE METRICS: Total DLP (mGy-cm): 1046.19 FINDINGS: Tubes, catheters and devices: There is a dual-lead AICD with leads positioned in the right atrium and right ventricle. Lungs: There is a calcified granuloma in the left upper lobe. Lung volumes are low and there is mild mosaic perfusion of the lung parenchyma likely representing accentuated air trapping during expiratory imaging. There is no consolidation. There is extensive bronchial calcification bilaterally. There is decreased AP diameter of the distal trachea and central bronchi consistent with tracheobronchomalacia. Pleural spaces: There is no pleural effusion or pneumothorax. Heart: Heart size is normal. There is no pericardial effusion. Coronary arteries: There is mild coronary artery calcification. Lymph nodes: There is no mediastinal or hilar lymphadenopathy. Vasculature: There is moderate aortic atherosclerotic disease. Diaphragm: There is a small sliding-type hiatal hernia. Bones/joints: Bones are unremarkable. Soft tissues: The extrathoracic soft tissues are unremarkable. PROCEDURE INFORMATION: Exam: CT Abdomen And Pelvis Without Contrast Exam date and time: 08/30/2022 11:36 AM Age: 82 years old Clinical indication: Fever; Additional info: Tranaaminitis, persisting fever TECHNIQUE: Imaging protocol: Computed tomography of the abdomen and pelvis without contrast. Radiation optimization: All CT scans at this facility use at least one of these dose optimization techniques: automated exposure control; mA and/or kV adjustment per patient size (includes targeted exams where dose is matched to clinical indication); or iterative reconstruction. REPORTING DATA: Count of CT and Cardiac NM exams in prior 12 months: This patient has received [address] and 0 known cardiac nuclear medicine studies in the 12 months prior to the current study. COMPARISON: CT abdomen pelvis wo con [id number] 03/29/2017 8:01 PM RADIATION DOSE METRICS: Total DLP (mGy-cm): 1046.19 FINDINGS: Liver: The liver is normal. Gallbladder and bile ducts: The gallbladder is absent. There is ectasia of the common bile duct and central intrahepatic ducts. Pancreas: There is moderate atrophy of the pancreas. Spleen: The spleen is unremarkable. Adrenal glands: The adrenal glands are unremarkable. Kidneys and ureters: The kidneys are unremarkable. No hydronephrosis or stones. No ureteral dilation. Stomach and bowel: The stomach is decompressed, preventing meaningful evaluation of wall thickness. The small bowel is nondilated. The colon is mildly diffusely distended and thin walled above the level of the sigmoid. Which is nondistended. There is circumferential rectal wall thickening. There is a large focus of intramural gas in the rectal wall. The morphology of the gas collection is not typical of mural pneumatosis associated with bowel necrosis. There is mild diffuse perirectal edema. There is no extraluminal gas. No portal venous gas. Appendix: The appendix is not visible. Intraperitoneal space: There is no free air or significant intraperitoneal free fluid. Vasculature: There is moderate aortic atherosclerotic disease. No portal venous gas. Lymph nodes: There is no lymphadenopathy in the retroperitoneum, mesentery, pelvis or inguinal regions. Urinary bladder: The Nevarez catheter is appropriately positioned with the bulb and tip within the bladder lumen. The urinary bladder is decompressed, preventing meaningful evaluation of wall thickness. Reproductive: The uterus is absent. There is no adnexal mass or large cyst. Bones/joints: There is moderate degenerative disease in the lower lumbar spine. There is moderate spinal stenosis at L4-L5. The pelvis and hips are unremarkable. Soft tissues: The abdominal wall is intact. CT/[place] [id number] IMPRESSION: 1. ? No acute findings. 2. ? Mosaic perfusion of the lung parenchyma and low lung volumes consistent with expiratory air trapping. Possible constrictive bronchiolitis or reactive airways disease. 3. ? Tracheobronchomalacia. 4. ? Incidental findings above. ? ? IMPRESSION: 1. ? Abnormal diffuse rectal wall thickening consistent with a malignant neoplasm and/or proctitis. 2. ? Atypical mural pneumatosis in the rectum. Findings suggest an ulcerated neoplasm. Pneumatosis related to rectal necrosis is less likely. There is no portal venous gas. 3. ? Incidental findings above. A&P Assessment and plan (1) Acute psychosis: 82-year-old lady who has had a prolonged hospital admission since August 21, 2022 when she initially presented with acute psychosis, manifesting as hallucinations seeing and hearing a little girl around her home who has been yelling. She was initially afebrile, has had some chronic leukocytosis due to history of CLL, WBC was 17.4, lymphocytic predominant, negative U tox panel for benzodiazepines. UA was unremarkable. COVID-[address] of the head was without any acute intracranial abnormality but showed moderate diffuse cerebral atrophy and sequelae of chronic small vessel disease. Per family all of her symptoms started less than a week prior to presentation. At a baseline patient is independent, she is able to ambulate, lives with one of her granddaughters. She had evidence of HARDIK which has since improved during the course of her admission here. Individual comorbidities are as listed above. Briefly, upon admission no gross infectious or metabolic cause was found to explain her psychosis. Psych was consulted. Overall impression was that of psychosis due to polypharmacy versus worsening dementia. [place] evaluation was performed and it was thought patient would be a good candidate for 24-hour supervised stay in the [facility] psych facility. Efforts feeding are being directed to make this transfer. She was started on Risperdal initially and then changed to Zyprexa.. Zyprexa was placed on August 27 overnight as she became more lethargic. Risperdal has been discontinued. During the course of admission here patient subsequently developed fever and UTI on August 27, 2022. Her lethargy wherein she was extremely somnolent over 2 days was likely related to UTI. After being started on antibiotics her mental status did improve in the sense that she became more alert and awake, however has continued to remain confused. Best mentation noted on August 28 was when she was alert awake oriented, able to tell me name age date of and recognize family members at bedside. However by August 29 her confusion became worse again. Active issues at this time are persisting confusion. Plan for MRI and lumbar puncture tomorrow. Lower suspicion for meningoencephalitis given the waxing and waning nature of her symptoms. W/up thus far: CT of head was without any acute intracranial abnormality but showed moderate diffuse cerebral atrophy and sequelae of chronic small vessel disease TSH : t0.73 (WNL) check b12, folate cr 1.1--> 2.1 on 08/27 (had urinary retention> 500 ml, nevarez placed, lisinopril held)---> 1.1 (08/31) UA: 08/21: WNL ; 08/27: > 100 WBC, 3+ bacteria, negative nitrate, Ur cx: E. coli s/t ceftriaxone Blood cx : 08/27: negative to date LFT: normal until 08/28, increasing on 08/29 and 08/30 ; CT imaging calcified granuloma of liver, normal iver and biliary system. CT chest with air trapping, no consolidation , tracheobronchomalacia Fobt: +, rectal ulcer on CT imaging, suspected cancer, atypical mural pneumatosis, signmoidoscopy tomorrow . Differential: Proctitis though no inciting cause. On CTX and flagyl currently (2) HARDIK (acute kidney injury): Now improved with hydration, creatinine down to 1.1. (3) Elevated INR: Resolved, patient currently on Lovenox, warfarin on hold during the admission (4) Warfarin anticoagulation: (5) Polypharmacy: (6) Essential hypertension: Blood pressure labile today ranging between 90 systolic to 180. Hydralazine as needed has been added however has not been given yet. Discussed with nursing to administer (7) Atrial fibrillation: Remains rate controlled Qualifiers: Atrial fibrillation type: permanent Qualified Code(s): I48.21 - Permanent atrial fibrillation (8) Diabetes mellitus: Fingersticks under good control, Lantus is at 20 units currently Qualifiers: Diabetes mellitus type: type 2 Diabetes mellitus intermediate manager insulin use: with intermediate manager use Diabetes mellitus complication status: with hyperglycemia Qualified Code(s): E11.65 - Type 2 diabetes mellitus with hyperglycemia; Z79.4 - tank terminal gauger (current) use of insulin (9) Anxiety: (10) Leukocytosis: History of CLL, baseline appears to be between 13-17. (11) Transaminitis: (12) Rectal ulceration: CT of the abdomen was obtained due to transaminitis. While the liver and bilia ry system are unremarkable, incidentally noted was abnormal diffuse rectal wall thickening consistent with a malignant neoplasm or proctitis. There was atypical mural hematoma cyst in the colon. Discussed with radiology that overall rectal cancer appears to be the more likely possibility. Less likely proctitis. Currently on Flagyl in addition to ceftriaxone while pending surgical and colonoscopy evaluation. sigmoidoscopy tomorrow surgical consult Plan Disposition: Family to meet with a transportation coordinator on Thursday to get guardianship. Thereafter once medical issues are resolved plan to transfer to [facility] facility. DVT prophylaxis: Currently on full dose Lovenox, holding today for anticipated procedures tomorrow. Full code Attestations Medical Necessity Statement*: sigmoidoscopy, MRI , LP tomorrow Coding Level of Care Code Acute Code for [facility] Fwd Diagnoses Acute psychosis F23 HARDIK (acute kidney injury) N17.9 Elevated INR R79.1 Warfarin anticoagulation Z79.01 Polypharmacy Z79.899 Essential hypertension I10 Atrial fibrillation I48.21 Atrial fibrillation type: permanent Diabetes mellitus E11.65; Z79.4 Diabetes mellitus type: type 2 Diabetes mellitus intermediate manager insulin use: with mcc use Diabetes mellitus complication status: with hyperglycemia Anxiety F41.9 Leukocytosis D72.829 Transaminitis R74.01 Rectal ulceration K62.6
[2022-08-31 17:14] LABS: Glucose Point of Care 150 mg/dL (70-110)
--- NOTE | 2022-08-31 19:43 | PC.NURSE ---
PROTONIX IVP GIVEN BY THIS RN AT APPROX. 1230. MED SCANNED AND SAVED BUT DID NOT SAVE.
[2022-08-31] MEDS: cefTRIAXone 1,000 MG in sodium chloride 0.9% (plus) 50 ML 100 MG IV (20:05)
[2022-08-31] MEDS: acetaminophen 325 mg Tablet 650 MG PO (20:05)
--- NOTE | 2022-08-31 20:17 | PC.NURSE ---
This nurse and another nurse went to assess the patient and provide medications. The patient appeared to become very agitated once this nurse entered the room and began speaking. Verbal de-escalation and reorientation were used, but the patient remained agitated and disoriented to person, place, time, and situation. This nurse, another nurse, and a MANAGER MACHINE began cleaning the patient and changing the linens when the pt began to swing and swat at this nurse and the other nurse, hitting this nurse several times on the arm and wrist. Verbal de-escalation and reorientation were continuously used by this nurse and the other nurse. Pt is currently resting in bed and talking/laughing to herself.
[2022-08-31 21:33] LABS: Glucose Point of Care 120 mg/dL (70-110)
[2022-08-31] MEDS: hyDRALAzine 20 mg/mL INJ 1 mL 10 MG IVP (21:44)
[2022-08-31] MEDS: insulin glargine 100 units/1 mL 20 UNIT SUBCUT (21:44)
[2022-08-31] MEDS: sodium chloride 0.9% 1,000 ML 50 ML IV (21:52)
[2022-09-01] VITALS (14 sets, daily range): BP systolic 94–157; BP diastolic 42–69; PULSE 58–81; RESP 14–18; TEMP 36.2–37.1; O2SAT 92–100
[2022-09-01] MEDS: pantoprazole 40 mg SDV IVP (00:26)
[2022-09-01] MEDS: haloperidol inj 5 mg/mL INJ 1 mL 1 MG IM (01:29)
[2022-09-01] MEDS: metroNIDAZOLE IV 500 MG/100 ML PREMIX 100 MG IV ×2 (02:17→20:52)
[2022-09-01 04:57] LABS: Basophils # 0.1 10^3/uL (0.0-0.1); Basophils % 0.6 %; Eosinophils # 0.6 10^3/uL (0.0-0.8); Eosinophils % 3.6 %; Hematocrit 33.1 % (37.0-47.0); Hemoglobin 10.8 g/dL (11.5-15.3); Lymphocytes # 5.6 10^3/uL (0.8-4.8); Lymphocytes % 36.4 %; Mean Corpuscular HGB Conc 32.6 g/dL (30.0-36.0); Mean Corpuscular Hemoglobin 31.6 pg (28.0-34.0); Mean Corpuscular Volume 96.8 fl (81-99); Mean Platelet Volume 10.3 fL (7.4-10.4); Monocytes % 6.4 %; Neutrophils # 7.96 10^3/uL (1.8-7.7); Neutrophils % 51.6 %; Nucleated Red Blood Cells % 0 %; Platelet Count 210 10^3/cmm (130-400); Red Blood Count 3.42 10^6/uL (4.1-5.3); Red Cell Distribution Width 14.2 % (12.1-15.1); White Blood Count 15.4 10^3/uL (4.0-10.0)
[2022-09-01] MEDS: Fleet Enema 133 mL Enema PR (05:06)
[2022-09-01 05:24] LABS: Ammonia 16 umol/L (11-51)
[2022-09-01 05:34] LABS: Alanine Aminotransferase 26 U/L (0-33); Albumin Level 2.6 g/dL (3.5-5.2); Alkaline Phosphatase 117 U/L (35-105); Anion Gap 13.9 (5-19); Aspartate Amino Transferase 45 U/L (0-32); Blood Urea Nitrogen 20 mg/dL (8-23); Calcium 8.7 mg/dL (8.5-10.5); Carbon Dioxide 25 mmol/L (22-29); Chloride 110 mmol/L (98-107); Glucose 129 mg/dL (65-115); Osmolality Calculated 304 mOsm/kg (285-295); Potassium 3.9 mmol/L (3.5-5.1); Sodium 145 mmol/L (136-145); Total Bilirubin 0.3 mg/dL (0.15-1.2); Total Protein 5.6 g/dL (6.6-8.7)
[2022-09-01 07:09] LABS: Glucose Point of Care 135 mg/dL (70-110)
[2022-09-01 07:23] LABS: Vitamin B12 479 pg/mL (232-1245)
--- NOTE | 2022-09-01 08:00 | FL_ITS ---
WS: [id number] LUMBAR PUNCTURE CLINICAL INFORMATION: Altered mental status COMPARISON: None. TECHNIQUE: Informed consent: The procedure and its potential risk and complications were discussed with the bossman ent. Verbal and written consent was obtained. Timeout: A timeout was performed to confirm correct patient, procedure, and site. Patient was prepped and draped in the usual sterile fashion. Lidocaine 1% was used for local anesthes ia. Utilizing fluoroscopic guidance, a 3.5 inch 22-gauge spinal needle was advanced into the subarach noid space at L2-L3 via left oblique sublaminar approach. 2-3 cc of CSF was collected and sent the la b for further analysis. Additional CSF could not be obtained despite needle repositioning. This is li emily due to central canal stenosis. FLUOROSCOPIC TIME: 1min [id number] # of spot films: 0 FL/FL guided lumbarpunc dx* [id number] IMPRESSION: 1. Fluoroscopically guided lumbar puncture. No immediate complications 2. Only 2-3 cc of CSF was collected before CSF flow stopped likely due to cent ral canal stenosis
[2022-09-01 08:35] LABS: Folate Level 19.9 ng/mL (4.8-37.3)
--- NOTE | 2022-09-01 09:17 | ANES.PREANE2 ---
Pre-Anesthetic Assessment Height/Weight: Height 1.6 m Weight 79.878 kg Temp Pulse Resp BP Pulse Ox O2 Del Method O2 Flow Rate 97.6 F 60 17 110/60 95 4 09/01/22 08:00 09/01/22 08:00 09/01/22 08:00 09/01/22 08:00 09/01/22 08:00 09/01/22 08:00 08/30/22 20:47 Operation Date: 09/01/22 10:00 Proposed Procedures p Sigmoidoscopy(Not Applicable) - Jaswinder Alex, DO Familial anesthetic complications: None Was Beta Vadim taken within 24 hours: N/A Was Clonidine taken within 24 hours: N/A Last intake: Intake Last Liquid Date 08/31/22 Last Liquid Time 00:00 Last Solid Date 08/31/22 Last Solid Time 00:00 Social No alcohol and No tobacco Exam clear to auscultation bilaterally Airway Submandibular: within normal limits Cervical ROM: within normal limits Mallampati: Class II Dentition: false History/ROS No significant history except as noted and No significant complaints Pulmonary Sleep Apnea CV/HEM Atrial Fibrillation, Coronary Artery Disease, Hypertension and Myocardial Infarction ?CONCLUSIONS ?Normal left ventricular size and systolic function, EF 55 %. No ?regional wall motion abnormalities. Mild left ventricular ?hypertrophy. Grade I/IV diastolic dysfunction (abnormal ?relaxation filling pattern), normal to mildly elevated filling ?pressures. ?Moderate aortic valve stenosis, mean gradient 10.4 mmHg, RUBI 1.3 ?cm squared.? Peak velocity of 2.45 m/s. ?Moderate aortic valve calcification. ?Thickened mitral valve. Moderate mitral annular calcification. ?Trace mitral valve regurgitation. ?Trace tricuspid valve regurgitation. ?Estimated pulmonary artery peak systolic pressure 31 mmHg ?There is no pericardial effusion. ?There are no intracardiac masses. ?Compared to the study from 02/09/2020, there may not be a ?significant change. SINUS RHYTHM RIGHT BUNDLE BRANCH BLOCK? [120+ ms QRS DURATION, UPRIGHT V1, 40+ ms S IN I/aVL/V4/V5/V6] POSSIBLE LEFT VENTRICULAR HYPERTROPHY? [VOLTAGE CRITERIA PLUS LAE OR QRS WIDENING] POSSIBLE ANTERIOR MYOCARDIAL INFARCTION , OF INDETERMINATE AGE [30 ms Q WAVE IN V3/V4, OR R < 0.2 mV IN V4] INFERIOR MYOCARDIAL INFARCTION , OF INDETERMINATE AGE [40+ ms Q WAVE AND/OR ST/T ABNORMALITY IN II/aVF] Compared to ECG 01/27/2020 21:11:58 Myocardial infarct finding now present Left-axis deviation no longer present Urinary Tract Infection HARDIK Hepatic Cirrhosis GI Gastroesophageal Reflux Disease Rectal ulceration Metabolic Diabetes Mellitus, Hyperlipidemia and Thyroid Disease [facility] Osteoarthritis/DJD and Rheumatoid Arthritis Neuropsych Anxiety, Dementia and Neuropathy Confused Anesthetic Plan ASA status: 4 Anesthesia: Anesthesia Evaluation, General and MAC Other: Phone consent by great grandgeorge Estrada Risk of > 500 ml blood loss (7ml/kg in children): No Medications/Allergies Home Medications Medication Instructions Recorded Confirmed Last Taken Type allopurinol 300 mg tablet 300 mg PO DAILY@0700 08/04/19 08/22/22 10/31/20 History levothyroxine 75 mcg capsule 75 mcg PO DAILY@0600 08/04/19 08/22/22 11/01/20 History metformin 1,000 mg tablet 1,000 mg PO BID@0700,2200 08/04/19 08/22/22 10/31/20 History omeprazole 40 mg capsule,delayed 40 mg PO BID@0700,2200 08/04/19 08/22/22 10/31/20 History release nitroglycerin 0.4 mg sublingual 0.4 mg sublingual Q5M PRN CHEST 03/29/20 08/22/22 Unknown Rx tablet (Nitrostat) PAINS #25 tabs insulin degludec 200 unit/mL (3 60 unit SUBCUT BEDTIME@2200 08/22/20 08/22/22 10/31/20 22:15 History mL) subcutaneous pen (Tresiba 60 UNITS FlexTouch U-200 insulin) warfarin 1 mg tablet See Rx Instructions .Route .COMPLEX 08/22/20 08/22/22 10/29/20 History ASO #1 ea 09/12/20 08/22/22 Unknown Rx ferrous sulfate 325 mg (65 mg 325 mg PO TID 10/30/20 08/22/22 10/31/20 History iron) tablet warfarin 1 mg tablet See Rx Instructions .Route 04/16/21 08/22/22 Unknown Rx .COMPLEX #90 tabs furosemide 40 mg tablet (Lasix) 40 mg PO DAILY #90 tabs 10/17/21 08/22/22 Unknown Rx warfarin 5 mg tablet 5 mg PO DIRECTED #90 tabs 06/04/22 08/22/22 Unknown Rx warfarin 4 mg tablet See Rx Instructions .Route 06/23/22 08/22/22 Unknown Rx .COMPLEX #90 tabs hydrochlorothiazide 50 mg tablet 50 mg PO DAILY #90 tabs 07/07/22 08/22/22 Unknown Rx potassium chloride 10 mEq 10 meq PO DAILY #90 tabs 07/09/22 08/22/22 Unknown Rx tablet,extended release lisinopril 40 mg tablet 40 mg PO BID@0700,2200 #180 tabs 08/18/22 08/22/22 Unknown Rx metoprolol tartrate 100 mg tablet 100 mg PO BID #180 tabs 08/18/22 08/22/22 Unknown Rx simvastatin 10 mg tablet 10 mg PO DAILY #90 tabs 08/18/22 08/22/22 Unknown Rx alprazolam 0.25 mg tablet 0.25 mg PO DAILY PRN Anxiety 08/22/22 08/22/22 Unknown History montelukast 10 mg tablet 10 mg PO DAILY 08/22/22 08/22/22 Unknown History Allergies Allergy/AdvReac Type Severity Reaction Status Date / Time adhesive tape Allergy Unknown Unknown Verified 07/17/22 13:40 aspirin Allergy Unknown Unknown Verified 07/17/22 13:40 codeine Allergy Unknown Unknown Verified 07/17/22 13:40 diltiazem Allergy Unknown Unknown Verified 07/17/22 13:40 iodine Allergy Unknown Unknown Verified 07/17/22 13:40 nifedipine Allergy Unknown Unknown Verified 07/17/22 13:40 propoxyphene [From Darvon] Allergy Unknown Unknown Verified 07/17/22 13:40 Penicillins Allergy Unknown Verified 07/17/22 13:40 Current Medications Generic Name Dose Route Start Last Admin Trade Name Freq PRN Reason Stop Dose Admin Acetaminophen 650 mg 08/21/22 22:30 08/31/22 20:05 Acetaminophen 325 Mg Tablet PO 650 mg Q6H PRN Administration Mild/Mod Pain Or Temp >/= 101 Allopurinol 300 mg 08/23/22 07:00 08/31/22 06:15 Allopurinol 300 Mg Tablet PO 300 mg DAILY@0700 KAI Administration Atorvastatin Calcium 20 mg 08/23/22 09:00 08/31/22 08:38 Atorvastatin 40 Mg Tablet PO 20 mg DAILY KAI Administration Enoxaparin Sodium 80 mg 08/30/22 11:15 08/30/22 23:01 Enoxaparin 80 Mg/0.8 Ml Syringe 1 mg/kg (80 mg) 80 mg SUBCUT Administration Q12H [facility] Ferrous Sulfate 325 mg 08/28/22 18:00 08/31/22 17:42 Ferrous Sulfate Ec 325 Mg Tablet PO 325 mg BIDWM KAI Administration Haloperidol Lactate 1 mg 08/31/22 11:33 09/01/22 01:29 Haloperidol Inj 5 Mg/Ml Inj 1 Ml IM 1 mg Q4H PRN Administration AGITATION Hydralazine HCl 10 mg 08/31/22 20:31 08/31/22 21:44 Hydralazine 20 Mg/Ml Inj 1 Ml IVP 10 mg Q4H PRN Administration BP > 170/90 after other meds Sodium Chloride 1,000 mls @ 50 mls/hr 08/27/22 10:00 08/31/22 21:52 Sodium Chloride 0.9% IV 50 mls/hr .Q20H KAI Administration Ceftriaxone Sodium 1,000 mg/ 50 mls @ 100 mls/hr 08/29/22 18:45 08/31/22 21:06 Sodium Chloride IV Infused Q24H [facility] Infusion Protocol Metronidazole 500 mg in 100 mls @ 100 mls/hr 08/30/22 18:00 09/01/22 03:53 Flagyl Iv IV Infused Q8H [facility] Infusion Protocol Insulin Glargine 20 unit 08/28/22 22:00 08/31/22 21:44 Insulin Glargine 100 Units/1 Ml SUBCUT 20 unit BEDTIME@2200 [facility] Administration Insulin Human Lispro 0 unit 08/25/22 18:00 08/31/22 21:34 Insulin Lispro 100 Unit/1 Ml SUBCUT Not Given WM&BEDTIME [facility] Protocol Levothyroxine Sodium 75 mcg 08/23/22 06:00 08/31/22 06:15 Levothyroxine 75 Mcg Tablet PO 75 mcg DAILY@0600 [facility] Administration Metoprolol Tartrate 100 mg 08/22/22 18:00 08/31/22 17:42 Metoprolol Tartrate 50 Mg Tablet PO 100 mg BID KAI Administration Montelukast Sodium 10 mg 08/23/22 09:00 08/31/22 08:39 Montelukast Sodium 10 Mg Tablet PO 10 mg DAILY KAI Administration Olanzapine 2.5 mg 08/26/22 21:00 08/31/22 14:29 Olanzapine 5 Mg Tablet PO 2.5 mg BEDTIME KAI Administration Pantoprazole Sodium 40 mg 08/27/22 23:15 09/01/22 00:26 Pantoprazole 40 Mg Sdv IVP 40 mg Q12H KAI Administration Warfarin Sodium 2 mg 08/22/22 14:45 08/26/22 15:03 Warfarin 2 Mg Tablet PO 2 mg 1400 KAI Administration PFSH Anesthesia Medical History (Updated 08/30/22 @ 18:10 by Sally Chowdhury MD) Anemia Anxiety Aortic stenosis Not significant on repeat echocardiogram. 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 Diabetes mellitus Dyslipidemia Essential hypertension GERD (gastroesophageal reflux disease) Gout History of TIAs Hyperlipidemia Hypertension Hypothyroidism Obesity Peripheral arterial disease Sick sinus syndrome Sleep apnea Warfarin anticoagulation Surgical History History of permanent cardiac pacemaker placement S/P appendectomy S/P cataract extraction S/P cholecystectomy S/P hysterectomy S/P oophorectomy Family History Father CAD (coronary artery disease) Diabetes Stroke Myocardial infarction Mother CAD (coronary artery disease) Diabetes Hypertension Stroke Sister Diabetes Cancer COLON Social History Smoking and tobacco status: never smoked Alcohol intake: never Lives independently: Yes Marital status: / Data Anesthesia 09/01/22 04:22 09/01/22 04:22 Short CBC 08/30/22 09/01/22 Range/Units 08:22 04:22 WBC 19.5 H 15.4 H (4.0-10.0) 10^3/uL Hgb 11.0 L 10.8 L (11.5-15.3) g/dL Hct 34.0 L 33.1 L (37.0-47.0) % MCV 95.2 96.8 (81-99) fl Plt Count 239 210 (130-400) 10^3/cmm Neut % (Auto) 44.9 51.6 % Neut # (Auto) 8.75 H 7.96 H (1.8-7.7) 10^3/uL BMP 09/01/22 04:22 Sodium 145 Potassium 3.9 Chloride 110 H Carbon Dioxide 25 BUN 20 Creatinine 1.0 H Glucose 129 H Calcium 8.7 Liver Function 09/01/22 Range/Units 04:22 Total Bilirubin 0.3 (0.15-1.2) mg/dL AST 45 H (0-32) U/L ALT 26 (0-33) U/L Alkaline Phosphatase 117 H (35-105) U/L Albumin 2.6 L (3.5-5.2) g/dL COVID Results 08/30/22 17:00 SARS-CoV-2 Ag (Rapid) negative Cardiac Studies: Echocardiogram 04/22/22 Echocardiogram Ultrasound 02/09/20 Sestamibi Stress Test (Cardiology) 01/25/20
--- NOTE | 2022-09-01 09:28 | PM.HP ---
Providers/Chief Complaint Admitting Physician: Fili Roy Primary Care Provider: Nehemiah Abraham DO Chief Complaint: MHE History of Present Illness Britt Stockton is a 82 year old female who was admitted to the hospital with acute psychosis. During her work-up a CT was performed of the abdomen and pelvis which showed thickening of the rectal wall with pneumatosis, consistent with possible mass and ulceration. General surgery was consulted for possible sigmoidoscopy. Patient is oriented x0. HPI and review of systems are limited secondary to this Review of Systems General: Reports: ROS unobtainable due to mental status Medications/Allergies Home Medications Medication Instructions Recorded Confirmed Last Taken Type allopurinol 300 mg tablet 300 mg PO DAILY@0700 08/04/19 08/22/22 10/31/20 History levothyroxine 75 mcg capsule 75 mcg PO DAILY@0600 08/04/19 08/22/22 11/01/20 History metformin 1,000 mg tablet 1,000 mg PO BID@0700,2200 08/04/19 08/22/22 10/31/20 History omeprazole 40 mg capsule,delayed 40 mg PO BID@0700,2200 08/04/19 08/22/22 10/31/20 History release nitroglycerin 0.4 mg sublingual 0.4 mg sublingual Q5M PRN CHEST 03/29/20 08/22/22 Unknown Rx tablet (Nitrostat) PAINS #25 tabs insulin degludec 200 unit/mL (3 60 unit SUBCUT BEDTIME@2200 08/22/20 08/22/22 10/31/20 22:15 History mL) subcutaneous pen (Tresiba 60 UNITS FlexTouch U-200 insulin) warfarin 1 mg tablet See Rx Instructions .Route .COMPLEX 08/22/20 08/22/22 10/29/20 History ASO #1 ea 09/12/20 08/22/22 Unknown Rx ferrous sulfate 325 mg (65 mg 325 mg PO TID 10/30/20 08/22/22 10/31/20 History iron) tablet warfarin 1 mg tablet See Rx Instructions .Route 04/16/21 08/22/22 Unknown Rx .COMPLEX #90 tabs furosemide 40 mg tablet (Lasix) 40 mg PO DAILY #90 tabs 10/17/21 08/22/22 Unknown Rx warfarin 5 mg tablet 5 mg PO DIRECTED #90 tabs 06/04/22 08/22/22 Unknown Rx warfarin 4 mg tablet See Rx Instructions .Route 06/23/22 08/22/22 Unknown Rx .COMPLEX #90 tabs hydrochlorothiazide 50 mg tablet 50 mg PO DAILY #90 tabs 07/07/22 08/22/22 Unknown Rx potassium chloride 10 mEq 10 meq PO DAILY #90 tabs 07/09/22 08/22/22 Unknown Rx tablet,extended release lisinopril 40 mg tablet 40 mg PO BID@0700,2200 #180 tabs 08/18/22 08/22/22 Unknown Rx metoprolol tartrate 100 mg tablet 100 mg PO BID #180 tabs 08/18/22 08/22/22 Unknown Rx simvastatin 10 mg tablet 10 mg PO DAILY #90 tabs 08/18/22 08/22/22 Unknown Rx alprazolam 0.25 mg tablet 0.25 mg PO DAILY PRN Anxiety 08/22/22 08/22/22 Unknown History montelukast 10 mg tablet 10 mg PO DAILY 08/22/22 08/22/22 Unknown History Allergies Allergy/AdvReac Type Severity Reaction Status Date / Time adhesive tape Allergy Unknown Unknown Verified 07/17/22 13:40 aspirin Allergy Unknown Unknown Verified 07/17/22 13:40 codeine Allergy Unknown Unknown Verified 07/17/22 13:40 diltiazem Allergy Unknown Unknown Verified 07/17/22 13:40 iodine Allergy Unknown Unknown Verified 07/17/22 13:40 nifedipine Allergy Unknown Unknown Verified 07/17/22 13:40 propoxyphene [From Darvon] Allergy Unknown Unknown Verified 07/17/22 13:40 Penicillins Allergy Unknown Verified 07/17/22 13:40 PFSH Acute PFSH: Medical History Anemia Anxiety Aortic stenosis Not significant on repeat echocardiogram. 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 Diabetes mellitus Dyslipidemia Essential hypertension GERD (gastroesophageal reflux disease) Gout History of TIAs Hyperlipidemia Hypertension Hypothyroidism Obesity Peripheral arterial disease Sick sinus syndrome Sleep apnea Warfarin anticoagulation Surgical History History of permanent cardiac pacemaker placement S/P appendectomy S/P cataract extraction S/P cholecystectomy S/P hysterectomy S/P oophorectomy Family History Father CAD (coronary artery disease) Diabetes Stroke Myocardial infarction Mother CAD (coronary artery disease) Diabetes Hypertension Stroke Sister Diabetes Cancer COLON Social History Smoking and tobacco status: never smoked Alcohol intake: never Lives independently: Yes Marital status: / Vitals/I&O/Wt Last Vital Signs Temp 97.6 F 09/01/22 08:00 Pulse 60 09/01/22 08:00 Resp 17 09/01/22 08:00 BP 110/60 09/01/22 08:00 Pulse Ox 95 09/01/22 08:00 O2 Del Method 09/01/22 08:00 O2 Flow Rate 4 08/30/22 20:47 08/31/22 09/01/22 09/01/22 22:59 06:59 14:59 Intake Total 1250 / 1620 100 / 1720 Output Total 300 / 300 Balance 1250 / 1620 -200 / 1420 Weight last 48 hrs Weight 176 lb 1.6 oz Weight 177 lb Physical Exam Narrative: General : Patient is well developed , oriented x0 Head : Normal cephalic, a-traumatic. Ears : Pinnae and external canal are normal. Hearing is normal. Eyes : PERRLA, Sclera and injection are normal. No conjunctival discharge. Nose : Mucous membranes are without erythema. Throat : buccal mucosa is normal, gums are without significant recession or hypertrophy. Lungs : Equal chest rise bilaterally, no use of accessory muscles, trachea is midline. Cor : A-fib Abdomen : Soft, ND, NT, no g/r/m Extremities : No edema, no cyanosis or clubbing, dorsalis pedis pulses are present bilaterally, non-tender to palpation of calves. Upper extremities are normal bilaterally. Back : non-tender to palpation, no CVA tenderness. Urinary Catheter Management: Gomez: Cath Placed During This Visit: no Reason for Continuing Indwelling Catheter: Other Data 09/01/22 04:22 09/01/22 04:22 A&P Assessment and plan (1) Rectal ulceration: Plan Sigmoidoscopy The risks and benefits of the procedure, including bleeding, infection, intestinal perforation requiring surgery, missed lesion were explained to the patient. The patient is understanding of the risks and wishes to proceed. Attestations Medical Necessity Statement*: Per primary Coding Level of Care Code Acute Code for g Fwd Diagnoses Rectal ulceration K62.6
[2022-09-01] MEDS: sodium chloride 0.9% 1,000 ML 30 ML IV (09:30)
--- NOTE | 2022-09-01 10:22 | PC.NURSE ---
Pt to radiology for lumbar puncture via stretcher and assisted to radiology bed. Report given to Regan. Pt to be taken up to Med-surg following lumbar puncture via radiology personnel. Pt able to open eyes to verbal command, but falls asleep easily. VSS upon transfer.
--- NOTE | 2022-09-01 11:12 | W.PM.NPUPNS ---
Subjective NPU Subjective: Patient presented today not very responsive to questions but communicative. She did report being in pain but could not be clear whether it was her right or left hip. She also endorses being thirsty but per nurse she was n.p.o. And not getting her medications. Discussed with staff the need for her to get the Zyprexa to assist with any delirium/psychosis. Mental Status Exam MSE Comments: This is an obese elderly white female and hospital gown with limited grooming and very limited eye contact. Arousable today but only reported being thirsty and that her hip hurt. She responded to her name. She was not alert to place time or situation today. She was unable to describe her mood. Her affect was in distress. Her thought process was nonlinear and illogical. She did not endorse any suicidal or homicidal ideation. There was no clear evidence of active delusions although she did appear at times to be responding to internal stimuli. Her insight judgment and impulse control all appeared impaired. Vitals/I&O/Wt Last Vital Signs Temp 97.2 F L 09/01/22 09:31 Pulse 78 09/01/22 09:31 Resp 16 09/01/22 09:31 BP 133/69 09/01/22 09:31 Pulse Ox 100 09/01/22 09:31 O2 Del Method 09/01/22 09:31 O2 Flow Rate 4 09/01/22 09:31 Weight last 48 hrs Weight 83.631 kg Weight 81.828 kg Physical Exam Urinary Catheter Management: Gomez: Cath Placed During This Visit: yes, but has since been removed by the nurse Reason for Continuing Indwelling Catheter: Acute Urinary Retention or Obstruction Urinary Catheter Date of Insertion: 09/03/22 Urinary Catheter Time of Insertion: 05:33 Date Urinary Catheter Removed: 09/02/22 Time Urinary Catheter Discontinued: 13:00 Data NPU 09/03/22 04:21 09/03/22 04:21 Micro: Microbiology 09/01/22 10:49 Gram Stain - Final Cerebrospinal Fluid CSF Culture - Preliminary Cryptococcal Antigen (CSF) - Final Microbiology 09/01/22 10:49 Cerebrospinal Fluid Gram Stain - Final 09/01/22 10:49 Cerebrospinal Fluid CSF Culture - Preliminary 09/01/22 10:49 Cerebrospinal Fluid Cryptococcal Antigen (CSF) - Final A&P Assessment and plan (1) Auditory hallucinations: (2) Visual hallucinations: (3) Acute alteration in mental status: Plan This is an 82-year-old white female with clear dementia with exacerbation/delirium of unknown etiology who presented with altered mental status. 1. Continue current medication. 2. Agree with geriatric psychiatric hospitalization after medical stabilization. 3. We will continue to follow. Attestations NPU Medical Necessity Statement*: N/A. Please see primary team note for medical necessity however patient likely to require transfer to geriatric psychiatry unit once unit medically stabilized but we will need to know what is going to be suggested secondary to possible colon cancer/mass. Coding Level of Care Code [facility] Diagn[facility] Auditory hallucinations R44.0 Visual hallucinations R44.1 Acute alteration in mental status R41.82
--- NOTE | 2022-09-01 11:49 | PC.OT ---
OT TREATMENT HELD THIS DAY DUE TO MULTIPLE PROCEDURES AND TESTING. WILL ATTEMPT AGAIN TOMORROW.
[2022-09-01 11:53] LABS: CSF Mononuclear # 0.004 10^3/uL (50-90); Mononuclear WBC CSF % 80 % (50-90); Polynuclear Cells ,CSF # 0.001 10^3/uL (0-10); Polynuclear WBC CSF % 20 % (0-10); Red Blood Cell CSF 0 10^3/uL (0-0); White Blood Cell CSF 5 /uL (0-5)
[2022-09-01 11:56] LABS: Cyto Order Verification No Order
[2022-09-01 12:16] LABS: Glucose CSF 72 mg/dL (40-70); Total Protein CSF 32 mg/dL (15-45)
[2022-09-01 13:24] LABS: Appearance CSF CLEAR (CLEAR); Color CSF COLORLESS (COLORLESS); Pathology Referral Yes
--- NOTE | 2022-09-01 15:47 | ANE.PACU2 ---
Inpatient post-anesthesia follow up: Airway intact: Yes Vital signs: Temperature 98.0 F Pulse Rate 68 Respiratory Rate 14 Blood Pressure 99/56 Pulse Oximetry 94 Oxygen Delivery Me thod Room Air Oxygen Flow Rate 4 Fraction of Inspir ed Oxygen Hydration adequate: Yes Nausea and vomiting: No Pain level: 2 Mental status: Baseline
[2022-09-01 17:42] LABS: Glucose Point of Care 121 mg/dL (70-110)
--- NOTE | 2022-09-01 19:15 | PM.PN ---
Subjective Subjective: Patient was seen and examined this morning, she underwent sigmoidoscopy as well as LP. Sigmoidoscopy has shown: Fungating rectal mass, CSF fluid analysis has been reviewed. Given her overall presentation possibility of paraneoplastic syndrome in the presence of malignancy cannot be conclusively ruled out. 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 Medications: Reviewed: Yes Medication Review Details: Generic Name Dose Route Start Last Admin Trade Name Freq PRN Reason Stop Dose Admin Acetaminophen 650 mg 08/21/22 22:30 08/31/22 20:05 Acetaminophen 32 5 Mg Tablet PO 650 mg Q6H PRN Administration Mild/Mod Pain Or Temp >/= 101 Allopurinol 300 mg 08/23/22 07:00 08/31/22 06:15 Allopurinol 300 Mg Tablet PO 300 mg DAILY@0700 KAI Administration Atorvastatin Calci um 20 mg 08/23/22 09:00 08/31/22 08:38 Atorvastatin 40 Mg Tablet PO 20 mg DAILY KAI Administration Enoxaparin Sodium 80 mg 08/30/22 11:15 08/30/22 23:01 Enoxaparin 80 Mg /0.8 Ml Syringe 1 mg/kg (80 mg) 80 mg SUBCUT Administration Q12H [facility] Ferrous Sulfate 325 mg 08/28/22 18:00 08/31/22 17:42 Ferrous Sulfate Ec 325 Mg Tablet PO 325 mg BIDWM KAI Administration Haloperidol Lactat e 1 mg 08/31/22 11:33 09/01/22 01:29 Haloperidol Inj 5 Mg/Ml Inj 1 Ml IM 1 mg Q4H PRN Administration AGITATION Hydralazine HCl 10 mg 08/31/22 20:31 08/31/22 21:44 Hydralazine 20 M g/Ml Inj 1 Ml IVP 10 mg Q4H PRN Administration BP > 170/90 after other meds Sodium Chloride 1,000 mls @ 50 ml s/hr 08/27/22 10:00 08/31/22 21:52 Sodium Chloride 0.9% IV 50 mls/hr .Q20H [facility]AI Administration Ceftriaxone Sodium 1,000 mg/ 50 mls @ 100 mls/ hr 08/29/22 18:45 08/31/22 21:06 Sodium Chloride IV Infused Q24H [facility] Infusion Protocol Metronidazole 500 mg in 100 mls @ 100 mls/hr 08/30/22 18:00 09/01/22 03:53 Flagyl Iv IV Infused Q8H [facility] Infusion Protocol Sodium Chloride 1,000 mls @ 30 ml s/hr 09/01/22 09:45 09/01/22 10:14 Sodium Chloride 0.9% IV 09/02/22 09:44 Infused .Q24H [facility] Infusion Insulin Glargine 20 unit 08/28/22 22:00 08/31/22 21:44 Insulin Glargine 100 Units/1 Ml SUBCUT 20 unit BEDTIME@2200 [facility] Administration Insulin Human Lisp ro 0 unit 08/25/22 18:00 08/31/22 21:34 Insulin Lispro 1 00 Unit/1 Ml SUBCUT Not Given WM&BEDTIME [facility] Protocol Levothyroxine Sodi um 75 mcg 08/23/22 06:00 08/31/22 06:15 Levothyroxine 75 Mcg Tablet PO 75 mcg DAILY@0600 KAI Administration Metoprolol Tartrat e 100 mg 08/22/22 18:00 08/31/22 17:42 Metoprolol Tartr ate 50 Mg Tablet PO 100 mg BID KAI Administration Montelukast Sodium 10 mg 08/23/22 09:00 08/31/22 08:39 Montelukast Sodi um 10 Mg Tablet PO 10 mg DAILY KAI Administration Olanzapine 2.5 mg 08/26/22 21:00 08/31/22 14:29 Olanzapine 5 Mg Tablet PO 2.5 mg BEDTIME [facility] Administration Pantoprazole Sodiu m 40 mg 08/27/22 23:15 09/01/22 00:26 Pantoprazole 40 Mg Sdv IVP 40 mg Q12H [facility] Administration Warfarin Sodium 2 mg 08/22/22 14:45 08/26/22 15:03 Warfarin 2 Mg Ta blet PO 2 mg 1400 KAI Administration Vitals/I&O/Wt Last Vital Signs Temp 97.8 F 09/01/22 17:23 Pulse 74 09/01/22 17:23 Resp 16 09/01/22 17:23 BP 126/67 09/01/22 17:23 Pulse Ox 92 09/01/22 17:23 O2 Del Method 09/01/22 17:23 O2 Flow Rate 4 09/01/22 09:31 09/01/22 09/01/22 09/01/22 06:59 14:59 22:59 Intake Total 100 / 1720 400 / 400 Output Total 300 / 300 Balance -200 / 1420 400 / 400 Weight last 48 hrs Weight 79.878 kg Weight 80.286 kg Physical Exam Narrative: Patient was extremely drowsy postprocedure HENMT: COMMON NORMALS: normocephalic and atraumatic HEAD & SCALP: normocephalic and atraumatic Resp: COMMON NORMALS: normal respiratory effort, No retractions, No use of accessory muscles and clear to auscultation bilaterally EFFORT & INSPECTION: Yes symmetric chest movement AUSCULTATION: clear to auscultation bilaterally Cardio: COMMON NORMALS: regular rate, regular rhythm, S1 normal heart sound present, S2 normal heart sound present, No gallops present (Cardio), No murmurs present (Cardio), No rub (Cardio) and Peripheral pulses 2+ throughout RATE: regular rate RHYTHM: regular rhythm HEART SOUNDS: S1 normal heart sound present and S2 normal heart sound present PERIPHERAL PULSES: Peripheral pulses 2+ throughout GI: COMMON NORMALS: Normal to inspection, nondistended, normoactive bowel sounds present, Soft to palpation, non-tender, No hepatosplenomegaly present and no masses AUSCULTATION: Yes normoactive bowel sounds PALPATION: Yes Soft to palpation and Yes No hepatosplenomegaly present RECTAL EXAM: deferred Extremity: COMMON NORMALS: no clubbing, cyanosis or edema and no pedal edema Urinary Catheter Management: Nevarez: Cath Placed During This Visit: no Reason for Continuing Indwelling Catheter: Acute Urinary Retention or Obstruction Data 09/01/22 04:22 09/01/22 04:22 Micro: Microbiology 08/27/22 14:35 Blood Culture - Final Blood NO GROWTH AFTER 5 DAYS 08/27/22 14:35 Blood Culture - Final Blood NO GROWTH AFTER 5 DAYS 09/01/22 10:49 Gram Stain - Final Cerebrospinal Fluid Cryptococcal Antigen (CSF) - Final A&P Assessment and plan (1) Acute psychosis: 82-year-old lady who has had a prolonged hospital admission since August 21, 2022 when she initially presented with acute psychosis, manifesting as hallucinations seeing and hearing a little girl around her home who has been yelling. She was initially afebrile, has had some chronic leukocytosis due to history of CLL, WBC was 17.4, lymphocytic predominant, negative U tox panel for benzodiazepines. UA was unremarkable. COVID-[address] of the head was without any acute intracranial abnormality but showed moderate diffuse cerebral atrophy and sequelae of chronic small vessel disease. Per family all of her symptoms started less than a week prior to presentation. At a baseline patient is independent, she is able to ambulate, lives with one of her granddaughters. She had evidence of HARDIK which has since improved during the course of her admission here. Individual comorbidities are as listed above. Briefly, upon admission no gross infectious or metabolic cause was found to explain her psychosis. Psych was consulted. Overall impression was that of psychosis due to polypharmacy versus worsening dementia. Kells evaluation was performed and it was thought patient would be a good candidate for 24-hour supervised stay in the [facility] psych facility. Efforts feeding are being directed to make this transfer. She was started on Risperdal initially and then changed to Zyprexa.. Zyprexa was placed on August 27 overnight as she became more lethargic. Risperdal has been discontinued. During the course of admission here patient subsequently developed fever and UTI on August 27, 2022. Her lethargy wherein she was extremely somnolent over 2 days was likely related to UTI. After being started on antibiotics her mental status did improve in the sense that she became more alert and awake, however has continued to remain confused. Best mentation noted on August 28 was when she was alert awake oriented, able to tell me name age date of and recognize family members at bedside. However by August 29 her confusion became worse again. Active issues at this time are persisting confusion. Plan for MRI and lumbar puncture tomorrow. Lower suspicion for meningoencephalitis given the waxing and waning nature of her symptoms. W/up thus far: CT of head was without any acute intracranial abnormality but showed moderate diffuse cerebral atrophy and sequelae of chronic small vessel disease TSH : t0.73 (WNL) check b12, folate cr 1.1--> 2.1 on 08/27 (had urinary retention> 500 ml, nevarez placed, lisinopril held)---> 1.1 (08/31) UA: 08/21: WNL ; 08/27: > 100 WBC, 3+ bacteria, negative nitrate, Ur cx: E. coli s/t ceftriaxone Blood cx : 08/27: negative to date LFT: normal until 08/28, increasing on 08/29 and 08/30 ; CT imaging calcified granuloma of liver, normal iver and biliary system. CT chest with air trapping, no consolidation , tracheobronchomalacia Fobt: +, rectal ulcer on CT imaging, suspected cancer, atypical mural pneumatosis, signmoidoscopy tomorrow . Differential: Proctitis though no inciting cause. On CTX and flagyl currently (2) HARDIK (acute kidney injury): Now improved with hydration, creatinine down to 1.1. (3) Elevated INR: Resolved, patient currently on Lovenox, warfarin on hold during the admission (4) Warfarin anticoagulation: (5) Polypharmacy: (6) Essential hypertension: Blood pressure labile today ranging between 90 systolic to 180. Hydralazine as needed has been added however has not been given yet. Discussed with nursing to administer (7) Atrial fibrillation: Remains rate controlled Qualifiers: Atrial fibrillation type: permanent Qualified Code(s): I48.21 - Permanent atrial fibrillation (8) Diabetes mellitus: Fingersticks under good control, Lantus is at 20 units currently Qualifiers: Diabetes mellitus type: type 2 Diabetes mellitus buttermaker helper insulin use: with buttermaker helper use Diabetes mellitus complication status: with hyperglycemia Qualified Code(s): E11.65 - Type 2 diabetes mellitus with hyperglycemia; Z79.4 - senior care (current) use of insulin (9) Anxiety: (10) Leukocytosis: History of CLL, baseline appears to be between 13-17. (11) Transaminitis: (12) Rectal ulceration: CT of the abdomen was obtained due to transaminitis. While the liver and biliary system are unremarkable, incidentally noted was abnormal diffuse rectal wall thickening consistent with a malignant neoplasm or proctitis. There was atypical mural hematoma cyst in the colon. Discussed with radiology that overall rectal cancer appears to be the more likely possibility. Less likely proctitis. Currently on Flagyl in addition to ceftriaxone while pending surgical and colonoscopy evaluation. sigmoidoscopy tomorrow surgical consult Plan Disposition: Family to meet with a drop wire operator on Thursday to get guardianship. Thereafter once medical issues are resolved plan to transfer to [facility] facility. DVT prophylaxis: Currently on full dose Lovenox, holding today for anticipated procedures tomorrow. Full code Attestations Medical Necessity Statement*: Needs to be in hospital for management of acute psychosis Coding Level of Care Code 91715 Diagnoses Acute psychosis F23 HARDIK (acute kidney injury) N17.9 Elevated INR R79.1 Warfarin anticoagulation Z79.01 Polypharmacy Z79.899 Essential hypertension I10 Atrial fibrillation I48.21 Atrial fibrillation type: permanent Diabetes mellitus E11.65; Z79.4 Diabetes mellitus type: type 2 Diabetes mellitus buttermaker helper insulin use: with buttermaker helper use Diabetes mellitus complication status: with hyperglycemia Anxiety F41.9 Leukocytosis D72.829 Transaminitis R74.01 Rectal ulceration K62.6
[2022-09-01 21:00] LABS: Glucose Point of Care 124 mg/dL (70-110)
[2022-09-02] VITALS: BP 178/67; PULSE 87; RESP 16; TEMP 36.8; O2SAT 95
[2022-09-02] MEDS: insulin glargine 100 units/1 mL 20 UNIT SUBCUT ×2 (00:05→22:21)
[2022-09-02] MEDS: pantoprazole 40 mg SDV IVP ×3 (00:05→22:22)
[2022-09-02] MEDS: cefTRIAXone 1,000 MG in sodium chloride 0.9% (plus) 50 ML 100 MG IV ×2 (00:06→20:28)
[2022-09-02] MEDS: metroNIDAZOLE IV 500 MG/100 ML PREMIX 100 MG IV ×3 (01:54→22:22)
[2022-09-02 04:00] VITALS: BP 156/84; PULSE 89; RESP 16; TEMP 36.3; O2SAT 95
[2022-09-02 05:45] LABS: Basophils # 0.1 10^3/uL (0.0-0.1); Basophils % 0.6 %; Eosinophils # 0.6 10^3/uL (0.0-0.8); Eosinophils % 2.7 %; Hemoglobin 10.4 g/dL (11.5-15.3); Lymphocytes # 8.1 10^3/uL (0.8-4.8); Lymphocytes % 36.8 %; Mean Corpuscular HGB Conc 31.5 g/dL (30.0-36.0); Mean Corpuscular Hemoglobin 30.9 pg (28.0-34.0); Mean Corpuscular Volume 97.9 fl (81-99); Mean Platelet Volume 10.1 fL (7.4-10.4); Monocytes % 4.6 %; Neutrophils % 53.6 %; Nucleated Red Blood Cells % 0 %; Platelet Count 246 10^3/cmm (130-400); Red Blood Count 3.37 10^6/uL (4.1-5.3); Red Cell Distribution Width 14.5 % (12.1-15.1)
[2022-09-02 06:09] LABS: Alanine Aminotransferase 24 U/L (0-33); Albumin Level 2.7 g/dL (3.5-5.2); Alkaline Phosphatase 119 U/L (35-105); Anion Gap 16.7 (5-19); Aspartate Amino Transferase 45 U/L (0-32); Blood Urea Nitrogen 25 mg/dL (8-23); Calcium 8.1 mg/dL (8.5-10.5); Carbon Dioxide 22 mmol/L (22-29); Chloride 109 mmol/L (98-107); Globulin 2.9 g/dL (1.3-4.6); Glucose 103 mg/dL (65-115); Osmolality Calculated 303 mOsm/kg (285-295); Potassium 3.7 mmol/L (3.5-5.1); Sodium 144 mmol/L (136-145); Total Bilirubin 0.2 mg/dL (0.15-1.2); Total Protein 5.6 g/dL (6.6-8.7)
[2022-09-02 06:31] LABS: Glucose Point of Care 101 mg/dL (70-110)
[2022-09-02 07:56] VITALS: BP 174/65; PULSE 80; RESP 15; TEMP 36.4; O2SAT 97
[2022-09-02] MEDS: metoprolol tartrate 50 mg Tablet 100 MG PO (10:11)
[2022-09-02] MEDS: atorvastatin 40 mg Tablet 20 MG PO (10:11)
[2022-09-02] MEDS: ferrous sulfate EC 325 mg Tablet PO (10:12)
[2022-09-02] MEDS: montelukast sodium 10 mg Tablet PO (10:12)
[2022-09-02] MEDS: allopurinol 300 mg Tablet PO (10:12)
[2022-09-02 11:37] LABS: Glucose Point of Care 325 mg/dL (70-110)
[2022-09-02 12:26] VITALS: BP 132/67; PULSE 70; RESP 16; TEMP 36.7; O2SAT 98
--- NOTE | 2022-09-02 12:27 | PC.SOCIAL ---
IMM update IMM updated with patient's grandson Josue at bedside. Verbalized an understanding. Copy Pg 2 provided. Initialled, dated, timed, and placed in chart.
[2022-09-02] MEDS: insulin lispro 100 unit/1 mL SUBCUT ×3 (13:44→22:22)
[2022-09-02 15:39] VITALS: BP 152/81; PULSE 68; RESP 16; TEMP 36.7; O2SAT 97
[2022-09-02] MEDS: haloperidol inj 5 mg/mL INJ 1 mL 1 MG IM (16:34)
[2022-09-02 17:11] LABS: Glucose Point of Care 220 mg/dL (70-110)
--- NOTE | 2022-09-02 19:53 | PM.PN ---
Subjective Subjective: Patient was seen and examined this morning, she was much more alert awake oriented, at least holding Some meaningful conversations, but in the latter half of the day, she was again extremely agitated combative, actively hallucinating, had to be given Haldol to calm her down. Medications: Reviewed: Yes Medication Review Details: Generic Name Dose Route Start Last Admin Trade Name Freq PRN Reason Stop Dose Admin Acetaminophen 650 mg 08/21/22 22:30 08/31/22 20:05 Acetaminophen 32 5 Mg Tablet PO 650 mg Q6H PRN Administration Mild/Mod Pain Or Temp >/= 101 Allopurinol 300 mg 08/23/22 07:00 09/02/22 10:12 Allopurinol 300 Mg Tablet PO 300 mg DAILY@0700 KAI Administration Atorvastatin Calci um 20 mg 08/23/22 09:00 09/02/22 10:11 Atorvastatin 40 Mg Tablet PO 20 mg DAILY KAI Administration Enoxaparin Sodium 80 mg 08/30/22 11:15 08/30/22 23:01 Enoxaparin 80 Mg /0.8 Ml Syringe 1 mg/kg (80 mg) 80 mg SUBCUT Administration Q12H [facility] Ferrous Sulfate 325 mg 08/28/22 18:00 09/02/22 10:12 Ferrous Sulfate Ec 325 Mg Tablet PO 325 mg BIDWM KAI Administration Haloperidol Lactat e 1 mg 08/31/22 11:33 09/02/22 16:34 Haloperidol Inj 5 Mg/Ml Inj 1 Ml IM 1 mg Q4H PRN Administration AGITATION Hydralazine HCl 10 mg 08/31/22 20:31 08/31/22 21:44 Hydralazine 20 M g/Ml Inj 1 Ml IVP 10 mg Q4H PRN Administration BP > 170/90 after other meds Sodium Chloride 1,000 mls @ 50 ml s/hr 08/27/22 10:00 09/02/22 00:39 Sodium Chloride 0.9% IV Infused .Q20H [facility] Infusion Ceftriaxone Sodium 1,000 mg/ 50 mls @ 100 mls/ hr 08/29/22 18:45 09/02/22 00:39 Sodium Chloride IV Infused Q24H [facility] Infusion Protocol Metronidazole 500 mg in 100 mls @ 100 mls/hr 08/30/22 18:00 09/02/22 11:30 Flagyl Iv IV Infused Q8H [facility] Infusion Protocol Insulin Glargine 20 unit 08/28/22 22:00 09/02/22 00:05 Insulin Glargine 100 Units/1 Ml SUBCUT 20 unit BEDTIME@2200 [facility] Administration Insulin Human Lisp ro 0 unit 08/25/22 18:00 09/02/22 17:58 Insulin Lispro 1 00 Unit/1 Ml SUBCUT 4 unit WM&BEDTIME KAI Administration Protocol Levothyroxine Sodi um 75 mcg 08/23/22 06:00 09/02/22 06:03 Levothyroxine 75 Mcg Tablet PO Not Given DAILY@0600 [facility] Metoprolol Tartrat e 100 mg 08/22/22 18:00 09/02/22 10:11 Metoprolol Tartr ate 50 Mg Tablet PO 100 mg BID [facility] Administration Montelukast Sodium 10 mg 08/23/22 09:00 09/02/22 10:12 Montelukast Sodi um 10 Mg Tablet PO 10 mg DAILY [facility] Administration Olanzapine 2.5 mg 08/26/22 21:00 09/01/22 21:02 Olanzapine 5 Mg Tablet PO Not Given BEDTIME [facility] Pantoprazole Sodiu m 40 mg 08/27/22 23:15 09/02/22 13:45 Pantoprazole 40 Mg Sdv IVP 40 mg Q12H [facility] Administration Warfarin Sodium 2 mg 08/22/22 14:45 08/26/22 15:03 Warfarin 2 Mg Ta blet PO 2 mg 1400 [facility] Administration Vitals/I&O/Wt Last Vital Signs Temp 98.0 F 09/02/22 15:39 Pulse 68 09/02/22 15:39 Resp 16 09/02/22 15:39 BP 152/81 09/02/22 15:39 Pulse Ox 97 09/02/22 15:39 O2 Del Method 09/02/22 15:39 O2 Flow Rate 4 09/01/22 09:31 09/02/22 09/02/22 09/02/22 06:59 14:59 22:59 Intake Total 1150 / 1650 340 / 340 Output Total 400 / 400 Balance 750 / 1250 340 / 340 Weight last 48 hrs Weight 81.828 kg Weight 79.878 kg Physical Exam Narrative: Patient was extremely drowsy postprocedure HENMT: COMMON NORMALS: normocephalic and atraumatic HEAD & SCALP: normocephalic and atraumatic Resp: COMMON NORMALS: normal respiratory effort, No retractions, No use of accessory muscles and clear to auscultation bilaterally EFFORT & INSPECTION: Yes symmetric chest movement AUSCULTATION: clear to auscultation bilaterally Cardio: COMMON NORMALS: regular rate, regular rhythm, S1 normal heart sound present, S2 normal heart sound present, No gallops present (Cardio), No murmurs present (Cardio), No rub (Cardio) and Peripheral pulses 2+ throughout RATE: regular rate RHYTHM: regular rhythm HEART SOUNDS: S1 normal heart sound present and S2 normal heart sound present PERIPHERAL PULSES: Peripheral pulses 2+ throughout GI: COMMON NORMALS: Normal to inspection, nondistended, normoactive bowel sounds present, Soft to palpation, non-tender, No hepatosplenomegaly present and no masses AUSCULTATION: Yes normoactive bowel sounds PALPATION: Yes Soft to palpation and Yes No hepatosplenomegaly present RECTAL EXAM: deferred Extremity: COMMON NORMALS: no clubbing, cyanosis or edema and no pedal edema Urinary Catheter Management: Nevarez: Cath Placed During This Visit: yes, but has since been removed by the nurse Reason for Continuing Indwelling Catheter: Not indwelling catheter Date Urinary Catheter Removed: 09/02/22 Time Urinary Catheter Discontinued: 13:00 Data 09/02/22 04:59 09/02/22 04:59 Micro: Microbiology 09/01/22 10:49 Gram Stain - Final Cerebrospinal Fluid CSF Culture - Preliminary Cryptococcal Antigen (CSF) - Final 08/27/22 23:15 Blood Culture - Final Blood NO GROWTH AFTER 5 DAYS 08/27/22 23:13 Blood Culture - Final Blood NO GROWTH AFTER 5 DAYS A&P Assessment and plan (1) Acute psychosis: 82-year-old lady who has had a prolonged hospital admission since August 21, 2022 when she initially presented with acute psychosis, manifesting as hallucinations seeing and hearing a little girl around her home who has been yelling. She was initially afebrile, has had some chronic leukocytosis due to history of CLL, WBC was 17.4, lymphocytic predominant, negative U tox panel for benzodiazepines. UA was unremarkable. COVID-[address] of the head was without any acute intracranial abnormality but showed moderate diffuse cerebral atrophy and sequelae of chronic small vessel disease. Per family all of her symptoms started less than a week prior to presentation. At a baseline patient is independent, she is able to ambulate, lives with one of her granddaughters. She had evidence of HARDIK which has since improved during the course of her admission here. Individual comorbidities are as listed above. Briefly, upon admission no gross infectious or metabolic cause was found to explain her psychosis. Psych was consulted. Overall impression was that of psychosis due to polypharmacy versus worsening dementia. Kells evaluation was performed and it was thought patient would be a good candidate for 24-hour supervised stay in the [facility] facility. Efforts feeding are being directed to make this transfer. She was started on Risperdal initially and then changed to Zyprexa.. Zyprexa was placed on August 27 overnight as she became more lethargic. Risperdal has been discontinued. During the course of admission here patient subsequently developed fever and UTI on August 27, 2022. Her lethargy wherein she was extremely somnolent over 2 days was likely related to UTI. After being started on antibiotics her mental status did improve in the sense that she became more alert and awake, however has continued to remain confused. Best mentation noted on August 28 was when she was alert awake oriented, able to tell me name age date of and recognize family members at bedside. However by August 29 her confusion became worse again. Active issues at this time are persisting confusion. Plan for MRI and lumbar puncture tomorrow. Lower suspicion for meningoencephalitis given the waxing and waning nature of her symptoms. W/up thus far: CT of head was without any acute intracranial abnormality but showed moderate diffuse cerebral atrophy and sequelae of chronic small vessel disease TSH : t0.73 (WNL) check b12, folate cr 1.1--> 2.1 on 08/27 (had urinary retention> 500 ml, nevarez placed, lisinopril held)---> 1.1 (08/31) UA: 08/21: WNL ; 08/27: > 100 WBC, 3+ bacteria, negative nitrate, Ur cx: E. coli s/t ceftriaxone Blood cx : 08/27: negative to date LFT: normal until 08/28, increasing on 08/29 and 08/30 ; CT imaging calcified granuloma of liver, normal iver and biliary system. CT chest with air trapping, no consolidation , tracheobronchomalacia Fobt: +, rectal ulcer on CT imaging, suspected cancer, atypical mural pneumatosis, signmoidoscopy tomorrow . Differential: Proctitis though no inciting cause. On CTX and flagyl currently (2) HARDIK (acute kidney injury): Now improved with hydration, creatinine down to 1.1. (3) Elevated INR: Resolved, patient currently on Lovenox, warfarin on hold during the admission (4) Warfarin anticoagulation: (5) Polypharmacy: (6) Essential hypertension: Blood pressure labile today ranging between 90 systolic to 180. Hydralazine as needed has been added however has not been given yet. Discussed with nursing to administer (7) Atrial fibrillation: Remains rate controlled Qualifiers: Atrial fibrillation type: permanent Qualified Code(s): I48.21 - Permanent atrial fibrillation (8) Diabetes mellitus: Fingersticks under good control, Lantus is at 20 units currently Qualifiers: Diabetes mellitus type: type 2 Diabetes mellitus terminal make up operator insulin use: with terminal make up operator use Diabetes mellitus complication status: with hyperglycemia Qualified Code(s): E11.65 - Type 2 diabetes mellitus with hyperglycemia; Z79.4 - ad terminal makeup operator (current) use of insulin (9) Anxiety: (10) Leukocytosis: History of CLL, baseline appears to be between 13-17. (11) Transaminitis: (12) Rectal ulceration: CT of the abdomen was obtained due to transaminitis. While the liver and biliary system are unremarkable, incidentally noted was abnormal diffuse rectal wall thickening consistent with a malignant neoplasm or proctitis. There was atypical mural hematoma cyst in the colon. Discussed with radiology that overall rectal cancer appears to be the more likely possibility. Less likely proctitis. Currently on Flagyl in addition to ceftriaxone while pending surgical and colonoscopy evaluation. sigmoidoscopy tomorrow surgical consult Plan Disposition: Family to meet with a as400 programmer on Thursday to get guardianship. Thereafter once medical issues are resolved plan to transfer to [facility] psych facility. DVT prophylaxis: On full dose Lovenox. Attestations Medical Necessity Statement*: Needs to be in hospital for management of acute psychosis. Coding Level of Care Code 72840 Diagnoses Acute psychosis F23 HARDIK (acute kidney injury) N17.9 Elevated INR R79.1 Warfarin anticoagulation Z79.01 Polypharmacy Z79.899 Essential hypertension I10 Atrial fibrillation I48.21 Atrial fibrillation type: permanent Diabetes mellitus E11.65; Z79.4 Diabetes mellitus type: type 2 Diabetes mellitus correction insulin use: with correction use Diabetes mellitus complication status: with hyperglycemia Anxiety F41.9 Leukocytosis D72.829 Transaminitis R74.01 Rectal ulceration K62.6
[2022-09-02 19:54] VITALS: BP 137/72; PULSE 66; RESP 17; TEMP 36.9; O2SAT 96
[2022-09-02] MEDS: enoxaparin 100 mg/mL Syringe 80 MG SUBCUT (20:27)
[2022-09-02 22:03] LABS: Glucose Point of Care 143 mg/dL (70-110)
[2022-09-03] VITALS (7 sets, daily range): BP systolic 115–201; BP diastolic 59–82; PULSE 60–104; RESP 16–18; TEMP 36.4–36.9; O2SAT 93–97; BMI 32.6
[2022-09-03] MEDS: metroNIDAZOLE IV 500 MG/100 ML PREMIX 100 MG IV ×3 (02:28→17:52)
[2022-09-03 04:52] LABS: Basophils # 0.1 10^3/uL (0.0-0.1); Basophils % 0.6 %; Eosinophils # 0.7 10^3/uL (0.0-0.8); Eosinophils % 3.8 %; Hematocrit 30.2 % (37.0-47.0); Hemoglobin 9.6 g/dL (11.5-15.3); Lymphocytes # 7.4 10^3/uL (0.8-4.8); Mean Corpuscular HGB Conc 31.8 g/dL (30.0-36.0); Mean Corpuscular Hemoglobin 31.1 pg (28.0-34.0); Mean Corpuscular Volume 97.7 fl (81-99); Mean Platelet Volume 10.1 fL (7.4-10.4); Monocytes # 1.2 10^3/uL (0.2-0.9); Monocytes % 6.4 %; Neutrophils # 8.26 10^3/uL (1.8-7.7); Neutrophils % 45.6 %; Nucleated Red Blood Cells % 0 %; Platelet Count 206 10^3/cmm (130-400); Red Blood Count 3.09 10^6/uL (4.1-5.3); Red Cell Distribution Width 14.3 % (12.1-15.1); White Blood Count 18.1 10^3/uL (4.0-10.0)
[2022-09-03 05:13] LABS: Alanine Aminotransferase 19 U/L (0-33); Albumin Level 2.5 g/dL (3.5-5.2); Alkaline Phosphatase 95 U/L (35-105); Anion Gap 9.3 (5-19); Aspartate Amino Transferase 34 U/L (0-32); Blood Urea Nitrogen 17 mg/dL (8-23); Calcium 8.2 mg/dL (8.5-10.5); Carbon Dioxide 25 mmol/L (22-29); Chloride 109 mmol/L (98-107); Globulin 2.7 g/dL (1.3-4.6); Glucose 95 mg/dL (65-115); Osmolality Calculated 291 mOsm/kg (285-295); Potassium 3.3 mmol/L (3.5-5.1); Sodium 140 mmol/L (136-145); Total Bilirubin 0.2 mg/dL (0.15-1.2); Total Protein 5.2 g/dL (6.6-8.7)
[2022-09-03] MEDS: levothyroxine 75 mcg Tablet PO (06:11)
[2022-09-03] MEDS: allopurinol 300 mg Tablet PO (06:11)
[2022-09-03 07:11] LABS: Glucose Point of Care 110 mg/dL (70-110)
[2022-09-03] MEDS: enoxaparin 100 mg/mL Syringe 80 MG SUBCUT ×2 (08:38→20:16)
[2022-09-03] MEDS: atorvastatin 40 mg Tablet 20 MG PO (08:38)
[2022-09-03] MEDS: montelukast sodium 10 mg Tablet PO (08:39)
[2022-09-03] MEDS: ferrous sulfate EC 325 mg Tablet PO ×2 (08:39→17:51)
[2022-09-03] MEDS: metoprolol tartrate 50 mg Tablet 100 MG PO ×2 (08:39→17:51)
[2022-09-03] MEDS: pantoprazole 40 mg SDV IVP ×2 (12:30→22:33)
[2022-09-03 12:54] LABS: Glucose Point of Care 208 mg/dL (70-110)
[2022-09-03] MEDS: insulin lispro 100 unit/1 mL SUBCUT ×3 (13:15→20:19)
--- NOTE | 2022-09-03 14:20 | PM.PN ---
Subjective Subjective: No acute events reported so far. Medications: Reviewed: Yes Medication Review Details: Generic Name Dose Route Start Last Admin Trade Name Freq PRN Reason Stop Dose Admin Acetaminophen 650 mg 08/21/22 22:30 08/31/22 20:05 Acetaminophen 32 5 Mg Tablet PO 650 mg Q6H PRN Administration Mild/Mod Pain Or Temp >/= 101 Allopurinol 300 mg 08/23/22 07:00 09/03/22 06:11 Allopurinol 300 Mg Tablet PO 300 mg DAILY@0700 [facility] Administration Atorvastatin Calci um 20 mg 08/23/22 09:00 09/03/22 08:38 Atorvastatin 40 Mg Tablet PO 20 mg DAILY KAI Administration Enoxaparin Sodium 80 mg 09/02/22 20:00 09/03/22 08:38 Enoxaparin 100 M g/Ml Syringe 1 mg/kg (80 mg) 80 mg SUBCUT Administration Q12H [facility] Ferrous Sulfate 325 mg 08/28/22 18:00 09/03/22 08:39 Ferrous Sulfate Ec 325 Mg Tablet PO 325 mg BIDWM KAI Administration Haloperidol Lactat e 1 mg 08/31/22 11:33 09/02/22 16:34 Haloperidol Inj 5 Mg/Ml Inj 1 Ml IM 1 mg Q4H PRN Administration AGITATION Hydralazine HCl 10 mg 08/31/22 20:31 08/31/22 21:44 Hydralazine 20 M g/Ml Inj 1 Ml IVP 10 mg Q4H PRN Administration BP > 170/90 after other meds Ceftriaxone Sodium 1,000 mg/ 50 mls @ 100 mls/ hr 08/29/22 18:45 09/02/22 22:16 Sodium Chloride IV Infused Q24H [facility] Infusion Protocol Metronidazole 500 mg in 100 mls @ 100 mls/hr 08/30/22 18:00 09/03/22 11:12 Flagyl Iv IV Infused Q8H [facility] Infusion Protocol Insulin Glargine 20 unit 08/28/22 22:00 09/02/22 22:21 Insulin Glargine 100 Units/1 Ml SUBCUT 20 unit BEDTIME@2200 [facility] Administration Insulin Human Lisp ro 0 unit 08/25/22 18:00 09/03/22 13:15 Insulin Lispro 1 00 Unit/1 Ml SUBCUT 4 unit WM&BEDTIME KAI Administration Protocol Levothyroxine Sodi um 75 mcg 08/23/22 06:00 09/03/22 06:11 Levothyroxine 75 Mcg Tablet PO 75 mcg DAILY@0600 KAI Administration Metoprolol Tartrat e 100 mg 08/22/22 18:00 09/03/22 08:39 Metoprolol Tartr ate 50 Mg Tablet PO 100 mg BID KAI Administration Montelukast Sodium 10 mg 08/23/22 09:00 09/03/22 08:39 Montelukast Sodi um 10 Mg Tablet PO 10 mg DAILY KAI Administration Olanzapine 2.5 mg 08/26/22 21:00 09/02/22 20:35 Olanzapine 5 Mg Tablet PO Not Given BEDTIME KAI Pantoprazole Sodiu m 40 mg 08/27/22 23:15 09/03/22 12:30 Pantoprazole 40 Mg Sdv IVP 40 mg Q12H KAI Administration Warfarin Sodium 2 mg 08/22/22 14:45 08/26/22 15:03 Warfarin 2 Mg Ta blet PO 2 mg 1400 KAI Administration Vitals/I&O/Wt Last Vital Signs Temp 981 F H 09/03/22 12:00 Pulse 61 09/03/22 12:00 Resp 18 09/03/22 12:00 BP 141/59 09/03/22 12:00 Pulse Ox 93 09/03/22 12:00 O2 Del Method 09/03/22 12:00 O2 Flow Rate 4 09/01/22 09:31 09/02/22 09/03/22 09/03/22 22:59 06:59 14:59 Intake Total 50 / 390 200 / 590 340 / 340 Output Total 550 / 550 Balance 50 / 390 -350 / 40 340 / 340 Weight last 48 hrs Weight 83.631 kg Weight 81.828 kg Physical Exam HENMT: COMMON NORMALS: normocephalic and atraumatic HEAD & SCALP: normocephalic and atraumatic Resp: COMMON NORMALS: normal respiratory effort, No retractions, No use of accessory muscles and clear to auscultation bilaterally EFFORT & INSPECTION: Yes symmetric chest movement AUSCULTATION: clear to auscultation bilaterally Cardio: COMMON NORMALS: regular rate, regular rhythm, S1 normal heart sound present, S2 normal heart sound present, No gallops present (Cardio), No murmurs present (Cardio), No rub (Cardio) and Peripheral pulses 2+ throughout RATE: regular rate RHYTHM: regular rhythm HEART SOUNDS: S1 normal heart sound present and S2 normal heart sound present PERIPHERAL PULSES: Peripheral pulses 2+ throughout GI: COMMON NORMALS: Normal to inspection, nondistended, normoactive bowel sounds present, Soft to palpation, non-tender, No hepatosplenomegaly present and no masses AUSCULTATION: Yes normoactive bowel sounds PALPATION: Yes Soft to palpation and Yes No hepatosplenomegaly present RECTAL EXAM: deferred Extremity: COMMON NORMALS: no clubbing, cyanosis or edema and no pedal edema Urinary Catheter Management: Nevarez: Cath Placed During This Visit: yes, but has since been removed by the nurse Reason for Continuing Indwelling Catheter: Other Urinary Catheter Date of Insertion: 09/03/22 Urinary Catheter Time of Insertion: 05:33 Date Urinary Catheter Removed: 09/02/22 Time Urinary Catheter Discontinued: 13:00 Data 09/03/22 04:21 09/03/22 04:21 Micro: Microbiology 09/01/22 10:49 Gram Stain - Final Cerebrospinal Fluid CSF Culture - Preliminary Cryptococcal Antigen (CSF) - Final A&P Assessment and plan (1) Acute psychosis: 82-year-old lady who has had a prolonged hospital admission since August 21, 2022 when she initially presented with acute psychosis, manifesting as hallucinations seeing and hearing a little girl around her home who has been yelling. She was initially afebrile, has had some chronic leukocytosis due to history of CLL, WBC was 17.4, lymphocytic predominant, negative U tox panel for benzodiazepines. UA was unremarkable. COVID-[address] of the head was without any acute intracranial abnormality but showed moderate diffuse cerebral atrophy and sequelae of chronic small vessel disease. Per family all of her symptoms started less than a week prior to presentation. At a baseline patient is independent, she is able to ambulate, lives with one of her granddaughters. She had evidence of HARDIK which has since improved during the course of her admission here. Individual comorbidities are as listed above. Briefly, upon admission no gross infectious or metabolic cause was found to explain her psychosis. Psych was consulted. Overall impression was that of psychosis due to polypharmacy versus worsening dementia. Kells evaluation was performed and it was thought patient would be a good candidate for 24-hour supervised stay in the [facility] psych facility. Efforts feeding are being directed to make this transfer. She was started on Risperdal initially and then changed to Zyprexa.. Zyprexa was placed on August 27 overnight as she became more lethargic. Risperdal has been discontinued. During the course of admission here patient subsequently developed fever and UTI on August 27, 2022. Her lethargy wherein she was extremely somnolent over 2 days was likely related to UTI. After being started on antibiotics her mental status did improve in the sense that she became more alert and awake, however has continued to remain confused. Best mentation noted on August 28 was when she was alert awake oriented, able to tell me name age date of and recognize family members at bedside. However by August 29 her confusion became worse again. Active issues at this time are persisting confusion. Plan for MRI and lumbar puncture tomorrow. Lower suspicion for meningoencephalitis given the waxing and waning nature of her symptoms. W/up thus far: CT of head was without any acute intracranial abnormality but showed moderate diffuse cerebral atrophy and sequelae of chronic small vessel disease TSH : t0.73 (WNL) check b12, folate cr 1.1--> 2.1 on 08/27 (had urinary retention> 500 ml, nevarez placed, lisinopril held)---> 1.1 (08/31) UA: 08/21: WNL ; 08/27: > 100 WBC, 3+ bacteria, negative nitrate, Ur cx: E. coli s/t ceftriaxone Blood cx : 08/27: negative to date LFT: normal until 08/28, increasing on 08/29 and 08/30 ; CT imaging calcified granuloma of liver, normal iver and biliary system. CT chest with air trapping, no consolidation , tracheobronchomalacia Fobt: +, rectal ulcer on CT imaging, suspected cancer, atypical mural pneumatosis, signmoidoscopy tomorrow . Differential: Proctitis though no inciting cause. On CTX and flagyl currently (2) HARDIK (acute kidney injury): Now improved with hydration, creatinine down to 1.1. (3) Elevated INR: Resolved, patient currently on Lovenox, warfarin on hold during the admission (4) Warfarin anticoagulation: (5) Polypharmacy: (6) Essential hypertension: Blood pressure labile today ranging between 90 systolic to 180. Hydralazine as needed has been added however has not been given yet. Discussed with nursing to administer (7) Atrial fibrillation: Remains rate controlled Qualifiers: Atrial fibrillation type: permanent Qualified Code(s): I48.21 - Permanent atrial fibrillation (8) Diabetes mellitus: Fingersticks under good control, Lantus is at 20 units currently Qualifiers: Diabetes mellitus complication status: with hyperglycemia Diabetes mellitus senior care insulin use: with termite control representative use Diabetes mellitus type: type 2 Qualified Code(s): E11.65 - Type 2 diabetes mellitus with hyperglycemia; Z79.4 - residential (current) use of insulin (9) Anxiety: (10) Leukocytosis: History of CLL, baseline appears to be between 13-17. (11) Transaminitis: (12) Rectal ulceration: CT of the abdomen was obtained due to transaminitis. While the liver and biliary system are unremarkable, incidentally noted was abnormal diffuse rectal wall thickening consistent with a malignant neoplasm or proctitis. There was atypical mural hematoma cyst in the colon. Discussed with radiology that overall rectal cancer appears to be the more likely possibility. Less likely proctitis. Currently on Flagyl in addition to ceftriaxone while pending surgical and colonoscopy evaluation. sigmoidoscopy tomorrow surgical consult Plan Disposition: Family to meet with a machine pie maker on Thursday to get guardianship. Thereafter once medical issues are resolved plan to transfer to [facility] psych facility. DVT prophylaxis: On full dose Lovenox. Attestations Medical Necessity Statement*: Needs to be in hospital for management of acute psychosis. Coding Level of Care Code 46287 Diagnoses Acute psychosis F23 HARDIK (acute kidney injury) N17.9 Elevated INR R79.1 Warfarin anticoagulation Z79.01 Polypharmacy Z79.899 Essential hypertension I10 Atrial fibrillation I48.21 Atrial fibrillation type: permanent Diabetes mellitus E11.65; Z79.4 Diabetes mellitus complication status: with hyperglycemia Diabetes mellitus senior care insulin use: with termite control representative use Diabetes mellitus type: type 2 Anxiety F41.9 Leukocytosis D72.829 Transaminitis R74.01 Rectal ulceration K62.6
[2022-09-03 17:44] LABS: Glucose Point of Care 239 mg/dL (70-110)
[2022-09-03] MEDS: hyDRALAzine 20 mg/mL INJ 1 mL 10 MG IVP (20:15)
[2022-09-03] MEDS: insulin glargine 100 units/1 mL 20 UNIT SUBCUT (20:15)
[2022-09-03] MEDS: OLANZapine 5 mg TABLET 2.5 MG PO (20:16)
[2022-09-03] MEDS: cefTRIAXone 1,000 MG in sodium chloride 0.9% (plus) 50 ML 100 MG IV (20:16)
[2022-09-03 20:39] LABS: Glucose Point of Care 268 mg/dL (70-110)
[2022-09-04] MEDS: acetaminophen 325 mg Tablet 650 MG PO (00:43)
[2022-09-04] MEDS: metroNIDAZOLE IV 500 MG/100 ML PREMIX 100 MG IV ×3 (01:00→20:01)
[2022-09-04 03:15] VITALS: BP 146/75; PULSE 67; RESP 18; TEMP 36.7; O2SAT 98
[2022-09-04] MEDS: levothyroxine 75 mcg Tablet PO (05:09)
[2022-09-04] MEDS: allopurinol 300 mg Tablet PO (05:09)
[2022-09-04 05:10] LABS: Basophils # 0.1 10^3/uL (0.0-0.1); Basophils % 0.7 %; Eosinophils # 0.7 10^3/uL (0.0-0.8); Eosinophils % 3.7 %; Hematocrit 32.2 % (37.0-47.0); Hemoglobin 10.3 g/dL (11.5-15.3); Lymphocytes % 47.3 %; Mean Corpuscular Hemoglobin 30.7 pg (28.0-34.0); Mean Corpuscular Volume 96.1 fl (81-99); Mean Platelet Volume 10.2 fL (7.4-10.4); Monocytes # 1.2 10^3/uL (0.2-0.9); Monocytes % 6.2 %; Neutrophils # 7.39 10^3/uL (1.8-7.7); Neutrophils % 38.6 %; Nucleated Red Blood Cells % 0.2 %; Platelet Count 225 10^3/cmm (130-400); Red Blood Count 3.35 10^6/uL (4.1-5.3); Red Cell Distribution Width 14.3 % (12.1-15.1); White Blood Count 19.1 10^3/uL (4.0-10.0)
[2022-09-04 05:37] LABS: Alanine Aminotransferase 20 U/L (0-33); Albumin Level 2.7 g/dL (3.5-5.2); Alkaline Phosphatase 97 U/L (35-105); Anion Gap 10.2 (5-19); Aspartate Amino Transferase 35 U/L (0-32); Blood Urea Nitrogen 9 mg/dL (8-23); Calcium 8.5 mg/dL (8.5-10.5); Carbon Dioxide 25 mmol/L (22-29); Chloride 107 mmol/L (98-107); Globulin 2.9 g/dL (1.3-4.6); Glucose 131 mg/dL (65-115); Osmolality Calculated 288 mOsm/kg (285-295); Potassium 3.2 mmol/L (3.5-5.1); Sodium 139 mmol/L (136-145); Total Bilirubin 0.2 mg/dL (0.15-1.2); Total Protein 5.6 g/dL (6.6-8.7)
[2022-09-04 06:30] LABS: Glucose Point of Care 129 mg/dL (70-110)
[2022-09-04 08:00] LABS: Glucose Point of Care 123 mg/dL (70-110)
[2022-09-04] MEDS: ferrous sulfate EC 325 mg Tablet PO ×2 (08:03→08:29)
[2022-09-04] MEDS: enoxaparin 100 mg/mL Syringe 80 MG SUBCUT ×3 (08:05→20:00)
[2022-09-04] MEDS: atorvastatin 40 mg Tablet 20 MG PO (09:23)
[2022-09-04] MEDS: metoprolol tartrate 50 mg Tablet 100 MG PO (09:26)
[2022-09-04] MEDS: montelukast sodium 10 mg Tablet PO (09:26)
[2022-09-04] MEDS: pantoprazole 40 mg SDV IVP ×2 (11:36→23:54)
[2022-09-04 11:51] VITALS: BP 147/72; PULSE 73; RESP 14; TEMP 36.8; O2SAT 97
[2022-09-04 12:23] LABS: Glucose Point of Care 199 mg/dL (70-110)
[2022-09-04] MEDS: insulin lispro 100 unit/1 mL SUBCUT ×2 (12:57→18:37)
--- NOTE | 2022-09-04 13:39 | P.PN_ITS ---
Subjective Subjective: Patient was seen and examined this morning, she had another episode of agitation and combativeness during the evening time today for which she was given Geodon as well as Haldol. Medications: Reviewed: Yes Medication Review Details: Generic Name Dose Route Start Last Admin Trade Name Freq PRN Reason Stop Dose Admin Acetaminophen 650 mg 08/21/22 22:30 09/04/22 00:43 Acetaminophen 32 5 Mg Tablet PO 650 mg Q6H PRN Administration Mild/Mod Pain Or Temp >/= 101 Allopurinol 300 mg 08/23/22 07:00 09/04/22 05:09 Allopurinol 300 Mg Tablet PO 300 mg DAILY@0700 [facility] Administration Atorvastatin Calci um 20 mg 08/23/22 09:00 09/04/22 09:23 Atorvastatin 40 Mg Tablet PO 20 mg DAILY KAI Administration Enoxaparin Sodium 80 mg 09/02/22 20:00 09/04/22 08:28 Enoxaparin 100 M g/Ml Syringe 1 mg/kg (80 mg) 80 mg SUBCUT Administration Q12H [facility] Ferrous Sulfate 325 mg 08/28/22 18:00 09/04/22 08:29 Ferrous Sulfate Ec 325 Mg Tablet PO 325 mg BIDWM KAI Administration Haloperidol Lactat e 1 mg 08/31/22 11:33 09/02/22 16:34 Haloperidol Inj 5 Mg/Ml Inj 1 Ml IM 1 mg Q4H PRN Administration AGITATION Hydralazine HCl 10 mg 08/31/22 20:31 09/03/22 20:15 Hydralazine 20 M g/Ml Inj 1 Ml IVP 10 mg Q4H PRN Administration BP > 170/90 after other meds Ceftriaxone Sodium 1,000 mg/ 50 mls @ 100 mls/ hr 08/29/22 18:45 09/03/22 20:55 Sodium Chloride IV Infused Q24H [facility] Infusion Protocol Metronidazole 500 mg in 100 mls @ 100 mls/hr 08/30/22 18:00 09/04/22 11:08 Flagyl Iv IV Infused Q8H [facility] Infusion Protocol Insulin Glargine 20 unit 08/28/22 22:00 09/03/22 20:15 Insulin Glargine 100 Units/1 Ml SUBCUT 20 unit BEDTIME@2200 [facility] Administration Insulin Human Lisp ro 0 unit 08/25/22 18:00 09/04/22 12:57 Insulin Lispro 1 00 Unit/1 Ml SUBCUT 4 unit WM&BEDTIME KAI Administration Protocol Levothyroxine Sodi um 75 mcg 08/23/22 06:00 09/04/22 05:09 Levothyroxine 75 Mcg Tablet PO 75 mcg DAILY@0600 [facility]AI Administration Metoprolol Tartrat e 100 mg 08/22/22 18:00 09/04/22 09:26 Metoprolol Tartr ate 50 Mg Tablet PO 100 mg BID KAI Administration Montelukast Sodium 10 mg 08/23/22 09:00 09/04/22 09:26 Montelukast Sodi um 10 Mg Tablet PO 10 mg DAILY KAI Administration Olanzapine 2.5 mg 08/26/22 21:00 09/03/22 20:16 Olanzapine 5 Mg Tablet PO 2.5 mg BEDTIME KAI Administration Pantoprazole Sodiu m 40 mg 08/27/22 23:15 09/04/22 11:36 Pantoprazole 40 Mg Sdv IVP 40 mg Q12H [facility]AI Administration Warfarin Sodium 2 mg 08/22/22 14:45 08/26/22 15:03 Warfarin 2 Mg Ta blet PO 2 mg 1400 KAI Administration Vitals/I&O/Wt Last Vital Signs Temp 98.2 F 09/04/22 11:51 Pulse 73 09/04/22 11:51 Resp 14 09/04/22 11:51 BP 147/72 09/04/22 11:51 Pulse Ox 97 09/04/22 11:51 O2 Del Method 09/04/22 11:51 O2 Flow Rate 4 09/01/22 09:31 09/03/22 09/04/22 09/04/22 22:59 06:59 14:59 Intake Total 390 / 850 100 / 950 100 / 100 Output Total 950 / 950 600 / 1550 Balance -560 / -100 -500 / -600 100 / 100 Weight last 48 hrs Weight 82.735 kg Weight 83.631 kg Physical Exam Narrative: Patient was extremely drowsy postprocedure HENMT: COMMON NORMALS: normocephalic and atraumatic HEAD & SCALP: normocephalic and atraumatic Resp: COMMON NORMALS: normal respiratory effort, No retractions, No use of accessory muscles and clear to auscultation bilaterally EFFORT & INSPECTION: Yes symmetric chest movement AUSCULTATION: clear to auscultation bilaterally Cardio: COMMON NORMALS: regular rate, regular rhythm, S1 normal heart sound present, S2 normal heart sound present, No gallops present (Cardio), No murmurs present (Cardio), No rub (Cardio) and Peripheral pulses 2+ throughout RATE: regular rate RHYTHM: regular rhythm HEART SOUNDS: S1 normal heart sound present and S2 normal heart sound present PERIPHERAL PULSES: Peripheral pulses 2+ throughout GI: COMMON NORMALS: Normal to inspection, nondistended, normoactive bowel sounds present, Soft to palpation, non-tender, No hepatosplenomegaly present and no masses AUSCULTATION: Yes normoactive bowel sounds PALPATION: Yes Soft to palpation and Yes No hepatosplenomegaly present RECTAL EXAM: deferred Extremity: COMMON NORMALS: no clubbing, cyanosis or edema and no pedal edema Urinary Catheter Management: Nevarez: Cath Placed During This Visit: yes, but has since been removed by the nurse Reason for Continuing Indwelling Catheter: Accurate Measurement of Urinary Output in Critically Ill Patients Urinary Catheter Date of Insertion: 09/03/22 Urinary Catheter Time of Insertion: 05:33 Date Urinary Catheter Removed: 09/02/22 Time Urinary Catheter Discontinued: 13:00 Data 09/04/22 04:38 09/04/22 04:38 Micro: Microbiology 09/01/22 10:49 Gram Stain - Final Cerebrospinal Fluid CSF Culture - Preliminary Cryptococcal Antigen (CSF) - Final A&P Assessment and plan (1) Acute psychosis: 82-year-old lady who has had a prolonged hospital admission since August 21, 2022 when she initially presented with acute psychosis, manifesting as hallucinations seeing and hearing a little girl around her home who has been yelling. She was initially afebrile, has had some chronic leukocytosis due to history of CLL, WBC was 17.4, lymphocytic predominant, negative U tox panel for benzodiazepines. UA was unremarkable. COVID-[address] of the head was without any acute intracranial abnormality but showed moderate diffuse cerebral atrophy and sequelae of chronic small vessel disease. Per family all of her symptoms started less than a week prior to presentation. At a baseline patient is independent, she is able to ambulate, lives with one of her granddaughters. She had evidence of HARDIK which has since improved during the course of her admission here. Individual comorbidities are as listed above. Briefly, upon admission no gross infectious or metabolic cause was found to explain her psychosis. Psych was consulted. Overall impression was that of psychosis due to polypharmacy versus worsening dementia. Kells evaluation was performed and it was thought patient would be a good candidate for 24-hour supervised stay in the [facility] psych facility. Efforts feeding are being directed to make this transfer. She was started on Risperdal initially and then changed to Zyprexa.. Zyprexa was placed on August 27 overnight as she became more leth argic. Risperdal has been discontinued. During the course of admission here patient subsequently developed fever and UTI on August 27, 2022. Her lethargy wherein she was extremely somnolent over 2 days was likely related to UTI. After being started on antibiotics her mental status did improve in the sense that she became more alert and awake, however has continued to remain confused. Best mentation noted on August 28 was when she was alert awake oriented, able to tell me name age date of and recognize family members at bedside. However by August 29 her confusion became worse again. Active issues at this time are persisting confusion. Plan for MRI and lumbar puncture tomorrow. Lower suspicion for meningoencephalitis given the waxing and waning nature of her symptoms. W/up thus far: CT of head was without any acute intracranial abnormality but showed moderate diffuse cerebral atrophy and sequelae of chronic small vessel disease TSH : t0.73 (WNL) check b12, folate cr 1.1--> 2.1 on 08/27 (had urinary retention> 500 ml, nevarez placed, lisinopril held)---> 1.1 (08/31) UA: 08/21: WNL ; 08/27: > 100 WBC, 3+ bacteria, negative nitrate, Ur cx: E. coli s/t ceftriaxone Blood cx : 08/27: negative to date LFT: normal until 08/28, increasing on 08/29 and 08/30 ; CT imaging calcified gra nuloma of liver, normal iver and biliary system. CT chest with air trapping, no consolidation , tracheobronchomalacia Fobt: +, rectal ulcer on CT imaging, suspected cancer, atypical mural pneumatosis, signmoidoscopy : large fungating rectal mass.Pathology negative for malignancy. S/P L/P : CSF Fluid analysis is benign. CSF Cryptococcal antigen :Negative, culture and gram stain negative, CSF fluid:negative for maliganacy. CSF Lymes study pending (2) HARDIK (acute kidney injury): Now improved with hydration, creatinine down to 1.1. (3) Elevated INR: Resolved, patient currently on Lovenox, warfarin on hold during the admission (4) Warfarin anticoagulation: (5) Polypharmacy: (6) Essential hypertension: Blood pressure labile today ranging between 90 systolic to 180. Hydralazine as needed has been added however has not been given yet. Discussed with nursing to administer (7) Atrial fibrillation: Remains rate controlled Qualifiers: Atrial fibrillation type: permanent Qualified Code(s): I48.21 - Permanent atrial fibrillation (8) Diabetes mellitus: Fingersticks under good control, Lantus is at 20 units currently Qualifiers: Diabetes mellitus complication status: with hyperglycemia Diabetes mellitus buttermaker helper insulin use: with fdc use Diabetes mellitus type: type 2 Qualified Code(s): E11.65 - Type 2 diabetes mellitus with hyperglycemia; Z79.4 - correction (current) use of insulin (9) Anxiety: (10) Leukocytosis: History of CLL, baseline appears to be between 13-17. (11) Transaminitis: (12) Rectal ulceration: CT of the abdomen was obtained due to transaminitis. While the liver and biliary system are unremarkable, incidentally noted was abnormal diffuse rectal wall thickening consistent with a malignant neoplasm or proctitis. There was atypical mural hematoma cyst in the colon. Discussed with radiology that over all rectal cancer appears to be the more likely possibility. Less likely proctitis. Currently on Flagyl in addition to ceftriaxone while pending surgical and colonoscopy evaluation. sigmoidoscopy tomorrow surgical consult Plan Disposition: Family to meet with a compound machine operator on Thursday to get guardianship. Thereafter once medical issues are resolved plan to transfer to [facility] psych facility. DVT prophylaxis: On full dose Lovenox. Attestations Medical Necessity Statement*: Needs to be in hospital for management acute psychosis. Coding Level of Care Code 40474 Diagnoses Acute psychosis F23 HARDIK (acute kidney injury) N17.9 Elevated INR R79.1 Warfarin anticoagulation Z79.01 Polypharmacy Z79.899 Essential hypertension I10 Atrial fibrillation I48.21 Atrial fibrillation type: permanent Diabetes mellitus E11.65; Z79.4 Diabetes mellitus complication status: with hyperglycemia Diabetes mellitus fdc insulin use: with buttermaker helper use Diabetes mellitus type: type 2 Anxiety F41.9 Leukocytosis D72.829 Transaminitis R74.01 Rectal ulceration K62.6
[2022-09-04] MEDS: potassium chloride ER 20 mEq Tablet 40 MEQ PO (14:10)
[2022-09-04] MEDS: haloperidol inj 5 mg/mL INJ 1 mL 1 MG IM (15:04)
[2022-09-04] MEDS: ziprasidone 20 mg/mL SDV 10 MG IM (16:13)
[2022-09-04 16:37] LABS: Glucose Point of Care 228 mg/dL (70-110)
[2022-09-04] MEDS: LORazepam 2 mg/mL INJ 1 mL 4 MG IM (18:20)
[2022-09-04 19:14] VITALS: BP 117/72; PULSE 73; RESP 17; TEMP 36.7; O2SAT 91
--- NOTE | 2022-09-04 19:33 | PC.NURSE ---
At approximately 1615, this nurse was caring for this patient after hearing the bed alarm. Patient started getting angry and pushing towards the door with her purse and blanket. This nurse and student nurses from [employer] tended to patient in teixeira to keep patient safe. Patient yelled at staff and eventually sat up against the wall slowly lowering to floor to sit with staff's help. This nurse and a nurse student sat with patient and tried to calm and redirect. Vitals were checked while sitting and were stable. Patient hit nurse and then laid on nurse and cried while this nurse tried to redirect and calm patient. Charge nurse, NOLA Goldstein, contacted Dr. Abdi who ordered a one time med. Med was given IM and patient was transported via wheelchair safely back to bed with bed alarm set. At approximately 1745 this nurse was given meds to another patient next door. Charge nurse, NOLA Goldstein, asked for assistance with patient in 250-2. This nurse went into the patient's room and patient was heading towards the door almost pulling out nevarez. Patient was hostile, violent, and yelling. This nurse and other staff tried to deescalate patient and patient leaned up against the door frame of the next room and was lowered down with staff onto knees. Patient was still hostile but staff was able to help patient safely to a wheelchair. A staff member assisted patient down the teixeira trying to redirect/calm the patient. The patient then pulled out their IV and staff tended to patient quickly. The patient repeatedly tried to hit staff and pinch while this nurse applied gauze to IV julia. Patient threatened staff saying, I wish I could kill you all and throw you in the river. Charge nurse again called Dr. Abdi who came up shortly after and saw patient's behavior. He ordered another one time med to be given. Med was given IM and patiently was safely placed in bed with bed alarm set. This nurse gave report to onclora nurse and returned meds into the pyxis that were unable to be given to patient due to them being sedated from the IM med.
[2022-09-04 20:00] VITALS: BP 118/79; PULSE 62; RESP 18; TEMP 36.4; O2SAT 98
[2022-09-04 20:47] LABS: Glucose Point of Care 143 mg/dL (70-110)
[2022-09-04] MEDS: cefTRIAXone 1,000 MG in sodium chloride 0.9% (plus) 50 ML 100 MG IV (21:09)
[2022-09-04 23:54] VITALS: BP 112/59; PULSE 60; RESP 18; TEMP 36.3; O2SAT 98
[2022-09-05] VITALS (7 sets, daily range): BP systolic 91–208; BP diastolic 58–88; PULSE 61–70; RESP 16–18; TEMP 36.3–37.4; O2SAT 93–96
[2022-09-05] MEDS: metroNIDAZOLE IV 500 MG/100 ML PREMIX 100 MG IV ×3 (04:43→20:26)
[2022-09-05 06:29] LABS: Glucose Point of Care 125 mg/dL (70-110)
[2022-09-05] MEDS: montelukast sodium 10 mg Tablet PO (09:00)
[2022-09-05] MEDS: ferrous sulfate EC 325 mg Tablet PO ×2 (09:01→17:53)
[2022-09-05] MEDS: metoprolol tartrate 50 mg Tablet 100 MG PO ×2 (09:01→17:53)
[2022-09-05] MEDS: enoxaparin 100 mg/mL Syringe 80 MG SUBCUT ×2 (09:10→20:25)
[2022-09-05] MEDS: atorvastatin 40 mg Tablet 20 MG PO (09:48)
--- NOTE | 2022-09-05 11:11 | P.PN_ITS ---
Subjective Subjective: Patient was seen and examined this morning, no acute events overnight. Medications: Reviewed: Yes Medication Review Details: Generic Name Dose Route Start Last Admin Trade Name Freq PRN Reason Stop Dose Admin Acetaminophen 650 mg 08/21/22 22:30 09/04/22 00:43 Acetaminophen 32 5 Mg Tablet PO 650 mg Q6H PRN Administration Mild/Mod Pain Or Temp >/= 101 Allopurinol 300 mg 08/23/22 07:00 09/05/22 06:30 Allopurinol 300 Mg Tablet PO Not Given DAILY@0700 [facility] Atorvastatin Calci um 20 mg 08/23/22 09:00 09/05/22 09:48 Atorvastatin 40 Mg Tablet PO 20 mg DAILY KAI Administration Enoxaparin Sodium 80 mg 09/02/22 20:00 09/05/22 09:10 Enoxaparin 100 M g/Ml Syringe 1 mg/kg (80 mg) 80 mg SUBCUT Administration Q12H [facility] Ferrous Sulfate 325 mg 08/28/22 18:00 09/05/22 09:01 Ferrous Sulfate Ec 325 Mg Tablet PO 325 mg BIDWM [facility] Administration Haloperidol Lactat e 1 mg 08/31/22 11:33 09/04/22 15:04 Haloperidol Inj 5 Mg/Ml Inj 1 Ml IM 1 mg Q4H PRN Administration AGITATION Hydralazine HCl 10 mg 08/31/22 20:31 09/03/22 20:15 Hydralazine 20 M g/Ml Inj 1 Ml IVP 10 mg Q4H PRN Administration BP > 170/90 after other meds Ceftriaxone Sodium 1,000 mg/ 50 mls @ 100 mls/ hr 08/29/22 18:45 09/04/22 21:44 Sodium Chloride IV Infused Q24H [facility] Infusion Protocol Metronidazole 500 mg in 100 mls @ 100 mls/hr 08/30/22 18:00 09/05/22 06:13 Flagyl Iv IV Infused Q8H [facility] Infusion Protocol Insulin Glargine 20 unit 08/28/22 22:00 09/04/22 21:21 Insulin Glargine 100 Units/1 Ml SUBCUT Not Given BEDTIME@2200 [facility] Insulin Human Lisp ro 0 unit 08/25/22 18:00 09/05/22 08:37 Insulin Lispro 1 00 Unit/1 Ml SUBCUT Not Given WM&BEDTIME [facility] Protocol Levothyroxine Sodi um 75 mcg 08/23/22 06:00 09/05/22 06:26 Levothyroxine 75 Mcg Tablet PO Not Given DAILY@0600 [facility] Metoprolol Tartrat e 100 mg 08/22/22 18:00 09/05/22 09:01 Metoprolol Tartr ate 50 Mg Tablet PO 100 mg BID KAI Administration Montelukast Sodium 10 mg 08/23/22 09:00 09/05/22 09:00 Montelukast Sodi um 10 Mg Tablet PO 10 mg DAILY KAI Administration Olanzapine 2.5 mg 08/26/22 21:00 09/04/22 21:17 Olanzapine 5 Mg Tablet PO Not Given BEDTIME KAI Pantoprazole Sodiu m 40 mg 08/27/22 23:15 09/04/22 23:54 Pantoprazole 40 Mg Sdv IVP 40 mg Q12H KAI Administration Warfarin Sodium 2 mg 08/22/22 14:45 08/26/22 15:03 Warfarin 2 Mg Ta blet PO 2 mg 1400 KAI Administration Vitals/I&O/Wt Last Vital Signs Temp 97.4 F L 09/05/22 07:53 Pulse 61 09/05/22 07:53 Resp 16 09/05/22 07:53 BP 91/58 09/05/22 07:53 Pulse Ox 96 09/05/22 07:53 O2 Del Method 09/05/22 07:53 O2 Flow Rate 4 09/04/22 20:00 09/04/22 09/05/22 09/05/22 22:59 06:59 14:59 Intake Total 150 / 850 100 / 950 240 / 240 Output Total 300 / 300 600 / 900 Balance -150 / 550 -500 / 50 240 / 240 Weight last 48 hrs Weight 82.129 kg Weight 82.735 kg Physical Exam Narrative: Patient was extremely drowsy postprocedure HENMT: COMMON NORMALS: normocephalic and atraumatic HEAD & SCALP: normocephalic and atraumatic Resp: COMMON NORMALS: normal respiratory effort, No retractions, No use of accessory muscles and clear to auscultation bilaterally EFFORT & INSPECTION: Yes symmetric chest movement AUSCULTATION: clear to auscultation bilaterally Cardio: COMMON NORMALS: regular rate, regular rhythm, S1 normal heart sound present, S2 normal heart sound present, No gallops present (Cardio), No murmurs present (Cardio), No rub (Cardio) and Peripheral pulses 2+ throughout RATE: regular rate RHYTHM: regular rhythm HEART SOUNDS: S1 normal heart sound present and S2 normal heart sound present PERIPHERAL PULSES: Peripheral pulses 2+ throughout GI: COMMON NORMALS: Normal to inspection, nondistended, normoactive bowel sounds present, Soft to palpation, non-tender, No hepatosplenomegaly present and no masses AUSCULTATION: Yes normoactive bowel sounds PALPATION: Yes Soft to palpation and Yes No hepatosplenomegaly present RECTAL EXAM: deferred Extremity: COMMON NORMALS: no clubbing, cyanosis or edema and no pedal edema Urinary Catheter Management: Nevarez: Cath Placed During This Visit: yes, but has since been removed by the nurse Reason for Continuing Indwelling Catheter: Other Urinary Catheter Date of Insertion: 09/03/22 Urinary Catheter Time of Insertion: 05:33 Date Urinary Catheter Removed: 09/02/22 Time Urinary Catheter Discontinued: 13:00 Data 09/04/22 04:38 09/04/22 04:38 Micro: Microbiology 09/01/22 10:49 Gram Stain - Final Cerebrospinal Fluid CSF Culture - Final Cryptococcal Antigen (CSF) - Final A&P Assessment and plan (1) Acute psychosis: 82-year-old lady who has had a prolonged hospital admission since August 21, 2022 when she initially presented with acute psychosis, manifesting as hallucinations seeing and hearing a little girl around her home who has been yelling. She was initially afebrile, has had some chronic leukocytosis due to history of CLL, WBC was 17.4, lymphocytic predominant, negative U tox panel for benzodiazepines. UA was unremarkable. COVID-[address] of the head was without any acute intracranial abnormality but showed moderate diffuse cerebral atrophy and sequelae of chronic small vessel disease. Per family all of her symptoms started less than a week prior to presentation. At a baseline patient is independent, she is able to ambulate, lives with one of her granddaughters. She had evidence of HARDIK which has since improved during the course of her admission here. Individual comorbidities are as listed above. Briefly, upon admission no gross infectious or metabolic cause was found to explain her psychosis. Psych was consulted. Overall impression was that of psychosis due to polypharmacy versus worsening dementia. [place] evaluation was performed and it was thought patient would be a good candidate for 24-hour supervised stay in the [facility] facility. Efforts feeding are being directed to make this transfer. She was started on Risperdal initially and then changed to Zyprexa.. Zyprexa was placed on August 27 overnight as she became more lethargic. Risperdal has been discontinued. During the course of admission here patient subsequently developed fever and UTI on August 27, 2022. Her lethargy wherein she was extremely somnolent over 2 days was likely related to UTI. After being started on antibiotics her mental status did improve in the sense that she became more alert and awake, however has continued to remain confused. Best mentation noted on August 28 was when she was alert awake oriented, able to tell me name age date of and recognize family members at bedside. However by August 29 her confusion became worse again. Active issues at this time are persisting confusion. Plan for MRI and lumbar puncture tomorrow. Lower suspicion for meningoencephalitis given the waxing and waning nature of her symptoms. W/up thus far: CT of head was without any acute intracranial abnormality but showed moderate diffuse cerebral atrophy and sequelae of chronic small vessel disease TSH : t0.73 (WNL) check b12, folate cr 1.1--> 2.1 on 08/27 (had urinary retention> 500 ml, nevarez placed, lisinopril held)---> 1.1 (08/31) UA: 08/21: WNL ; 08/27: > 100 WBC, 3+ bacteria, negative nitrate, Ur cx: E. coli s/t ceftriaxone Blood cx : 08/27: negative to date LFT: normal until 08/28, increasing on 08/29 and 08/30 ; CT imaging calcified granuloma of liver, normal iver and biliary system. CT chest with air trapping, no consolidation , tracheobronchomalacia Fobt: +, rectal ulcer on CT imaging, suspected cancer, atypical mural pneumatosis, signmoidoscopy : large fungating rectal mass.Pathology negative for malignancy. S/P L/P : CSF Fluid analysis is benign. CSF Cryptococcal antigen :Negative, culture and gram stain negative, CSF fluid:negative for maliganacy. CSF Lymes study pending (2) HARDIK (acute kidney injury): Now improved with hydration, creatinine down to 1.1. (3) Elevated INR: Resolved, patient currently on Lovenox, warfarin on hold during the admission (4) Warfarin anticoagulation: (5) Polypharmacy: (6) Essential hypertension: Blood pressure labile today ranging between 90 systolic to 180. Hydralazine as needed has been added however has not been given yet. 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 (11) Transaminitis: (12) Rectal ulceration: CT of the abdomen was obtained due to transaminitis. While the liver and biliary system are unremarkable, incidentally noted was abnormal diffuse rectal wall thickening consistent with a malignant neoplasm or proctitis. There was atypical mural hematoma cyst in the colon. Discussed with radiology that overall rectal cancer appears to be the more likely possibility. Less likely proctitis. S/P Sigmidoscopy: Has shown fungating mass. pathology report so far has ruled out malignancy.Repeat sigmidoscopy is attempted for better tissue sample. Plan Disposition: Guardianship process in progress. Thereafter once medical issues are resolved plan to transfer to [facility] facility. DVT prophylaxis: On full dose Lovenox. Attestations Medical Necessity Statement*: needs to be in hospital for safe discharge planning. Coding Level of Care Code 61331 Diagnoses Acute psychosis F23 HARDIK (acute kidney injury) N17.9 Elevated INR R79.1 Warfarin anticoagulation Z79.01 Polypharmacy Z79.899 Essential hypertension I10 Atrial fibrillation I48.21 Atrial fibrillation type: permanent Diabetes mellitus E11.65; Z79.4 Diabetes mellitus complication status: with hyperglycemia Diabetes mellitus terminal clerk insulin use: with halfway use Diabetes mellitus type: type 2 Anxiety F41.9 Leukocytosis D72.829 Transaminitis R74.01 Rectal ulceration K62.6
[2022-09-05 11:52] LABS: Glucose Point of Care 179 mg/dL (70-110)
[2022-09-05] MEDS: pantoprazole 40 mg SDV IVP ×2 (12:09→22:31)
--- NOTE | 2022-09-05 12:10 | P.PN_ITS ---
Subjective Subjective: Pathology results from sigmoidoscopy came back as benign rectal mucosa. Vitals/I&O/Wt Last Vital Signs Temp 97.9 F 09/05/22 11:55 Pulse 61 09/05/22 11:55 Resp 16 09/05/22 11:55 BP 155/72 09/05/22 11:55 Pulse Ox 94 09/05/22 11:55 O2 Del Method 09/05/22 11:55 O2 Flow Rate 4 09/04/22 20:00 09/04/22 09/05/22 09/05/22 22:59 06:59 14:59 Intake Total 150 / 850 100 / 950 240 / 240 Output Total 300 / 300 600 / 900 Balance -150 / 550 -500 / 50 240 / 240 Weight last 48 hrs Weight 181 lb 1 oz Weight 182 lb 6.4 oz Physical Exam Narrative: General: No acute distress Abdomen: Soft, nontender, nondistended, no guarding rebound or masses Urinary Catheter Management: Gomez: Cath Placed During This Visit: yes, but has since been removed by the nurse Reason for Continuing Indwelling Catheter: Other Urinary Catheter Date of Insertion: 09/03/22 Urinary Catheter Time of Insertion: 05:33 Date Urinary Catheter Removed: 09/02/22 Time Urinary Catheter Discontinued: 13:00 Data 09/04/22 04:38 09/04/22 04:38 Micro: Microbiology 09/01/22 10:49 Gram Stain - Final Cerebrospinal Fluid CSF Culture - Final Cryptococcal Antigen (CSF) - Final A&P Assessment and plan (1) Rectal ulceration: Plan N.p.o. after midnight Fleets enema and then tapwater enemas until clear in the morning In the morning I will perform a sigmoidoscopy The risks and benefits of the procedure, including bleeding, infection, intestinal perforation requiring surgery, missed lesion were explained to the patient. The patient is understanding of the risks and wishes to proceed. Attestations Medical Necessity Statement*: Per primary Coding Level of Care Code Acute Code for [facility] Diagnoses Rectal ulceration K62.6
[2022-09-05] MEDS: insulin lispro 100 unit/1 mL SUBCUT ×3 (12:14→21:48)
[2022-09-05 17:27] LABS: Glucose Point of Care 149 mg/dL (70-110)
[2022-09-05 17:27] LABS: Glucose Point of Care 249 mg/dL (70-110)
[2022-09-05 19:01] LABS: Lyme Disease AB (IGG),IBL NO BANDS DETECTED; Lyme Disease AB (IGM), IBL NO BANDS DETECTED
[2022-09-05] MEDS: OLANZapine 5 mg TABLET 2.5 MG PO (20:25)
[2022-09-05] MEDS: hyDRALAzine 20 mg/mL INJ 1 mL 10 MG IVP (20:28)
[2022-09-05 20:42] LABS: Glucose Point of Care 277 mg/dL (70-110)
[2022-09-05] MEDS: cefTRIAXone 1,000 MG in sodium chloride 0.9% (plus) 50 ML 100 MG IV (21:48)
[2022-09-05] MEDS: insulin glargine 100 units/1 mL 20 UNIT SUBCUT (21:48)
[2022-09-06] VITALS (11 sets, daily range): BP systolic 117–187; BP diastolic 65–84; PULSE 61–80; RESP 14–23; TEMP 36.3–36.9; O2SAT 92–100
[2022-09-06] MEDS: metroNIDAZOLE IV 500 MG/100 ML PREMIX 100 MG IV ×3 (03:33→19:58)
[2022-09-06 06:27] LABS: Glucose Point of Care 125 mg/dL (70-110)
[2022-09-06] MEDS: Fleet Enema 133 mL Enema PR (06:42)
[2022-09-06] MEDS: metoprolol tartrate 50 mg Tablet 100 MG PO (08:21)
--- NOTE | 2022-09-06 08:33 | W.PM.OPSUD ---
Surgery/Procedure H&P Update DATE OF PROCEDURE: September 06, 2022 DATE H&P PERFORMED: 09/01/22 H&P UPDATE INFORMATION: I have reviewed H&P completed within last 30 days, I have examined patient prior to procedure and No changes to prior documentation PREOP DIAGNOSIS: rectal mass PLANNED PROCEDURE: Operation Date: 09/01/22 10:00 Proposed Procedures p Sigmoidoscopy(Not Applicable) - Jaswinder Alex DO Operation Date: 09/06/22 08:30 Proposed Procedures p Sigmoidoscopy(Not Applicable) - Jaswinder Alex DO
--- NOTE | 2022-09-06 08:39 | ANES.PAUD2 ---
Pre-Anesthetic Update Pre-Anesthetic Assessment: Date of Surgery/Procedure: 09/06/22 Preop Diagnosis: rectal mass Proposed Procedure: Operation Date: 09/01/22 10:00 Proposed Procedures p Sigmoidoscopy(Not Applicable) - Jaswinder Alex, DO Operation Date: 09/06/22 08:30 Proposed Procedures p Sigmoidoscopy(Not Applicable) - Jaswinder Alex, DO Any changes to Pre-Anesthetic Assessment?: No Last Intake: Intake Last Liquid Date 08/31/22 Last Liquid Time 00:00 Last Solid Date 08/31/22 Last Solid Time 00:00 Vitals: Temperature 97.7 F 09/06/22 08:00 Temperature Source Axillary 09/06/22 08:00 Pulse Rate 80 09/06/22 08:00 Pulse Rhythm 09/05/22 19:30 Pulse Strength 3+ Normal 09/05/22 19:30 Respiratory Rate 15 09/06/22 08:00 Respiratory Effort Non-Labored 09/05/22 19:30 Respiratory Depth Normal 09/05/22 19:30 Respiratory Patter n 09/05/22 19:30 Blood Pressure 186/84 09/06/22 08:00 Blood Pressure Shefali n 118 09/06/22 08:00 Blood Pressure Pos ition Supine 09/05/22 21:04 Pulse Oximetry 96 09/06/22 08:00 Oxygen Delivery Me thod 09/06/22 08:00 Oxygen Flow Rate 4 09/04/22 20:00 Exam: Pre-Anes Outpt Exam: alert, oriented x 3, clear to auscultation bilaterally and regular rate & rhythm Cardiac Studies: Echocardiogram 04/22/22 Echocardiogram Ultrasound 02/09/20 Sestamibi Stress Test (Cardiology) 01/25/20
[2022-09-06] MEDS: sodium chloride 0.9% 1,000 ML 30 ML IV (08:50)
--- NOTE | 2022-09-06 09:13 | ANE.PACU2 ---
Inpatient post-anesthesia follow up: Airway intact: Yes Vital signs: Temperature 97.7 F Pulse Rate 80 Respiratory Rate 15 Blood Pressure 186/84 Pulse Oximetry 96 Oxygen Delivery Me thod Room Air Oxygen Flow Rate 4 Fraction of Inspir ed Oxygen Hydration adequate: Yes Nausea and vomiting: No Pain level: 1 Mental status: Altered Additional Comments: Patient experienced sudden decline in responsiveness (sleepy but arouses to stimuli) before any medications given. Received lidocaine 80 mg and propofol 30 mg for procedure during which bigeminal pattern occurred and self resolved. Currently HD stable with improved responsiveness, thought still drowsier than baseline. Will obtain EKG on floor.
[2022-09-06] MEDS: pantoprazole 40 mg SDV IVP ×2 (11:46→22:19)
[2022-09-06 11:58] LABS: Glucose Point of Care 136 mg/dL (70-110)
--- NOTE | 2022-09-06 15:01 | P.PN_ITS ---
Subjective Subjective: Patient was seen and examined this morning, no acute events overnight.Due for repeat sigmidoscopy today. Medications: Reviewed: Yes Medication Review Details: Generic Name Dose Route Start Last Admin Trade Name Freq PRN Reason Stop Dose Admin Acetaminophen 650 mg 08/21/22 22:30 09/04/22 00:43 Acetaminophen 32 5 Mg Tablet PO 650 mg Q6H PRN Administration Mild/Mod Pain Or Temp >/= 101 Allopurinol 300 mg 08/23/22 07:00 09/06/22 06:30 Allopurinol 300 Mg Tablet PO Not Given DAILY@0700 [facility] Atorvastatin Calci um 20 mg 08/23/22 09:00 09/06/22 08:19 Atorvastatin 40 Mg Tablet PO Not Given DAILY [facility] Enoxaparin Sodium 80 mg 09/02/22 20:00 09/06/22 08:19 Enoxaparin 100 M g/Ml Syringe 1 mg/kg (80 mg) Not Given SUBCUT Q12H [facility] Ferrous Sulfate 325 mg 08/28/22 18:00 09/06/22 08:19 Ferrous Sulfate Ec 325 Mg Tablet PO Not Given BIDWM [facility] Haloperidol Lactat e 1 mg 08/31/22 11:33 09/04/22 15:04 Haloperidol Inj 5 Mg/Ml Inj 1 Ml IM 1 mg Q4H PRN Administration AGITATION Hydralazine HCl 10 mg 08/31/22 20:31 09/05/22 20:28 Hydralazine 20 M g/Ml Inj 1 Ml IVP 10 mg Q4H PRN Administration BP > 170/90 after other meds Ceftriaxone Sodium 1,000 mg/ 50 mls @ 100 mls/ hr 08/29/22 18:45 09/05/22 23:24 Sodium Chloride IV Infused Q24H [facility] Infusion Protocol Metronidazole 500 mg in 100 mls @ 100 mls/hr 08/30/22 18:00 09/06/22 11:46 Flagyl Iv IV 100 mls/hr Q8H [facility] Administration Protocol Sodium Chloride 1,000 mls @ 30 ml s/hr 09/06/22 09:15 09/06/22 09:17 Sodium Chloride 0.9% IV 09/07/22 09:14 Infused .Q24H [facility] Infusion Insulin Glargine 20 unit 08/28/22 22:00 09/05/22 21:48 Insulin Glargine 100 Units/1 Ml SUBCUT 20 unit BEDTIME@2200 [facility] Administration Insulin Human Lisp ro 0 unit 08/25/22 18:00 09/06/22 11:54 Insulin Lispro 1 00 Unit/1 Ml SUBCUT Not Given WM&BEDTIME [facility] Protocol Levothyroxine Sodi um 75 mcg 08/23/22 06:00 09/06/22 06:30 Levothyroxine 75 Mcg Tablet PO Not Given DAILY@0600 [facility] Metoprolol Tartrat e 100 mg 08/22/22 18:00 09/06/22 08:21 Metoprolol Tartr ate 50 Mg Tablet PO 100 mg BID [facility] Administration Montelukast Sodium 10 mg 08/23/22 09:00 09/06/22 08:19 Montelukast Sodi um 10 Mg Tablet PO Not Given DAILY [facility] Olanzapine 2.5 mg 08/26/22 21:00 09/05/22 20:25 Olanzapine 5 Mg Tablet PO 2.5 mg BEDTIME [facility] Administration Pantoprazole Sodiu m 40 mg 08/27/22 23:15 09/06/22 11:46 Pantoprazole 40 Mg Sdv IVP 40 mg Q12H [facility] Administration Warfarin Sodium 2 mg 08/22/22 14:45 08/26/22 15:03 Warfarin 2 Mg Ta blet PO 2 mg 1400 [facility] Administration Vitals/I&O/Wt Last Vital Signs Temp 98.2 F 09/06/22 11:18 Pulse 62 09/06/22 11:18 Resp 17 09/06/22 11:18 BP 161/83 09/06/22 11:18 Pulse Ox 92 09/06/22 11:18 O2 Del Method High Flow Nasal Cannula 09/06/22 11:18 O2 Flow Rate 4 09/04/22 20:00 09/06/22 09/06/22 09/06/22 06:59 14:59 22:59 Intake Total 150 / 1190 320 / 320 Output Total 1500 / 3150 650 / 650 Balance -1350 / -1960 -330 / -330 Weight last 48 hrs Weight 82.735 kg Weight 82.129 kg Physical Exam Narrative: Patient was extremely drowsy postprocedure HENMT: COMMON NORMALS: normocephalic and atraumatic HEAD & SCALP: normocephalic and atraumatic Resp: COMMON NORMALS: normal respiratory effort, No retractions, No use of accessory muscles and clear to auscultation bilaterally EFFORT & INSPECTION: Yes symmetric chest movement AUSCULTATION: clear to auscultation bilaterally Cardio: COMMON NORMALS: regular rate, regular rhythm, S1 normal heart sound present, S2 normal heart sound present, No gallops present (Cardio), No murmurs present (Cardio), No rub (Cardio) and Peripheral pulses 2+ throughout RATE: regular rate RHYTHM: regular rhythm HEART SOUNDS: S1 normal heart sound present and S2 normal heart sound present PERIPHERAL PULSES: Peripheral pulses 2+ throughout GI: COMMON NORMALS: Normal to inspection, nondistended, normoactive bowel sounds present, Soft to palpation, non-tender, No hepatosplenomegaly present and no masses AUSCULTATION: Yes normoactive bowel sounds PALPATION: Yes Soft to palpation and Yes No hepatosplenomegaly present RECTAL EXAM: deferred Extremity: COMMON NORMALS: no clubbing, cyanosis or edema and no pedal edema Urinary Catheter Management: Nevarez: Cath Placed During This Visit: yes, but has since been removed by the nurse Reason for Continuing Indwelling Catheter: Other Urinary Catheter Date of Insertion: 09/03/22 Urinary Catheter Time of Insertion: 05:33 Date Urinary Catheter Removed: 09/02/22 Time Urinary Catheter Discontinued: 13:00 Data 09/04/22 04:38 09/04/22 04:38 A&P Assessment and plan (1) Acute psychosis: 82-year-old lady who has had a prolonged hospital admission since August 21, 2022 when she initially presented with acute psychosis, manifesting as hallucinations seeing and hearing a little girl around her home who has been yelling. She was initially afebrile, has had some chronic leukocytosis due to history of CLL, WBC was 17.4, lymphocytic predominant, negative U tox panel for benzodiazepines. UA was unremarkable. COVID-[address] of the head was without any acute intracranial abnormality but showed moderate diffuse cerebral atrophy and sequelae of chronic small vessel disease. Per family all of her symptoms started less than a week prior to presentation. At a baseline patient is independent, she is able to ambulate, lives with one of her granddaughters. She had evidence of HARDIK which has since improved during the course of her admission here. Individual comorbidities are as listed above. Briefly, upon admission no gross infectious or metabolic cause was found to explain her psychosis. Psych was consulted. Overall impression was that of psychosis due to polypharmacy versus worsening dementia. [place] evaluation was performed and it was thought patient would be a good candidate for 24-hour supervised stay in the [facility] psych facility. Efforts feeding are being directed to make this transfer. She was started on Risperdal initially and then changed to Zyprexa.. Zyprexa was placed on August 27 overnight as she became more lethargic. Risperdal has been discontinued. During the course of admission here patient subsequently developed fever and UTI on August 27, 2022. Her lethargy wherein she was extremely somnolent over 2 days was likely related to UTI. After being started on antibiotics her mental status did improve in the sense that she became more alert and awake, however has continued to remain confused. Best mentation noted on August 28 was when she was alert awake oriented, able to tell me name age date of and recognize family members at bedside. However by August 29 her confusion became worse again. Active issues at this time are persisting confusion. Plan for MRI and lumbar puncture tomorrow. Lower suspicion for meningoencephalitis given the waxing and waning nature of her symptoms. W/up thus far: CT of head was without any acute intracranial abnormality but showed moderate d iffuse cerebral atrophy and sequelae of chronic small vessel disease TSH : t0.73 (WNL) check b12, folate cr 1.1--> 2.1 on 08/27 (had urinary retention> 500 ml, nevarez placed, lisinopril held)---> 1.1 (08/31) UA: 08/21: WNL ; 08/27: > 100 WBC, 3+ bacteria, negative nitrate, Ur cx: E. coli s/t ceftriaxone Blood cx : 08/27: negative to date LFT: normal until 08/28, increasing on 08/29 and 08/30 ; CT imaging calcified granuloma of liver, normal iver and biliary system. CT chest with air trapping, no consolidation , tracheobronchomalacia Fobt: +, rectal ulcer on CT imaging, suspected cancer, atypical mural pneumatosis, signmoidoscopy : large fungating rectal mass.Pathology negative for malignancy. S/P L/P : CSF Fluid analysis is benign. CSF Cryptococcal antigen :Negative, culture and gram stain negative, CSF fluid:negative for maliganacy. CSF Lymes study pending (2) HARDIK (acute kidney injury): Now improved with hydration, creatinine down to 1.1. (3) Elevated INR: Resolved, patient currently on Lovenox, warfarin on hold during the admission (4) Warfarin anticoagulation: (5) Polypharmacy: (6) Essential hypertension: Blood pressure labile today ranging between 90 systolic to 180. Hydralazine as needed has been added however has not been given yet. Discussed with nursing to administer (7) Atrial fibrillation: Remains rate controlled Qualifiers: Atrial fibrillation type: permanent Qualified Code(s): I48.21 - Permanent atrial fibrillation (8) Diabetes mellitus: Fingersticks under good control, Lantus is at 20 units currently Qualifiers: Diabetes mellitus type: type 2 Diabetes mellitus penitentiary insulin use: with penitentiary use Diabetes mellitus complication status: with hyperglycemia Qualified Code(s): E11.65 - Type 2 diabetes mellitus with hyperglycemia; Z79.4 - ocean transportation intermediary (current) use of insulin (9) Anxiety: (10) Leukocytosis: History of CLL, baseline appears to be between 13-17. (11) Transaminitis: (12) Rectal ulceration: CT of the abdomen was obtained due to transaminitis. While the liver and biliary system are unremarkable, incidentally noted was abnormal diffuse rectal wall thickening consistent with a malignant neoplasm or proctitis. There was atypical mural hematoma cyst in the colon. Discussed with radiology that overall rectal cancer appears to be the more likely possibility. Less likely proctitis. S/P Sigmidoscopy: Has shown fungating mass. pathology report so far has ruled out malignancy.Repeat sigmidoscopy is attempted for better tissue sample. Plan Disposition: Guardianship process in progress. Thereafter once medical issues are resolved plan to transfer to [facility] facility. DVT prophylaxis: On full dose Lovenox. Attestations Medical Necessity Statement*: Needs to be in hospital for safe discharge. Coding Level of Care Code 25316 Diagnoses Acute psychosis F23 HARDIK (acute kidney injury) N17.9 Elevated INR R79.1 Warfarin anticoagulation Z79.01 Polypharmacy Z79.899 Essential hypertension I10 Atrial fibrillation I48.21 Atrial fibrillation type: permanent Diabetes mellitus E11.65; Z79.4 Diabetes mellitus type: type 2 Diabetes mellitus penitentiary insulin use: with termite technician use Diabetes mellitus complication status: with hyperglycemia Anxiety F41.9 Leukocytosis D72.829 Transaminitis R74.01 Rectal ulceration K62.6
--- NOTE | 2022-09-06 15:19 | PC.SOCIAL ---
IMM Updated Updated pt's grandson Josue on IMM. No questions voiced. Provided pt a copy. Initialed, dated, & timed copy in chart.
--- NOTE | 2022-09-06 15:22 | ECG_ITS ---
[facility] Test Date: 2022-09-06 Pat Name: Britt Stockton Department: Room: 250 Gender: Female Audio Visual Technician: : 1940 Requested By: Mikey Abdi Order Number: [id number] Barbie MD: Deric Thibodeaux Measurements Intervals [place] Rate: 74 P: 123 TN: 184 QRS: -48 QRSD: 149 T: -3 QT: 479 QTc: 535 Interpretive Statements ELECTRONIC ATRIAL PACEMAKER RIGHT BUNDLE BRANCH BLOCK [120+ ms QRS DURATION, UPRIGHT V1, 40+ ms S IN I/aVL/V4/V5/V6] LEFT ANTERIOR FASCICULAR BLOCK [QRS AXIS <= -45, QR IN I, RS IN II] VOLTAGE CRITERIA FOR LVH [MEETS CRITERIA IN ONE OF: R(aVL), S(V1), R(V5), R(V5/V6)+S(V1)] Compared to ECG 08/21/2022 17:33:01 Left anterior fascicular block now present Sinus rhythm no longer present Myocardial infarct finding no longer present Electronically Signed On 09-07-2022 19:01:29 CDT by Deric Thibodeaux [email or web address]
--- NOTE | 2022-09-06 15:35 | PM.CCNAC ---
Critical Care Event Note The high probability of a clinically significant, sudden or life threatening deterioration of the patient's [] system(s) required my full and direct attention, intervention and personal management. The critical care time is as shown. This time is in addition to time spent performing any reported procedures but includes the following: [x] Data and vital sign review and interpretation [x] Patient assessment, examination and intervention [x] Documentation [x] Medication orders and management Critical Care Time Code activated: Yes Critical Care Time (min): 30 Additional information about critical care time: - I responded to a rapid response -Upon entering the room, nursing staff tells me that patient was ambulating around the hallway with physical therapy staff, she came back to her room, and when she had a bowel movement, a little after she became less responsive, -Currently she is alert she awakens to painful stimuli, blood pressure 70s over 40s, she saturating 90% on 4 L, heart rates in the 90s -She does respond to her name, -Likely vasovagal syncope -She is placed in Trendelenburg -Receiving bolus of IV fluids -Blood sugars in the 230s -EKG no acute ST-T wave changes -Blood pressures improving, now 110s over 60s -CBC, CMP, troponin, lactic acid ordered -She is receiving normal saline 75 cc -I reexamined patient, 20 minutes after, she is alert to person, not to place, not to time she can follow commands such as smiling for me, she is able to wiggle her toes squeeze my fingers, no facial droop, no slurring of her words, she is talking to nursing staff at bedside, no focal weakness I could discern -We will continue IV fluids -Nurses have notified Dr. Abdi, he has spoken to nursing staff, and will be here shortly to see patient Coding Level of Care Code Critical Care Other Coding Information Focused coding review requested
[2022-09-06 15:37] LABS: ABG PCO2 36.2 mmHg (35-45); ABG PH Result 7.45 (7.35-7.45); Alveolar-Arterial Oxygen Gradi 16.2 mmHg (5-10); Base Excess ABG 0.9 mmol/L (-2.0-2.0); Blood Gas Allen Test Pos; Blood Gas Operator Identificat glc; Blood Gas Sample Site Radial, right; Blood Gas Sample Type Arterial; HCO3 ABG 24.8 mmol/L (22-26); Ionized Calcium Level - ABG 1.1 mmol/L (1.1-1.4); Methemoglobin 0.4 % (0.4-1.5); Oxygen Device NC; Oxygen Saturation ABG 97.4; PO2 ABG 86.9 mmHg (80.0-100.0); Potassium Level - ABG 3.1 mmol/L (3.5-5.0); Total Hemoglobin 11.1 g/dL (12-16)
[2022-09-06 15:49] LABS: Basophils # 0.2 10^3/uL (0.0-0.1); Basophils % 0.7 %; Eosinophils # 0.3 10^3/uL (0.0-0.8); Eosinophils % 1.5 %; Hematocrit 33.5 % (37.0-47.0); Hemoglobin 10.1 g/dL (11.5-15.3); Lymphocytes # 7.8 10^3/uL (0.8-4.8); Lymphocytes % 37.1 %; Mean Corpuscular HGB Conc 30.1 g/dL (30.0-36.0); Mean Corpuscular Hemoglobin 31.1 pg (28.0-34.0); Mean Corpuscular Volume 103.1 fl (81-99); Mean Platelet Volume 10.4 fL (7.4-10.4); Neutrophils # 11.08 10^3/uL (1.8-7.7); Nucleated Red Blood Cells % 0.1 %; Platelet Count 249 10^3/cmm (130-400); Red Blood Count 3.25 10^6/uL (4.1-5.3); Red Cell Distribution Width 14.8 % (12.1-15.1); White Blood Count 20.9 10^3/uL (4.0-10.0)
--- NOTE | 2022-09-06 15:52 | PC.NURSE ---
Pt up in chair at bedside, sitter noticed patient had just had a BM, and patient became unresponsive, upon nurse arrival pt was aroused to painful stimuli, vitals obtained, and decision was made to call a rapid. Charge nurse, camp housekeeper at bedside, while rapid team arrived and Dr. Abdi notified.
[2022-09-06 16:11] LABS: Alanine Aminotransferase 14 U/L (0-33); Albumin Level 2.6 g/dL (3.5-5.2); Alkaline Phosphatase 90 U/L (35-105); Aspartate Amino Transferase 29 U/L (0-32); Blood Urea Nitrogen 8 mg/dL (8-23); Calcium 7.8 mg/dL (8.5-10.5); Carbon Dioxide 21 mmol/L (22-29); Globulin 2.8 g/dL (1.3-4.6); Glucose 239 mg/dL (65-115); Total Bilirubin 0.2 mg/dL (0.15-1.2); Total Protein 5.4 g/dL (6.6-8.7)
[2022-09-06 16:31] LABS: Troponin T (5th) Once 32 ng/L (0-10)
[2022-09-06] MEDS: sodium chloride 0.9% 1,000 ML 100 ML IV (16:57)
[2022-09-06] MEDS: sodium chloride 0.9% 1,000 ML 999 ML IV (16:57)
[2022-09-06 17:18] LABS: Glucose Point of Care 237 mg/dL (70-110)
[2022-09-06] MEDS: haloperidol inj 5 mg/mL INJ 1 mL 1 MG IM (17:19)
[2022-09-06 17:33] LABS: Glucose Point of Care 224 mg/dL (70-110)
[2022-09-06 17:55] LABS: Osmolality Calculated 300 mOsm/kg (285-295); Sodium 142 mmol/L (136-145)
[2022-09-06 17:59] LABS: Anion Gap 17.2 (5-19); Chloride 108 mmol/L (98-107); Potassium 4.2 mmol/L (3.5-5.1)
[2022-09-06] MEDS: insulin lispro 100 unit/1 mL SUBCUT (18:05)
[2022-09-06] MEDS: ferrous sulfate EC 325 mg Tablet PO (18:05)
[2022-09-06] MEDS: enoxaparin 100 mg/mL Syringe 80 MG SUBCUT (19:56)
[2022-09-06] MEDS: cefTRIAXone 1,000 MG in sodium chloride 0.9% (plus) 50 ML 100 MG IV (20:02)
[2022-09-06 21:20] LABS: Glucose Point of Care 142 mg/dL (70-110)
[2022-09-06] MEDS: insulin glargine 100 units/1 mL 20 UNIT SUBCUT (21:21)
[2022-09-07] MEDS: metroNIDAZOLE IV 500 MG/100 ML PREMIX 100 MG IV ×3 (03:25→19:36)
[2022-09-07] MEDS: sodium chloride 0.9% 1,000 ML 100 ML IV (03:27)
[2022-09-07 04:00] VITALS: BP 147/73; PULSE 63; RESP 16; O2SAT 96
[2022-09-07 05:28] LABS: Basophils # 0.1 10^3/uL (0.0-0.1); Basophils % 0.5 %; Eosinophils # 0.5 10^3/uL (0.0-0.8); Eosinophils % 2.5 %; Hematocrit 29.5 % (37.0-47.0); Hemoglobin 9.1 g/dL (11.5-15.3); Lymphocytes % 37.3 %; Mean Corpuscular HGB Conc 30.8 g/dL (30.0-36.0); Mean Corpuscular Hemoglobin 30.4 pg (28.0-34.0); Mean Corpuscular Volume 98.7 fl (81-99); Mean Platelet Volume 10.5 fL (7.4-10.4); Monocytes % 5.6 %; Neutrophils # 9.92 10^3/uL (1.8-7.7); Neutrophils % 52.9 %; Nucleated Red Blood Cells % 0 %; Platelet Count 207 10^3/cmm (130-400); Red Blood Count 2.99 10^6/uL (4.1-5.3); White Blood Count 18.7 10^3/uL (4.0-10.0)
[2022-09-07 05:49] LABS: Anion Gap 9.2 (5-19); Blood Urea Nitrogen 9 mg/dL (8-23); Calcium 7.3 mg/dL (8.5-10.5); Carbon Dioxide 26 mmol/L (22-29); Chloride 112 mmol/L (98-107); Glucose 78 mg/dL (65-115); Osmolality Calculated 296 mOsm/kg (285-295); Potassium 3.2 mmol/L (3.5-5.1); Sodium 144 mmol/L (136-145)
[2022-09-07] MEDS: levothyroxine 75 mcg Tablet PO (05:59)
[2022-09-07] MEDS: allopurinol 300 mg Tablet PO (05:59)
[2022-09-07 06:18] LABS: Glucose Point of Care 84 mg/dL (70-110)
[2022-09-07 08:00] VITALS: BP 147/75; PULSE 65; RESP 15; TEMP 36.9; O2SAT 94
[2022-09-07] MEDS: lidocaine 1% 5 ML in potassium chloride premix 100 ML 52.5 ML IV (08:53)
[2022-09-07] MEDS: enoxaparin 100 mg/mL Syringe 80 MG SUBCUT ×2 (09:04→19:37)
[2022-09-07] MEDS: metoprolol tartrate 50 mg Tablet 100 MG PO ×2 (09:05→17:26)
[2022-09-07] MEDS: montelukast sodium 10 mg Tablet PO (09:05)
[2022-09-07] MEDS: atorvastatin 40 mg Tablet 20 MG PO (09:05)
[2022-09-07] MEDS: ferrous sulfate EC 325 mg Tablet PO ×2 (09:05→17:25)
[2022-09-07 11:33] LABS: Glucose Point of Care 252 mg/dL (70-110)
[2022-09-07 11:46] VITALS: BP 172/75; PULSE 62; RESP 17; TEMP 36.9; O2SAT 95
[2022-09-07] MEDS: pantoprazole 40 mg SDV IVP ×2 (11:56→22:54)
[2022-09-07] MEDS: insulin lispro 100 unit/1 mL SUBCUT ×2 (13:18→17:25)
--- NOTE | 2022-09-07 14:06 | PM.PN ---
Subjective Subjective: Patient was seen and examined this morning, no acute events overnight. Medications: Reviewed: Yes Medication Review Details: Generic Name Dose Route Start Last Admin Trade Name Freq PRN Reason Stop Dose Admin Acetaminophen 650 mg 08/21/22 22:30 09/04/22 00:43 Acetaminophen 32 5 Mg Tablet PO 650 mg Q6H PRN Administration Mild/Mod Pain Or Temp >/= 101 Allopurinol 300 mg 08/23/22 07:00 09/07/22 05:59 Allopurinol 300 Mg Tablet PO 300 mg DAILY@0700 KAI Administration Atorvastatin Calci um 20 mg 08/23/22 09:00 09/07/22 09:05 Atorvastatin 40 Mg Tablet PO 20 mg DAILY KAI Administration Enoxaparin Sodium 80 mg 09/02/22 20:00 09/07/22 09:04 Enoxaparin 100 M g/Ml Syringe 1 mg/kg (80 mg) 80 mg SUBCUT Administration Q12H [facility] Ferrous Sulfate 325 mg 08/28/22 18:00 09/07/22 09:05 Ferrous Sulfate Ec 325 Mg Tablet PO 325 mg BIDWM KAI Administration Haloperidol Lactat e 1 mg 08/31/22 11:33 09/06/22 17:19 Haloperidol Inj 5 Mg/Ml Inj 1 Ml IM 1 mg Q4H PRN Administration AGITATION Hydralazine HCl 10 mg 08/31/22 20:31 09/05/22 20:28 Hydralazine 20 M g/Ml Inj 1 Ml IVP 10 mg Q4H PRN Administration BP > 170/90 after other meds Ceftriaxone Sodium 1,000 mg/ 50 mls @ 100 mls/ hr 08/29/22 18:45 09/06/22 20:32 Sodium Chloride IV Infused Q24H [facility] Infusion Protocol Metronidazole 500 mg in 100 mls @ 100 mls/hr 08/30/22 18:00 09/07/22 13:30 Flagyl Iv IV 100 mls/hr Q8H [facility] Infusion Protocol Insulin Glargine 20 unit 08/28/22 22:00 09/06/22 21:21 Insulin Glargine 100 Units/1 Ml SUBCUT 20 unit BEDTIME@2200 [facility] Administration Insulin Human Lisp ro 0 unit 08/25/22 18:00 09/07/22 13:18 Insulin Lispro 1 00 Unit/1 Ml SUBCUT 6 unit WM&BEDTIME KAI Administration Protocol Levothyroxine Sodi um 75 mcg 08/23/22 06:00 09/07/22 05:59 Levothyroxine 75 Mcg Tablet PO 75 mcg DAILY@0600 KAI Administration Metoprolol Tartrat e 100 mg 08/22/22 18:00 09/07/22 09:05 Metoprolol Tartr ate 50 Mg Tablet PO 100 mg BID KAI Administration Montelukast Sodium 10 mg 08/23/22 09:00 09/07/22 09:05 Montelukast Sodi um 10 Mg Tablet PO 10 mg DAILY KAI Administration Olanzapine 2.5 mg 08/26/22 21:00 09/06/22 21:00 Olanzapine 5 Mg Tablet PO Not Given BEDTIME KAI Pantoprazole Sodiu m 40 mg 08/27/22 23:15 09/07/22 11:56 Pantoprazole 40 Mg Sdv IVP 40 mg Q12H KAI Administration Warfarin Sodium 2 mg 08/22/22 14:45 09/06/22 17:24 Warfarin 2 Mg Ta blet PO Not Given 1400 [facility] Vitals/I&O/Wt Last Vital Signs Temp 98.5 F 09/07/22 11:46 Pulse 62 09/07/22 11:46 Resp 17 09/07/22 11:46 BP 172/75 09/07/22 11:46 Pulse Ox 95 09/07/22 11:46 O2 Del Method 09/07/22 11:46 O2 Flow Rate 3 09/06/22 16:00 09/06/22 09/07/22 09/07/22 22:59 06:59 14:59 Intake Total 1150 / 1570 1100 / 2670 935 / 935 Output Total 550 / 1200 250 / 1450 Balance 600 / 370 850 / 1220 935 / 935 Weight last 48 hrs Weight 82.282 kg Weight 82.735 kg Physical Exam HENMT: COMMON NORMALS: normocephalic and atraumatic HEAD & SCALP: normocephalic and atraumatic Resp: COMMON NORMALS: normal respiratory effort, No retractions, No use of accessory muscles and clear to auscultation bilaterally EFFORT & INSPECTION: Yes symmetric chest movement AUSCULTATION: clear to auscultation bilaterally Cardio: COMMON NORMALS: regular rate, regular rhythm, S1 normal heart sound present, S2 normal heart sound present, No gallops present (Cardio), No murmurs present (Cardio), No rub (Cardio) and Peripheral pulses 2+ throughout RATE: regular rate RHYTHM: regular rhythm HEART SOUNDS: S1 normal heart sound present and S2 normal heart sound present PERIPHERAL PULSES: Peripheral pulses 2+ throughout GI: COMMON NORMALS: Normal to inspection, nondistended, normoactive bowel sounds present, Soft to palpation, non-tender, No hepatosplenomegaly present and no masses AUSCULTATION: Yes normoactive bowel sounds PALPATION: Yes Soft to palpation and Yes No hepatosplenomegaly present RECTAL EXAM: deferred Extremity: COMMON NORMALS: no clubbing, cyanosis or edema and no pedal edema Urinary Catheter Management: Nevarez: Cath Placed During This Visit: yes, but has since been removed by the nurse Reason for Continuing Indwelling Catheter: Other Urinary Catheter Date of Insertion: 09/03/22 Urinary Catheter Time of Insertion: 05:33 Date Urinary Catheter Removed: 09/02/22 Time Urinary Catheter Discontinued: 13:00 Data 09/07/22 04:22 09/07/22 04:22 Micro: Microbiology 09/06/22 15:44 C.difficile Toxin B Gene (PCR) - Final Stool Routine Collection A&P Assessment and plan (1) Acute psychosis: 82-year-old lady who has had a prolonged hospital admission since August 21, 2022 when she initially presented with acute psychosis, manifesting as hallucinations seeing and hearing a little girl around her home who has been yelling. She was initially afebrile, has had some chronic leukocytosis due to history of CLL, WBC was 17.4, lymphocytic predominant, negative U tox panel for benzodiazepines. UA was unremarkable. COVID-[address] of the head was without any acute intracranial abnormality but showed moderate diffuse cerebral atrophy and sequelae of chronic small vessel disease. Per family all of her symptoms started less than a week prior to presentation. At a baseline patient is independent, she is able to ambulate, lives with one of her granddaughters. She had evidence of HARDIK which has since improved during the course of her admission here. Individual comorbidities are as listed above. Briefly, upon admission no gross infectious or metabolic cause was found to explain her psychosis. Psych was consulted. Overall impression was that of psychosis due to polypharmacy versus worsening dementia. [place] evaluation was performed and it was thought patient would be a good candidate for 24-hour supervised stay in the [facility] facility. Efforts feeding are being directed to make this transfer. She was started on Risperdal initially and then changed to Zyprexa.. Zyprexa was placed on August 27 overnight as she became more lethargic. Risperdal has been discontinued. During the course of admission here patient subsequently developed fever and UTI on August 27, 2022. Her lethargy wherein she was extremely somnolent over 2 days was likely related to UTI. After being started on antibiotics her mental status did improve in the sense that she became more alert and awake, however has continued to remain confused. Best mentation noted on August 28 was when she was alert awake oriented, able to tell me name age date of and recognize family members at bedside. However by August 29 her confusion became worse again. Active issues at this time are persisting confusion. Plan for MRI and lumbar puncture tomorrow. Lower suspicion for meningoencephalitis given the waxing and waning nature of her symptoms. W/up thus far: CT of head was without any acute intracranial abnormality but showed moderate diffuse cerebral atrophy and sequelae of chronic small vessel disease TSH : t0.73 (WNL) check b12, folate cr 1.1--> 2.1 on 08/27 (had urinary retention> 500 ml, nevarez placed, lisinopril held)---> 1.1 (08/31) UA: 08/21: WNL ; 08/27: > 100 WBC, 3+ bacteria, negative nitrate, Ur cx: E. coli s/t ceftriaxone Blood cx : 08/27: negative to date LFT: normal until 08/28, increasing on 08/29 and 08/30 ; CT imaging calcified granuloma of liver, normal iver and biliary system. CT chest with air trapping, no consolidation , tracheobronchomalacia Fobt: +, rectal ulcer on CT imaging, suspected cancer, atypical mural pneumatosis, signmoidoscopy : large fungating rectal mass.Pathology negative for malignancy. S/P L/P : CSF Fluid analysis is benign. CSF Cryptococcal antigen :Negative, culture and gram stain negative, CSF fluid:negative for maliganacy. CSF Lymes study pending (2) HARDIK (acute kidney injury): Now improved with hydration, creatinine down to 1.1. (3) Elevated INR: Resolved, patient currently on Lovenox, warfarin on hold during the admission (4) Warfarin anticoagulation: (5) Polypharmacy: (6) Essential hypertension: Blood pressure labile today ranging between 90 systolic to 180. Hydralazine as needed has been added however has not been given yet. Discussed with nursing to administer (7) Atrial fibrillation: Remains rate controlled Qualifiers: Atrial fibrillation type: permanent Qualified Code(s): I48.21 - Permanent atrial fibrillation (8) Diabetes mellitus: Fingersticks under good control, Lantus is at 20 units currently Qualifiers: Diabetes mellitus type: type 2 Diabetes mellitus retirement insulin use: with retirement use Diabetes mellitus complication status: with hyperglycemia Qualified Code(s): E11.65 - Type 2 diabetes mellitus with hyperglycemia; Z79.4 - USP (current) use of insulin (9) Anxiety: (10) Leukocytosis: History of CLL, baseline appears to be between 13-17. (11) Transaminitis: (12) Rectal ulceration: CT of the abdomen was obtained due to transaminitis. While the liver and biliary system are unremarkable, incidentally noted was abnormal diffuse rectal wall thickening consistent with a malignant neoplasm or proctitis. There was atypical mural hematoma cyst in the colon. Discussed with radiology that overall rectal cancer appears to be the more likely possibility. Less likely proctitis. S/P Sigmidoscopy: Has shown fungating mass. pathology report so far has ruled out malignancy.Repeat sigmidoscopy is attempted for better tissue sample. Plan Disposition: Guardianship process in progress. Thereafter once medical issues are resolved plan to transfer to [facility] facility. DVT prophylaxis: On full dose Lovenox. Attestations Medical Necessity Statement*: Awaiting safe discharge. Coding Level of Care Code 81300 Diagnoses Acute psychosis F23 HARDIK (acute kidney injury) N17.9 Elevated INR R79.1 Warfarin anticoagulation Z79.01 Polypharmacy Z79.899 Essential hypertension I10 Atrial fibrillation I48.21 Atrial fibrillation type: permanent Diabetes mellitus E11.65; Z79.4 Diabetes mellitus type: type 2 Diabetes mellitus retirement insulin use: with exterminator helper use Diabetes mellitus complication status: with hyperglycemia Anxiety F41.9 Leukocytosis D72.829 Transaminitis R74.01 Rectal ulceration K62.6
[2022-09-07 16:00] VITALS: BP 189/92; PULSE 71; RESP 15; TEMP 36.9; O2SAT 94
[2022-09-07 17:17] LABS: Glucose Point of Care 207 mg/dL (70-110)
[2022-09-07] MEDS: nystatin cream 30 gm 1 APPLIC TOPICAL (17:27)
[2022-09-07 20:00] VITALS: BP 190/82; PULSE 62; RESP 18; TEMP 36.8; O2SAT 95
[2022-09-07] MEDS: OLANZapine 5 mg TABLET 2.5 MG PO (21:09)
[2022-09-07] MEDS: cefTRIAXone 1,000 MG in sodium chloride 0.9% (plus) 50 ML 100 MG IV (21:09)
[2022-09-07] MEDS: insulin glargine 100 units/1 mL 20 UNIT SUBCUT (21:23)
[2022-09-07 21:37] LABS: Glucose Point of Care 109 mg/dL (70-110)
[2022-09-08] VITALS: BP 187/99; PULSE 60; RESP 21; TEMP 36.9; O2SAT 96
[2022-09-08] MEDS: hyDRALAzine 20 mg/mL INJ 1 mL 10 MG IVP (00:34)
[2022-09-08] MEDS: metroNIDAZOLE IV 500 MG/100 ML PREMIX 100 MG IV (03:34)
[2022-09-08 04:00] VITALS: BP 153/73; PULSE 63; RESP 21; TEMP 36.8; O2SAT 94
[2022-09-08 05:28] LABS: Basophils # 0.1 10^3/uL (0.0-0.1); Basophils % 0.4 %; Eosinophils # 0.4 10^3/uL (0.0-0.8); Eosinophils % 2.4 %; Hematocrit 32.7 % (37.0-47.0); Hemoglobin 10.3 g/dL (11.5-15.3); Mean Corpuscular HGB Conc 31.5 g/dL (30.0-36.0); Mean Corpuscular Volume 98.5 fl (81-99); Mean Platelet Volume 10.5 fL (7.4-10.4); Monocytes % 5.6 %; Neutrophils % 51.7 %; Nucleated Red Blood Cells % 0 %; Platelet Count 212 10^3/cmm (130-400); Red Blood Count 3.32 10^6/uL (4.1-5.3); Red Cell Distribution Width 15.1 % (12.1-15.1)
[2022-09-08 05:36] LABS: INR 1.37 (0.8-1.2)
[2022-09-08 05:42] LABS: Alanine Aminotransferase 11 U/L (0-33); Albumin Level 2.6 g/dL (3.5-5.2); Alkaline Phosphatase 79 U/L (35-105); Anion Gap 12.1 (5-19); Aspartate Amino Transferase 23 U/L (0-32); Blood Urea Nitrogen 6 mg/dL (8-23); Calcium 8.1 mg/dL (8.5-10.5); Carbon Dioxide 25 mmol/L (22-29); Chloride 105 mmol/L (98-107); Glucose 109 mg/dL (65-115); Osmolality Calculated 286 mOsm/kg (285-295); Potassium 3.1 mmol/L (3.5-5.1); Sodium 139 mmol/L (136-145); Total Bilirubin 0.2 mg/dL (0.15-1.2); Total Protein 5.6 g/dL (6.6-8.7)
[2022-09-08] MEDS: allopurinol 300 mg Tablet PO (06:23)
[2022-09-08] MEDS: levothyroxine 75 mcg Tablet PO (06:23)
[2022-09-08 06:28] LABS: Glucose Point of Care 128 mg/dL (70-110)
[2022-09-08 08:00] VITALS: BP 128/71; PULSE 67; RESP 17; TEMP 36.6; O2SAT 93
[2022-09-08] MEDS: atorvastatin 40 mg Tablet 20 MG PO (09:48)
[2022-09-08] MEDS: enoxaparin 100 mg/mL Syringe 80 MG SUBCUT (09:49)
[2022-09-08] MEDS: ferrous sulfate EC 325 mg Tablet PO (09:49)
[2022-09-08] MEDS: montelukast sodium 10 mg Tablet PO (09:49)
[2022-09-08] MEDS: metoprolol tartrate 50 mg Tablet 100 MG PO (09:49)
[2022-09-08] MEDS: nystatin cream 30 gm 1 APPLIC TOPICAL (09:53)
--- NOTE | 2022-09-08 11:33 | P.DS_ITS ---
Discharge Providers Date of Admission: 08/22/22 16:21 Date of Discharge: September 08, 2022 Attending Provider at Admission: Fili Roy Attending Provider at Discharge: Sally Garcia MD Primary Care Provider: Nehemiah Abraham DO Diagnoses at Discharge Discharge Diagnosis (1) Acute psychosis: Status: Acute (2) HARDIK (acute kidney injury): Status: Acute (3) Elevated INR: Status: Acute (4) Warfarin anticoagulation: Status: Acute (5) Polypharmacy: Status: Acute (6) Essential hypertension: Status: Acute (7) Atrial fibrillation: Status: Acute Qualifiers: Atrial fibrillation type: permanent Qualified Code(s): I48.21 - Perman ent atrial fibrillation (8) Diabetes mellitus: Status: Acute Qualifiers: Diabetes mellitus type: type 2 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 Diabetes mellitus complication status: with hyperglycemia Qualified Code(s): E11.65 - Type 2 diabetes mellitus with hyperglycemia; Z79.4 - sleeve separator (current) use of insulin (9) Anxiety: Status: Acute (10) Leukocytosis: Status: Acute (11) Transaminitis: Status: Acute (12) Rectal ulceration: Status: Acute Reason for Visit Reason for Visit: [facility] Hospital Course Hospital Course 82-year-old lady who has had a prolonged hospital admission since August 21, 2022 when she initially presented with acute psychosis, manifesting as hallucinations seeing and hearing a little girl around her home who has been yelling.? She was initially afebrile, has had some chronic leukocytosis due to history of CLL, WBC was 17.4, lymphocytic predominant, negative U tox panel for benzodiazepines.? UA was unremarkable.? COVID-[address] of the head was without any acute intracranial abnormality but showed moderate diffuse cerebral atrophy and sequelae of chronic small vessel disease.? Per family all of her symptoms started less than a week prior to presentation.? At a baseline patient is independent, she is able to ambulate, lives with one of her granddaughters.? She had evidence of HARDIK which has since improved during the course of her admission here.? Briefly, no gross infectious or metabolic cause was found in spite of extensive work up to explain her psychosis/persisting confusion.? Psych was consulted.? Overall impression was that of psychosis due to polypharmacy versus worsening dementia.? [place] evaluation was performed and it was thought patient would be a good candidate for 24-hour supervised stay in the [facility] facility.?She was started on Risperdal initially and then changed to Zyprexa 2.5mg daily due to somnolence. ? Other hospital course as below: # Acute psychosis/ persisting confusion Suspected underlying dementia as the cause No obvious infectious or metabolic cause identified in spite of extensive w/up as below: CT of head was without any acute intracranial abnormality but showed moderate diffuse cerebral atrophy and sequelae of chronic small vessel disease MRi unable to be perfromed due to presencee of PPM. TSH : t0.73 (WNL) WNL b12, folate cr 1.1--> 2.1 on 08/27 (had urinary retention> 500 ml, nevarez placed, lisinopril held)---> 1.1 (08/31)--> 0.7 on 09/08 UA: 08/21: WNL ; 08/27: > 100 WBC, 3+ bacteria, negative nitrate, Ur cx: E. coli s/t ceftriaxone, treated Blood cx : 08/27: negative to date LFT: normal until 08/28, increasing on 08/29 and 08/30 ; CT imaging calcified granuloma of liver, normal iver and biliary system. CT chest with air trapping, no consolidation , tracheobronchomalacia Fobt: +, rectal ulcer on CT imaging, suspected cancer, atypical mural pneumatosis, Now normalized on 09/08. signmoidoscopy : large fungating rectal mass.Pathology negative for malignancy. Repeated sigmoidoscopy due to take extra specimen for path, pending. S/P L/P : CSF Fluid analysis is benign. CSF Cryptococcal antigen :Negative, culture and gram stain negative, CSF fluid:negative for maliganacy. CSF Lymes study negative # HARDIK (acute kidney injury): Now improved with hydration, creatinine down to .7 # Warfarin anticoagulation: # Essential hypertension: currently well controlled. #Atrial fibrillation: Remains rate controlled ? ? # Diabetes mellitus: Fingersticks under good control # Leukocytosis: History of CLL, baseline appears to be between 13-17. Currently at baseline at discharge. # Rectal ulceration: incidentally discovered on CT. ? S/P Sigmidoscopy: Has shown fungating mass. pathology report so far has ruled out malignancy.Repeat sigmidoscopy on 09/06 to take additional specimen. Repeat pathology pending, may be followed up as outpatient. Patient aware to follow up as outpatient. Physical Exam Narrative: General: No acute distress, AO x2-3 HEENT: PERRLA, pupils bilaterally equal and reactive, pallors not present Chest: Normal vesicular breath sounds, no added sounds, equal good air entry bilaterally CVS: S1-S2 regular, no murmurs, no tachycardia, no gallops, no rubs Abdomen: Soft, nontender, no organomegaly, bowel sounds present Neuro: No focal deficits, no facial deformity, AO x2-3, power 5/5 in all limbs Extremities: no edema, clubbing or cyanosis Urinary Catheter Management: Nevarez: Cath Placed During This Visit: yes, but has since been removed by the nurse Reason for Continuing Indwelling Catheter: Other Urinary Catheter Date of Insertion: 09/03/22 Urinary Catheter Time of Insertion: 05:33 Date Urinary Catheter Removed: 09/02/22 Time Urinary Catheter Discontinued: 13:00 Discharge Data Studies Completed and Pending Completed Studies During Hospitalization Category Date Time Status CT chest abdomen pelvis [[place] [id number] Cat Scan 08/30/22 10:55 Completed ] Routine CT head wo con* [id number] Routine Cat Scan 08/31/22 01:[address] head wo con* [id number] Stat Cat Scan 08/21/22 16:27 Completed CXRP [XR chest 1V portable [id number]] Routine Exams 08/27/22 14:02 Completed CXRP [XR chest 1V portable [id number]] Stat Exams 08/27/22 22:46 Completed FL guided lumbarpunc dx* [id number] Routine Exams 09/01/22 08:00 Completed XR chest 1V portable [id number] Stat Exams 08/21/22 15:53 Completed Pathology: Surgical [PTH] Routine Pth 09/01/22 09:52 Completed US renal BI* [id number] Routine Ultrasound 08/25/22 14:49 Completed Pending at discharge Category Date Time Status CBC Auto Diff [Complete Blood Count w/Auto] AM LABS Lab 09/09/22 04:00 Ordered CBC Auto Diff [Complete Blood Count w/Auto] AM LABS Lab 09/10/22 04:00 Ordered CMP [Comprehensive Metabolic Panel] AM LABS Lab 09/09/22 04:00 Ordered CMP [Comprehensive Metabolic Panel] AM LABS Lab 09/10/22 04:00 Ordered Prothrombin Time INR AM LABS Lab 09/09/22 04:00 Ordered Prothrombin Time INR AM LABS Lab 09/10/22 04:00 Ordered [place] [facility]ce[facility] IFA CSF Routine Lab 08/31/22 16:34 Received VDRL on CSF Routine Lab 08/31/22 16:34 Received Pathology: Surgical [PTH] Routine Pth 09/06/22 09:06 Received Radiology Impressions Renal Ultrasound 08/25/22 14:49 IMPRESSION: Unremarkable renal sonogram. Chest X-Ray 08/27/22 22:46 IMPRESSION: No acute findings. Chest/Abdomen/Pelvis CT 08/30/22 10:55 IMPRESSION: 1. No acute findings. 2. Mosaic perfusion of the lung parenchyma and low lung volumes consistent with expiratory air trapping. Possible constrictive bronchiolitis or reactive airways disease. 3. Tracheobronchomalacia. 4. Incidental findings above. IMPRESSION: 1. Abnormal diffuse rectal wall thickening consistent with a malignant neoplasm and/or proctitis. 2. Atypical mural pneumatosis in the rectum. Findings suggest an ulcerated neoplasm. Pneumatosis related to rectal necrosis is less likely. There is no portal venous gas. 3. Incidental findings above. ADDENDUM: 08/30/22 1238 THIS REPORT CONTAINS FINDINGS THAT MAY BE CRITICAL TO PATIENT CARE. The findings were verbally communicated via telephone conference with SALLY GARCIA at 12:37 PM CDT on 08/30/2022. The findings were acknowledged and understood. Head CT 08/31/22 01:16 IMPRESSION: 1. No acute intracranial abnormality. 2. Moderate age-related changes. Lumbar Puncture Fluoroscopy 09/01/22 08:00 IMPRESSION: 1. Fluoroscopically guided lumbar puncture. No immediate complications 2. Only 2-3 cc of CSF was collected before CSF flow stopped likely due to central canal stenosis Laboratory Results WBC 18.0 10^3/uL (4.0-10.0) H 09/08/22 04:53 RBC 3.32 10^6/uL (4.1-5.3) L 09/08/22 04:53 Hgb 10.3 g/dL (11.5-15.3) L 09/08/22 04:53 Hct 32.7 % (37.0-47.0) L 09/08/22 04:53 MCV 98.5 fl (81-99) 09/08/22 04:53 MCH 31.0 pg (28.0-34.0) 09/08/22 04:53 MCHC 31.5 g/dL (30.0-36.0) 09/08/22 04:53 RDW 15.1 % (12.1-15.1) 09/08/22 04:53 Plt Count 212 10^3/cmm (130-400) 09/08/22 04:53 MPV 10.5 fL (7.4-10.4) H 09/08/22 04:53 Neut % (Auto) 51.7 % 09/08/22 04:53 Lymph % (Auto) 39.0 % 09/08/22 04:53 [place] % (Auto) 5.6 % 09/08/22 04:53 Eos % (Auto) 2.4 % 09/08/22 04:53 Baso % (Auto) 0.4 % 09/08/22 04:53 Neut # (Auto) 9.30 10^3/uL (1.8-7.7) H 09/08/22 04:53 Lymph # (Auto) 7.0 10^3/uL (0.8-4.8) H 09/08/22 04:53 [place] # (Auto) 1.0 10^3/uL (0.2-0.9) H 09/08/22 04:53 Eos # (Auto) 0.4 10^3/uL (0.0-0.8) 09/08/22 04:53 Baso # (Auto) 0.1 10^3/uL (0.0-0.1) 09/08/22 04:53 Nucleated RBC % (auto) 0 % 09/08/22 04:53 Nucleated RBCs # 0.0 /100WBC 09/08/22 04:53 PT 17.30 SECONDS (12.1-14.9) H 09/08/22 04:53 INR 1.37 (0.8-1.2) H 09/08/22 04:53 APTT 45.6 SECONDS (23.9-36.7) H 08/21/22 17:00 Specimen Type Arterial 09/06/22 15:27 Sample Site Radial, right 09/06/22 15:27 ABG pH 7.45 (7.35-7.45) 09/06/22 15:27 ABG pCO2 36.2 mmHg (35-45) 09/06/22 15: ABG pO2 86.9 mmHg (80.0-100.0) 09/06/22 15: ABG HCO3 24.8 mmol/L (22-26) 09/06/22 15:27 ABG O2 Saturation 97.4 09/06/22 15: ABG Base Excess 0.9 mmol/L (-2.0-2.0) 09/06/22 15:27 Robert Test Pos 09/06/22 15:27 A-a O2 Gradient 16.2 mmHg (5-10) H 09/06/22 15:27 Hematocrit 34.0 % (37-47) L 09/06/22 15: Hgb O2 Saturation 96.0 % (95-100) 09/06/22 15:27 Carboxyhemoglobin 1.0 %THgb (0.4-20.1) 09/06/22 15:27 Methemoglobin 0.4 % (0.4-1.5) 09/06/22 15:27 Total Hemoglobin 11.1 g/dL (12-16) L 09/06/22 15:27 Sodium 143.0 mmol/L (131-143) 09/06/22 15:27 Potassium 3.1 mmol/L (3.5-5.0) L 09/06/22 15: Glucose 245.0 mg/dL (70-115) H 09/06/22 15:27 Ionized Calcium 1.1 mmol/L (1.1-1.4) 09/06/22 15:27 O2 Delivery Device Nc 09/06/22 15:27 O2 Liters/Min 4.0 % 09/06/22 15:27 FiO2 36.0 % 09/06/22 15:27 Supervisor Of Instruction ID glc 09/06/22 15:27 Sodium 139 mmol/L (136-145) 09/08/22 04:53 Potassium 3.1 mmol/L (3.5-5.1) L 09/08/22 04:53 Chloride 105 mmol/L (98-107) 09/08/22 04:53 Carbon Dioxide 25 mmol/L (22-29) 09/08/22 04:53 Anion Gap 12.1 (5-19) 09/08/22 04:53 BUN 6 mg/dL (8-23) L 09/08/22 04:53 Creatinine 0.7 mg/dL (0.5-0.9) 09/08/22 04:53 GFR Calculation Not Reportable 09/08/22 04:53 Glucose 109 mg/dL (65-115) 09/08/22 04:53 POC Glucose 128 mg/dL (70-110) H 09/08/22 06:24 Calculated Osmolality 286 mOsm/kg (285-295) 09/08/22 04:53 Lactate 1.4 mmol/L (0.5-2.2) 08/27/22 23:13 Calcium 8.1 mg/dL (8.5-10.5) L 09/08/22 04:53 Total Bilirubin 0.2 mg/dL (0.15-1.2) 09/08/22 04:53 AST 23 U/L (0-32) 09/08/22 04:53 ALT 11 U/L (0-33) 09/08/22 04:53 Alkaline Phosphatase 79 U/L (35-105) 09/08/22 04:53 Ammonia 16 umol/L (11-51) 09/01/22 04:22 Troponin T Gen 5 ng/L 32 ng/L (0-10) H 09/06/22 15:39 NT-Pro-B Natriuret Pep 584 pg/mL (0-450) H 08/28/22 04:00 Total Protein 5.6 g/dL (6.6-8.7) L 09/08/22 04:53 Albumin 2.6 g/dL (3.5-5.2) L 09/08/22 04:53 Globulin 3.0 g/dL (1.3-4.6) 09/08/22 04:53 Vitamin B12 479 pg/mL (232-1245) 09/01/22 04:22 Folate 19.9 ng/mL (4.8-37.3) 09/01/22 04:22 TSH 0.73 uIU/mL (0.27-4.20) 08/21/22 16:15 Urine Color Yellow (Yellow) 08/27/22 05:00 Urine Appearance Cloudy (CLEAR) A 08/27/22 05:00 Urine pH 5 (5-7) 08/27/22 05:00 Ur Specific [place] 1.020 (1.005-1.030) 08/27/22 05:00 Urine Protein Trace (Negative) 08/27/22 05:00 Urine Glucose (UA) Norm (Normal) 08/27/22 05:00 Urine Ketones Negative (Negative) 08/27/22 05:00 Urine Blood 2+ (Negative) H 08/27/22 05:00 Urine Nitrate Negative (Negative) 08/27/22 05:00 Urine Bilirubin Neg (Negative) 08/27/22 05:00 Urine Urobilinogen Norm mg/dL (Negative) 08/27/22 05:00 Ur Leukocyte Esterase Negative (Negative) 08/27/22 05:00 Urine RBC 5-10 /hpf (0-2) H 08/27/22 05:00 Urine WBC >100 /hpf (0-5) H 08/27/22 05:00 Ur Squamous Epith Cells 0-4 /hpf (0-5) H 08/27/22 05:00 Amorphous Sediment Not Reportable 08/27/22 05:00 Urine Bacteria 3+ /hpf (NONE) H 08/27/22 05:00 CSF Appearance Clear (CLEAR) 09/01/22 10:49 CSF Color Colorless (COLORLESS) 09/01/22 10:49 CSF WBC 5 /uL (0-5) 09/01/22 10:49 CSF RBC 0 10^3/uL (0-0) 09/01/22 10:49 CSF Mononuclear # Auto 0.004 10^3/uL (50-90) L 09/01/22 10:49 CSF Mononuclear WBCs % 80 % (50-90) 09/01/22 10:49 CSF Polynuclear WBCs # 0.001 10^3/uL (0-10) 09/01/22 10:49 CSF Polynuclear WBCs % 20 % (0-10) H 09/01/22 10:49 CSF Diff Comment Yes 09/01/22 10:49 CSF Glucose 72 mg/dL (40-70) H 09/01/22 10:49 CSF Total Protein 32 mg/dL (15-45) 09/01/22 10:49 CSF Lyme IgG (Immblot) No bands detected 09/01/22 10:49 CSF Lyme IgM (Immblot) No bands detected 09/01/22 10:49 Nasal Influ A H1 2009 PCR Not detected (NOT DETECT) 08/28/22 16:19 Salicylates < 0.3 mg/dL (3-10) L 08/21/22 16:15 Urine Opiates Screen Negative ng/mL (Negative) 08/21/22 18:31 Acetaminophen < 5.0 ug/mL (10-30) L 08/21/22 16:15 Ur Barbiturates Screen Negative ng/mL (Negative) 08/21/22 18:31 Ur Phencyclidine Scrn Negative ng/mL (Negative) 08/21/22 18:31 Ur Amphetamines Screen Negative ng/mL (Negative) 08/21/22 18:31 U Benzodiazepines Scrn Positive ng/mL (Negative) H 08/21/22 18:31 Urine Cocaine Screen Negative ng/mL (Negative) 08/21/22 18:31 U Marijuana (THC) Screen Negative ng/mL (Negative) 08/21/22 18:31 Ethyl Alcohol < 10 mg/dL (0-10) 08/21/22 16:15 Adenovirus (PCR) Not detected (NOT DETECT) 08/28/22 16:19 Lyme IgG Bands Present Not Reportable 09/01/22 10:49 Lyme IgM Bands Present Not Reportable 09/01/22 10:49 C. pneumoniae DNA (PCR) Not detected (NOT DETECT) 08/28/22 16:19 Coronavirus 229E (PCR) Not detected (NOT DETECT) 08/28/22 16:19 West Nile Virus IgG Ab Cancelled 09/01/22 10:49 West Nile Virus IgM Ab Cancelled 09/01/22 10:49 Herpes Simplex Source Cancelled 09/01/22 Unknown Human Metapneumovir PCR Not detected (NOT DETECT) 08/28/22 16:19 Influenza A (H1) PCR Not detected (NOT DETECT) 08/28/22 16:19 Influenza A (H3) PCR Not detected (NOT DETECT) 08/28/22 16:19 Influenza Type A (PCR) Not detected (NOT DETECT) 08/28/22 16:19 Influenza Type B (PCR) Not detected (NOT DETECT) 08/28/22 16:19 M. pneumoniae (PCR) Not detected (NOT DETECT) 08/28/22 16:19 Parainfluenza 1 (PCR) Not detected (NOT DETECT) 08/28/22 16:19 Parainfluenza 2 (PCR) Not detected (NOT DETECT) 08/28/22 16:19 Parainfluenza 3 (PCR) Not detected (NOT DETECT) 08/28/22 16:19 Parainfluenza 4 (PCR) Not detected (NOT DETECT) 08/28/22 16:19 RSV Type A (PCR) Not detected (NOT DETECT) 08/28/22 16:19 RSV Type B (PCR) Not detected (NOT DETECT) 08/28/22 16:19 Entero/Rhino (PCR) Not detected (NOT DETECT) 08/28/22 16:19 SARS-CoV-2 (PCR) Not detected (NOT DETECT) 08/28/22 16:19 SARS-CoV-2 Ag (Rapid) negative (Negative) 08/30/22 17:00 HSV 1 DNA Cancelled 09/01/22 Unknown HSV 2 DNA Cancelled 09/01/22 Unknown Vitals Last Vital Signs Temp 97.8 F 09/08/22 08:00 Pulse 67 09/08/22 08:00 Resp 17 09/08/22 08:00 BP 128/71 09/08/22 08:00 Pulse Ox 93 09/08/22 08:00 O2 Del Method 09/08/22 08:00 O2 Flow Rate 3 09/06/22 16:00 Discharge Plan Discharge Patient Disposition: Xfer Psychiatric Hosp Condition: Stable Prescriptions: New warfarin 2 mg Tablet 2 mg PO 1400 30 Days Qty: 30 0RF olanzapine 5 mg Tablet 2.5 mg PO BEDTIME 30 Days Qty: 30 0RF insulin glargine 100 unit/mL Solution 20 unit SUBCUT BEDTIME@2199 30 Days Qty: 30 0RF Continued allopurinol 300 mg tablet 300 mg PO DAILY@0700 levothyroxine 75 mcg capsule 75 mcg PO DAILY@0600 metformin 1,000 mg tablet 1,000 mg PO BID@0700,2200 omeprazole 40 mg capsule,delayed release(DR/EC) 40 mg PO BID@0700,2200 hydrochlorothiazide 50 mg tablet 50 mg PO DAILY Qty: 90 3RF potassium chloride 10 mEq tablet extended release 10 meq PO DAILY Qty: 90 3RF simvastatin 10 mg tablet 10 mg PO DAILY Qty: 90 3RF ferrous sulfate 325 mg (65 mg iron) Tablet 325 mg PO TID montelukast 10 mg tablet 10 mg PO DAILY Changed metoprolol tartrate 100 mg tablet 75 mg PO BID 30 Days Qty: 180 2RF Discontinued (DME) ASO See Rx Instructions .Route .MEDSUPPLY Qty: 1 0RF Rx Instructions: As directed nitroglycerin [Nitrostat] 0.4 mg tablet, sublingual 0.4 mg SUBLINGUAL Q5M PRN (Reason: CHEST PAINS) Qty: 25 3RF warfarin 1 mg tablet See Rx Instructions .ROUTE .COMPLEX Qty: 90 3RF Protocol: Dose Management Condition: Thursday Dose/Route: 4 mg Instruction: 1 x 4 mg tablet Condition: Thursday Dose/Route: 5 mg Instruction: 1 x 5 mg tablet Condition: Thursday Dose/Route: 5 mg Instruction: 1 x 5 mg tablet Condition: Thursday Dose/Route: 5 mg Instruction: 1 x 5 mg tablet Condition: Dose/Route: 5 mg Instruction: 1 x 5 mg tablet Condition: Thursday Dose/Route: 5 mg Instruction: 1 x 5 mg tablet Condition: Thursday Dose/Route: 5 mg Instruction: 1 x 5 mg tablet Protocol Text: Adjustment Start Date: Thursday08/12/22 INR Value: 23.6 Seconds INR Date: 08/12/22 Recheck Date: 09/09/22 Dose Instruction: Take 1 tablet by mouth once daily Rx Instructions: 4 MG ON THURSDAY AND 5 MG ALL OTHER DAYS furosemide [Lasix] 40 mg tablet 40 mg PO DAILY Qty: 90 3RF warfarin 5 mg tablet 5 mg PO DIRECTED Qty: 90 1RF Protocol: Dose Management Condition: Thursday Dose/Route: 4 mg Instruction: 1 x 4 mg tablet Condition: Thursday Dose/Route: 5 mg Instruction: 1 x 5 mg tablet Condition: Thursday Dose/Route: 5 mg Instruction: 1 x 5 mg tablet Condition: Thursday Dose/Route: 5 mg Instruction: 1 x 5 mg tablet Condition: Dose/Route: 5 mg Instruction: 1 x 5 mg tablet Condition: Thursday Dose/Route: 5 mg Instruction: 1 x 5 mg tablet Condition: Thursday Dose/Route: 5 mg Instruction: 1 x 5 mg tablet Protocol Text: Adjustment Start Date: Thursday08/12/22 INR Value: 23.6 Seconds INR Date: 08/12/22 Recheck Date: 09/09/22 Rx Instructions: 5 MG THURSDAY-THURSDAY warfarin 4 mg tablet See Rx Instructions .ROUTE .COMPLEX Qty: 90 2RF Protocol: Dose Management Condition: Thursday Dose/Route: 4 mg Instruction: 1 x 4 mg tablet Condition: Thursday Dose/Route: 5 mg Instruction: 1 x 5 mg tablet Condition: Thursday Dose/Route: 5 mg Instruction: 1 x 5 mg tablet Condition: Thursday Dose/Route: 5 mg Instruction: 1 x 5 mg tablet Condition: Dose/Route: 5 mg Instruction: 1 x 5 mg tablet Condition: Thursday Dose/Route: 5 mg Instruction: 1 x 5 mg tablet Condition: Thursday Dose/Route: 5 mg Instruction: 1 x 5 mg tablet Protocol Text: Adjustment Start Date: Thursday08/12/22 INR Value: 23.6 Seconds INR Date: 08/12/22 Recheck Date: 09/09/22 Dose Instruction: TAKE ONE TABLET BY MOUTH ON THURSDAY, THURSDAY, THURSDAY, AND THURSDAY (5MG ON THURSDAY, THURSDAY, AND THURSDAY) Rx Instructions: 4 mg on thursday lisinopril 40 mg tablet 40 mg PO BID@0700,2200 Qty: 180 2RF insulin degludec [Tresiba FlexTouch U-200] 200 unit/mL (3 mL) insulin pen 60 unit SUBCUT BEDTIME@2200 warfarin 1 mg tablet See Rx Instructions .ROUTE .COMPLEX Protocol: Dose Management Condition: Thursday Dose/Route: 4 mg Instruction: 1 x 4 mg tablet Condition: Thursday Dose/Route: 5 mg Instruction: 1 x 5 mg tablet Condition: Thursday Dose/Route: 5 mg Instruction: 1 x 5 mg tablet Condition: Thursday Dose/Route: 5 mg Instruction: 1 x 5 mg tablet Condition: Dose/Route: 5 mg Instruction: 1 x 5 mg tablet Condition: Thursday Dose/Route: 5 mg Instruction: 1 x 5 mg tablet Condition: Thursday Dose/Route: 5 mg Instruction: 1 x 5 mg tablet Protocol Text: Adjustment Start Date: Thursday08/12/22 INR Value: 23.6 Seconds INR Date: 08/12/22 Recheck Date: 09/09/22 Rx Instructions: 4 MG ON THURSDAY AND 5 MG ALL OTHER DAYS alprazolam 0.25 mg tablet 0.25 mg PO DAILY PRN (Reason: Anxiety) Discharge Orders: Discharge Order (Routine); Ordered 09/08/22 Ordered By: Sally Garcia Referrals: Nehemiah Abraham DO [Primary Care Provider] - Discharge Diet: Diabetic Discharge Activity: Resume usual activity and As per PT/OT instructions Patient Instructions: GI Discharge Instructions Activity Restrictions/Additional Instructions: Check INR and adjust warfarin dosing to maintain INR 2-3 Discharge Attestations Time Spent in Discharge Care*: greater than 30 min Quality Metrics Clinical Quality Measures [ No reported AMI, CVA or VTE this stay] Coding Level of Care Code Acute Code for Chg Fwd Diagnoses Acute psychosis F23 HARDIK (acute kidney injury) N17.9 Elevated INR R79.1 Warfarin anticoagulation Z79.01 Polypharmacy Z79.899 Essential hypertension I10 Atrial fibrillation I48.21 Atrial fibrillation type: permanent Diabetes mellitus E11.65; Z79.4 Diabetes mellitus type: type 2 Diabetes mellitus 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
[2022-09-08 12:00] VITALS: BP 120/66; PULSE 72; RESP 18; TEMP 36.3; O2SAT 90
--- NOTE | 2022-09-08 12:21 | PC.NURSE ---
This nurse called and gave report to facility about patient at 1215.
[2022-09-08 12:25] LABS: Glucose Point of Care 229 mg/dL (70-110)
[2022-09-08] MEDS: insulin lispro 100 unit/1 mL SUBCUT (12:42)
[2022-09-08 15:28] VITALS: BP 167/79; PULSE 62; RESP 16; TEMP 36.8; O2SAT 95
--- NOTE | 2022-09-08 15:45 | PC.SOCIAL ---
Lab Update [facility] calls and reports that they were not able to run the [place] IGG, IFA and intrp due to insufficient quantity. Updated Dr. Chowdhury via voalte. She also reported that she would fax to [phone].
[2022-09-08 15:48] VITALS: BP 167/79; PULSE 62; RESP 16; TEMP 36.8; O2SAT 95
== END 2022-09-08 15:49 | disposition skilled nursing facility (03) | DRG 683 ==
LOC: ER 20:00 → MEDSURG 21:11
PROVIDERS: Family Medicine; Internal Medicine; Surgery; Admitting Provider Internal Medicine; Emergency Provider Emergency Medicine; PCP Internal Medicine; Visit Provider Student in an Organized Health Care Education/Training Program
PROC: 0DJD8ZZ Inspection of Lower Intestinal Tract, Via Natural or Artificial Opening Endoscopic (ICD-10-PCS; CPT 45330; principal; 2022-09-01 10:00)
DX: N17.9 Acute kidney failure, unspecified (principal); C91.10 Chronic lymphocytic leukemia of B-cell type not having achieved remission; F23 Brief psychotic disorder; I48.21 Permanent atrial fibrillation; K62.6 Ulcer of anus and rectum; N39.0 Urinary tract infection, site not specified; E11.65 Type 2 diabetes mellitus with hyperglycemia; E11.51 Type 2 diabetes mellitus with diabetic peripheral angiopathy without gangrene; E11.22 Type 2 diabetes mellitus with diabetic chronic kidney disease; I12.9 Hypertensive chronic kidney disease with stage 1 through stage 4 chronic kidney disease, or unspecified chronic kidney disease; N18.2 Chronic kidney disease, stage 2 (mild); Z79.84 Long term (current) use of oral hypoglycemic drugs; I25.10 Atherosclerotic heart disease of native coronary artery without angina pectoris; K21.9 Gastro-esophageal reflux disease without esophagitis; M10.9 Gout, unspecified; E03.9 Hypothyroidism, unspecified; Z86.14 Personal history of Methicillin resistant Staphylococcus aureus infection; I49.5 Sick sinus syndrome; G47.33 Obstructive sleep apnea (adult) (pediatric); D63.1 Anemia in chronic kidney disease; F41.9 Anxiety disorder, unspecified; R55 Syncope and collapse; W06.XXXA Fall from bed, initial encounter; Y92.230 Patient room in hospital as the place of occurrence of the external cause; K62.9 Disease of anus and rectum, unspecified; E87.5 Hyperkalemia; F03.90 Unspecified dementia, unspecified severity, without behavioral disturbance, psychotic disturbance, mood disturbance, and anxiety; I95.9 Hypotension, unspecified; R79.1 Abnormal coagulation profile; Z95.0 Presence of cardiac pacemaker; E66.9 Obesity, unspecified; Z68.31 Body mass index [BMI] 31.0-31.9, adult; E78.5 Hyperlipidemia, unspecified
CPT/HCPCS: 36415; 36416; 36600; 45331; 51702; 62328; 70450; 71045; 71250; 74176; 76770; 80048; 80051; 80053; 80306; 80307; 80503; 81001; 81003; 82140; 82274; 82330; 82607; 82746; 82805; 82945; 82962; 83605; 83880; 84157; 84443; 84484; 85025; 85610; 85730; 86592; 86617; 86653; 87040; 87070; 87075; 87077; 87086; 87186; 87205; 87327; 87426; 87486; 87493; 87506; 87530; 87581; 87633; 87635; 88305; 88342; 89050; 92523; 92526; 92610; 93005; 96372; 97110; 97116; 97161; 97167; 97530; 97535; 99285; C9113; G0378; J0360; J0696; J1630; J1650; J1815; J2020; J2060; J2185; J2370; J2704; J3480; J3486; J3490; J7030; J7040; J7120

== ENCOUNTER → 2022-09-17 13:55 | Outpatient (BNVA) | payer MEDICARE, MEDICAID, SELFPAY | PROVIDERS: PCP Internal Medicine; Visit Provider Surgery | DX: K62.6 Ulcer of anus and rectum (principal) | CPT/HCPCS: 99212 ==

== ENCOUNTER → 2023-01-06 09:17 | Outpatient (BNVA) | payer MEDICARE, MEDICAID, SELFPAY | PROVIDERS: PCP Internal Medicine; Visit Provider Podiatrist Foot & Ankle Surgery | DX: E11.65 Type 2 diabetes mellitus with hyperglycemia (principal); Z79.4 Long term (current) use of insulin; G62.9 Polyneuropathy, unspecified; B35.1 Tinea unguium; L60.1 Onycholysis; E11.42 Type 2 diabetes mellitus with diabetic polyneuropathy; E11.621 Type 2 diabetes mellitus with foot ulcer; L97.429 Non-pressure chronic ulcer of left heel and midfoot with unspecified severity; L97.529 Non-pressure chronic ulcer of other part of left foot with unspecified severity | CPT/HCPCS: 99213 ==

== ENCOUNTER 2023-01-12 18:50 | Inpatient (IN) | payer MEDICARE, MEDICAID, SELFPAY ==
--- NOTE | 2023-01-12 18:51 | CTR_ITS ---
PROCEDURE INFORMATION: Exam: CT Head Without Contrast Exam date and time: 01/12/2023 6:52 PM Age: 82 years old Clinical indication: Stroke-like symptoms; Altered mental status/memory loss; Additional info: Stroke like symptoms TECHNIQUE: Imaging protocol: Computed tomography of the head without contrast. Radiation optimization: All CT scans at this facility use at least one of these dose optimization techniques: automated exposure control; mA and/or kV adjustment per patient size (includes targeted exams where dose is matched to clinical indication); or iterative reconstruction. Other technique: STROKE PROTOCOL was implemented. REPORTING DATA: Count of CT and Cardiac NM exams in prior 12 months: This patient has received 3 known CTs and 0 known cardiac nuclear medicine studies in the 12 months prior to the current study. COMPARISON: CT head wo con* [id number] 08/31/2022 1:39 AM RADIATION DOSE METRICS: Total DLP (mGy-cm): 1021.98 FINDINGS: Brain: Decreased pablo-white matter differentiation in the left occipital lobe consistent with an acute stroke. No midline shift. No hemorrhage. Periventricular and deep white matter hypodensities compatible with chronic microvascular ischemic changes. Chronic appearing basal ganglia lacunar infarcts. Cerebral ventricles: No ventriculomegaly. Paranasal sinuses: Visualized sinuses are unremarkable. No fluid levels. Mastoid air cells: No mastoid effusion. Bones/joints: No acute fracture. Soft tissues: Unremarkable. 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 No hemorrhage. ASSESSMENT: ASPECTS (Ang[place] Stroke Program Early CT Score) is 9.
--- NOTE | 2023-01-12 18:51 | ECG_ITS ---
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 Measurements Intervals [place] Rate: 99 P: 28 MO: 163 QRS: 210 QRSD: 122 T: 23 QT: 357 QTc: 458 Interpretive Statements SINUS RHYTHM RIGHT AXIS DEVIATION [QRS AXIS > 100] RIGHT BUNDLE BRANCH BLOCK [120+ ms QRS DURATION, UPRIGHT V1, 40+ ms S IN I/aVL/V4/V5/V6] INFERIOR MYOCARDIAL INFARCTION , OF INDETERMINATE AGE [40+ ms Q WAVE AND/OR ST/T ABNORMALITY IN II/aVF] Compared to ECG 09/06/2022 15:26:11 Right-axis deviation now present Myocardial infarct finding now present Atrial-paced complex(es) or rhythm no longer present Left anterior fascicular block no longer present Left ventricular hypertrophy no longer present Electronically Signed On 01-12-2023 22:48:55 CDT by Lefty Doyle M.D. [email or web address]
--- NOTE | 2023-01-12 18:52 | ED_ITS ---
HPI - Altered Mental Status General: Chief Complaint: Neuro Symptoms/Deficit Stated Complaint: ams Time Seen by Provider: 01/12/23 18:50 History of Present Illness: Patient arrives by EMS. She was last seen normal at 2 PM today. When they went to give her her evening meds they found her unresponsive but breathing. Patient does take apixaban. No trauma reported. She has dementia. She has bedbound at baseline. She is now being taken care of by her great granddaughter who has guardianship (according to her report). The patient was taken straight to CT scan. On review of the CT scan she does have signs of acute stroke in the left occipital lobe. On examination the patient is minimally responsive to visual threat. Review of Systems General: Reports: ROS unobtainable due to medical condition and ROS unobtainable due to mental status PFS ED PFSH: Medical History Anemia Anxiety Aortic stenosis Not significant on repeat echocardiogram. 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 Diabetes mellitus Dyslipidemia Essential hypertension GERD (gastroesophageal reflux disease) Gout History of TIAs Hyperlipidemia Hypertension Hypothyroidism Obesity Peripheral arterial disease Sick sinus syndrome Sleep apnea Warfarin anticoagulation Surgical History History of permanent cardiac pacemaker placement S/P appendectomy S/P cataract extraction S/P cholecystectomy S/P hysterectomy S/P oophorectomy Family History Father CAD (coronary artery disease) Diabetes Stroke Myocardial infarction Mother CAD (coronary artery disease) Diabetes Hypertension Stroke Sister Diabetes Cancer COLON Social History Smoking and tobacco status: never smoked Alcohol intake: never Substance/Drug Use: never Lives independently: Yes Marital status: / Physical Exam Narrative: This is a deconditioned 82-year-old female. She has sores from pressure on her left heel and foot. She has contractures in both of her legs. She has severe muscle atrophy. She is bedbound. The patient seems to have a fixed deviation to the left. I can get her to come back close to midline but not cross the midline. Her pupils are reactive. She has dry lips with peeling superficial skin there. She has dry mucous membranes. She does not respond to visual threat. She has somewhat shallow respirations at a rate around 20. Her lung sounds are clear. She is on room air. She does have a 1+ radial pulse. Her abdomen is soft and nontender. There is no signs of any trauma anywhere. She has stool in her depends. She has poor bilateral lower extremity circulation. She does not respond to noxious stimuli in her feet. If I hold her feet up she holds them up for a few seconds. She is not spontaneously moving her arms. She is not following commands. She is nonverbal. Her skin is warm and relatively well perfused beyond that of her feet. Her heart rate is in the 70s and 80s. No significant lower extremity edema. Course Vital Signs: Vital signs: Vital Signs Temperature 97.9 F 01/12/23 18:54 Pulse Rate 83 01/12/23 18:54 Respiratory Rate 20 H 01/12/23 18:54 Blood Pressure 138/94 01/12/23 18:54 Pulse Oximetry 96 01/12/23 18:54 Oxygen Delivery Me thod Room Air 01/12/23 18:54 MDM - Altered Mental Status Medical Decision Making 82-year-old female found to have an occipital stroke on CT scan. This is acute. She has been on 4.5 hours and is also on apixaban so she is not a candidate for any tenecteplase or tPA. I had an informed discussion with the patient's decision maker which is her great granddaughter. Great granddaughter tearfully states that she does not think that that he would want to have any invasive care. In fact, she would not of wanted to be in a snf or have others taking care of her. We talked about options and at this point we are going to m yumiko the patient DNR. I explained that there is nothing else that can be done about the stroke. This is from posterior circulation and after discussing the patient's desires there is no reason to do a CT angiogram because even if there was any LVO, they do not think that Britt would want any procedures. She has a very poor quality of life as she is bedbound and has dementia. At this point we are leaning towards hospice care. EKG my interpretation from 1917. Patient has a sinus rhythm, there is a superior right axis deviation, right bundle branch block morphology, rate of 99, nonspecific ST changes, no concerning sequential ST elevations. CT head my interpretation: Appears to be a change in the left occipital region worrisome for stroke. No hemorrhage Lab Data 01/12/23 19:10 01/12/23 19:[address] 01/12/23 18:51 IMPRESSION: Acute left RAILCAR SWITCHMAN distribution stroke involving the left occipital lobe. No hemorrhage. ASSESSMENT: ASPECTS ([place] Stroke Program Early CT Score) is 9. ADDENDUM: 01/12/231918 THIS REPORT CONTAINS FINDINGS THAT MAY BE CRITICAL TO PATIENT CARE. The findings were verbally communicated via telephone conference with Dr. Hoffmann at 710 PM EASEMENT WORKER on 01/12/2023. The findings were acknowledged and understood. Laboratory Results PT 22.40 SECONDS (12.1-14.9) H 01/12/23 19:10 INR 1.90 (0.8-1.2) H 01/12/23 19:10 APTT 36.4 SECONDS (23.9-36.7) 01/12/23 19:10 Sodium 137 mmol/L (136-145) 01/12/23 19:10 Potassium 4.1 mmol/L (3.5-5.1) 01/12/23 19:10 Chloride 98 mmol/L (98-107) 01/12/23 19:10 Carbon Dioxide 24 mmol/L (22-29) 01/12/23 19:10 GFR Calculation Not Reportable 01/12/23 19:10 POC Glucose 222 mg/dL (70-110) H 01/12/23 19:05 Calculated Osmolality 293 mOsm/kg (285-295) 01/12/23 19:10 Calcium 9.2 mg/dL (8.5-10.5) 01/12/23 19:10 Total Bilirubin 0.2 mg/dL (0.15-1.2) 01/12/23 19:10 AST 20 U/L (0-32) 01/12/23 19:10 ALT 10 U/L (0-33) 01/12/23 19:10 Total Protein 7.4 g/dL (6.6-8.7) 01/12/23 19:10 Globulin 4.6 g/dL (1.3-4.6) 01/12/23 19:10 Urine Opiates Screen Negative ng/mL (Negative) 01/12/23 19:34 Ur Barbiturates Screen Negative ng/mL (Negative) 01/12/23 19:34 Ur Phencyclidine Scrn Negative ng/mL (Negative) 01/12/23 19:34 Ur Amphetamines Screen Negative ng/mL (Negative) 01/12/23 19:34 U Benzodiazepines Scrn Negative ng/mL (Negative) 01/12/23 19:34 Urine Cocaine Screen Negative ng/mL (Negative) 01/12/23 19:34 U Marijuana (THC) Screen Negative ng/mL (Negative) 01/12/23 19:34 Critical Care Time Critical Care Time: Critical Care Time: Yes Total Critical Care Time: 50 Attestation: Rapid assessment of altered mental status and neurologic examination. Rapid testing. Consultation with medical decision maker. Consultation with EMS. Chart review. Medication review. Discussion with neurologist Dr. Murillo. Discussion with hospitalist Dr Darling. Goals of care conversation. Reasses sment. Interpretation of labs, imaging, EKG. Discharge Plan Discharge Patient Disposition: Admitted As Inpatient Clinical Impression: Occipital stroke, Anticoagulated by anticoagulation treatment, Counseling regarding advance care planning and goals of care, DNR (do not resuscitate) discussion, Dementia Condition: Stable Prescriptions: No Action allopurinol 300 mg tablet 300 mg PO DAILY@0700 levothyroxine 75 mcg capsule 75 mcg PO DAILY@0600 metformin 1,000 mg tablet 1,000 mg PO BID@0700,2200 omeprazole 40 mg capsule,delayed release(DR/EC) 40 mg PO BID@0700,2200 Eliquis 5 mg tablet 5 mg PO BID lidocaine HCl [Lidocaine Viscous] 2 % solution 1 applic topical ONCE Qty: 1 0RF doxycycline hyclate 100 mg capsule 100 mg PO BID hydrochlorothiazide 50 mg tablet 50 mg PO DAILY Qty: 90 3RF potassium chloride 10 mEq tablet extended release 10 meq PO DAILY Qty: 90 3RF ferrous sulfate 325 mg (65 mg iron) Tablet 325 mg PO TID montelukast 10 mg tablet 10 mg PO DAILY metoprolol tartrate 100 mg tablet 75 mg PO BID 30 Days Qty: 180 2RF levothyroxine 75 mcg tablet allopurinol 300 mg tablet hydrochlorothiazide 50 mg tablet potassium chloride 10 mEq tablet,ER particles/crystals PO montelukast 10 mg tablet olanzapine 5 mg tablet simvastatin 10 mg tablet omeprazole 40 mg capsule,delayed release(DR/EC) metformin 1,000 mg tablet Eliquis 5 mg tablet Eldertonic 3.6 mg-0.75 mg /15 mL liquid PO metoprolol tartrate 100 mg tablet doxycycline hyclate 100 mg capsule Referrals: Nehemiah Abraham DO [Physician] - Coding Level of Care Code ED [employer] Professor for Bessyg Arsen
[2023-01-12 18:54] VITALS: BP 138/94; PULSE 83; RESP 20; TEMP 36.6; O2SAT 96; BMI 28.8
[2023-01-12 19:08] LABS: Glucose Point of Care 222 mg/dL (70-110)
[2023-01-12 19:23] LABS: Basophils # 0.1 10^3/uL (0.0-0.1); Basophils % 0.3 %; Hemoglobin 10.1 g/dL (11.5-15.3); Lymphocytes # 6.5 10^3/uL (0.8-4.8); Lymphocytes % 16.4 %; Mean Corpuscular HGB Conc 30.6 g/dL (30.0-36.0); Mean Corpuscular Hemoglobin 28.2 pg (28.0-34.0); Mean Corpuscular Volume 92.2 fl (81-99); Mean Platelet Volume 9.8 fL (7.4-10.4); Monocytes # 1.9 10^3/uL (0.2-0.9); Monocytes % 4.7 %; Neutrophils # 30.27 10^3/uL (1.8-7.7); Neutrophils % 76.7 %; Nucleated Red Blood Cells # 0.1 /100WBC; Nucleated Red Blood Cells % 0.1 %; Platelet Count 403 10^3/cmm (130-400); Red Blood Count 3.58 10^6/uL (4.1-5.3); Red Cell Distribution Width 16.4 % (12.1-15.1)
[2023-01-12 19:35] VITALS: BP 138/94; PULSE 103; RESP 29; O2SAT 94
[2023-01-12 19:35] LABS: Partial Thromboplastin Time 36.4 SECONDS (23.9-36.7)
[2023-01-12 19:45] VITALS: BP 143/60; PULSE 98; RESP 32; O2SAT 95
[2023-01-12 19:48] LABS: Alanine Aminotransferase 10 U/L (0-33); Albumin Level 2.8 g/dL (3.5-5.2); Alkaline Phosphatase 114 U/L (35-105); Anion Gap 19.1 (5-19); Aspartate Amino Transferase 20 U/L (0-32); Blood Urea Nitrogen 25 mg/dL (8-23); Calcium 9.2 mg/dL (8.5-10.5); Carbon Dioxide 24 mmol/L (22-29); Chloride 98 mmol/L (98-107); Globulin 4.6 g/dL (1.3-4.6); Glucose 190 mg/dL (65-115); Osmolality Calculated 293 mOsm/kg (285-295); Potassium 4.1 mmol/L (3.5-5.1); Sodium 137 mmol/L (136-145); Total Bilirubin 0.2 mg/dL (0.15-1.2); Total Protein 7.4 g/dL (6.6-8.7)
[2023-01-12 19:54] LABS: Amphetamines Screen Urine Negative (Negative); Barbiturates Screen Urine Negative (Negative); Benzodiazepines Screen Urine Negative (Negative); Cocaine Screen Urine Negative (Negative); Opiate Screen Urine Negative (Negative); PCP Screen Urine Negative (Negative); THC Screen Urine Negative (Negative)
--- NOTE | 2023-01-12 19:58 | P.HP_ITS ---
Providers/Chief Complaint Primary Care Provider: Josue Candelario MD Chief Complaint: ams History of Present Illness Britt Stockton is a 82 year old female with history of CLL, dementia, living in [facility] at baseline she tries to eat on her own however sometimes it is difficult due to gout, wheelchair dependent need assistance for ambulation and getting out of bed presented today for altered mental status. As per the nursing staff from [facility] she was in her usual state of health until 2:30 PM, she was sent to the ER for evaluation of altered mental status, patient not able to follow commands, in the ER she was deemed not a candidate of tPA because of her Eliquis, her great granddaughter is available at the bedside who has acquired guardianship of Ms. Stockton, she does not want IV artificial nutrition or feeding tube leaning towards hospice/comfort care if she worsens overnight she is calling with the family to make final decision now she is asking us to make her DNR/DNI. Patient has CLL, significant leukocytosis, fever 103.5 rectally cdiff panel was sent she had 1 episode of diarrhea, she has been placed on ice packs, given 50 mg of IV ketorolac, creatinine 1.0 Patient has a pacemaker, family at the bedside, As per the family she was recently put on antibiotics for her left toenail infection, toenail has come off on its own, there is mild purulent discharge noticed Review of Systems General: Reports: ROS unobtainable due to mental status Medications/Allergies Home Medications Medication Instructions Recorded Confirmed Last Taken Type allopurinol 300 mg tablet 300 mg PO DAILY@0700 08/04/19 01/07/23 10/31/20 History levothyroxine 75 mcg capsule 75 mcg PO DAILY@0600 08/04/19 01/07/23 11/01/20 History metformin 1,000 mg tablet 1,000 mg PO BID@0700,219908/04/19 01/07/23 10/31/20 History omeprazole 40 mg capsule,delayed 40 mg PO BID@0700,0 08/04/19 01/07/23 10/31/20 History release ferrous sulfate 325 mg (65 mg 325 mg PO TID 10/30/20 01/07/23 10/31/20 History iron) tablet hydrochlorothiazide 50 mg tablet 50 mg PO DAILY #90 tabs 07/07/22 01/07/23 Unknown Rx potassium chloride 10 mEq 10 meq PO DAILY #90 tabs 07/09/22 01/07/23 Unknown Rx tablet,extended release montelukast 10 mg tablet 10 mg PO DAILY 08/22/22 01/07/23 Unknown History metoprolol tartrate 100 mg tablet 75 mg PO BID 30 days #180 tabs 09/08/22 01/07/23 Unknown Rx apixaban 5 mg tablet (Eliquis) 5 mg PO BID 09/17/22 01/07/23 Unknown History doxycycline hyclate 100 mg capsule 100 mg PO BID 01/07/23 01/07/23 Unknown History allopurinol 300 mg tablet mg 01/12/23 01/12/23 Unknown History apixaban 5 mg tablet (Eliquis) mg 01/12/23 01/12/23 Unknown History doxycycline hyclate 100 mg capsule mg 01/12/23 01/12/23 Unknown History hydrochlorothiazide 50 mg tablet mg 01/12/23 01/12/23 Unknown History levothyroxine 75 mcg tablet mcg 01/12/23 01/12/23 Unknown History metformin 1,000 mg tablet mg 01/12/23 01/12/23 Unknown History metoprolol tartrate 100 mg tablet mg 01/12/23 01/12/23 Unknown History montelukast 10 mg tablet mg 01/12/23 01/12/23 Unknown History olanzapine 5 mg tablet mg 01/12/23 01/12/23 Unknown History omeprazole 40 mg capsule,delayed mg 01/12/23 01/12/23 Unknown History release potassium chloride 10 mEq meq PO 01/12/23 01/12/23 Unknown History tablet,extended release(part/cryst) simvastatin 10 mg tablet mg 01/12/23 01/12/23 Unknown History vitamin B complex-zinc 3.6 ml PO 01/12/23 01/12/23 Unknown History mg-manganese 0.75 mg/15 mL oral liquid (Eldertonic) Allergies Allergy/AdvReac Type Severity Reaction Status Date / Time adhesive tape Allergy Unknown Unknown Verified 01/12/23 19:04 aspirin Allergy Unknown Unknown Verified 01/12/23 19:04 codeine Allergy Unknown Unknown Verified 01/12/23 19:04 diltiazem Allergy Unknown Unknown Verified 01/12/23 19:04 iodine Allergy Unknown Unknown Verified 01/12/23 19:04 nifedipine Allergy Unknown Unknown Verified 01/12/23 19:04 propoxyphene [From Darvon] Allergy Unknown Unknown Verified 01/12/23 19:04 PFSH Acute PFSH: Medical History Anemia Anxiety Aortic stenosis Not significant on repeat echocardiogram. 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 Diabetes mellitus Dyslipidemia Essential hypertension GERD (gastroesophageal reflux disease) Gout History of TIAs Hyperlipidemia Hypertension Hypothyroidism Obesity Peripheral arterial disease Sick sinus syndrome Sleep apnea Warfarin anticoagulation Surgical History History of permanent cardiac pacemaker placement S/P appendectomy S/P cataract extraction S/P cholecystectomy S/P hysterectomy S/P oophorectomy Family History Father CAD (coronary artery disease) Diabetes Stroke Myocardial infarction Mother CAD (coronary artery disease) Diabetes Hypertension Stroke Sister Diabetes Cancer COLON Social History Smoking and tobacco status: never smoked Alcohol intake: never Substance/Drug Use: never Lives independently: Yes Marital status: / Vitals/I&O/Wt Last Vital Signs Temp 97.9 F 01/12/23 18:54 Pulse 83 01/12/23 18:54 Resp 20 H 01/12/23 18:54 BP 138/94 01/12/23 18:54 Pulse Ox 96 01/12/23 18:54 O2 Del Method Room Air 01/12/23 18:54 Weight last 48 hrs Weight 73.936 kg Physical Exam Narrative: Patient is not able to communicate, her eyes are open, no response to apprehension tachycardia, paced rhythm Dehydrated Left toenail with mild purulent drainage noticed on the dressing Abdomen soft Currently on room air Not able to follow commands Pursed lip breathing Patient is shivering Left eye gaze preference Not able to follow commands at all Sensory exam is not possible at this point Gomez catheter in place Septic exam Patient is encephalopathic No skin mottling Low urine output Capillary refill is less than 3 seconds Patient is shivering secondary to fever Data 01/12/23 19:10 01/12/23 19:10 A&P Assessment and plan (1) Occipital stroke: (2) Anticoagulated by anticoagulation treatment: (3) Counseling regarding advance care planning and goals of care: (4) DNR (do not resuscitate) discussion: (5) Dementia: (6) Decubitus ulcer, heel: (7) Unstageable pressure ulcer of left heel: (8) Acute alteration in mental status: (9) Onycholysis of toenail: (10) Peripheral neuropathy: (11) Chronic lymphocytic leukemia of B-cell type not having achieved remission: (12) Sleep apnea: Qualifiers: Sleep apnea type: obstructive Qualified Code(s): G47.33 - Obstructive sleep apnea (adult) (pediatric) (13) Atrial fibrillation: Qualifiers: Atrial fibrillation type: permanent Qualified Code(s): I48.21 - Perma nent atrial fibrillation (14) Sepsis: Plan Acute mental status change secondary to 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 difficile, Suspicion for for aspiration pneumonia I will start her on Zosyn Currently patient is on room air Family is leaning towards initiation of palliative care, they do not want TPN IV nutrition or PEG tube placement in case she is not able to eat on her own For now they have changed her CODE STATUS to DNR/DNI Toenail onychomycosis status post spontaneous removal of nail there is mild purulent drainage, will add vancomycin DNR/DNI N.p.o. Guarded prognosis Patient was visited twice in the ER, detailed family meeting conducted, spoke with the ER physician Attestations Medical Necessity Statement*: More than 2 midnights anticipated Coding Level of Care Code Critical Care >/= 30 minutes Critical care time (in minutes): 35 The high probability of a clinically significant, sudden or life threatening deterioration, as referenced in this documentation, required my full and direct attention, intervention and personal management. The critical care time shown is in addition to time spent performing any reported separately billable procedures and includes the following: [x] Data and vital sign review and interpretation [x ] Patient assessment, examination and intervention [x] Medication orders and management [x] Patient/Family updates as able [x] Care Coordination and Documentation. Diagnoses Occipital stroke I63.9 Anticoagulated by anticoagulation treatment Z79.01 Counseling regarding advance care planning and goals of care Z71.89 DNR (do not resuscitate) discussion Z71.89 Dementia F03.90 Decubitus ulcer, heel L89.609 Unstageable pressure ulcer of left heel L89.620 Acute alteration in mental status R41.82 Onycholysis of toenail L60.1 Peripheral neuropathy G62.9 Chronic lymphocytic leukemia of B-cell type not having achieved remission C91.10 Sleep apnea G47.33 Sleep apnea type: obstructive Atrial fibrillation I48.21 Atrial fibrillation type: permanent Sepsis A41.9
[2023-01-12 19:59] LABS: Urine Color Yellow (Yellow)
[2023-01-12 19:59] LABS: Alcohol Level < 10 mg/dL (0-10)
[2023-01-12 20:00] VITALS: BP 134/68; BP 143/60; PULSE 100; PULSE 96; RESP 23; RESP 26; O2SAT 96
[2023-01-12 20:01] LABS: Add Urine Microscopic? YES; Bilirubin Urine 1+ (Negative); Blood Urine Neg (Negative); Glucose Urine UA Norm (Normal); Ketones Urine Negative (Negative); Leukocyte Esterase Urine Negative (Negative); Nitrate Urine Negative (Negative); Protein Urine Trace (Negative); RBC Urine 0-4 /hpf (0-2); Squamous Epithelial Cell Urine 0-4 /hpf (0-5); Urine Appearance Clear (CLEAR); Urobilinogen Urine Norm (Negative); pH Urine 5 (5-7)
[2023-01-12 20:02] LABS: Add Urine Culture? No; Bacteria Urine 3+ /hpf; Hyaline Casts Urine 0-4 /lpf
[2023-01-12 20:26] VITALS: TEMP 39.7
[2023-01-12 20:29] LABS: White Blood Count 39.5 10^3/uL (4.0-10.0)
[2023-01-12] MEDS: ketorolac 30 mg/mL INJ 15 MG IVP (20:34)
--- NOTE | 2023-01-12 20:45 | PC.NURSE ---
Verbal order received from Dr. Darling for Toradol 15 mg IVP once and Ice packs to be placed in groin and armpits.
[2023-01-12 21:05] VITALS: BP 109/50; PULSE 103; RESP 20; O2SAT 93
[2023-01-12] MEDS: piperacillin-tazobactam 3.375 GM in sodium chloride 0.9% (plus) 50 ML IV (21:50)
[2023-01-12] MEDS: vancomycin 750 MG in sodium chloride 0.9% 250 ML 250 MG IV (21:50)
[2023-01-13] VITALS (7 sets, daily range): BP systolic 56–92; BP diastolic 37–56; PULSE 97; RESP 16–28; TEMP 37.4–38.3; O2SAT 86–90
[2023-01-13] MEDS: morphine 4 mg/mL SDV 1 mL IVP ×8 (00:15→23:31)
[2023-01-13] MEDS: LORazepam 2 mg/mL INJ 1 mL IVP ×2 (00:15→15:34)
[2023-01-13 00:17] LABS: Reflex Lactate Order REFLEX LACTIC ORDERD
--- NOTE | 2023-01-13 07:18 | PC.PHAR ---
Addendum entered by Smita Wooten 01/13/23 08:54: MEDICATIONS ENTERED ARE FROM THE PTS SHELBY AND SHELLY-TIMMY ROSS NURSE FROM [facility] STATES THE PT FINISHED HER DOXYCYCLINE 100MG BID FOR 7 DAYS ON Thursday01/09/23 Original Note: pt is [facility] [phone]-[phone] irby fax aug and tar
--- NOTE | 2023-01-13 09:39 | PC.CHAP ---
Pastoral Care Encounter/Spiritual Assessment Type of Contact [] Declined buckshot swage operator visit [] Patient/Family/Request visit [] Outpatient visit [] Follow-up visit [] Physician referral [] Code/Alert [] Routine visit [] Staff referral [] Actively dying [x] Patient sleeping [] Family support [] [] Out of room [] Palliative care [] [] Receiving care in room [] Pre-surgical visit [] Trauma [] Long length of stay [] ICU visit [] Other: Relational/Emotional Strength [] Patient feels connected with others/family/visitors/staff [] Distress [] Loneliness/isolation [] Abandonment Spirituality of Patient [] Person of [place] [] Attends Jain of their [place] [] Believes in Prayer [] Reads Bible or Confucianism materials [] There are Spiritual issues to be addressed Real Estate Transaction Manager Interventions [] Prayer [] Active listening [] Non-anxious presence [] Spiritual/emotional support [] Crisis/trauma care [] Spiritual counseling [] Bereavement support [] Provided bereavement packet [] Provided Bible/devotional materials [] Provided toy/stuffed animal, coloring book to patient or family member [] Provided Communion [] Anointing/[place] [] Salvation [] Completed spiritual assessment [] Other: Impact on Illness or Injury [] Angry [] Fearful [] Anxious [] Often cries [] Exhaustion [] Unable to work [] Unable to attend jain [] Unable to walk/stand [] Unable to read [] Unable to drive [] Unable to eat/drink [] Unable to sleep [] Unable to be with family [] Patient intubated [] Other: Summary Time spent with patient
[2023-01-13] MEDS: acetaminophen 650 mg Supp PR ×2 (14:26→19:50)
--- NOTE | 2023-01-13 14:31 | PM.PN ---
Subjective Subjective: Patient admitted overnight for occipital stroke along with possibility of sepsis. After discussion with DPOA and caregivers overnight was transitioned over to comfort care measures. Today morning seen with DPOA at bedside. Patient seems comfortable. Vitals/I&O/Wt Last Vital Signs Temp 99.3 F 01/13/23 04:00 Pulse 97 01/13/23 04:00 Resp 26 H 01/13/23 14:26 BP 92/56 01/13/23 04:00 Pulse Ox 86 L 01/13/23 04:00 O2 Del Method Room Air 01/12/23 21:39 01/12/23 01/13/23 01/13/23 22:59 06:59 14:59 Intake Total 250 / 250 50 / 300 Output Total 500 / 500 Balance 250 / 250 -450 / -200 Weight last 48 hrs Weight 73.936 kg Physical Exam Narrative: Deferred given comfort care status. Urinary Catheter Management: Gomez: Cath Placed During This Visit: yes Reason for Continuing Indwelling Catheter: Hospice/Comfort/Palliative Care Urinary Catheter Date of Insertion: 01/12/23 Urinary Catheter Time of Insertion: 19:55 Data 01/12/23 19:10 01/12/23 19:10 Micro: Microbiology 01/12/23 20:55 C.difficile Toxin B Gene (PCR) - Final Stool - Stool Aspirate A&P Assessment and plan (1) Occipital stroke: (2) Anticoagulated by anticoagulation treatment: (3) Counseling regarding advance care planning and goals of care: (4) DNR (do not resuscitate) discussion: (5) Dementia: (6) Decubitus ulcer, heel: (7) Unstageable pressure ulcer of left heel: (8) Acute alteration in mental status: (9) Onycholysis of toenail: (10) Peripheral neuropathy: (11) Chronic lymphocytic leukemia of B-cell type not having achieved remission: (12) Sleep apnea: Qualifiers: Sleep apnea type: obstructive Qualified Code(s): G47.33 - Obstructive sleep apnea (adult) (pediatric) (13) Atrial fibrillation: Qualifiers: Atrial fibrillation type: permanent Qualified Code(s): I48.21 - Permanent atrial fibrillation (14) Sepsis: Plan Acute mental status change secondary to 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 difficile, Suspicion for for aspiration pneumonia I will start her on Zosyn Currently patient is on room air Family is leaning towards initiation of palliative care, they do not want TPN IV nutrition or PEG tube placement in case she is not able to eat on her own For now they have changed her CODE STATUS to DNR/DNI Toenail onychomycosis status post spontaneous removal of nail there is mild purulent drainage, will add vancomycin DNR/DNI N.p.o. Guarded prognosis Plan for the day: Patient made comfort care after discussion between the overnight physician and patient's family and DPOA given baseline quality of life, occipital stroke and sepsis on admission. Continue with comfort care measures. Care plan discussed in detail with family at bedside. All the questions were answered. No labs. Vitals as per protocol. Morphine/Ativan as needed. Discharge plan: Plan to discharge back to SNF with comfort care once everything is set up. Attestations Medical Necessity Statement*: Requires further hospitalization while comfort care/hospice is set up as outpatient. Diagnoses Occipital stroke I63.9 Anticoagulated by anticoagulation treatment Z79.01 Counseling regarding advance care planning and goals of care Z71.89 DNR (do not resuscitate) discussion Z71.89 Dementia F03.90 Decubitus ulcer, heel L89.609 Unstageable pressure ulcer of left heel L89.620 Acute alteration in mental status R41.82 Onycholysis of toenail L60.1 Peripheral neuropathy G62.9 Chronic lymphocytic leukemia of B-cell type not having achieved remission C91.10 Sleep apnea G47.33 Sleep apnea type: obstructive Atrial fibrillation I48.21 Atrial fibrillation type: permanent Sepsis A41.9
[2023-01-14] VITALS: RESP 20
--- NOTE | 2023-01-14 01:43 | PC.NURSE ---
MTS notified and has been fully released by [facility].
--- NOTE | 2023-01-14 01:54 | PC.NURSE ---
Pt at 0128 with family at the bedside. Primary School Teacher and Physician notified.
--- NOTE | 2023-01-14 03:22 | PC.NURSE ---
Mitesh Mcdowell associate art director present to transport body to home.
--- NOTE | 2023-01-14 06:47 | PC.NURSE ---
Grandson took patient belongings when they left.
--- NOTE | 2023-01-14 11:15 | PM.DDS ---
Discharge Providers DDS Date of Admission: 01/12/23 20:49 Date Summary Completed: 01/14/23 Attending Provider at Admission: Silvia Darling MD Time of : 01:28 Attending Provider at Discharge: Cristian Nazario MD Primary Care Provider: Josue Candelario MD DS Diagnoses Hospital Diagnoses (1) Occipital stroke: (2) Anticoagulated by anticoagulation treatment: (3) Counseling regarding advance care planning and goals of care: (4) DNR (do not resuscitate) discussion: (5) Dementia: (6) Decubitus ulcer, heel: (7) Unstageable pressure ulcer of left heel: (8) Acute alteration in mental status: (9) Onycholysis of toenail: (10) Peripheral neuropathy: (11) Chronic lymphocytic leukemia of B-cell type not having achieved remission: (12) Sleep apnea: Qualifiers: Sleep apnea type: obstructive Qualified Code(s): G47.33 - Obstructive sleep apnea (adult) (pediatric) (13) Atrial fibrillation: Qualifiers: Atrial fibrillation type: permanent Qualified Code(s): I48.21 - Permanent atrial fibrillation (14) Sepsis: Reason for Visit Reason for Visit ams Brief History: Britt Stockton is a 82 year old female with history of CLL, dementia, living in [facility] at baseline she tries to eat on her own however sometimes it is difficult due to gout, wheelchair dependent need assistance for ambulation and getting out of bed presented today for altered mental status.? As per the nursing staff from [facility] she was in her usual state of health until 2:30 PM, she was sent to the ER for evaluation of altered mental status, patient not able to follow commands, in the ER she was deemed not a candidate of tPA because of her Eliquis, her great granddaughter is available at the bedside who has acquired guardianship of Ms. Stockton, she does not want IV artificial nutrition or feeding tube leaning towards hospice/comfort care if she worsens overnight she is calling with the family to make final decision now she is asking us to make her DNR/DNI. Patient has CLL, significant leukocytosis, fever 103.5 rectally cdiff panel was sent she had 1 episode of diarrhea, she has been placed on ice packs, given 50 mg of IV ketorolac, creatinine 1.0 Patient has a pacemaker, family at the bedside, As per the family she was recently put on antibiotics for her left toenail infection, toenail has come off on its own, there is mild purulent discharge noticed Summary Date and Time of Date of : 01/14/23 Time of : 01:28 Summary Summary: Patient was admitted to the hospital with comfort measures in place as per goals of care discussion on admission between the admitting provider and the DPOA. During hospitalization patient remained comfortable. Patient on 01/14 at 1:28 AM in comfortable status with family at bedside. Additional Data Advance directives?: No Discharge Plan Discharge Patient Disposition: Condition: Stable Prescriptions: No Action doxycycline hyclate 100 mg capsule 100 mg PO BID Rx Instructions: FINISHED ON 01/09/23Thursday ferrous sulfate 325 mg (65 mg iron) Tablet 325 mg PO TID@08,15,18 levothyroxine 75 mcg tablet 75 mcg PO QAM allopurinol 300 mg tablet 300 mg PO DAILY@08 hydrochlorothiazide 50 mg tablet 50 mg PO DAILY@08 potassium chloride 10 mEq tablet,ER particles/crystals 10 meq PO DAILY@08 montelukast 10 mg tablet 10 mg PO BEDTIME@18 olanzapine 5 mg tablet 5 mg PO BEDTIME@18 simvastatin 10 mg tablet 10 mg PO BEDTIME@18 omeprazole 40 mg capsule,delayed release(DR/EC) 40 mg PO BID@08,17 metformin 1,000 mg tablet 1,000 mg PO BID@08,17 Eliquis 5 mg tablet 5 mg PO BID@08,18 Eldertonic 3.6 mg-0.75 mg /15 mL liquid 30 ml PO BID@08,18 metoprolol tartrate 100 mg tablet 100 mg PO BID Lantus U-100 Insulin 100 unit/mL solution 20 unit SUBCUT BEDTIME@18 amlodipine 5 mg tablet 5 mg PO DAILY@08 Angélica Paste See Rx Instructions .ROUTE .COMPLEX Rx Instructions: APPLY TO GOUT FLARED AREAS NEEDED Referrals: [facility] [Outside] [facility] [Outside] Nehemiah Abraham DO [Physician] - Patient Instructions: Opioid Safety Probable Cause of Probable cause of : Occipital cerebral infarction DS Attestations Time Spent in /Discharge Care*: less than 30 min Quality - AMI: AMI present?: No Quality - Stroke: CVA present?: Yes Quality - VTE: VTE present?: No Coding Level of Care Code 52829 Diagnoses Occipital stroke I63.9 Anticoagulated by anticoagulation treatment Z79.01 Counseling regarding advance care planning and goals of care Z71.89 DNR (do not resuscitate) discussion Z71.89 Dementia F03.90 Decubitus ulcer, heel L89.609 Unstageable pressure ulcer of left heel L89.620 Acute alteration in mental status R41.82 Onycholysis of toenail L60.1 Peripheral neuropathy G62.9 Chronic lymphocytic leukemia of B-cell type not having achieved remission C91.10 Sleep apnea G47.33 Sleep apnea type: obstructive Atrial fibrillation I48.21 Atrial fibrillation type: permanent Sepsis A41.9
== END 2023-01-14 03:30 | disposition expired | DRG 65 ==
LOC: ER 20:11 → MEDSURG 20:49
PROVIDERS: Admitting Provider Internal Medicine; Emergency Provider Emergency Medicine; PCP Internal Medicine; Visit Provider Student in an Organized Health Care Education/Training Program
DX: I63.9 Cerebral infarction, unspecified (principal); C91.10 Chronic lymphocytic leukemia of B-cell type not having achieved remission; I13.0 Hypertensive heart and chronic kidney disease with heart failure and stage 1 through stage 4 chronic kidney disease, or unspecified chronic kidney disease; I48.21 Permanent atrial fibrillation; Z66 Do not resuscitate; F03.90 Unspecified dementia, unspecified severity, without behavioral disturbance, psychotic disturbance, mood disturbance, and anxiety; E11.22 Type 2 diabetes mellitus with diabetic chronic kidney disease; N18.2 Chronic kidney disease, stage 2 (mild); E78.5 Hyperlipidemia, unspecified; E03.9 Hypothyroidism, unspecified; Z79.84 Long term (current) use of oral hypoglycemic drugs; Z79.01 Long term (current) use of anticoagulants; B35.1 Tinea unguium; G47.33 Obstructive sleep apnea (adult) (pediatric); Z95.0 Presence of cardiac pacemaker; I25.10 Atherosclerotic heart disease of native coronary artery without angina pectoris; E11.51 Type 2 diabetes mellitus with diabetic peripheral angiopathy without gangrene; L89.620 Pressure ulcer of left heel, unstageable; Z51.5 Encounter for palliative care; L60.1 Onycholysis; Z99.3 Dependence on wheelchair; I49.5 Sick sinus syndrome; R19.7 Diarrhea, unspecified; E11.40 Type 2 diabetes mellitus with diabetic neuropathy, unspecified
CPT/HCPCS: 36415; 36416; 51702; 70450; 80053; 80306; 80307; 81001; 82962; 83605; 85025; 85610; 85730; 87493; 93005; 96361; 96374; 99285; J1885; J2060; J2270; J2543; J3370; J7050